=== PATIENT | female | born 1950 | race Caucasian/White ===

== ENCOUNTER 2016-08-24 12:11 | Emergency (ER) | payer OTHER ==
[2016-08-24 12:23] VITALS: TEMP 98.4; BMI 39.9
[2016-08-24] MEDS ORDERED: ACETAMINOPHEN 325 MG TABLET (FP) PO ONE (13:09)
[2016-08-24] MEDS ORDERED: ACETAMINOPHEN 325 MG TABLET (FP) ONE (13:23)
--- NOTE | 2016-08-24 13:49 | PDOC ---
History of Present Illness - General History Source: Patient Exam Limitations: No Limitations - History of Present Illness Initial Comments: 08/24/16 17:04 The patient is a 66 year old female with a significant past medical history of chronic back pain (normally on percocets), who presents to the ED with worsening back pain. She states the back pain radiates down to both legs bilaterally. She states the pain exacerbates when she stands up. She was told by Dr. Napoles a few years ago that she would require back surgery. Patient denies fever, chills, nausea, vomiting, diarrhea, dysuria, frequency, urinary incontinence. <Milind Steen - Last Filed: 08/24/16 17:04> <Radha Morgan - Last Filed: 08/24/16 18:24> - General Chief Complaint: Pain Stated Complaint: PAIN/ THROAT, LEG, BACK Past History <Milind Steen - Last Filed: 08/24/16 17:04> - Past Medical History Anemia: No Asthma: No Cancer: Yes (OVARIAN) Cardiac Disorders: No CVA: No COPD: No CHF: No DVT: Yes (BOTH LEGS) Dementia: No Diabetes: No GI Disorders: Yes (REFLUX) Disorders: No HTN: Yes Hypercholesterolemia: No Kidney Stones: Yes Liver Disease: No Suicide Attempt (Hx): No Seizures: No Thyroid Disease: No - Surgical History Abdominal Surgery: Yes (UMBILICAL HERNIA) Appendectomy: No Cardiac Surgery: No Cholecystectomy: Yes Lung Surgery: No Neurologic Surgery: No Orthopedic Surgery: No - Immunization History Immunization Up to Date: Yes - Psycho/Social/Smoking Cessation Hx Anxiety: No Suicidal Ideation: No Smoking Status: No Smoking History: Never smoked Have you smoked in the past 12 months: No Number of Cigarettes Smoked Daily: 0 Information on smoking cessation initiated: No Hx Alcohol Use: No Drug/Substance Use Hx: No Substance Use Type: None Hx Substance Use Treatment: No <Radha Morgan - Last Filed: 08/24/16 18:24> - Past Medical History Allergies/Adverse Reactions: Allergies Allergy/AdvReac Type Severity Reaction Status Date / Time No Known Drug Allergies Allergy Verified 08/24/16 12:20 Home Medications: Ambulatory Orders Ibuprofen [Motrin -] 600 mg PO TID PRN #90 tablet MDD 3 08/24/16 Oxycodone HCl/Acetaminophen [Percocet 5-325 mg Tablet] 1 tab PO Q4H PRN #15 tablet NS MDD 6 08/24/16 Review of Systems - Review of Systems Able to Perform ROS?: Yes Comments:: 08/24/16 17:05 GENERAL/CONSTITUTIONAL: No fever or chills. No weakness. HEAD, EYES, EARS, NOSE AND THROAT: No change in vision. No ear pain or discharge. No sore throat. CARDIOVASCULAR: No chest pain or shortness of breath. RESPIRATORY: No cough, wheezing, or hemoptysis. GASTROINTESTINAL: No nausea, vomiting, diarrhea or constipation. GENITOURINARY: No dysuria, frequency, or change in urination. MUSCULOSKELETAL: + back pain. No joint or muscle swelling or pain. No neck pain. SKIN: No rash NEUROLOGIC: No headache, vertigo, loss of consciousness, or change in strength/ sensation. ENDOCRINE: No increased thirst. No abnormal weight change. HEMATOLOGIC/LYMPHATIC: No anemia, easy bleeding, or history of blood clots. ALLERGIC/IMMUNOLOGIC: No hives or skin allergy. <Milind Steen - Last Filed: 08/24/16 17:04> *Physical Exam - Vital Signs Last Vital Signs Temp Pulse Resp BP Pulse Ox 98.4 F 106 H 20 144/52 100 08/24/16 12:21 08/24/16 12:21 08/24/16 12:21 08/24/16 12:21 08/24/16 12:21 - Physical Exam Comments: 08/24/16 17:05 GENERAL: Awake, alert, and fully oriented, in no acute distress. Obese. HEAD: No signs of trauma EYES: PERRLA, EOMI, sclera anicteric, conjunctiva clear ENT: Auricles normal inspection, hearing grossly normal, nares patent, oropharynx clear without exudates. Moist mucosa NECK: Normal ROM, supple, no lymphadenopathy, JVD, or masses LUNGS: Breath sounds equal, clear to auscultation bilaterally. No wheezes, and no crackles HEART: Regular rate and rhythm, normal S1 and S2, no murmurs, rubs or gallops ABDOMEN: Soft, nontender, normoactive bowel sounds. No guarding, no rebound. No masses BACK: No midline spinal tenderness. bilateral lumbosacral tenderness. EXTREMITIES: [place] bilateral lower extremity edema. Normal range of motion. No clubbing or cyanosis. No cords, erythema, or tenderness NEUROLOGICAL: Normal speech, normal gait. Mild decreased sensation to touch in the right leg (old) 5/5 lower extremity strength. SKIN: Warm, Dry, normal turgor, no rashes or lesions noted. <Milind Steen - Last Filed: 08/24/16 17:04> - Vital Signs Last Vital Signs Temp Pulse Resp BP Pulse Ox 98.4 F 106 H 20 144/52 100 08/24/16 12:21 08/24/16 12:21 08/24/16 12:21 08/24/16 12:21 08/24/16 12:21 <Radha Morgan - Last Filed: 08/24/16 18:24> ED Treatment Course - Medications Given in the ED: ED Medications Discontinued Medications Generic Name Dose Route Start Last Admin Trade Name Freq PRN Reason Stop Dose Admin Acetaminophen 650 mg 08/24/16 13:09 08/24/16 13:24 Tylenol - PO 08/24/16 13:10 650 mg ONCE ONE Administration Oxycodone HCl 5 mg 08/24/16 16:29 08/24/16 16:44 Roxicodone - PO 08/24/16 16:30 5 mg ONCE ONE Administration <Milind Steen - Last Filed: 08/24/16 17:04> - RADIOLOGY Radiology Studies Ordered: Category Date Time Status HIP & PELVIS-RIGHT [RAD] Stat Radiology 08/24/16 13:07 Ordered HIP-LEFT [RAD] Stat Radiology 08/24/16 13:07 Ordered KNEE 3 POS-RIGHT [RAD] Stat Radiology 08/24/16 13:07 Ordered DUPLEX VASCUL US-2LEGS [US] Stat Ultrasound 08/24/16 13:07 Ordered - Medications Given in the ED: ED Medications Discontinued Medications Generic Name Dose Route Start Last Admin Trade Name Freq PRN Reason Stop Dose Admin Acetaminophen 650 mg 08/24/16 13:09 08/24/16 13:24 Tylenol - PO 08/24/16 13:10 650 mg ONCE ONE Administration <Radha Morgan - Last Filed: 08/24/16 18:24> Medical Decision Making - Medical Decision Making 08/24/16 13:46 66 yo F here with c/o bilat hip pain, and leg pain . worse on right. . pt states has essentially been bed bound for 2 weeks only gets out of bed with assistance. no trauma. has had bilat leg swelling. no fever. chills. no injury. no h/o dvt or pe. no cough. does have voice hoarseness. differential: hip oa, fractures. cellultiis, dvt. plan us legs, xray pelvis hips. <Radha Morgan - Last Filed: 08/24/16 18:24> *DC/Admit/Observation/Transfer - Attestations Scribe Attestion: 08/24/16 17:09 Documentation prepared by Milind Steen, acting as medical director for Radha Morgan MD, MD. <Milind Steen - Last Filed: 08/24/16 17:04> - Discharge Dispostion Admit: No <Radha Morgan - Last Filed: 08/24/16 18:24> Diagnosis at time of Disposition: Hip pain - Discharge Dispostion Disposition: HOME - Prescriptions Prescriptions: Ibuprofen [Motrin -] 600 mg PO TID PRN #90 tablet MDD 3 PRN Reason: Pain Oxycodone HCl/Acetaminophen [Percocet 5-325 mg Tablet] 1 tab PO Q4H PRN #15 tablet NS MDD 6 PRN Reason: Pain - Referrals Referrals: Ronaldo Marley [Primary Care Provider] - - Patient Instructions Printed Discharge Instructions: Back Pain (Alternative Therapy), DI for Back Strain or Sprain Additional Instructions: follow up with Dr. Marley, call to schedule. take motrin 600 mg every 8 hours as needed for pain. take percocet one every 4 hours as needed for pain. return for any problems or concerns. you can folow up with orthopedics group dr. Pablo or Dr. Watson. see referral, or obtain referral from your primary doctor.
[2016-08-24] MEDS ORDERED: oxyCODONE HCL 5 MG TABLET PO ONE (16:29)
[2016-08-24] MEDS ORDERED: oxyCODONE HCL 5 MG TABLET ONE (16:39)
[2016-08-24] MEDS ORDERED: KETOROLAC TROMETHAMINE 30 MG/1 ML VIAL IM ONE (17:00)
[2016-08-24] MEDS ORDERED: KETOROLAC TROMETHAMINE 30 MG/1 ML VIAL ONE (17:03)
[2016-08-24 18:59] VITALS: BP 136/70; PULSE 89
[2016-08-24 19:20] LABS: URINE APPEARANCE CLEAR; URINE BILIRUBIN NEGATIVE (NEGATIVE); URINE BLOOD NEGATIVE (NEGATIVE); URINE COLOR YELLOW; URINE GLUCOSE (UA) NEGATIVE (NEGATIVE); URINE KETONE NEGATIVE (NEGATIVE); URINE NITRITE NEGATIVE (NEGATIVE); URINE UROBILINOGEN NEGATIVE E.U./dl (0.2-1.0)
[2016-08-24 19:21] LABS: URINE LEUK ESTERASE TRACE (NEGATIVE); URINE PROTEIN 2+ (NEGATIVE)
[2016-08-24 19:23] LABS: URINE BACTERIA RARE /hpf (NONE SEEN); URINE HYALINE CAST 1 /lpf; URINE MUCUS RARE; URINE RBC 1 /hpf (0-3); URINE WBC 12 /hpf (3-5)
== END 2016-08-24 19:07 | disposition home or self-care (01) ==
LOC: JER 12:11
PROC: 3E0233Z Introduction of Anti-inflammatory into Muscle, Percutaneous Approach (ICD-10-PCS; principal; 2016-08-24)
DX: M25.551 Pain in right hip (principal); M25.552 Pain in left hip; I10 Essential (primary) hypertension; Z86.718 Personal history of other venous thrombosis and embolism; Z85.43 Personal history of malignant neoplasm of ovary
CPT/HCPCS: 73502-TC-LT; 73523-TC; 73560-TC-RT; 81003; 81015; 87086; 93970-TC; 99283-25

== ENCOUNTER 2018-03-21 16:40 | Inpatient (IN) | payer OTHER, MEDICARE ==
--- NOTE | 2018-03-21 17:11 | PDOC ---
History of Present Illness - General Chief Complaint: Rectal Bleed Stated Complaint: BLOOD IN STOOL, BODYACHES Time Seen by Provider: 03/21/18 17:11 - History of Present Illness Initial Comments: 03/21/18 17:12 Ms. Welch is a 67 yo female w/ pmh of DM, HTN, HLD, GERD, Gastritis, PCOS, UC , uterine CA s/p hysterectomy who presents for evaluation of multiple complaints. Patient reports she has had 1 month of headache as well as 1 week of nausea, vomiting, and diarrhea. Ms. Welch reports minimal blood mixed in with both her vomiting and diarrhea. She also endorses worsening dyspnea on exertion and endorses having to sleep upright on pillows so she is not gasping for air. Ms. Welch also endorses intermittent fever/chills. The patient denies chest pain and dizziness. Denies constipation. Denies dysuria , frequency, urgency and hematuria. Past History - Past Medical History Allergies/Adverse Reactions: Allergies Allergy/AdvReac Type Severity Reaction Status Date / Time No Known Drug Allergies Allergy Verified 03/21/18 17:03 Home Medications: Ambulatory Orders Ibuprofen [Motrin -] 600 mg PO TID PRN #90 tablet MDD 3 08/24/16 Oxycodone HCl/Acetaminophen [Percocet 5-325 mg Tablet] 1 tab PO Q4H PRN #15 tablet NS MDD 6 08/24/16 Amlodipine Besylate 10 mg PO DAILY 03/21/18 Carvedilol 25 mg PO DAILY 03/21/18 Escitalopram Oxalate [Lexapro -] 10 mg PO DAILY 03/21/18 Lisinopril 5 mg PO DAILY 03/21/18 Rosuvastatin Calcium 10 mg PO DAILY 03/21/18 Anemia: No Asthma: No Cancer: Yes (OVARIAN) Cardiac Disorders: No CVA: No COPD: No CHF: No DVT: Yes (BOTH LEGS) Dementia: No Diabetes: No GI Disorders: Yes (REFLUX) Disorders: No HTN: Yes Hypercholesterolemia: No Kidney Stones: Yes Liver Disease: No Seizures: No Thyroid Disease: No - Surgical History Abdominal Surgery: Yes (UMBILICAL HERNIA) Appendectomy: No Cardiac Surgery: No Cholecystectomy: Yes Lung Surgery: No Neurologic Surgery: No Orthopedic Surgery: No - Immunization History Immunization Up to Date: Yes - Suicide/Smoking/Psychosocial Hx Smoking Status: No Smoking History: Never smoked Have you smoked in the past 12 months: No Number of Cigarettes Smoked Daily: 0 Hx Alcohol Use: No Drug/Substance Use Hx: No Substance Use Type: None Hx Substance Use Treatment: No Review of Systems - Review of Systems Comments:: 03/21/18 17:44 GENERAL/CONSTITUTIONAL: +Nonspecific fever/chills over the past week. No weakness. HEAD, EYES, EARS, NOSE AND THROAT: No change in vision. No ear pain or discharge. No sore throat. CARDIOVASCULAR: +Dyspnea on exertion as described. No chest pain RESPIRATORY: No cough, wheezing, or hemoptysis. GASTROINTESTINAL: +N/V/D as described GENITOURINARY: No dysuria, frequency, or change in urination. MUSCULOSKELETAL: No joint or muscle swelling or pain. No neck or back pain. SKIN: No rash NEUROLOGIC: +Chronic headache. No vertigo, loss of consciousness, or change in strength/sensation. ENDOCRINE: No increased thirst. No abnormal weight change HEMATOLOGIC/LYMPHATIC: No anemia, easy bleeding, or history of blood clots. ALLERGIC/IMMUNOLOGIC: No hives or skin allergy. *Physical Exam - Vital Signs Last Vital Signs Temp Pulse Resp BP Pulse Ox 98.2 F 98 H 16 138/83 95 03/21/18 17:03 03/21/18 17:03 03/21/18 17:03 03/21/18 17:03 03/21/18 17:03 - Physical Exam Comments: 03/21/18 17:46 GENERAL: +Patient morbidly obese. Awake, alert, and fully oriented, in no acute distress HEAD: No signs of trauma, normocephalic, atraumatic EYES: PERRLA, EOMI, sclera anicteric, conjunctiva clear ENT: Auricles normal inspection, hearing grossly normal, nares patent, oropharynx clear without exudates. Moist mucosa NECK: Normal ROM, supple, no lymphadenopathy, JVD, or masses LUNGS: No distress, speaks full sentences, clear to auscultation bilaterally HEART: Regular rate and rhythm, normal S1 and S2, no murmurs, rubs or gallops, peripheral pulses normal and equal bilaterally. ABDOMEN: +Diffusely TTP. Soft, normoactive bowel sounds. No guarding, no rebound. No masses EXTREMITIES: +1+ Pedal edema noted [place]. Chronic darkening of skin / scaling noted to mid calf bilaterally as well. Normal range of motion. No clubbing or cyanosis. NEUROLOGICAL: Cranial nerves II through XII grossly intact. Normal speech, normal gait, no focal sensorimotor deficits SKIN: Warm, Dry, normal turgor, no rashes or lesions noted. Moderate Sedation - Procedure Monitoring Vital Signs: Procedure Monitoring Vital Signs Temperature 98.2 F 03/21/18 17:03 Pulse Rate 98 H 03/21/18 17:03 Respiratory Rate 16 03/21/18 17:03 Blood Pressure 138/83 03/21/18 17:03 O2 Sat by Pulse Oximetry (%) 95 03/21/18 17:03 ED Treatment Course - LABORATORY CBC & Chemistry Diagram: 03/21/18 17:46 03/21/18 17:46 Medical Decision Making - Medical Decision Making 03/21/18 18:20 Ms. Welch is a 67 yo female w/ pmh as described who presents for evaluation of myriad complaints concerning for fluid overload vs. GI bleed vs. infectious process. Workup started accordingly - patient will likely come in to hospital for further evaluation. Patient noted to have positive blood in stool on exam. 03/21/18 18:[address] abdomen/pelvis. Labs as below significant for elevated WBC and elevated leukoctye esterase. Patient signed out to Dr. Hairston for further evaluation. Laboratory Results - last 24 hr 03/21/18 03/21/18 03/21/18 17:18 17:46 17:46 WBC 15.2 H RBC 4.42 Hgb 11.5 Hct 35.0 MCV 79.4 L MCH 26.0 MCHC 32.8 RDW 18.5 H Plt Count 290 MPV 8.5 D Absolute Neuts (auto) 12.1 H Neutrophils % 79.2 Lymphocytes % 12.2 D Monocytes % 7.5 Eosinophils % 0.3 Basophils % 0.8 Nucleated RBC % 0 Sodium 140 Potassium 4.3 Chloride 105 Carbon Dioxide 26 Anion Gap 9 BUN 16 Creatinine 1.7 H Creat Clearance w eGFR 30.16 Random Glucose 109 H Lactic Acid Calcium 8.8 Total Bilirubin 0.1 L AST 23 ALT 16 Alkaline Phosphatase 178 H B-Natriuretic Peptide Total Protein 6.1 L Albumin 2.6 L Urine Color Urine Appearance Urine pH Ur Specific [place] Urine Protein Urine Glucose (UA) Urine Ketones Urine Blood Urine Nitrite Urine Bilirubin Urine Urobilinogen Ur Leukocyte Esterase Stool Occult Blood Positive 12/15/18 12/15/18 12/15/18 17:46 17:46 17:46 WBC RBC Hgb Hct MCV MCH MCHC RDW Plt Count MPV Absolute Neuts (auto) Neutrophils % Lymphocytes % Monocytes % Eosinophils % Basophils % Nucleated RBC % Sodium Potassium Chloride Carbon Dioxide Anion Gap BUN Creatinine Creat Clearance w eGFR Random Glucose Lactic Acid 1.0 Calcium Total Bilirubin AST ALT Alkaline Phosphatase B-Natriuretic Peptide 140.9 H Total Protein Albumin Urine Color Ltyellow Urine Appearance Slcloudy Urine pH 5.0 Ur Specific [place] 1.015 Urine Protein 2+ H Urine Glucose (UA) Negative Urine Ketones Negative Urine Blood Negative Urine Nitrite Negative Urine Bilirubin Negative Urine Urobilinogen Negative Ur Leukocyte Esterase 3+ H D Stool Occult Blood *DC/Admit/Observation/Transfer Diagnosis at time of Disposition: Rectal pain Abdominal pain Qualifiers: Abdominal location: unspecified location Qualified Code(s): R10.9 - Unspecified abdominal pain - Referrals - Patient Instructions - Post Discharge Activity
--- NOTE | 2018-03-21 17:36 | PDOC ---
Attending Attestation - HPI HPI: 03/21/18 17:49 The patient is a 67 year old female, with a significant PMH of DM, HTN, HLD, GERD, Gastritis, PCOS, UC, uterine CA s/p hysterectomy, who presents to the emergency department with 1 month of headaches and 1 week of nausea, vomiting and diarrhea. The patient states she has had minimal blood present in her vomit and diarrhea. The patient also had an additional complaint of worsening dyspnea on exertion. The patient also endorses intermittent fevers and chills. The patient denies chest pain, shortness of breath, and dizziness. Denies constipation, dysuria, frequency, urgency and hematuria. Allergies: NKA Documentation prepared by Jeff Bailon, acting as medical lab technician for Francisca Guardado MD. <Jeff Bailon - Last Filed: 03/21/18 17:49> - Resident Resident Name: Carlton Menchaca - ED Attending Attestation I have performed the following: I have examined & evaluated the patient, The case was reviewed & discussed with the resident, I agree w/resident's findings & plan, Exceptions are as noted - Physicial Exam PE: GENERAL: Awake, alert, and fully oriented, in no acute distress. Obese HEAD: No signs of trauma EYES: PERRLA, EOMI, sclera anicteric, conjunctiva clear ENT: Auricles normal inspection, hearing grossly normal, nares patent, oropharynx clear without exudates. Dry mucosa NECK: Normal ROM, supple, no lymphadenopathy, JVD, or masses LUNGS: Breath sounds equal, clear to auscultation bilaterally. No wheezes, and no crackles HEART: Regular rate and rhythm, normal S1 and S2, no murmurs, rubs or gallops ABDOMEN: Soft, protuberant, tender to upper abdomen. Normoactive bowel sounds. + Guarding, no rebound. No masses EXTREMITIES: Normal range of motion, no edema. No clubbing or cyanosis. No cords, erythema, or tenderness NEUROLOGICAL: Cranial nerves II through XII grossly intact. Normal speech, normal gait SKIN: Warm, Dry, normal turgor, no rashes or lesions noted. - Medical Decision Making Pt with history of UC, presenting with abd pain diffusely with tenderness, guaiac positive stools. Will obtain labs and CT. Suspect UC flare. <Francisca Guardado - Last Filed: 03/22/18 07:43>
[2018-03-21] MEDS ORDERED: PANTOPRAZOLE SODIUM 40 MG in SODIUM CHLORIDE 100 ML IVPB ONE (17:37)
[2018-03-21] MEDS ORDERED: ONDANSETRON 4 MG/2 ML VIAL IVPUSH ONE ×2 (17:39→22:17)
[2018-03-21] MEDS ORDERED: morphine CARPU-JECT 4 MG/1 ML DISP.SYRIN IVPUSH ONE ×2 (17:43→20:46)
[2018-03-21] MEDS ORDERED: SODIUM CHLORIDE 1,000 ML IV STA (17:43)
[2018-03-21] MEDS ORDERED: ONDANSETRON 4 MG/2 ML VIAL ONE ×2 (18:09→22:34)
[2018-03-21] MEDS ORDERED: PANTOPRAZOLE SODIUM 40 MG/100 ML BAG IVPB ONE (18:09)
[2018-03-21] MEDS ORDERED: morphine SULFATE 4 MG/ML VIAL ONE ×2 (18:09→20:52)
[2018-03-21 18:11] LABS: BASO % 0.8 % (0-2.0); EOS % 0.3 % (0-4.5); HEMOGLOBIN 11.5 GM/dL (10.7-15.3); LYMPH % 12.2 % (8-40); MCHC 32.8 g/dl (32.0-36.0); MEAN CELL VOLUME 79.4 fl (80-96); MEAN PLT VOLUME 8.5 fl (7.5-11.1); MONO % 7.5 % (3.8-10.2); NEUT % 79.2 % (42.8-82.8); PLATELET COUNT 290 K/MM3 (134-434); RBC 4.42 M/mm3 (3.60-5.2); RDW 18.5 % (11.6-15.6); WHITE BLOOD COUNT 15.2 K/mm3 (4.0-10.0)
[2018-03-21 18:39] LABS: ALBUMIN 2.6 g/dl (3.4-5.0); ALK PHOS 178 U/L (45-117); ANION GAP 9 MMOL/L (8-16); BILIRUBIN,TOTAL 0.1 mg/dL (0.2-1); BLOOD UREA NITROGEN 16 mg/dL (7-18); CALCIUM 8.8 mg/dL (8.5-10.1); CHLORIDE 105 mmol/L (98-107); CO2 26 mmol/L (21-32); CREATININE 1.7 mg/dL (0.55-1.3); GLUCOSE,RANDOM 109 mg/dL (74-106); POTASSIUM 4.3 mmol/L (3.5-5.1); SGOT/AST 23 U/L (15-37); SGPT/ALT 16 U/L (13-61); SODIUM 140 mmol/L (136-145); TOT PROT 6.1 g/dl (6.4-8.2)
[2018-03-21] MEDS ORDERED: ACETAMINOPHEN 1000 MG/100 ML VIAL (NON FORMULARY) IVPB ONE (20:46)
[2018-03-21] MEDS ORDERED: LIDOCAINE 5% TOPICAL PATCH TP ONE (20:46)
[2018-03-21] MEDS ORDERED: ACETAMINOPHEN INJECTION 100 ML IVPB ONE (20:52)
[2018-03-21] MEDS ORDERED: LIDOCAINE 5% TOPICAL PATCH ONE (20:53)
--- NOTE | 2018-03-21 21:52 | PDOC ---
*Physical Exam - Vital Signs Last Vital Signs Temp Pulse Resp BP Pulse Ox 98.2 F 94 H 22 H 133/81 94 L 03/21/18 17:03 03/21/18 20:03 03/21/18 20:03 03/21/18 20:03 03/21/18 20:03 ED Treatment Course - LABORATORY CBC & Chemistry Diagram: 03/21/18 17:46 03/21/18 17:46 - ADDITIONAL ORDERS Additional order review: Laboratory Results 03/21/18 03/21/18 03/21/18 17:46 17:46 17:46 Sodium Potassium Chloride Carbon Dioxide Anion Gap BUN Creatinine Creat Clearance w eGFR Random Glucose Lactic Acid 1.0 Calcium Total Bilirubin AST ALT Alkaline Phosphatase B-Natriuretic Peptide Total Protein Albumin Lipase 72 L Urine Color Cancelled Urine Appearance Cancelled Urine pH Cancelled Ur Specific [place] Cancelled Urine Protein Cancelled Urine Glucose (UA) Cancelled Urine Ketones Cancelled Urine Blood Cancelled Urine Nitrite Cancelled Urine Bilirubin Cancelled Urine Urobilinogen Cancelled Ur Leukocyte Esterase Cancelled Urine WBC (Auto) Cancelled Urine RBC (Auto) Cancelled Ur Epithelial Cells Cancelled Urine Crystals Cancelled Calcium Oxalate Crystal Cancelled Uric Acid Crystals Cancelled Triple Phos Crystals Cancelled Amorphous Phosphates Cancelled Amorphous Urates Cancelled Amorphous Sediment Cancelled Urine Bacteria Cancelled Urine Casts Cancelled Hyaline Casts Cancelled Granular Casts Cancelled Waxy Casts Cancelled RBC Casts Cancelled WBC Casts Cancelled Urine Mucus Cancelled Urine Other Cancelled Urine Trichomonas Cancelled Urine Yeast Cancelled Stool Occult Blood Blood Type Antibody Screen 03/21/18 03/21/18 03/21/18 17:46 17:46 17:46 Sodium 140 Potassium 4.3 Chloride 105 Carbon Dioxide 26 Anion Gap 9 BUN 16 Creatinine 1.7 H Creat Clearance w eGFR 30.16 Random Glucose 109 H Lactic Acid Calcium 8.8 Total Bilirubin 0.1 L AST 23 ALT 16 Alkaline Phosphatase 178 H B-Natriuretic Peptide 140.9 H Total Protein 6.1 L Albumin 2.6 L Lipase Urine Color Urine Appearance Urine pH Ur Specific [place] Urine Protein Urine Glucose (UA) Urine Ketones Urine Blood Urine Nitrite Urine Bilirubin Urine Urobilinogen Ur Leukocyte Esterase Urine WBC (Auto) Urine RBC (Auto) Ur Epithelial Cells Urine Crystals Calcium Oxalate Crystal Uric Acid Crystals Triple Phos Crystals Amorphous Phosphates Amorphous Urates Amorphous Sediment Urine Bacteria Urine Casts Hyaline Casts Granular Casts Waxy Casts RBC Casts WBC Casts Urine Mucus Urine Other Urine Trichomonas Urine Yeast Stool Occult Blood Blood Type A POSITIVE Antibody Screen Negative 03/21/18 17:18 Sodium Potassium Chloride Carbon Dioxide Anion Gap BUN Creatinine Creat Clearance w eGFR Random Glucose Lactic Acid Calcium Total Bilirubin AST ALT Alkaline Phosphatase B-Natriuretic Peptide Total Protein Albumin Lipase Urine Color Urine Appearance Urine pH Ur Specific [place] Urine Protein Urine Glucose (UA) Urine Ketones Urine Blood Urine Nitrite Urine Bilirubin Urine Urobilinogen Ur Leukocyte Esterase Urine WBC (Auto) Urine RBC (Auto) Ur Epithelial Cells Urine Crystals Calcium Oxalate Crystal Uric Acid Crystals Triple Phos Crystals Amorphous Phosphates Amorphous Urates Amorphous Sediment Urine Bacteria Urine Casts Hyaline Casts Granular Casts Waxy Casts RBC Casts WBC Casts Urine Mucus Urine Other Urine Trichomonas Urine Yeast Stool Occult Blood Positive Blood Type Antibody Screen 03/21/18 17:46 RBC 4.42 MCV 79.4 L MCHC 32.8 RDW 18.5 H MPV 8.5 D Neutrophils % 79.2 Lymphocytes % 12.2 D Monocytes % 7.5 Eosinophils % 0.3 Basophils % 0.8 - RADIOLOGY Radiology Studies Ordered: Category Date Time Status ABDOMEN & PELVIS CT W/O CONTR [CT] Stat CT Scan 03/21/18 19:05 Taken - Medications Given in the ED: ED Medications Discontinued Medications Generic Name Dose Route Start Last Admin Trade Name Ashley PRN Reason Stop Dose Admin Acetaminophen 1,000 mg 03/21/18 20:46 03/21/18 21:04 Ofirmev Injection - IVPB 03/21/18 20:47 1,000 mg ONCE ONE Administration Pantoprazole Sodium 40 mg/ 100 mls @ 200 mls/hr 03/21/18 17:37 03/21/18 18:20 Sodium Chloride IVPB 03/21/18 18:06 200 mls/hr ONCE ONE Administration Sodium Chloride 1,000 mls @ 1,000 mls/hr 03/21/18 17:43 03/21/18 18:20 Normal Saline - IV 03/21/18 18:42 1,000 mls/hr ASDIR STA Administration Metronidazole 500 mg in 100 mls @ 100 mls/hr 03/21/18 19:28 03/21/18 19:41 Flagyl 500mg Premixed Ivpb - IVPB 03/21/18 20:27 100 mls/hr ONCE ONE Administration Lidocaine 1 patch 03/21/18 20:46 03/21/18 21:03 Lidoderm Patch - TP 03/21/18 20:47 1 patch ONCE ONE Administration Morphine Sulfate 4 mg 03/21/18 17:43 03/21/18 18:25 Morphine Injection - IVPUSH 03/21/18 17:44 4 mg ONCE ONE Administration Morphine Sulfate 4 mg 03/21/18 20:46 03/21/18 21:04 Morphine Injection - IVPUSH 03/21/18 20:47 4 mg ONCE ONE Administration Ondansetron HCl 4 mg 03/21/18 17:39 03/21/18 18:20 Zofran Injection IVPUSH 03/21/18 17:40 4 mg ONCE ONE Administration Medical Decision Making - Medical Decision Making I have assumed care of the patient from Dr. Menchaca, who has discussed the clinical presentation, work-up, and ED course thus far. I have reviewed the patients medical record and ED course and agree with all aspects of care thus far. Leukocytosis to 15.2 No anemia Lactate [address] w/ diffuse colon wall edema from proximal descending colon to mid sigmoid colon which is consistent with colitis Plan for admission for GI bleed w/ concurrent colitis 03/21/18 21:46 UA cancelled after being resulted, will re-order Dispo: Admit 03/21/18 22:49 *DC/Admit/Observation/Transfer Diagnosis at time of Disposition: Rectal pain, Colitis Abdominal pain Qualifiers: Abdominal location: unspecified location Qualified Code(s): R10.9 - Unspecified abdominal pain GI bleed Qualifiers: GI bleed type/associated pathology: unspecified gastrointestinal hemorrhage type Qualified Code(s): K92.2 - Gastrointestinal hemorrhage, unspecified - Discharge Dispostion Condition at time of disposition: Good Decision to Admit order: Yes - Referrals - Patient Instructions - Post Discharge Activity
[2018-03-21] MEDS ORDERED: LIDOCAINE PATCH REMOVAL MC SCH (22:00)
--- NOTE | 2018-03-21 22:52 | PDOC ---
*Physical Exam - Vital Signs Last Vital Signs Temp Pulse Resp BP Pulse Ox 98.2 F 94 H 22 H 133/81 94 L 03/21/18 17:03 03/21/18 20:03 03/21/18 20:03 03/21/18 20:03 03/21/18 20:03 ED Treatment Course - LABORATORY CBC & Chemistry Diagram: 03/21/18 17:46 03/21/18 17:46 - ADDITIONAL ORDERS Additional order review: Laboratory Results 03/21/18 03/21/18 03/21/18 17:46 17:46 17:46 Sodium Potassium Chloride Carbon Dioxide Anion Gap BUN Creatinine Creat Clearance w eGFR Random Glucose Lactic Acid 1.0 Calcium Total Bilirubin AST ALT Alkaline Phosphatase B-Natriuretic Peptide Total Protein Albumin Lipase 72 L Urine Color Cancelled Urine Appearance Cancelled Urine pH Cancelled Ur Specific Poca Cancelled Urine Protein Cancelled Urine Glucose (UA) Cancelled Urine Ketones Cancelled Urine Blood Cancelled Urine Nitrite Cancelled Urine Bilirubin Cancelled Urine Urobilinogen Cancelled Ur Leukocyte Esterase Cancelled Urine WBC (Auto) Cancelled Urine RBC (Auto) Cancelled Ur Epithelial Cells Cancelled Urine Crystals Cancelled Calcium Oxalate Crystal Cancelled Uric Acid Crystals Cancelled Triple Phos Crystals Cancelled Amorphous Phosphates Cancelled Amorphous Urates Cancelled Amorphous Sediment Cancelled Urine Bacteria Cancelled Urine Casts Cancelled Hyaline Casts Cancelled Granular Casts Cancelled Waxy Casts Cancelled RBC Casts Cancelled WBC Casts Cancelled Urine Mucus Cancelled Urine Other Cancelled Urine Trichomonas Cancelled Urine Yeast Cancelled Stool Occult Blood Blood Type Antibody Screen 03/21/18 03/21/18 03/21/18 17:46 17:46 17:46 Sodium 140 Potassium 4.3 Chloride 105 Carbon Dioxide 26 Anion Gap 9 BUN 16 Creatinine 1.7 H Creat Clearance w eGFR 30.16 Random Glucose 109 H Lactic Acid Calcium 8.8 Total Bilirubin 0.1 L AST 23 ALT 16 Alkaline Phosphatase 178 H B-Natriuretic Peptide 140.9 H Total Protein 6.1 L Albumin 2.6 L Lipase Urine Color Urine Appearance Urine pH Ur Specific Poca Urine Protein Urine Glucose (UA) Urine Ketones Urine Blood Urine Nitrite Urine Bilirubin Urine Urobilinogen Ur Leukocyte Esterase Urine WBC (Auto) Urine RBC (Auto) Ur Epithelial Cells Urine Crystals Calcium Oxalate Crystal Uric Acid Crystals Triple Phos Crystals Amorphous Phosphates Amorphous Urates Amorphous Sediment Urine Bacteria Urine Casts Hyaline Casts Granular Casts Waxy Casts RBC Casts WBC Casts Urine Mucus Urine Other Urine Trichomonas Urine Yeast Stool Occult Blood Blood Type A POSITIVE Antibody Screen Negative 03/21/18 17:18 Sodium Potassium Chloride Carbon Dioxide Anion Gap BUN Creatinine Creat Clearance w eGFR Random Glucose Lactic Acid Calcium Total Bilirubin AST ALT Alkaline Phosphatase B-Natriuretic Peptide Total Protein Albumin Lipase Urine Color Urine Appearance Urine pH Ur Specific Poca Urine Protein Urine Glucose (UA) Urine Ketones Urine Blood Urine Nitrite Urine Bilirubin Urine Urobilinogen Ur Leukocyte Esterase Urine WBC (Auto) Urine RBC (Auto) Ur Epithelial Cells Urine Crystals Calcium Oxalate Crystal Uric Acid Crystals Triple Phos Crystals Amorphous Phosphates Amorphous Urates Amorphous Sediment Urine Bacteria Urine Casts Hyaline Casts Granular Casts Waxy Casts RBC Casts WBC Casts Urine Mucus Urine Other Urine Trichomonas Urine Yeast Stool Occult Blood Positive Blood Type Antibody Screen 03/21/18 17:46 RBC 4.42 MCV 79.4 L MCHC 32.8 RDW 18.5 H MPV 8.5 D Neutrophils % 79.2 Lymphocytes % 12.2 D Monocytes % 7.5 Eosinophils % 0.3 Basophils % 0.8 - Medications Given in the ED: ED Medications Discontinued Medications Generic Name Dose Route Start Last Admin Trade Name Freq PRN Reason Stop Dose Admin Acetaminophen 1,000 mg 03/21/18 20:46 03/21/18 21:04 Ofirmev Injection - IVPB 03/21/18 20:47 1,000 mg ONCE ONE Administration Pantoprazole Sodium 40 mg/ 100 mls @ 200 mls/hr 03/21/18 17:37 03/21/18 18:20 Sodium Chloride IVPB 03/21/18 18:06 200 mls/hr ONCE ONE Administration Sodium Chloride 1,000 mls @ 1,000 mls/hr 03/21/18 17:43 03/21/18 18:20 Normal Saline - IV 03/21/18 18:42 1,000 mls/hr ASDIR STA Administration Levofloxacin 500 mg in 100 mls @ 100 mls/hr 03/21/18 19:27 03/21/18 21:56 Levaquin 500 Mg Premixed Ivpb - IVPB 03/21/18 20:26 100 mls/hr ONCE ONE Administration Protocol Metronidazole 500 mg in 100 mls @ 100 mls/hr 03/21/18 19:28 03/21/18 19:41 Flagyl 500mg Premixed Ivpb - IVPB 03/21/18 20:27 100 mls/hr ONCE ONE Administration Lidocaine 1 patch 03/21/18 20:46 03/21/18 21:03 Lidoderm Patch - TP 03/21/18 20:47 1 patch ONCE ONE Administration Morphine Sulfate 4 mg 03/21/18 17:43 03/21/18 18:25 Morphine Injection - IVPUSH 03/21/18 17:44 4 mg ONCE ONE Administration Morphine Sulfate 4 mg 03/21/18 20:46 03/21/18 21:04 Morphine Injection - IVPUSH 03/21/18 20:47 4 mg ONCE ONE Administration Ondansetron HCl 4 mg 03/21/18 17:39 03/21/18 18:20 Zofran Injection IVPUSH 03/21/18 17:40 4 mg ONCE ONE Administration Ondansetron HCl 4 mg 03/21/18 22:17 03/21/18 22:39 Zofran Injection IVPUSH 03/21/18 22:18 4 mg ONCE ONE Administration Medical Decision Making - Medical Decision Making 03/21/18 22:51 Patient Name: MARINA DAILEY THIS IS A PRELIMINARY REPORT FROM [facility] EXAM: CT abdomen and pelvis without contrast IMAGES:[id number] DATE OF EXAM: 2018-03-21 20:07:13 REASON FOR EXAM: Abdominal pain COMPARISON: None Findings: Atelectasis and scarring in lung bases. No pleural effusions. Prior Em fundoplication. Small epigastric ventral hernia containing fat. Cholecystectomy. The liver, pancreas, and spleen are grossly unremarkable. Mild edema around the adrenal glands. Bilateral renal cortical scarring and polycystic kidneys with indeterminate hypodense and hyperdense renal cysts. Small bilateral intrarenal calcifications. No ureteral calculi or hydronephrosis. No AAA. *Diffuse colon wall edema from the proximal descending colon to the mid sigmoid colon, compatible with colitis. No evidence for diverticulitis, appendicitis, small bowel obstruction, free pelvic fluid, or free air. Hysterectomy. Vertebral hemangioma at L3, usually of no clinical significance. Cystic changes in right femoral head. 03/21/18 22:51 Pt will be admitted for colitis; abx given in the ER: Levaquin and flagyl *DC/Admit/Observation/Transfer Diagnosis at time of Disposition: Rectal pain Abdominal pain Qualifiers: Abdominal location: unspecified location Qualified Code(s): R10.9 - Unspecified abdominal pain - Referrals - Patient Instructions - Post Discharge Activity
[2018-03-21] MEDS ORDERED: SODIUM CHLORIDE 1,000 ML IV SCH (23:30)
--- NOTE | 2018-03-21 23:51 | HP ---
CHIEF COMPLAINT: headache, nausea, vomiting, diarrhea PCP: HISTORY OF PRESENT ILLNESS: Patient is a 67 y/o female with a history of DM, HTN, GERD, polycystic kidney disease, uterine CA s/p hysterectomy, and asthma who presents for headaches, nausea, vomiting, and diarrhea. Patient reports she has been having hte headache , nause, and vomiting for the last few weeks. For chronic pain she takes percocet and she has also been taking extra strength tylenol, and reports no relief. She states she has been vomiting around three times a week and has noted blood in some of the episodes. The amount of blood has ranged from a small cup to a teaspoon. For the last four days patient has been having diarrhea and states she has seen blood. Patient reports she has a colonoscopy in the past and a "cyst" was removed. She was told she needed to follow up for more removal but never went back. Patient reports she has a lot of chronic pain which makes it difficult for her to do things. Patient also complains of a lower extremity change in skin color that no one has ever been able to explain for her. Patient reports she has also been feeling feverish with chills, and has a difficult time taking a deep breath because of her abdominal pain. She denies chest pain. ER course was notable for: (1) (2) (3) Recent Travel: PAST MEDICAL HISTORY: DM, HTN, GERD, polycystic kidney disease, uterine CA s/p hysterectomy, and asthma PAST SURGICAL HISTORY: hysterectomy (89), cholecystectomy Social History: Smoking: never Alcohol: denies Drugs: Family History: Allergies No Known Drug Allergies Allergy (Verified 03/21/18 17:03) HOME MEDICATIONS: Home Medications Medication Instructions Recorded Ibuprofen [Motrin -] 600 mg PO TID PRN #90 tablet MDD 3 08/24/16 Oxycodone HCl/Acetaminophen 1 tab PO Q4H PRN #15 tablet NS MDD 08/24/16 [Percocet 5-325 mg Tablet] 6 Amlodipine Besylate 10 mg PO DAILY 03/21/18 Carvedilol 25 mg PO DAILY 03/21/18 Escitalopram Oxalate [Lexapro -] 10 mg PO DAILY 03/21/18 Lisinopril 5 mg PO DAILY 03/21/18 Rosuvastatin Calcium 10 mg PO DAILY 03/21/18 REVIEW OF SYSTEMS CONSTITUTIONAL: fever, chills, Absent: diaphoresis, generalized weakness, malaise, loss of appetite, weight change HEENT: Absent: rhinorrhea, nasal congestion, throat pain, throat swelling, difficulty swallowing, mouth swelling, ear pain, eye pain, visual changes CARDIOVASCULAR: Absent: chest pain, syncope, palpitations, irregular heart rate, lightheadedness , peripheral edema RESPIRATORY: shortness of breath Absent: cough, dyspnea with exertion, orthopnea, wheezing, stridor, hemoptysis GASTROINTESTINAL:abdominal pain, nausea, vomiting, diarrhea Absent: , abdominal distension, constipation, melena, hematochezia GENITOURINARY: Absent: dysuria, frequency, urgency, hesitancy, hematuria, flank pain, genital pain MUSCULOSKELETAL: Absent: myalgia, arthralgia, joint swelling, back pain, neck pain SKIN: Absent: rash, itching, pallor HEMATOLOGIC/IMMUNOLOGIC: Absent: easy bleeding, easy bruising, lymphadenopathy, frequent infections ENDOCRINE: Absent: unexplained weight gain, unexplained weight loss, heat intolerance, cold intolerance NEUROLOGIC: Absent: headache, focal weakness or paresthesias, dizziness, unsteady gait, seizure, mental status changes, bladder or bowel incontinence PSYCHIATRIC: Absent: anxiety, depression, suicidal or homicidal ideation, hallucinations. PHYSICAL EXAMINATION Vital Signs - 24 hr 03/21/18 03/21/18 03/21/18 17:03 20:02 20:03 Temperature 98.2 F Pulse Rate 98 H Pulse Rate [ 94 H Radial] Respiratory 16 22 H Rate Blood Pressure 138/83 Blood Pressure 133/81 [Left Arm] O2 Sat by Pulse 95 94 L 94 L Oximetry (%) GENERAL: Awake, alert, and fully oriented, in no acute distress. HEAD: Normal with no signs of trauma. EYES: Pupils equal, round and reactive to light, extraocular movements intact EARS, NOSE, THROAT: Moist mucous membranes. NECK: Normal range of motion, No acanthos nigricans LUNGS: Breath sounds equal, clear to auscultation bilaterally. No wheezes, and no crackles. No accessory muscle use. HEART: Regular rate and rhythm, normal S1 and S2 without murmur, rub or gallop. ABDOMEN:tenderness diffusely, soft. LOWER EXTREMITIES: 2+ pulses, warm, well-perfused. No calf tenderness. 2+ pitting edema NEUROLOGICAL: Cranial nerves II-XII intact. Normal speech. Normal gait. PSYCHIATRIC: Cooperative. Good eye contact. Appropriate mood and affect. SKIN: B/L lower extremity dark flaky extensive color change Laboratory Results - last 24 hr CBCD WBC 15.2 K/mm3 (4.0-10.0) H 03/21/18 17:46 RBC 4.42 M/mm3 (3.60-5.2) 03/21/18 17:46 Hgb 11.5 GM/dL (10.7-15.3) 03/21/18 17:46 Hct 35.0 % (32.4-45.2) 03/21/18 17:46 MCV 79.4 fl (80-96) L 03/21/18 17:46 MCHC 32.8 g/dl (32.0-36.0) 03/21/18 17:46 RDW 18.5 % (11.6-15.6) H 03/21/18 17:46 Plt Count 290 K/MM3 (134-434) 03/21/18 17:46 MPV 8.5 fl (7.5-11.1) D 03/21/18 17:46 CMP Sodium 140 mmol/L (136-145) 03/21/18 17:46 Potassium 4.3 mmol/L (3.5-5.1) 03/21/18 17:46 Chloride 105 mmol/L (98-107) 03/21/18 17:46 Carbon Dioxide 26 mmol/L (21-32) 03/21/18 17:46 Anion Gap 9 MMOL/L (8-16) 03/21/18 17:46 BUN 16 mg/dL (7-18) 03/21/18 17:46 Creatinine 1.7 mg/dL (0.55-1.3) H 03/21/18 17:46 Creat Clearance w eGFR 30.16 (>60) 03/21/18 17:46 Calcium 8.8 mg/dL (8.5-10.1) 03/21/18 17:46 Total Bilirubin 0.1 mg/dL (0.2-1) L 03/21/18 17:46 AST 23 U/L (15-37) 03/21/18 17:46 ALT 16 U/L (13-61) 03/21/18 17:46 Alkaline Phosphatase 178 U/L (45-117) H 12/15/18 17:46 Total Protein 6.1 g/dl (6.4-8.2) L 03/21/18 17:46 Albumin 2.6 g/dl (3.4-5.0) L 03/21/18 17:46 ASSESSMENT/PLAN: Patient is a 67 y/o female with a history of DM, HTN, GERD, polycystic kidney disease, uterine CA s/p hysterectomy, and asthma who presents for headaches, nausea, vomiting, and diarrhea. #nausea,vomiting, diarrhea with blood - 2/2 to colitis vs abnormal colonoscopy vs gastritis - currently hemodynamially stable - stool occult positive - transfuse if Hgb drops below 7 - ABD CT: diffuse colon wall edema from proximal descendig colon o mid sigmoid colon - f/u Dr. Bills - Protonix 40 daily - NPO - f/u CBC, Hgb: 11.5 - pain management tramadol once - continue Metronidazole 500 IV q8h for infectious colitis #DM - BGM, SS - f/u A1C - per patient she takes insulin at home # CKD - 2/2 polycystic kidney disease - Cr: 1.7 - continue fluids #asthma - nebs prn - per patient she has a inhaler at home #HLD - continue rosuvastatin #HTN - continue caredilol, amlodipine, lisinopril #depression - escitalopram FEN - NPO - f/u morning labs Dispo: [facility] closed, f/u med rec in the morning Visit type - Emergency Visit Emergency Visit: Yes ED Registration Date: 03/21/18 Care time: The patient presented to the Emergency Department on the above date and was hospitalized for further evaluation of their emergent condition. - New Patient This patient is new to me today: Yes Date on this admission: 03/22/18 - Critical Care Critical Care patient: No
[2018-03-22] MEDS ORDERED: traMADol HCL 50 MG TABLET PO ONE (00:06)
[2018-03-22] MEDS ORDERED: ALBUTEROL SO4 0.083% IH SOL 2.5 MG/3 ML VIAL.NEB. NEB PRN (00:06)
--- NOTE | 2018-03-22 00:26 | PN ---
Teaching Attending Note Name of Resident: Andressa Livingston ATTENDING PHYSICIAN STATEMENT I saw and evaluated the patient. I reviewed the resident's note and discussed the case with the resident. I agree with the resident's findings and plan as documented. SUBJECTIVE: OBJECTIVE: ASSESSMENT AND PLAN: this is a 67 y/o female with HTN, NIDDM, DL, and chronic pain presented to the hospital with abdominal discomfort associated with bloating and loose stools, patient stated that she has had some dark colored stools and sometimes blood tinged stool, that is why she decided to come to the ER. in the ER the fecal occult was positive, but the patient CT showed colitis plan: admit to med surg for observation - start metronidazole 500mg q8hrs - GI consult - monitor H/H - transfuse if the patient is actively bleeding and a significant drop in H/H c/w management for the DM, HTN, DL, and chronic pain paint was taking oxycodone/acetaminophen and acetaminophen (500mg) i explained that she cannot consume this much amount of acetaminophen due to the toxicity on the liver. encourage diet and life style modification obesity class III
[2018-03-22 01:22] LABS: URINE APPEARANCE SLCLOUDY; URINE BILIRUBIN NEGATIVE (<2.0 mg/dL); URINE COLOR LTYELLOW; URINE GLUCOSE (UA) NEGATIVE (NEGATIVE); URINE KETONE NEGATIVE (NEGATIVE); URINE LEUK ESTERASE 3+ (NEGATIVE); URINE NITRITE NEGATIVE (NEGATIVE); URINE PROTEIN 2+ (NEGATIVE); URINE UROBILINOGEN NEGATIVE mg/dL (0.2-1.0)
[2018-03-22 01:26] LABS: EPI CELLS RARE /HPF (FEW); URINE MUCUS RARE
[2018-03-22] MEDS ORDERED: morphine SULFATE 4 MG/ML VIAL IVPUSH ONE (04:45)
[2018-03-22] MEDS ORDERED: HEPARIN NA (PORCINE) 5,000 UNITS/ML 1ML VIAL SQ SCH (06:00)
[2018-03-22] MEDS: INSULIN SLIDING SCALE (NOVOLOG) 1 VIAL SQ SCH ×4 (06:43→22:33)
[2018-03-22 07:25] LABS: BASO % 0.2 % (0-2.0); EOS % 0.1 % (0-4.5); HEMATOCRIT 36.2 % (32.4-45.2); HEMOGLOBIN 11.2 GM/dL (10.7-15.3); LYMPH % 10.4 % (8-40); MCH 24.9 pg (25.7-33.7); MEAN CELL VOLUME 80.2 fl (80-96); MONO % 4.2 % (3.8-10.2); NEUT % 85.1 % (42.8-82.8); PLATELET COUNT 267 K/MM3 (134-434); RBC 4.51 M/mm3 (3.60-5.2); RDW 18.9 % (11.6-15.6)
[2018-03-22 08:12] LABS: ALBUMIN 2.6 g/dl (3.4-5.0); ALK PHOS 180 U/L (45-117); ANION GAP 8 MMOL/L (8-16); BILIRUBIN,TOTAL 0.2 mg/dL (0.2-1); BLOOD UREA NITROGEN 13 mg/dL (7-18); CALCIUM 8.8 mg/dL (8.5-10.1); CHLORIDE 108 mmol/L (98-107); CO2 26 mmol/L (21-32); CREATININE 1.6 mg/dL (0.55-1.3); GLUCOSE,RANDOM 109 mg/dL (74-106); POTASSIUM 4.5 mmol/L (3.5-5.1); SGOT/AST 13 U/L (15-37); SGPT/ALT 14 U/L (13-61); SODIUM 142 mmol/L (136-145); TOT PROT 6.2 g/dl (6.4-8.2)
--- NOTE | 2018-03-22 08:23 | PN ---
Progress Note, Physician Chief Complaint: Ms Welch complains of abdominal pain today. Says it is a 01/14 and is requesting pain medications. Still having diarrhea. Nausea been present for a week, but vomiting started yesterday. No episode of vomiting yet this am. No cp or sob. - Current Medication List Current Medications: Active Medications Albuterol Sulfate (Ventolin 0.083% Nebulizer Soln -) 1 amp NEB Q6H PRN PRN Reason: SHORT OF BREATH/WHEEZING Amlodipine Besylate (Norvasc -) 10 mg PO DAILY [facility] Carvedilol (Coreg -) 12.5 mg PO BID [facility] Escitalopram Oxalate (Lexapro -) 10 mg PO DAILY [facility] Metronidazole (Flagyl 500mg Premixed Ivpb -) 500 mg in 100 mls @ 100 mls/hr IVPB Q8H-IV MARIA E Last Admin: 03/22/18 02:47 Dose: 100 mls/hr Sodium Chloride (Normal Saline -) 1,000 mls @ 100 mls/hr IV ASDIR MARIA E Last Admin: 03/21/18 23:50 Dose: 100 mls/hr Levofloxacin (Levaquin 750 Mg Premixed Ivpb -) 750 mg in 150 mls @ 150 mls/hr IVPB Q48H MARIA E; Protocol Insulin Aspart (Novolog Vial Sliding Scale -) 1 vial SQ ACHS MARIA E; Protocol Last Admin: 03/22/18 06:43 Dose: Not Given Lisinopril (Prinivil) 5 mg PO DAILY [facility] Morphine Sulfate (Morphine Injection -) 1 mg IVPUSH Q4H PRN PRN Reason: PAIN LEVEL 6-10 Pantoprazole Sodium (Protonix -) 40 mg PO DAILY [facility] Rosuvastatin Calcium (Crestor -) 10 mg PO HS MARIA E - Objective Vital Signs: Vital Signs Temperature 36.7 C 03/22/18 01:22 Pulse Rate 93 H 03/22/18 01:22 Respiratory Rate 18 03/22/18 01:22 Blood Pressure 159/94 03/22/18 01:22 O2 Sat by Pulse Oximetry (%) 95 03/22/18 04:00 Constitutional: Yes: No Distress, Calm, Obese Cardiovascular: Yes: Regular Rate and Rhythm. No: Gallop, Murmur, Rub Respiratory: Yes: Regular, CTA Bilaterally. No: Rales, Rhonchi, Wheezes Gastrointestinal: Yes: Normal Bowel Sounds, Soft, Tenderness. No: Distention Extremities: Yes: Other (chronic pigmentation) Edema: Yes Edema: LLE: 1+, RLE: 1+ Labs: CBC, BMP 03/22/18 06:00 03/22/18 06:00 Problem List - Problems (1) Colitis Assessment/Plan: -preliminary read showing colitis -also with leukocytosis -will treat for infectious colitis -given levaquin in the ED -currently on flagyl 500mg IV q8h -will add levaquin 750mg IV q48h secondary to renal function -GI consult placed -of note patient no longer sees Dr Goncalves Code(s): K52.9 - NONINFECTIVE GASTROENTERITIS AND COLITIS, UNSPECIFIED (2) GI bleed Assessment/Plan: -monitor H/H -IVF -npo -GI consult -patient thinks last colonscopy was 3 years ago Code(s): K92.2 - GASTROINTESTINAL HEMORRHAGE, UNSPECIFIED Qualifiers: GI bleed type/associated pathology: unspecified gastrointestinal hemorrhage type Qualified Code(s): K92.2 - Gastrointestinal hemorrhage, unspecified (3) HTN (hypertension) Assessment/Plan: -continue coreg, norvasc, and lisinopril -monitor Code(s): I10 - ESSENTIAL (PRIMARY) HYPERTENSION Qualifiers: Hypertension type: essential hypertension Qualified Code(s): I10 - Essential (primary) hypertension (4) Migraine aura, persistent, intractable Assessment/Plan: -chronic Code(s): G43.519 - PERST MIGRAINE AURA W/O CEREBRAL INFRC, NTRCT, W/O STAT MIGR (5) Polycystic kidney disease Assessment/Plan: -monitor renal function Code(s): Q61.3 - POLYCYSTIC KIDNEY, UNSPECIFIED (6) HLD (hyperlipidemia) Assessment/Plan: -continue crestor Code(s): E78.5 - HYPERLIPIDEMIA, UNSPECIFIED (7) Chronic pain Assessment/Plan: -patient takes percocet -unclear if this is for chronic back pain or chronic abdominal pain -patient at first says her abdominal pain is new, however later says that it has been there for years and it is now worse -patient also unclear on how her abdominal pain was worked up in past -she will need pain medication to prevent withdrawal while here -will place on low dose IV morphine -treat colitis -transition to oral oxycodone when can take po and safe from GI standpoint Code(s): G89.29 - OTHER CHRONIC PAIN
[2018-03-22] MEDS: MORPHINE SULFATE 2 MG/ML VIAL IVPUSH PRN ×3 (09:05→20:15)
--- NOTE | 2018-03-22 09:58 | CON.GI ---
Consult Consult Specialty:: GI Referred by:: Dr. Alejo Smith Reason for Consultation:: Nausea / Vomiting / Diarrhea / Body pain - History of Present Illness Chief Complaint: "everything hurts, but mainly my stomach" History of Present Illness: 67F admitted for evaluation of abdominal pain, neck pain, hip pain, headache. She also describes diarrhea, nausea and vomiting along with rectal bleeding. She explains that this has been going on for over a week. She has been followed by Dr. Goncalves in the past and she believes that her last colonoscopy was 4 years ago. A polyp may have been removed. She was noted to have a leukocytosis and + UA. She had a CT scan performed without contrast that revealed colitis from the proximal sigmoid to the mid descending colon. She denies recent Abx use or travel / change in dietary habits. She has a history of constipation. there is no family history of colorectal cancer or other GI malignancy. - Past Medical History [employer]: Yes: Peripheral Neuropathy Cardio/Vascular: Yes: HTN, Hyperlipdemia Gastrointestinal: Yes: GERD Renal/: Yes: Other (polycystic kidney disease). No: Renal Failure ...: No Heme/Onc: Yes: Cancer (Ovarian cancer s/p chemo / resection), Other Psych: Yes: Depression Musculoskeletal: Yes: Other (chronic pain) Endocrine: Yes: Diabetes Mellitus (DM II) - Past Surgical History Past Surgical History: Yes: Hernia Repair ([facility]), Hysterectomy (Ovarian ca) - Alcohol/Substance Use Hx Alcohol Use: No History of Substance Use: reports: None - Smoking History Smoking history: Never smoked Have you smoked in the past 12 months: No Aproximately how many cigarettes per day: 0 - Social History Usual Living Arrangement: With Spouse ADL: Independent Place of : [place] ([place] Came to [place]year[place] 1959 History of Recent Travel: No Home Medications - Allergies Allergies/Adverse Reactions: Allergies Allergy/AdvReac Type Severity Reaction Status Date / Time No Known Drug Allergies Allergy Verified 03/21/18 17:03 - Home Medications Home Medications: Ambulatory Orders Ibuprofen [Motrin -] 600 mg PO TID PRN #90 tablet MDD 3 08/24/16 Oxycodone HCl/Acetaminophen [Percocet 5-325 mg Tablet] 1 tab PO Q4H PRN #15 tablet NS MDD 6 08/24/16 Amlodipine Besylate 10 mg PO DAILY 03/21/18 Carvedilol 25 mg PO DAILY 03/21/18 Escitalopram Oxalate [Lexapro -] 10 mg PO DAILY 03/21/18 Lisinopril 5 mg PO DAILY 03/21/18 Rosuvastatin Calcium 10 mg PO DAILY 03/21/18 Family Disease History - Family Disease History Family Disease History: Diabetes: Mother (Alive), Other: Father (: 41: CVA) , Mother, Brother (1, healthy), Sister (1, healthy), Son (3, 1 with DM II), Daughter (1, healthy) Other Family History: No family history of colorectal cancer or other GI malignancy Physical Exam-GI Vital Signs: Vital Signs Temperature 98.1 F 03/22/18 01:22 Pulse Rate 93 H 03/22/18 01:22 Respiratory Rate 18 03/22/18 01:22 Blood Pressure 159/94 03/22/18 01:22 O2 Sat by Pulse Oximetry (%) 95 03/22/18 04:00 Labs: CBC, BMP 03/22/18 06:00 03/22/18 06:00
--- NOTE | 2018-03-22 10:18 | CON.GI ---
Consult Consult Specialty:: GI Referred by:: Dr. Smith Reason for Consultation:: Abdominal pain, nausea, vomiting, diarrhea, rectal bleeding - History of Present Illness Chief Complaint: "Everything hurts, but more my belly" History of Present Illness: 67F admitted for evaluation of abdominal pain, neck pain, hip pain, headache. She also describes diarrhea, nausea and vomiting along with rectal bleeding. She explains that this has been going on for over a week. She has been followed by Dr. Goncalves in the past and she believes that her last colonoscopy was 4 years ago. A polyp may have been removed. She was noted to have a leukocytosis and + UA. She had a CT scan performed without contrast that revealed colitis from the proximal sigmoid to the mid descending colon. She denies recent Abx use or travel / change in dietary habits. She has a history of constipation. there is no family history of colorectal cancer or other GI malignancy. - History Source History Provided By: Patient, Medical Record - Past Medical History ENGINEERING OPERATIONS LEADER: Yes: Peripheral Neuropathy Cardio/Vascular: Yes: HTN, Hyperlipdemia Gastrointestinal: Yes: GERD Renal/: Yes: Other (polycystic kidney disease). No: Renal Failure ...: No Psych: Yes: Depression Musculoskeletal: Yes: Other (chronic pain) Endocrine: Yes: Diabetes Mellitus (DM II) - Past Surgical History Past Surgical History: Yes: Hernia Repair (Ventral), Hysterectomy (Ovarian ca) - Alcohol/Substance Use Hx Alcohol Use: No History of Substance Use: reports: None - Smoking History Smoking history: Never smoked Have you smoked in the past 12 months: No Aproximately how many cigarettes per day: 0 - Social History Usual Living Arrangement: With Spouse ADL: Independent History of Recent Travel: No Home Medications - Allergies Allergies/Adverse Reactions: Allergies Allergy/AdvReac Type Severity Reaction Status Date / Time No Known Drug Allergies Allergy Verified 03/21/18 17:03 - Home Medications Home Medications: Ambulatory Orders Ibuprofen [Motrin -] 600 mg PO TID PRN #90 tablet MDD 3 08/24/16 Oxycodone HCl/Acetaminophen [Percocet 5-325 mg Tablet] 1 tab PO Q4H PRN #15 tablet NS MDD 6 08/24/16 Amlodipine Besylate 10 mg PO DAILY 03/21/18 Carvedilol 25 mg PO DAILY 03/21/18 Escitalopram Oxalate [Lexapro -] 10 mg PO DAILY 12/15/18 Lisinopril 5 mg PO DAILY 03/21/18 Rosuvastatin Calcium 10 mg PO DAILY 03/21/18 Family Disease History - Family Disease History Family Disease History: Diabetes: Mother (Alive), Other: Father (: 41: CVA) , Mother, Brother (1, healthy), Sister (1, healthy), Son (3, 1 with DM II), Daughter (1, healthy) Other Family History: No family history of colorectal cancer or other GI malignancy Review of Systems - Review of Systems Constitutional: reports: Weakness. denies: Chills, Fever Cardiovascular: denies: Chest Pain Gastrointestinal: reports: Abdominal Pain, Diarrhea, Vomiting. denies: Constipation, Melena, Rectal Bleeding, Vomiting Blood Musculoskeletal: reports: Back Pain, Joint Pain Physical Exam-GI Vital Signs: Vital Signs Temperature 98.1 F 03/22/18 01:22 Pulse Rate 93 H 03/22/18 01:22 Respiratory Rate 18 03/22/18 01:22 Blood Pressure 159/94 03/22/18 01:22 O2 Sat by Pulse Oximetry (%) 95 03/22/18 04:00 Constitutional: Yes: Calm Eyes: No: Sclera Icterus Cardiovascular: Yes: Regular Rate and Rhythm. No: Murmur Respiratory: Yes: CTA Bilaterally Gastrointestinal Inspection: No: Distention ...Auscultate: Yes: Normoactive Bowel Sounds ...Palpate: Yes: Soft, Tenderness (Diffuse tenderness to palpation). No: Guarding ...Percussion: No: Tympanitic ...Rectal Exam: Yes: Other (Field Service Representative present: no external lesions, no masses, no stool or blood in rectal vault. Non blood stool in commode) Extremities: Yes: Other (Chronic stasis changes bilaterally) Edema: Yes Labs: CBC, BMP 03/22/18 06:00 03/22/18 06:00 Imaging - Results Cat Scan: Report Reviewed, Image Reviewed Problem List - Problems (1) Abdominal pain Assessment/Plan: With segmental colitis on CT scan: ? diverticulitis / ? ischemic colitis. unclear how this links to all her other complaints at this time Advise: NPO with IV hydration IV Abx Surgical consult given profound abdominal pain on exam. CRP Stool studies ordered: culture, c. diff Await official CT scan read Code(s): R10.9 - UNSPECIFIED ABDOMINAL PAIN Qualifiers: Abdominal location: unspecified location Qualified Code(s): R10.9 - Unspecified abdominal pain
[2018-03-22] MEDS: LISINOPRIL 5 MG TABLET (FP) PO SCH (10:21)
[2018-03-22] MEDS: amLODIPine BESYLATE 10 MG TABLET (FP) PO SCH (10:21)
[2018-03-22] MEDS: ESCITALOPRAM OXALATE 10 MG TABLET (FP) PO SCH (10:21)
[2018-03-22] MEDS: PANTOPRAZOLE 40 MG TABLET (FP) PO SCH (10:21)
[2018-03-22] MEDS: CARVEDILOL 12.5 MG TABLET (FP) PO SCH ×2 (10:21→22:30)
--- NOTE | 2018-03-22 12:13 | EKG ---
Test Reason : Blood Pressure : / mmHG Vent. Rate : 089 BPM Atrial Rate : 089 BPM P-R Int : 154 ms QRS Dur : 086 ms QT Int : 380 ms P-R-T Axes : 037 029 030 degrees QTc Int : 462 ms NORMAL SINUS RHYTHM NONSPECIFIC T WAVE ABNORMALITY ABNORMAL ECG WHEN COMPARED WITH ECG OF 03-JAN-2016 17:35, NO SIGNIFICANT CHANGE WAS FOUND Confirmed by SHARI BARRIOS MD ([id number]) on 03/22/2018 12:12:59 PM Referred By: Confirmed By:SHARI BARRIOS MD
[2018-03-22] MEDS ORDERED: ONDANSETRON 4 MG/2 ML VIAL IVPUSH PRN (19:41)
--- NOTE | 2018-03-22 19:52 | CONSULT ---
Consult Consult Specialty:: General Surgery Referred by:: Dr. Smith Reason for Consultation:: colitis - History of Present Illness Chief Complaint: abdominal pain, n/v, diarrhea, blood in stool, headache, back pain, leg pain History of Present Illness: 67yo obese diabetic F with multiple medical problems and chronic pain issues admitted through ER last night with multiple pain complaints including headache , back/neck pain, leg pain and abdominal pain, worse in last few days, associated with diarrhea (with some blood in it), N/V (also initially with some blood in it, though not recently per pt), decreased appetite, increasing abdominal pain (bilateral sides and epigastric area), chills and dizziness. She states she hasn't been able to take her nighttime pills reliably last few days, but is taking her pain pills ok despite intermittent vomiting. The pain pills aren't helping though. In ER, wbc was 15, repeated at 16 this am, and she is dehydrated by labs, with WBC/LE in urine; CT was done without contrast showing inflamed segment of left colon (prox descending to mid-sigmoid), but report is pending. GI saw patient already, surgery was asked to evaluate. She reports taking antibiotics (unknown name or duration) about 3 weeks ago for a urine infection. Last colonoscopy might have been about 3-[address] Goncalves, and she did have an EGD in the past, but is not sure what was found. She thinks he took out something at colonoscopy, (?cyst) - probably polyp. Surgical history significant for lap chely, FATMATA/BSO for cancer, ventral hernia repair. She is seen and examined in her room in bed, complaining of pain, and that morphine (1mg) did not help at all. She states she feels about the same as when she came in, not better, not worse. She reports throwing up earlier in commode, and there is some yellow fluid in a bag at bedside as well. She does not think she is still having diarrhea, but per nurse, she had both stool and urine in commode earlier, mixed, so they could not get samples yet. 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) Psych: Yes: Depression Musculoskeletal: Yes: Chronic low back pain (whole back pain, neck pain), Osteoarthritis, Other (chronic pain) Endocrine: Yes: Diabetes Mellitus (DM II on insulin at home) - Past Surgical History Past Surgical History: Yes: Cholecystectomy (laparoscopic), Colonoscopy, Hernia Repair (Ventral), Hysterectomy (with BSO, for cancer (uterine?)), Oopherectomy, Upper Endoscopy - Alcohol/Substance Use Hx Alcohol Use: No History of Substance Use: reports: None (no illicits), Prescription (uses Percocet 2 pills 3-4 times a day for pain) - Smoking History Smoking history: Never smoked Have you smoked in the past 12 months: No - Social History Usual Living Arrangement: With Spouse ADL: Independent History of Recent Travel: No Home Medications - Allergies Allergies/Adverse Reactions: Allergies Allergy/AdvReac Type Severity Reaction Status Date / Time No Known Drug Allergies Allergy Verified 03/21/18 17:03 - Home Medications Home Medications: Ambulatory Orders Ibuprofen [Motrin -] 600 mg PO TID PRN #90 tablet MDD 3 08/24/16 Oxycodone HCl/Acetaminophen [Percocet 5-325 mg Tablet] 1 tab PO Q4H PRN #15 tablet NS MDD 6 08/24/16 Amlodipine Besylate 10 mg PO DAILY 03/21/18 Carvedilol 25 mg PO DAILY 03/21/18 Escitalopram Oxalate [Lexapro -] 10 mg PO DAILY 03/21/18 Lisinopril 5 mg PO DAILY 03/21/18 Rosuvastatin Calcium 10 mg PO DAILY 03/21/18 Home Medications (free text): asthma inhaler prn - uses 1-2 times daily. insulin for her diabetes. percocet 2 pills (sometimes 3?) ~ 4 times daily Family Disease History - Family Disease History Family Disease History: Diabetes: Mother (Alive, htn), Other: Father (: 41: CVA), Mother, Brother (1, healthy), Sister (1, healthy), Son (3, 1 with DM II), Daughter (1, healthy) Other Family History: No family history of colorectal cancer or other GI malignancy Review of Systems - Review of Systems Constitutional: reports: Chills, Loss of Appetite. denies: Fever Eyes: denies: Blurred Vision, Recent Change in Vision HENT: reports: Nasal Congestion (sinuses). denies: Difficult Swallowing, Throat Pain Neck: reports: Other (pain from head down to back). denies: Swollen Glands Cardiovascular: reports: Palpitations (at times). denies: Chest Pain Respiratory: reports: SOB on Exertion. denies: Cough, SOB Gastrointestinal: reports: Abdominal Pain (with hpi), Diarrhea (with hpi, with some blood in it), Nausea (with hpi), Rectal Bleeding (reports blood in diarrhea ), Vomiting (little blood previously, not now (yellow fluid in bag at bedside from earlier)). denies: Constipation Genitourinary: reports: Other (itching with urination). denies: Burning, Dysuria Integumentary: reports: Change in Color (chronic dark pigmentation of ankles and feet). denies: Rash, Wound Neurological: reports: Dizziness, Headache, Tremors (hands shake), Unsteady Gait (uses cane regularly, walker when her back pain is very bad) Physical Exam Vital Signs: Vital Signs Temperature 98.2 F 03/22/18 16:30 Pulse Rate 107 H 03/22/18 16:30 Respiratory Rate 20 03/22/18 16:30 Blood Pressure 156/99 03/22/18 16:30 O2 Sat by Pulse Oximetry (%) 95 03/22/18 09:00 Constitutional: Yes: Calm, Anxious (mildly), Mild Distress (having pain), Obese Eyes: Yes: Conjunctiva Clear, EOM Intact HENT: Yes: Atraumatic, Normocephalic Neck: Yes: Supple, Trachea Midline Cardiovascular: Yes: Regular Rate and Rhythm. No: Murmur Respiratory: Yes: Regular, CTA Bilaterally Gastrointestinal: Yes: Soft, Abdomen, Obese, Distention (tympanic), Hypoactive Bowel Sounds, Tenderness (diffusely, but more in LLQ/suprapubic, also epigastric - no martha/guard), Tenderness, Epigastrium, Vomiting (reports few hrs ago, little yellow fluid in bag at bedside). No: Tenderness, Rebound ...Rectal Exam: Yes: Deferred (noted in GI consult, about to use commode) Renal/: Yes: CVA Tenderness - Left. No: CVA Tenderness - Right Musculoskeletal: Yes: Back Pain (reports tenderness down entire spine). No: Joint Swelling Extremities: No: Cool, Cyanosis Edema: No Peripheral Pulses WNL: Yes Integumentary: Yes: Venous Stasis Changes (?), Other (dark pigmentation from lower legs onto both feet, faint areas of vitiligo on forearms). No: Jaundice, Rash Neurological: Yes: Alert, Oriented, Tremors (mild hand/arm intermittently) Psychiatric: Yes: Alert, Oriented Labs: CBC, BMP 03/22/18 06:00 03/22/18 06:00 CMP Sodium 142 mmol/L (136-145) 03/22/18 06:00 Potassium 4.5 mmol/L (3.5-5.1) 03/22/18 06:00 Chloride 108 mmol/L (98-107) H 03/22/18 06:00 Carbon Dioxide 26 mmol/L (21-32) 03/22/18 06:00 Anion Gap 8 MMOL/L (8-16) 03/22/18 06:00 BUN 13 mg/dL (7-18) 03/22/18 06:00 Creatinine 1.6 mg/dL (0.55-1.3) H 03/22/18 06:00 Creat Clearance w eGFR 32.35 (>60) 03/22/18 06:00 POC Glucometer 115 UNITS (80-120) 03/22/18 16:58 Random Glucose 109 mg/dL (74-106) H 03/22/18 06:00 Lactic Acid 1.0 mmol/L (0.4-2.0) 03/21/18 17:46 Calcium 8.8 mg/dL (8.5-10.1) 03/22/18 06:00 Total Bilirubin 0.2 mg/dL (0.2-1) 03/22/18 06:00 AST 13 U/L (15-37) L 03/22/18 06:00 ALT 14 U/L (13-61) 03/22/18 06:00 Alkaline Phosphatase 180 U/L (45-117) H 03/22/18 06:00 B-Natriuretic Peptide 140.9 pg/ml (5-125) H 03/21/18 17:46 Total Protein 6.2 g/dl (6.4-8.2) L 03/22/18 06:00 Albumin 2.6 g/dl (3.4-5.0) L 03/22/18 06:00 Lipase 72 U/L (73-393) L 03/21/18 17:46 Urine Test Results Urine Color Ltyellow 03/22/18 01:08 Urine Appearance Slcloudy 03/22/18 01:08 Urine pH 5.0 (5.0-8.0) 03/22/18 01:08 Ur Specific [place] 1.013 (1.010-1.035) 03/22/18 01:08 Urine Protein 2+ (NEGATIVE) H 03/22/18 01:08 Urine Glucose (UA) Negative (NEGATIVE) 03/22/18 01:08 Urine Ketones Negative (NEGATIVE) 03/22/18 01:08 Urine Blood Negative (NEGATIVE) 03/22/18 01:08 Urine Nitrite Negative (NEGATIVE) 03/22/18 01:08 Urine Bilirubin Negative (<2.0 mg/dL) 03/22/18 01:08 Ur Leukocyte Esterase 3+ (NEGATIVE) H D 03/22/18 01:08 Ur Epithelial Cells Rare /HPF (FEW) 03/22/18 01:08 Urine Bacteria Cancelled 03/21/18 17:46 Urine Mucus Rare 03/22/18 01:08 no coags wbc from 15.2 BUN/Cr from 16/1.7, coming down urine with wbc/LE but no nitrite or blood Imaging - Results Cat Scan: Image Reviewed (images personally reviewed - inflammation of colon from proximal descending to mid-sigmoid, few spots of bright/hyperdense material in possible diverticuli, no free air or fluid, no apparent appendicitis , s/p chley; suspect diverticulitis or other colitis (infectious more likely than ischemic) - report pending) Problem List - Problems (1) Colitis, indeterminate Code(s): K52.3 - INDETERMINATE COLITIS (2) Diarrhea Code(s): R19.7 - DIARRHEA, UNSPECIFIED Qualifiers: Diarrhea type: functional diarrhea Qualified Code(s): K59.1 - Functional diarrhea (3) Generalized abdominal pain Code(s): R10.84 - GENERALIZED ABDOMINAL PAIN (4) Nausea & vomiting Code(s): R11.2 - NAUSEA WITH VOMITING, UNSPECIFIED Qualifiers: Vomiting type: unspecified Vomiting Intractability: non-intractable Qualified Code(s): R11.2 - Nausea with vomiting, unspecified (5) Diabetes mellitus type 2 in obese Code(s): E11.69 - TYPE 2 DIABETES MELLITUS WITH OTHER SPECIFIED COMPLICATION; E66.9 - OBESITY, UNSPECIFIED (6) Chronic pain Code(s): G89.29 - OTHER CHRONIC PAIN Qualifiers: Chronic pain type: other chronic pain Qualified Code(s): G89.29 - Other chronic pain (7) GERD (gastroesophageal reflux disease) Code(s): K21.9 - GASTRO-ESOPHAGEAL REFLUX DISEASE WITHOUT ESOPHAGITIS Qualifiers: Esophagitis presence: without esophagitis Qualified Code(s): K21.9 - Gastro -esophageal reflux disease without esophagitis (8) HTN (hypertension) Code(s): I10 - ESSENTIAL (PRIMARY) HYPERTENSION Qualifiers: Hypertension type: essential hypertension Qualified Code(s): I10 - Essential (primary) hypertension (9) Migraine aura, persistent, intractable Code(s): G43.519 - PERST MIGRAINE AURA W/O CEREBRAL INFRC, NTRCT, W/O STAT MIGR (10) Polycystic kidney disease Code(s): Q61.3 - POLYCYSTIC KIDNEY, UNSPECIFIED Assessment/Plan admitted to medicine difficult to clarify specific abdominal complaints and symptoms from patient's chronic issues, especially as she is a poor historian may be diverticulitis or infectious colitis - await final CT read GI consult noted agree with IV antibiotics - consider ID consult NPO except meds with generous IV fluid hydration trend labs, obtain coags urine cx and stool cx/C. diff pending GI/DVT prophylaxis will follow for serial exams pt is opioid tolerant and likely dependent need to continue baseline opioids for chronic pain in order to treat acute pain in addition pt reports using ~40mg oxycodone daily, which is equivalent to 60mg PO morphine or 16mg IV morphine ordered oxycontin 10mg BID to start tonight tylenol 650mg q6H prn for moderate pain morphine 4mg q4H prn for severe pain will reassess tomorrow
[2018-03-22] MEDS: ACETAMINOPHEN 325 MG TABLET (FP) PO PRN (20:15)
[2018-03-22] MEDS: ROSUVASTATIN CA 10 MG TABLET (FP) PO SCH (22:30)
[2018-03-22] MEDS: oxyCODONE HCL 10 MG SUSTAINED ACTING TABLET PO SCH (22:31)
[2018-03-22] MEDS: SODIUM CHLORIDE 1,000 ML IV SCH (23:59)
[2018-03-23] MEDS: MORPHINE SULFATE 2 MG/ML VIAL IVPUSH PRN ×2 (05:55→16:29)
[2018-03-23] MEDS: INSULIN SLIDING SCALE (NOVOLOG) 1 VIAL SQ SCH ×4 (06:48→21:13)
[2018-03-23 07:19] LABS: BASO % 0.4 % (0-2.0); EOS % 0.7 % (0-4.5); HEMATOCRIT 36.4 % (32.4-45.2); HEMOGLOBIN 11.4 GM/dL (10.7-15.3); MCH 24.9 pg (25.7-33.7); MCHC 31.3 g/dl (32.0-36.0); MEAN CELL VOLUME 79.6 fl (80-96); MEAN PLT VOLUME 8.4 fl (7.5-11.1); MONO % 5.8 % (3.8-10.2); NEUT % 79.1 % (42.8-82.8); PLATELET COUNT 279 K/MM3 (134-434); RBC 4.57 M/mm3 (3.60-5.2); RDW 18.9 % (11.6-15.6); WHITE BLOOD COUNT 11.2 K/mm3 (4.0-10.0)
[2018-03-23 07:32] LABS: INR 1.16 (0.83-1.09); PROTHROMBIN TIME (PATIENT) 13.7 SEC (9.7-13.0)
[2018-03-23 07:48] LABS: ALBUMIN 2.6 g/dl (3.4-5.0); ALK PHOS 167 U/L (45-117); ANION GAP 8 MMOL/L (8-16); BILIRUBIN,DIRECT 0.1 mg/dL (0.0-0.2); BILIRUBIN,TOTAL 0.2 mg/dL (0.2-1); BLOOD UREA NITROGEN 11 mg/dL (7-18); CALCIUM 8.5 mg/dL (8.5-10.1); CHLORIDE 111 mmol/L (98-107); CO2 26 mmol/L (21-32); CREATININE 1.5 mg/dL (0.55-1.3); GLUCOSE,RANDOM 97 mg/dL (74-106); MAGNESIUM 1.3 mg/dL (1.8-2.4); PHOSPHOROUS 3.3 mg/dL (2.5-4.9); POTASSIUM 3.8 mmol/L (3.5-5.1); SGOT/AST 12 U/L (15-37); SGPT/ALT 12 U/L (13-61); SODIUM 145 mmol/L (136-145); TOT PROT 6.2 g/dl (6.4-8.2)
[2018-03-23] MEDS: PANTOPRAZOLE 40 MG TABLET (FP) PO SCH (09:24)
[2018-03-23] MEDS: CARVEDILOL 12.5 MG TABLET (FP) PO SCH ×2 (09:24→21:13)
[2018-03-23] MEDS: ESCITALOPRAM OXALATE 10 MG TABLET (FP) PO SCH (09:24)
[2018-03-23] MEDS: oxyCODONE HCL 10 MG SUSTAINED ACTING TABLET PO SCH ×2 (09:24→21:13)
[2018-03-23] MEDS: amLODIPine BESYLATE 10 MG TABLET (FP) PO SCH (09:25)
[2018-03-23] MEDS: LISINOPRIL 5 MG TABLET (FP) PO SCH (09:25)
[2018-03-23] MEDS: SODIUM CHLORIDE 1,000 ML IV SCH ×2 (09:25→22:23)
[2018-03-23] MEDS ORDERED: MAGNESIUM SULF 50% (8.12 MEQ/2 ML-1 GM VIAL) IVPB ONE (10:54)
[2018-03-23] MEDS ORDERED: PROMETHAZINE HCL 25 MG/1 ML VIAL IVPB PRN (10:58)
[2018-03-23] MEDS ORDERED: INSULIN (NOVOLOG) ASPART 100 UNITS/ML 10ML VIAL ONE ×2 (11:56→17:16)
[2018-03-23] MEDS: ACETAMINOPHEN 325 MG TABLET (FP) PO PRN (12:31)
[2018-03-23 12:32] VITALS: BMI 39.3
--- NOTE | 2018-03-23 14:19 | PN ---
Progress Note (short form) - Note Progress Note: Patient seen and examined reports abdominal pain is improved but persists, particularly on left Diarrhea has resolved Rectal bleeding last week - resolved WBC improved 03/23/18 14:03 Temperature 98.8 F Pulse Rate 89 Respiratory 18 Rate Blood Pressure 138/77 O2 Sat by Pulse Oximetry (%) NAD obese, soft, ttp particularly epigastrium, LUQ, LLQ without guarding or rebound CBC, BMP 03/23/18 07:00 03/23/18 07:[address] with descending and sigmoid thickening ?fundoplication CBD of 9mm (post chely) ? cirrhosis on imaging Impression - 1. Left sided colitis - ischemic vs inflammatory vs infectious. No longer with diarrhea - continue abx - will plan for flex sig tomorrow to assess - NPO after midnight and two tap water enemas in am prior to procedure 2. CBD of 9mm - likely post-cholecystectomy, LFTs normal. If pain persists, can get MRCP to assess 3. ? cirrhosis - please check hepatitis serologies, JACKIE, ASMA, AMA, iron studies /ferritin to start; will need outpatient follow up for further assessment
--- NOTE | 2018-03-23 16:33 | PN ---
Physical Exam: SUBJECTIVE: Patient seen and examined at bed side this morning. Still complaining of abdominal pain. Diarrhoea has resolved. Denies chest pain, sob, cough, palpitation, nausea or vomiting. No acute overnight events. OBJECTIVE: Vital Signs Period Temp Pulse Resp BP Sys/Avitia Pulse Ox Last 24 Hr 97.7 F-98.8 F 89-110 16-20 138-167/69-98 97-97 GENERAL: Morbidly obese female, sitting in bed, is awake, alert, and fully oriented, in mild respiratory distress. HEAD: Normal with no signs of trauma. EYES: EOM intact, no pallor or icterus. ENT: Ears normal, moist mucous membranes. NECK: Supple, no JVD. LUNGS: Breath sounds equal, clear to auscultation bilaterally, no wheezes, no crackles, no accessory muscle use. HEART: Regular rate and rhythm, S1, S2 without murmur. ABDOMEN: Soft, tenderness in the left upper quadrant, BS+, no organomegaly. UPPER EXTREMITIES: 2+ pulses, warm, well-perfused, no edema. LOWER EXTREMITIES: Chronic venous stasis with stasis dermatitis, b/l pitting edema +. NEUROLOGICAL: No facial droop. Normal speech, gait not observed. PSYCH: Normal mood, normal affect. SKIN: Warm, dry, normal turgor, no rashes or lesions noted Laboratory Results - last 24 hr 03/22/18 03/22/18 03/23/18 16:58 22:32 06:21 WBC RBC Hgb Hct MCV MCH MCHC RDW Plt Count MPV Absolute Neuts (auto) Neutrophils % Lymphocytes % Monocytes % Eosinophils % Basophils % Nucleated RBC % PT with INR INR Sodium Potassium Chloride Carbon Dioxide Anion Gap BUN Creatinine Creat Clearance w eGFR POC Glucometer 115 114 90 Random Glucose Calcium Phosphorus Magnesium Total Bilirubin Direct Bilirubin AST ALT Alkaline Phosphatase Total Protein Albumin 03/23/18 03/23/18 03/23/18 07:00 07:00 07:00 WBC 11.2 H RBC 4.57 Hgb 11.4 Hct 36.4 MCV 79.6 L MCH 24.9 L MCHC 31.3 L RDW 18.9 H Plt Count 279 MPV 8.4 Absolute Neuts (auto) 8.9 H Neutrophils % 79.1 Lymphocytes % 14.0 D Monocytes % 5.8 Eosinophils % 0.7 D Basophils % 0.4 Nucleated RBC % 0 PT with INR 13.70 H INR 1.16 H Sodium 145 Potassium 3.8 Chloride 111 H Carbon Dioxide 26 Anion Gap 8 BUN 11 Creatinine 1.5 H Creat Clearance w eGFR 34.85 POC Glucometer Random Glucose 97 Calcium 8.5 Phosphorus 3.3 Magnesium 1.3 L Total Bilirubin 0.2 Direct Bilirubin 0.1 AST 12 L ALT 12 L Alkaline Phosphatase 167 H Total Protein 6.2 L Albumin 2.6 L 03/23/18 11:16 WBC RBC Hgb Hct MCV MCH MCHC RDW Plt Count MPV Absolute Neuts (auto) Neutrophils % Lymphocytes % Monocytes % Eosinophils % Basophils % Nucleated RBC % PT with INR INR Sodium Potassium Chloride Carbon Dioxide Anion Gap BUN Creatinine Creat Clearance w eGFR POC Glucometer 104 Random Glucose Calcium Phosphorus Magnesium Total Bilirubin Direct Bilirubin AST ALT Alkaline Phosphatase Total Protein Albumin Active Medications Generic Name Dose Route Start Last Admin Trade Name Freq PRN Reason Stop Dose Admin Acetaminophen 650 mg 03/22/18 19:39 03/23/18 12:31 Tylenol - PO 650 mg Q6H PRN Administration PAIN LEVEL 4 - 6 Albuterol Sulfate 1 amp 03/22/18 00:06 Ventolin 0.083% Nebulizer Soln - NEB Q6H PRN SHORT OF BREATH/WHEEZING Amlodipine Besylate 10 mg 03/22/18 10:00 03/23/18 09:25 Norvasc - PO 10 mg DAILY MARIA E Administration Carvedilol 12.5 mg 03/22/18 10:00 03/23/18 09:24 Coreg - PO 12.5 mg BID MARIA E Administration Escitalopram Oxalate 10 mg 03/22/18 10:00 03/23/18 09:24 Lexapro - PO 10 mg DAILY MARIA E Administration Metronidazole 500 mg in 100 mls @ 100 mls/hr 03/22/18 02:00 03/23/18 09:25 Flagyl 500mg Premixed Ivpb - IVPB 100 mls/hr Q8H-IV MARIA E Administration Levofloxacin 750 mg in 150 mls @ 100 mls/hr 03/23/18 10:00 03/23/18 10:35 Levaquin 750 Mg Premixed Ivpb - IVPB 100 mls/hr Q48H MARIA E Administration Protocol Sodium Chloride 1,000 mls @ 125 mls/hr 03/22/18 19:41 03/23/18 09:25 Normal Saline - IV 125 mls/hr ASDIR MARIA E Administration Insulin Aspart 1 vial 03/22/18 07:00 03/23/18 11:17 Novolog Vial Sliding Scale - SQ Not Given ACHS MARIA E Protocol Lisinopril 5 mg 03/22/18 10:00 03/23/18 09:25 Prinivil PO 5 mg DAILY MARIA E Administration Morphine Sulfate 4 mg 03/22/18 19:39 03/23/18 16:29 Morphine Sulfate IVPUSH 4 mg Q4H PRN Administration PAIN LEVEL 7 - 10 Oxycodone HCl 10 mg 03/22/18 22:00 03/23/18 09:24 Oxycontin - PO 10 mg BID MARIA E Administration Pantoprazole Sodium 40 mg 03/22/18 10:00 03/23/18 09:24 Protonix - PO 40 mg DAILY MARIA E Administration Promethazine HCl 12.5 mg 03/23/18 10:58 Phenergan Injection - IVPB Q6H PRN NAUSEA AND/OR VOMITING Rosuvastatin Calcium 10 mg 03/22/18 22:00 03/22/18 22:30 Crestor - PO 10 mg HS MARIA E Administration ASSESSMENT/PLAN: Patient is a 67 year old female with significant past medical history of DM, HTN , HLD, GERD, Polycystic kidney, uterine CA s/p hysterectomy, ventral hernia repair, chronic back pain on percocet (QID) presented to the ED with abdominal pain x 1 week. # Abdominal pain questionable diverticulitis vs colitis CT abdomen/pelvis: showed diffuse colon wall edema from proximal descendig colon o mid sigmoid colon Continue IV Levaquin q48h Continue IV Flagyl 500mg Q8H Appreciate GI consult. Plan for flex sig tomorrow. NPO midnight and to give 2 enemas before water enemas in am prior to procedure # Dilated CBD 9mm likely from s/p cholecystecotomy GI suggested MRCP if pain persists # Questionable cirrhosis: Will send hepatitis serologies, JACKIE, ASMA, AMA, iron studies/ferritin # DM Continue ISS, watch for hypoglycemic episodes # Hypertension-controlled Continue Lisinopril 5mg PO daily, coreg 12.5 mg PO BID, Amlodipine 10mg Daily # Chronic back pain Continue Oxycontin 10mg PO BID # FEN IV NS @ 125 mls/hr Electrolytes, phos repleted, will repeat it AM. NPO after midnight # Prophylaxis For DVT: SCDs, will continue heparin sq after the procedure FoR GI: Protonix 40 daily # Code Status: Full Code Illness, Investigation and Plan of care explained to the patient. She verbalized understanding. Case discussed with Dr. Smith. Visit type - Emergency Visit Emergency Visit: Yes ED Registration Date: 03/21/18 Care time: The patient presented to the Emergency Department on the above date and was hospitalized for further evaluation of their emergent condition. - New Patient This patient is new to me today: Yes Date on this admission: 03/23/18 - Critical Care Critical Care patient: No - Discharge Referral Referred to [facility] No
--- NOTE | 2018-03-23 16:44 | PN ---
Teaching Attending Note Name of Resident: Bee Nugent ATTENDING PHYSICIAN STATEMENT I saw and evaluated the patient. I reviewed the resident's note and discussed the case with the resident. I agree with the resident's findings and plan as documented. SUBJECTIVE: Patient says she still has abdominal pain but it is better today. No cp or n/v. OBJECTIVE: Gen: nad, obese Pulm: ctab w/o w/r/r CV: rrr w/o m/r/g Abd: +bs, s/nd, TTP w/o rebound Ext: no c/c/e ASSESSMENT AND PLAN: -appreciate GI assistance -no urgent need for surgical intervention -continue levaquin and flagyl for colitis -continue pain control -plan for flex sig tomorrow -continue current management Problem List - Problems (1) Colitis Code(s): K52.9 - NONINFECTIVE GASTROENTERITIS AND COLITIS, UNSPECIFIED (2) GI bleed Code(s): K92.2 - GASTROINTESTINAL HEMORRHAGE, UNSPECIFIED Qualifiers: Qualified Code(s): K92.2 - Gastrointestinal hemorrhage, unspecified (3) HTN (hypertension) Code(s): I10 - ESSENTIAL (PRIMARY) HYPERTENSION Qualifiers: Qualified Code(s): I10 - Essential (primary) hypertension (4) Migraine aura, persistent, intractable Code(s): G43.519 - PERST MIGRAINE AURA W/O CEREBRAL INFRC, NTRCT, W/O STAT MIGR (5) Polycystic kidney disease Code(s): Q61.3 - POLYCYSTIC KIDNEY, UNSPECIFIED (6) HLD (hyperlipidemia) Code(s): E78.5 - HYPERLIPIDEMIA, UNSPECIFIED (7) Chronic pain Code(s): G89.29 - OTHER CHRONIC PAIN Qualifiers: Qualified Code(s): G89.29 - Other chronic pain
--- NOTE | 2018-03-23 17:13 | PN ---
Progress Note, Physician History of Present Illness: Pt with left-sided colitis on CT, multiple somatic complaints. Seen and examined in bed, present. She reports feeling better today than yesterday, but still has pain, now localized mainly to LLQ. She has had no BM today, urinating well. She has not walked today, and is using bedside commode prn. She also reports still feeling chilled. - Current Medication List Current Medications: Active Medications Acetaminophen (Tylenol -) 650 mg PO Q6H PRN PRN Reason: PAIN LEVEL 4 - 6 Last Admin: 03/23/18 12:31 Dose: 650 mg Albuterol Sulfate (Ventolin 0.083% Nebulizer Soln -) 1 amp NEB Q6H PRN PRN Reason: SHORT OF BREATH/WHEEZING Amlodipine Besylate (Norvasc -) 10 mg PO DAILY [facility] Last Admin: 03/23/18 09:25 Dose: 10 mg Carvedilol (Coreg -) 12.5 mg PO BID [facility] Last Admin: 03/23/18 09:24 Dose: 12.5 mg Escitalopram Oxalate (Lexapro -) 10 mg PO DAILY [facility] Last Admin: 03/23/18 09:24 Dose: 10 mg Metronidazole (Flagyl 500mg Premixed Ivpb -) 500 mg in 100 mls @ 100 mls/hr IVPB Q8H-IV [facility] Last Admin: 03/23/18 09:25 Dose: 100 mls/hr Levofloxacin (Levaquin 750 Mg Premixed Ivpb -) 750 mg in 150 mls @ 100 mls/hr IVPB Q48H [facility]; Protocol Last Admin: 03/23/18 10:35 Dose: 100 mls/hr Sodium Chloride (Normal Saline -) 1,000 mls @ 125 mls/hr IV ASDIR [facility] Last Admin: 03/23/18 09:25 Dose: 125 mls/hr Insulin Aspart (Novolog Vial Sliding Scale -) 1 vial SQ ACHS [facility]; Protocol Last Admin: 03/23/18 11:17 Dose: Not Given Lisinopril (Prinivil) 5 mg PO DAILY [facility] Last Admin: 03/23/18 09:25 Dose: 5 mg Morphine Sulfate (Morphine Sulfate) 4 mg IVPUSH Q4H PRN PRN Reason: PAIN LEVEL 7 - 10 Last Admin: 03/23/18 16:29 Dose: 4 mg Oxycodone HCl (Oxycontin -) 10 mg PO BID [facility] Last Admin: 03/23/18 09:24 Dose: 10 mg Pantoprazole Sodium (Protonix -) 40 mg PO DAILY [facility] Last Admin: 03/23/18 09:24 Dose: 40 mg Promethazine HCl (Phenergan Injection -) 12.5 mg IVPB Q6H PRN PRN Reason: NAUSEA AND/OR VOMITING Rosuvastatin Calcium (Crestor -) 10 mg PO HS [facility] Last Admin: 03/22/18 22:30 Dose: 10 mg - Objective Vital Signs: Vital Signs Temperature 97.4 F L 03/23/18 17:02 Pulse Rate 87 03/23/18 17:02 Respiratory Rate 20 03/23/18 17:02 Blood Pressure 141/87 03/23/18 17:02 O2 Sat by Pulse Oximetry (%) 97 03/23/18 09:00 Vital Signs Period Temp Pulse Resp BP Sys/Avitia Pulse Ox Last 24 Hr 97.4 F-98.8 F 87-110 16-20 138-167/69-98 97-97 Constitutional: Yes: No Distress, Calm, Obese Eyes: Yes: Conjunctiva Clear, EOM Intact HENT: Yes: Atraumatic, Normocephalic Gastrointestinal: Yes: Soft, Abdomen, Obese, Tenderness (LLQ without guarding or rebound, less LUQ, referred from RLQ to left). No: Vomiting (no n/v today) ...Rectal Exam: Yes: Deferred Extremities: No: Cool, Cyanosis Integumentary: No: Jaundice, Rash Neurological: Yes: Alert, Oriented Labs: CBC, BMP 03/23/18 07:00 03/23/18 07:00 INR, PTT INR 1.16 (0.83-1.09) H 03/23/18 07:00 wbc down from 16 BUN, Cr down a little, Cr still mildly elevated Problem List - Problems (1) Colitis, indeterminate Code(s): K52.3 - INDETERMINATE COLITIS (2) Diarrhea Code(s): R19.7 - DIARRHEA, UNSPECIFIED Qualifiers: Diarrhea type: functional diarrhea Qualified Code(s): K59.1 - Functional diarrhea (3) Generalized abdominal pain Code(s): R10.84 - GENERALIZED ABDOMINAL PAIN (4) Nausea & vomiting Code(s): R11.2 - NAUSEA WITH VOMITING, UNSPECIFIED Qualifiers: Vomiting type: unspecified Vomiting Intractability: non-intractable Qualified Code(s): R11.2 - Nausea with vomiting, unspecified (5) Diabetes mellitus type 2 in obese Code(s): E11.69 - TYPE 2 DIABETES MELLITUS WITH OTHER SPECIFIED COMPLICATION; E66.9 - OBESITY, UNSPECIFIED (6) Chronic pain Code(s): G89.29 - OTHER CHRONIC PAIN Qualifiers: Chronic pain type: other chronic pain Qualified Code(s): G89.29 - Other chronic pain (7) GERD (gastroesophageal reflux disease) Code(s): K21.9 - GASTRO-ESOPHAGEAL REFLUX DISEASE WITHOUT ESOPHAGITIS Qualifiers: Esophagitis presence: without esophagitis Qualified Code(s): K21.9 - Gastro -esophageal reflux disease without esophagitis (8) HTN (hypertension) Code(s): I10 - ESSENTIAL (PRIMARY) HYPERTENSION Qualifiers: Hypertension type: essential hypertension Qualified Code(s): I10 - Essential (primary) hypertension (9) Migraine aura, persistent, intractable Code(s): G43.519 - PERST MIGRAINE AURA W/O CEREBRAL INFRC, NTRCT, W/O STAT MIGR (10) Polycystic kidney disease Code(s): Q61.3 - POLYCYSTIC KIDNEY, UNSPECIFIED Assessment/Plan colitis of unclear etiology - infectious vs ischemic?, not diverticulitis by CT GI note appreciated planning for flex sig tomorrow agree with IV antibiotics - Cr down, may be ok for daily dosing, consider ID consult NPO except meds with IV fluids trend labs urine cx growing GNB and additional organisms at lower counts GI/DVT prophylaxis pain med regimen seems adequate will f/u after flex sig no urgent indication for surgery
[2018-03-23] MEDS: ROSUVASTATIN CA 10 MG TABLET (FP) PO SCH (21:13)
[2018-03-24] MEDS: MORPHINE SULFATE 2 MG/ML VIAL IVPUSH PRN ×3 (05:02→19:56)
[2018-03-24] MEDS: ACETAMINOPHEN 325 MG TABLET (FP) PO PRN (06:02)
[2018-03-24] MEDS: INSULIN SLIDING SCALE (NOVOLOG) 1 VIAL SQ SCH ×4 (06:02→21:26)
[2018-03-24 06:57] LABS: HEMATOCRIT 33.7 % (32.4-45.2); HEMOGLOBIN 11.2 GM/dL (10.7-15.3); MCH 26.4 pg (25.7-33.7); MCHC 33.2 g/dl (32.0-36.0); MEAN CELL VOLUME 79.6 fl (80-96); MEAN PLT VOLUME 8.6 fl (7.5-11.1); PLATELET COUNT 244 K/MM3 (134-434); RBC 4.24 M/mm3 (3.60-5.2); RDW 18.4 % (11.6-15.6)
[2018-03-24] MEDS: SODIUM CHLORIDE 1,000 ML IV SCH (07:07)
[2018-03-24 07:10] LABS: INR 1.22 (0.83-1.09); PROTHROMBIN TIME (PATIENT) 14.4 SEC (9.7-13.0)
[2018-03-24 07:32] LABS: ALBUMIN 2.3 g/dl (3.4-5.0); ALK PHOS 170 U/L (45-117); ANION GAP 9 MMOL/L (8-16); BILIRUBIN,TOTAL 0.2 mg/dL (0.2-1); BLOOD UREA NITROGEN 11 mg/dL (7-18); CALCIUM 8.1 mg/dL (8.5-10.1); CHLORIDE 109 mmol/L (98-107); CO2 23 mmol/L (21-32); CREATININE 1.3 mg/dL (0.55-1.3); GLUCOSE,RANDOM 78 mg/dL (74-106); MAGNESIUM 1.6 mg/dL (1.8-2.4); PHOSPHOROUS 3.4 mg/dL (2.5-4.9); POTASSIUM 3.7 mmol/L (3.5-5.1); SGOT/AST 17 U/L (15-37); SGPT/ALT 16 U/L (13-61); SODIUM 142 mmol/L (136-145); TOT PROT 5.6 g/dl (6.4-8.2)
[2018-03-24] MEDS: LISINOPRIL 5 MG TABLET (FP) PO SCH (10:22)
[2018-03-24] MEDS: oxyCODONE HCL 10 MG SUSTAINED ACTING TABLET PO SCH ×2 (10:22→21:25)
[2018-03-24] MEDS: amLODIPine BESYLATE 10 MG TABLET (FP) PO SCH (10:23)
[2018-03-24] MEDS: CARVEDILOL 12.5 MG TABLET (FP) PO SCH ×2 (10:23→21:25)
[2018-03-24] MEDS: DEXTROSE 5%-0.45% SALINE 1,000 ML IV SCH (10:23)
[2018-03-24] MEDS: ESCITALOPRAM OXALATE 10 MG TABLET (FP) PO SCH (10:23)
[2018-03-24] MEDS: PANTOPRAZOLE 40 MG TABLET (FP) PO SCH (10:23)
--- NOTE | 2018-03-24 11:43 | PN ---
Physical Exam: SUBJECTIVE: Patient seen and examined at bed side this morning. Complaining of shortness of breath. Patient requested for nasal oxygen and states she feels better with it. Also requesting to get flonase. Denies palpitation, chest pain, abdominal pain, nausea or vomiting. No acute overnight events. OBJECTIVE: Vital Signs Period Temp Pulse Resp BP Sys/Avitia Pulse Ox Last 24 Hr 97.3 F-98.8 F 85-89 18-20 127-157/77-94 95 GENERAL: Morbidly obese female, sitting in bed, is awake, alert, and fully oriented, in mild respiratory distress. HEAD: Normal with no signs of trauma. EYES: EOM intact, no pallor or icterus. ENT: Ears normal, moist mucous membranes. NECK: Supple, no JVD. LUNGS: Breath sounds equal, clear to auscultation bilaterally, no wheezes, no crackles, no accessory muscle use. HEART: Regular rate and rhythm, S1, S2 without murmur. ABDOMEN: Soft, tenderness in the left upper quadrant, BS+, no organomegaly. UPPER EXTREMITIES: 2+ pulses, warm, well-perfused, no edema. LOWER EXTREMITIES: Chronic venous stasis with stasis dermatitis, b/l pitting edema +. NEUROLOGICAL: No facial droop. Normal speech, gait not observed. PSYCH: Normal mood, normal affect. SKIN: Warm, dry, normal turgor, no rashes or lesions noted Laboratory Results - last 24 hr 03/23/18 03/23/18 03/24/18 17:21 21:12 05:33 WBC RBC Hgb Hct MCV MCH MCHC RDW Plt Count MPV PT with INR INR Sodium Potassium Chloride Carbon Dioxide Anion Gap BUN Creatinine Creat Clearance w eGFR POC Glucometer 94 88 78 Random Glucose Calcium Phosphorus Magnesium Ferritin Total Bilirubin AST ALT Alkaline Phosphatase Total Protein Albumin 03/24/18 03/24/18 03/24/18 06:20 06:20 06:20 WBC 9.0 RBC 4.24 Hgb 11.2 Hct 33.7 MCV 79.6 L MCH 26.4 MCHC 33.2 RDW 18.4 H Plt Count 244 MPV 8.6 PT with INR 14.40 H INR 1.22 H Sodium 142 Potassium 3.7 Chloride 109 H Carbon Dioxide 23 Anion Gap 9 BUN 11 Creatinine 1.3 Creat Clearance w eGFR 41.11 POC Glucometer Random Glucose 78 Calcium 8.1 L Phosphorus 3.4 Magnesium 1.6 L Ferritin 50.9 Total Bilirubin 0.2 AST 17 ALT 16 Alkaline Phosphatase 170 H Total Protein 5.6 L Albumin 2.3 L 03/24/18 06:20 WBC RBC Hgb Hct MCV MCH MCHC RDW Plt Count MPV PT with INR INR Sodium Potassium Chloride Carbon Dioxide Anion Gap BUN Creatinine Creat Clearance w eGFR POC Glucometer Random Glucose Calcium Phosphorus Magnesium Ferritin Cancelled Total Bilirubin AST ALT Alkaline Phosphatase Total Protein Albumin Active Medications Generic Name Dose Route Start Last Admin Trade Name Freq PRN Reason Stop Dose Admin Acetaminophen 650 mg 03/22/18 19:39 03/24/18 06:02 Tylenol - PO 650 mg Q6H PRN Administration PAIN LEVEL 4 - 6 Albuterol Sulfate 1 amp 03/22/18 00:06 Ventolin 0.083% Nebulizer Soln - NEB Q6H PRN SHORT OF BREATH/WHEEZING Amlodipine Besylate 10 mg 03/22/18 10:00 03/24/18 10:23 Norvasc - PO 10 mg DAILY [facility] Administration Carvedilol 12.5 mg 03/22/18 10:00 03/24/18 10:23 Coreg - PO 12.5 mg BID [facility] Administration Escitalopram Oxalate 10 mg 03/22/18 10:00 03/24/18 10:23 Lexapro - PO 10 mg DAILY [facility] Administration Fluticasone Propionate 1 spray 03/24/18 12:00 Flonase - NS BID [facility] Metronidazole 500 mg in 100 mls @ 100 mls/hr 03/22/18 02:00 03/24/18 10:23 Flagyl 500mg Premixed Ivpb - IVPB 100 mls/hr Q8H-IV [facility] Administration Dextrose/Sodium Chloride 1,000 mls @ 100 mls/hr 03/24/18 09:30 03/24/18 10:23 D5-1/2ns - IV 100 mls/hr ASDIR [facility] Administration Levofloxacin 750 mg in 150 mls @ 100 mls/hr 03/24/18 10:30 Levaquin 750 Mg Premixed Ivpb - IVPB DAILY [facility] Protocol Insulin Aspart 1 vial 03/22/18 07:00 03/24/18 06:02 Novolog Vial Sliding Scale - SQ Not Given ACHS [facility] Protocol Lisinopril 5 mg 03/22/18 10:00 03/24/18 10:22 Prinivil PO 5 mg DAILY [facility] Administration Morphine Sulfate 4 mg 03/22/18 19:39 03/24/18 05:02 Morphine Sulfate IVPUSH 4 mg Q4H PRN Administration PAIN LEVEL 7 - 10 Oxycodone HCl 10 mg 03/22/18 22:00 03/24/18 10:22 Oxycontin - PO 10 mg BID [facility] Administration Pantoprazole Sodium 40 mg 03/22/18 10:00 03/24/18 10:23 Protonix - PO 40 mg DAILY [facility] Administration Promethazine HCl 12.5 mg 03/23/18 10:58 Phenergan Injection - IVPB Q6H PRN NAUSEA AND/OR VOMITING Rosuvastatin Calcium 10 mg 03/22/18 22:00 03/23/18 21:13 Crestor - PO 10 mg HS [facility] Administration ASSESSMENT/PLAN: Patient is a 67 year old female with significant past medical history of DM, HTN , HLD, GERD, Polycystic kidney, uterine CA s/p hysterectomy, ventral hernia repair, chronic back pain on percocet (QID) presented to the ED with abdominal pain x 1 week. # Abdominal pain questionable diverticulitis vs colitis Plan: Flex sigmoidoscopy at 10:[address] abdomen/pelvis: showed diffuse colon wall edema from proximal descendig colon mid sigmoid colon Continue IV Levaquin q48h Continue IV Flagyl 500mg Q8H Appreciate GI consult. # Shortness of breath Will do a pre and post exercise oxygen saturation before discharge # Dilated CBD 9mm likely from s/p cholecystecotomy GI suggested MRCP if pain persists # Questionable cirrhosis: Hepatitis serologies, JACKIE, ASMA, AMA, iron studies/ferritin-pending # DM Continue ISS, watch for hypoglycemic episodes # Hypertension-controlled Continue Lisinopril 5mg PO daily, coreg 12.5 mg PO BID, Amlodipine 10mg Daily # Chronic back pain Continue Oxycontin 10mg PO BID # FEN IV NS @ 125 mls/hr Electrolytes, Mag repleted, will repeat it AM. NPO after midnight # Prophylaxis For DVT: SCDs, will continue heparin sq after the procedure FoR GI: Protonix 40 daily # Code Status: Full Code Illness, Investigation and Plan of care explained to the patient. She verbalized understanding. Case to be discussed with Dr. Smith. Visit type - Emergency Visit Emergency Visit: Yes ED Registration Date: 03/21/18 Care time: The patient presented to the Emergency Department on the above date and was hospitalized for further evaluation of their emergent condition. - New Patient This patient is new to me today: No - Critical Care Critical Care patient: No - Discharge Referral Referred to [facility] Med [facility].C[facility] No
[2018-03-24] MEDS ORDERED: MAGNESIUM SULF 50% (8.12 MEQ/2 ML-1 GM VIAL) IVPB ONE (12:30)
--- NOTE | 2018-03-24 13:46 | PN ---
Progress Note (short form) - Note Progress Note: Flex sig complete. Report left in procedural section of physical chart and to be scanned into [employer] Problem List - Problems (1) Abdominal pain Code(s): R10.9 - UNSPECIFIED ABDOMINAL PAIN Qualifiers: Abdominal location: unspecified location Qualified Code(s): R10.9 - Unspecified abdominal pain
--- NOTE | 2018-03-24 14:42 | PN ---
Teaching Attending Note Name of Resident: Bee Nugent ATTENDING PHYSICIAN STATEMENT I saw and evaluated the patient. I reviewed the resident's note and discussed the case with the resident. I agree with the resident's findings and plan as documented. SUBJECTIVE: Ms Monae complains of abdominal pain but is improved. No cp or sob. OBJECTIVE: Gen: nad Pulm: ctab CV: rrr Abd:+bs, s/nd, TTP Ext: no c/c/e ASSESSMENT AND PLAN: -continue levaquin and flagyl -continue pain control -planning for flex sig today -continue current management Problem List - Problems (1) Colitis Code(s): K52.9 - NONINFECTIVE GASTROENTERITIS AND COLITIS, UNSPECIFIED (2) GI bleed Code(s): K92.2 - GASTROINTESTINAL HEMORRHAGE, UNSPECIFIED Qualifiers: GI bleed type/associated pathology: unspecified gastrointestinal hemorrhage type Qualified Code(s): K92.2 - Gastrointestinal hemorrhage, unspecified (3) HTN (hypertension) Code(s): I10 - ESSENTIAL (PRIMARY) HYPERTENSION Qualifiers: Hypertension type: essential hypertension Qualified Code(s): I10 - Essential (primary) hypertension (4) Migraine aura, persistent, intractable Code(s): G43.519 - PERST MIGRAINE AURA W/O CEREBRAL INFRC, NTRCT, W/O STAT MIGR (5) Polycystic kidney disease Code(s): Q61.3 - POLYCYSTIC KIDNEY, UNSPECIFIED (6) HLD (hyperlipidemia) Code(s): E78.5 - HYPERLIPIDEMIA, UNSPECIFIED (7) Chronic pain Code(s): G89.29 - OTHER CHRONIC PAIN Qualifiers: Chronic pain type: other chronic pain Qualified Code(s): G89.29 - Other chronic pain
[2018-03-24] MEDS ORDERED: PT OWN MED DRAWER 7, Y5N ONE ×2 (15:10→21:22)
[2018-03-24] MEDS: FLUTICASONE PROP 0.05% 16 GM NASAL SPRAY NS SCH ×2 (15:12→21:25)
--- NOTE | 2018-03-24 16:16 | PN ---
Progress Note, Physician History of Present Illness: Pt with left-sided colitis on CT, multiple somatic complaints. Seen and examined in bed. She still has some abdominal pain, but complains mostly of headache. She had flexible sigmoidoscopy earlier today by GI with findings suspicious for ischemic colitis of descending and sigmoid colon. No significant diverticuli were noted. Biopsies were taken. She asked about being able to have ice. - Current Medication List Current Medications: Active Medications Acetaminophen (Tylenol -) 650 mg PO Q6H PRN PRN Reason: PAIN LEVEL 4 - 6 Last Admin: 03/24/18 06:02 Dose: 650 mg Albuterol Sulfate (Ventolin 0.083% Nebulizer Soln -) 1 amp NEB Q6H PRN PRN Reason: SHORT OF BREATH/WHEEZING Amlodipine Besylate (Norvasc -) 10 mg PO DAILY [facility] Last Admin: 03/24/18 10:23 Dose: 10 mg Carvedilol (Coreg -) 12.5 mg PO BID [facility] Last Admin: 03/24/18 10:23 Dose: 12.5 mg Escitalopram Oxalate (Lexapro -) 10 mg PO DAILY [facility] Last Admin: 03/24/18 10:23 Dose: 10 mg Fluticasone Propionate (Flonase -) 1 spray NS BID [facility] Last Admin: 03/24/18 15:12 Dose: 1 spray Metronidazole (Flagyl 500mg Premixed Ivpb -) 500 mg in 100 mls @ 100 mls/hr IVPB Q8H-IV [facility] Last Admin: 03/24/18 10:23 Dose: 100 mls/hr Dextrose/Sodium Chloride (D5-1/2ns -) 1,000 mls @ 100 mls/hr IV ASDIR [facility] Last Admin: 03/24/18 10:23 Dose: 100 mls/hr Levofloxacin (Levaquin 750 Mg Premixed Ivpb -) 750 mg in 150 mls @ 100 mls/hr IVPB DAILY [facility]; Protocol Last Admin: 03/24/18 16:02 Dose: 100 mls/hr Insulin Aspart (Novolog Vial Sliding Scale -) 1 vial SQ ACHS [facility]; Protocol Last Admin: 03/24/18 12:06 Dose: Not Given Lisinopril (Prinivil) 5 mg PO DAILY [facility] Last Admin: 03/24/18 10:22 Dose: 5 mg Morphine Sulfate (Morphine Sulfate) 4 mg IVPUSH Q4H PRN PRN Reason: PAIN LEVEL 7 - 10 Last Admin: 03/24/18 15:14 Dose: 4 mg Oxycodone HCl (Oxycontin -) 10 mg PO BID [facility] Last Admin: 03/24/18 10:22 Dose: 10 mg Promethazine HCl (Phenergan Injection -) 12.5 mg IVPB Q6H PRN PRN Reason: NAUSEA AND/OR VOMITING Rosuvastatin Calcium (Crestor -) 10 mg PO HS [facility] Last Admin: 03/23/18 21:13 Dose: 10 mg - Objective Vital Signs: Vital Signs Temperature 97.7 F 03/24/18 14:26 Pulse Rate 81 03/24/18 14:26 Respiratory Rate 20 03/24/18 14:26 Blood Pressure 145/90 03/24/18 14:26 O2 Sat by Pulse Oximetry (%) 99 03/24/18 14:26 Constitutional: Yes: No Distress, Calm, Obese Eyes: Yes: Conjunctiva Clear, EOM Intact HENT: Yes: Atraumatic, Normocephalic Gastrointestinal: Yes: Soft, Abdomen, Obese, Distention, Tenderness (mostly LLQ , but also RLQ, LUQ, periumbilical). No: Tenderness, Rebound Extremities: No: Cool, Cyanosis Integumentary: No: Jaundice, Rash Neurological: Yes: Alert, Oriented Labs: CBC, BMP 03/24/18 06:20 03/24/18 06:20 INR, PTT INR 1.22 (0.83-1.09) H 03/24/18 06:20 Microbiology 03/21/18 17:46 Urine Culture - Preliminary Urine - Urine - Catheterized Serratia Marcescens Beta Hemolytic Strep Group D Strep Or Entero Coccus Problem List - Problems (1) Diffuse acute (reversible) ischemia of large intestine Assessment/Plan: likely ischemic colitis of descending and sigmoid colon BP has mostly been above 120-130 systolic pt on IV fluids and antibiotics still with pain and tenderness keep NPO except meds until pain/tenderness resolve in abdomen unclear etiology f/u biopsy results no urgent indication for surgery Code(s): K55.032 - DIFFUSE ACUTE (REVERSIBLE) ISCHEMIA OF LARGE INTESTINE (2) LLQ pain Code(s): R10.32 - LEFT LOWER QUADRANT PAIN (3) Diarrhea Code(s): R19.7 - DIARRHEA, UNSPECIFIED Qualifiers: Diarrhea type: functional diarrhea Qualified Code(s): K59.1 - Functional diarrhea (4) Nausea & vomiting Assessment/Plan: resolved Code(s): R11.2 - NAUSEA WITH VOMITING, UNSPECIFIED Qualifiers: Vomiting type: unspecified Vomiting Intractability: non-intractable Qualified Code(s): R11.2 - Nausea with vomiting, unspecified (5) Diabetes mellitus type 2 in obese Code(s): E11.69 - TYPE 2 DIABETES MELLITUS WITH OTHER SPECIFIED COMPLICATION; E66.9 - OBESITY, UNSPECIFIED (6) Chronic pain Assessment/Plan: reviewed I-stop with Dr. Smith: pt has been prescribed Percocet 10/325 pills (not 5/325) for many months she is likely overusing at home, as she only gets 23-day supply at a time, rx for q6hr use (1 pill 4x/day) if that is the case, withdrawal is still possible, as her daily use would exceed original estimates by as much as two-fold consider consultation with detox or pain management? unclear if PMD or pain physician is prescribing for her Code(s): G89.29 - OTHER CHRONIC PAIN Qualifiers: Chronic pain type: other chronic pain Qualified Code(s): G89.29 - Other chronic pain (7) GERD (gastroesophageal reflux disease) Code(s): K21.9 - GASTRO-ESOPHAGEAL REFLUX DISEASE WITHOUT ESOPHAGITIS Qualifiers: Esophagitis presence: without esophagitis Qualified Code(s): K21.9 - Gastro -esophageal reflux disease without esophagitis (8) HTN (hypertension) Code(s): I10 - ESSENTIAL (PRIMARY) HYPERTENSION Qualifiers: Hypertension type: essential hypertension Qualified Code(s): I10 - Essential (primary) hypertension (9) Migraine aura, persistent, intractable Code(s): G43.519 - PERST MIGRAINE AURA W/O CEREBRAL INFRC, NTRCT, W/O STAT MIGR (10) Polycystic kidney disease Code(s): Q61.3 - POLYCYSTIC KIDNEY, UNSPECIFIED
--- NOTE | 2018-03-24 16:23 | EKG ---
Test Reason : Blood Pressure : / mmHG Vent. Rate : 084 BPM Atrial Rate : 084 BPM P-R Int : 150 ms QRS Dur : 086 ms QT Int : 410 ms P-R-T Axes : 054 040 039 degrees QTc Int : 484 ms NORMAL SINUS RHYTHM NONSPECIFIC T WAVE ABNORMALITY PROLONGED QT ABNORMAL ECG Confirmed by MD ESTHELA, GEO ([id number]) on 03/24/2018 4:23:12 PM Referred By: Christine SCHWARZ Confirmed By:GEO PROCTOR MD
[2018-03-24] MEDS: ROSUVASTATIN CA 10 MG TABLET (FP) PO SCH (21:25)
[2018-03-25] MEDS: MORPHINE SULFATE 2 MG/ML VIAL IVPUSH PRN ×4 (01:36→20:00)
[2018-03-25] MEDS: ACETAMINOPHEN 325 MG TABLET (FP) PO PRN ×2 (04:03→23:26)
[2018-03-25 04:17] LABS: HEP.C VIRUS AB <0.1 s/co ratio (0.0-0.9)
[2018-03-25] MEDS: INSULIN SLIDING SCALE (NOVOLOG) 1 VIAL SQ SCH ×4 (06:03→21:07)
[2018-03-25 08:28] LABS: ANION GAP 11 MMOL/L (8-16); BLOOD UREA NITROGEN 9 mg/dL (7-18); CHLORIDE 107 mmol/L (98-107); CO2 22 mmol/L (21-32); CREATININE 1.3 mg/dL (0.55-1.3); GLUCOSE,RANDOM 127 mg/dL (74-106); MAGNESIUM 1.7 mg/dL (1.8-2.4); PHOSPHOROUS 3.1 mg/dL (2.5-4.9); POTASSIUM 3.3 mmol/L (3.5-5.1); SODIUM 140 mmol/L (136-145)
[2018-03-25 09:06] LABS: HEMATOCRIT 36.1 % (32.4-45.2); HEMOGLOBIN 11.2 GM/dL (10.7-15.3); MCH 24.8 pg (25.7-33.7); MCHC 31.1 g/dl (32.0-36.0); MEAN CELL VOLUME 79.7 fl (80-96); PLATELET COUNT 241 K/MM3 (134-434); RBC 4.53 M/mm3 (3.60-5.2); RDW 18.7 % (11.6-15.6); WHITE BLOOD COUNT 11.9 K/mm3 (4.0-10.0)
[2018-03-25] MEDS ORDERED: POTASSIUM CHLORIDE TABS 20 MEQ TABLET.ER (FP) PO ONE (09:31)
[2018-03-25] MEDS ORDERED: MAGNESIUM SULF 50% (8.12 MEQ/2 ML-1 GM VIAL) IVPB ONE (09:31)
--- NOTE | 2018-03-25 10:01 | PN ---
Addendum entered and electronically signed by Bee Nugent, RESIDENT 15:36: ECHO done 03/25/18: Left Ventricular size, thickness and function are normal. Left vent Ejection fraction normal. There was insufficient TR detected to calculate RV systolic pressure. Original Note: Physical Exam: SUBJECTIVE: Patient seen and examined at bed side this morning. States that she has shortness of breath on exertion. Has a h/o asthma. Years ago was on home oxygen. Her PCP had given her a referral to see a Registered Nurses however she was admitted here so hasn't seen the doctor. Still has abdominal pain on/off (it is hard to determine since she has chronic pain). Denies palpitation, chest pain, abdominal pain, nausea or vomiting. No BM today. No acute overnight events. OBJECTIVE: Vital Signs Period Temp Pulse Resp BP Sys/Avitia Pulse Ox Last 24 Hr 97.4 F-98.2 F 57-86 15-20 110-148/54-94 95-99 GENERAL: Morbidly obese female, sitting in a chair, is awake, alert, and fully oriented, in mild respiratory distress. HEAD: Normal with no signs of trauma. EYES: EOM intact, no pallor or icterus. ENT: Ears normal, moist mucous membranes. NECK: Supple, no JVD. LUNGS: Breath sounds decreased bilaterally, no wheezes, no crackles, no accessory muscle use. HEART: Regular rate and rhythm, S1, S2 without murmur. ABDOMEN: Soft, tenderness in the left upper quadrant and right lower quadrant, BS+, no organomegaly. UPPER EXTREMITIES: 2+ pulses, warm, well-perfused, no edema. LOWER EXTREMITIES: Chronic venous stasis with stasis dermatitis, b/l pitting edema +. NEUROLOGICAL: No facial droop. Normal speech, gait not observed. PSYCH: Normal mood, normal affect. SKIN: Warm, dry, normal turgor, thick skin with color change in the lower extremity (chronic) Laboratory Results - last 24 hr 03/24/18 03/24/18 03/24/18 06:20 17:35 21:25 WBC RBC Hgb Hct MCV MCH MCHC RDW Plt Count MPV Absolute Neuts (auto) Neutrophils % Lymphocytes % Nucleated RBC % Sodium Potassium Chloride Carbon Dioxide Anion Gap BUN Creatinine Creat Clearance w eGFR POC Glucometer 93 101 Random Glucose Calcium Phosphorus Magnesium Transferrin 162 L C-Reactive Protein Hepatitis A IgM Ab Negative Hep Bs Antigen Negative Hep B Core IgM Ab Negative Hepatitis C Antibody <0.1 03/25/18 03/25/18 03/25/18 05:31 06:15 06:15 WBC RBC Hgb Hct MCV MCH MCHC RDW Plt Count MPV Absolute Neuts (auto) Neutrophils % Lymphocytes % Nucleated RBC % Sodium 140 Potassium 3.3 L Chloride 107 Carbon Dioxide 22 Anion Gap 11 BUN 9 Creatinine 1.3 Creat Clearance w eGFR 41.11 POC Glucometer 119 Random Glucose 127 H Calcium 8.0 L Phosphorus 3.1 Magnesium 1.7 L Transferrin C-Reactive Protein 2.8 H Hepatitis A IgM Ab Hep Bs Antigen Hep B Core IgM Ab Hepatitis C Antibody 03/25/18 06:15 WBC 11.9 H RBC 4.53 Hgb 11.2 Hct 36.1 MCV 79.7 L MCH 24.8 L MCHC 31.1 L RDW 18.7 H Plt Count 241 MPV 9.0 Absolute Neuts (auto) 9.4 H Neutrophils % No Result Required. Lymphocytes % No Result Required. Nucleated RBC % 0 Sodium Potassium Chloride Carbon Dioxide Anion Gap BUN Creatinine Creat Clearance w eGFR POC Glucometer Random Glucose Calcium Phosphorus Magnesium Transferrin C-Reactive Protein Hepatitis A IgM Ab Hep Bs Antigen Hep B Core IgM Ab Hepatitis C Antibody Active Medications Generic Name Dose Route Start Last Admin Trade Name Freq PRN Reason Stop Dose Admin Acetaminophen 650 mg 03/22/18 19:39 03/25/18 04:03 Tylenol - PO 650 mg Q6H PRN Administration PAIN LEVEL 4 - 6 Albuterol Sulfate 1 amp 03/22/18 00:06 Ventolin 0.083% Nebulizer Soln - NEB Q6H PRN SHORT OF BREATH/WHEEZING Amlodipine Besylate 10 mg 03/22/18 10:00 03/24/18 10:23 Norvasc - PO 10 mg DAILY MARIA E Administration Carvedilol 12.5 mg 03/22/18 10:00 03/24/18 21:25 Coreg - PO 12.5 mg BID MARIA E Administration Escitalopram Oxalate 10 mg 03/22/18 10:00 03/24/18 10:23 Lexapro - PO 10 mg DAILY MARIA E Administration Fluticasone Propionate 1 spray 03/24/18 12:00 03/24/18 21:25 Flonase - NS 1 spray BID MARIA E Administration Heparin Sodium (Porcine) 5,000 unit 03/25/18 14:00 Heparin - SQ TID MARIA E Metronidazole 500 mg in 100 mls @ 100 mls/hr 03/22/18 02:00 03/25/18 01:24 Flagyl 500mg Premixed Ivpb - IVPB 100 mls/hr Q8H-IV MARIA E Administration Dextrose/Sodium Chloride 1,000 mls @ 100 mls/hr 03/24/18 09:30 03/24/18 10:23 D5-1/2ns - IV 100 mls/hr ASDIR MARIA E Administration Levofloxacin 750 mg in 150 mls @ 100 mls/hr 03/24/18 10:30 03/24/18 16:02 Levaquin 750 Mg Premixed Ivpb - IVPB 100 mls/hr DAILY MARIA E Administration Protocol Insulin Aspart 1 vial 03/22/18 07:00 03/25/18 06:03 Novolog Vial Sliding Scale - SQ Not Given ACHS [facility] Protocol Lisinopril 5 mg 03/22/18 10:00 03/24/18 10:22 Prinivil PO 5 mg DAILY MARIA E Administration Morphine Sulfate 4 mg 03/22/18 19:39 03/25/18 05:33 Morphine Sulfate IVPUSH 4 mg Q4H PRN Administration PAIN LEVEL 7 - 10 Oxycodone HCl 10 mg 03/22/18 22:00 03/24/18 21:25 Oxycontin - PO 10 mg BID MARIA E Administration Promethazine HCl 12.5 mg 03/23/18 10:58 Phenergan Injection - IVPB Q6H PRN NAUSEA AND/OR VOMITING Rosuvastatin Calcium 10 mg 03/22/18 22:00 03/24/18 21:25 Crestor - PO 10 mg HS MARIA E Administration Endoscopy 03/24: Segmental colitis spanning from sigmoid to descedning colon, the most severe being noted 20-40 cm in the sigmoid. Suspected ischemic colitis. The colon mucusa was otherwise normal to the distal transverse colon. Retroflexed views revealed medium internal hemorrhoids. CT abdomen/pelvis: showed diffuse colon wall edema from proximal descendig colon mid sigmoid colon ASSESSMENT/PLAN: Patient is a 67 year old female with significant past medical history of DM, HTN , HLD, GERD, Polycystic kidney, uterine CA s/p hysterectomy, ventral hernia repair, chronic back pain on percocet (QID) presented to the ED with abdominal pain x 1 week. # Ischemic colitis Flex sigmoidoscopy was done yesterday 03/24. Report as mentioned above. Will continue NPO since abdominal pain still persists. IV Hydration with D5-1/2 NS @ 75 mls/hr Continue IV Levaquin 750 mg Daily (since her kidney function improved changed Q48H to daily) Continue IV Flagyl 500mg Q8H Day 3 Appreciate GI consult. # Shortness of breath likely due to Asthma Would like to r/o cardio causes as well. ECHO ordered. Echo from 2016 reviewed which was normal. CXR ordered this AM. Pulmonary consult requested. Needs outpatient PFT's. Will do a pre and post exercise oxygen saturation before discharge # UTI Urine culture positive for E. faecalis (03/21/18), sensitive to Levaquin. Urine culture 03/22 negative. Will continue IV Levaquin. # EMILIANO resolved # Dilated CBD 9mm likely from s/p cholecystecotomy GI suggested MRCP if pain persists # Questionable cirrhosis: Hepatitis serologies, JACKIE, ASMA, AMA, iron studies/ferritin-pending # DM Continue ISS, watch for hypoglycemic episodes # Hypertension-controlled Continue Lisinopril 5mg PO daily, coreg 12.5 mg PO BID, Amlodipine 10mg Daily # Chronic back pain Continue Oxycontin 10mg PO BID # FEN IV D5-1/2 NS @ 100 mls/hr Electrolytes, Mag repleted, will repeat it AM. NPO except sips of water. # Prophylaxis For DVT: Heparin sq 5000 IU sq TID FoR GI: Protonix 40 daily # Code Status: Full Code Illness, Investigation and Plan of care explained to the patient. She verbalized understanding. Case to be discussed with Dr. Westbrook Problem List - Problems (1) Asthma Code(s): J45.909 - UNSPECIFIED ASTHMA, UNCOMPLICATED (2) Chronic pain Code(s): G89.29 - OTHER CHRONIC PAIN Qualifiers: Chronic pain type: other chronic pain Qualified Code(s): G89.29 - Other chronic pain (3) Diabetes mellitus type 2 in obese Code(s): E11.69 - TYPE 2 DIABETES MELLITUS WITH OTHER SPECIFIED COMPLICATION; E66.9 - OBESITY, UNSPECIFIED (4) GI bleed Code(s): K92.2 - GASTROINTESTINAL HEMORRHAGE, UNSPECIFIED Qualifiers: GI bleed type/associated pathology: unspecified gastrointestinal hemorrhage type Qualified Code(s): K92.2 - Gastrointestinal hemorrhage, unspecified (5) HLD (hyperlipidemia) Code(s): E78.5 - HYPERLIPIDEMIA, UNSPECIFIED (6) Obstructive sleep apnea Code(s): G47.33 - OBSTRUCTIVE SLEEP APNEA (ADULT) (PEDIATRIC) Visit type - Emergency Visit Emergency Visit: Yes ED Registration Date: 03/21/18 Care time: The patient presented to the Emergency Department on the above date and was hospitalized for further evaluation of their emergent condition. - New Patient This patient is new to me today: No - Critical Care Critical Care patient: No - Discharge Referral Referred to [facility] Med P.C.: No
[2018-03-25] MEDS: ESCITALOPRAM OXALATE 10 MG TABLET (FP) PO SCH (10:20)
[2018-03-25] MEDS: oxyCODONE HCL 10 MG SUSTAINED ACTING TABLET PO SCH ×2 (10:20→21:05)
[2018-03-25] MEDS: LISINOPRIL 5 MG TABLET (FP) PO SCH (10:20)
[2018-03-25] MEDS: CARVEDILOL 12.5 MG TABLET (FP) PO SCH ×3 (10:20→21:06)
[2018-03-25] MEDS: amLODIPine BESYLATE 10 MG TABLET (FP) PO SCH (10:21)
[2018-03-25] MEDS: FLUTICASONE PROP 0.05% 16 GM NASAL SPRAY NS SCH ×2 (10:21→21:06)
[2018-03-25] MEDS: DEXTROSE 5%-0.45% SALINE 1,000 ML IV SCH (10:23)
[2018-03-25 12:02] LABS: ANISOCYTOSIS 1+; MACROCYTOSIS 1+; PLATELET ESTIMATE NORMAL
[2018-03-25] MEDS ORDERED: ALPRAZolam 0.25 MG TABLET PO ONE (13:02)
--- NOTE | 2018-03-25 13:10 | ECHO ---
Name: MARINA DIETZ Exam:Adult Echocardiogram Study Date: 03/25/2018 11:29 AM Age: 67 yrs Reason For Study: SOB Height: 62 in Weight: 215 lb BSA: 2.0 m2 MMode/2D Measurements & Calculations IVSd: 0.89 cm Ao root diam: 2.6 cm LVIDd: 4.5 cm LVIDs: 2.9 cm LVPWd: 0.83 cm EDV(Teich): 93.4 ml ESV(Teich): 31.3 ml Doppler Measurements & Calculations MV E max eric: 55.8 cm/sec MR max eric: 405.8 cm/sec MV A max eric: 82.9 cm/sec MR max P.9 mmHg MV E/A: 0.67 MV dec time: 0.17 sec Med Peak E' Eric: 5.6 cm/sec Med E/e': 10.0 Lat Peak E' Eric: 6.6 cm/sec Lat E/e': 8.4 Procedure The study was technically difficult with many images being suboptimal in quality. Left Ventricle The left ventricular size, thickness and function are normal. The left ventricle is not well visualiz ed. The left ventricular ejection fraction is normal. E/A reversal consistent with but not diagnostic of poor LV compliance. Regional wall motion abnormalities cannot be excluded due to limited visualization. Right Ventricle The right ventricle is not well visualized. Atria The left atrium is not well visualized. Right atrium not well visualized. Mitral Valve The mitral valve is not well visualized. There is no mitral valve stenosis. There is moderate mitral regurgitation. Tricuspid Valve The tricuspid valve is not well visualized. There is no tricuspid stenosis. There was insufficient TR detected to calculate RV systolic pressure. Aortic Valve The aortic valve is not well visualized. Pulmonic Valve The pulmonic valve is not well visualized. Great Vessels The aortic root is normal size. Pericardium/Pleura There is no pericardial effusion. Interpretation Summary The left ventricular size, thickness and function are normal The left ventricular ejection fraction is normal. The study was technically difficult with many images being suboptimal in quality. The left ventricle is not well visualized. Regional wall motion abnormalities cannot be excluded due to limited visualization. The left atrium is not well visualized. Right atrium not well visualized. E/A reversal consistent with but not diagnostic of poor LV compliance There is moderate mitral regurgitation. There was insufficient TR detected to calculate RV systolic pressure. MD Jose Jung 03/25/2018 01:10 PM
[2018-03-25] MEDS: HEPARIN NA (PORCINE) 5,000 UNITS/ML 1ML VIAL SQ SCH ×2 (13:47→21:06)
--- NOTE | 2018-03-25 13:53 | CON.PULM ---
Consult Consult Specialty:: PULMONARY Referred by:: Dr. Westbrook Reason for Consultation:: shortness of breath - History of Present Illness Chief Complaint: shortness of breath History of Present Illness: 67yo female with h/o HTN, DM, GERD, PCKD, uterine ca s/p hysterectomy, asthma who was admitted with abdominal pain, nausea, vomiting and diarrhea. Found to have colitis currently being treated with antibiotics. She has been experiencing shortness of breath x 7-8 months. No chronic cough but does report wheezing. No chest pain but occasionally with chest tightness. She is a never smoker but did smoke earlier in their relationship. 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 No pets. She has been told that she is a snorer. She does have night time awakenings with gasping sensations. Does wake up with a dry mouth and headache. Does not feel rested upon awakening and she does experience excessive daytime somnolence. - History Source History Provided By: Patient, Medical Record Limitations to Obtaining History: No Limitations - Past Medical History [employer]: Yes: Migraine, Peripheral Neuropathy Cardio/Vascular: Yes: HTN, Hyperlipdemia Pulmonary: Yes: Asthma Gastrointestinal: Yes: GERD Renal/: Yes: Renal Calculi, Other (polycystic kidney disease) ...: No Psych: Yes: Depression Musculoskeletal: Yes: Chronic low back pain (whole back pain, neck pain), Osteoarthritis, Other (chronic pain) Endocrine: Yes: Diabetes Mellitus (DM II on insulin at home) - Past Surgical History Past Surgical History: Yes: Cholecystectomy (laparoscopic), Colonoscopy, Hernia Repair (Ventral), Hysterectomy (with BSO, for cancer (uterine?)), Oopherectomy, Upper Endoscopy - Alcohol/Substance Use Hx Alcohol Use: No History of Substance Use: reports: None (no illicits), Prescription (uses Percocet 2 pills 3-4 times a day for pain) - Smoking History Smoking history: Never smoked Have you smoked in the past 12 months: No Aproximately how many cigarettes per day: 0 - Social History Usual Living Arrangement: With Spouse ADL: Independent History of Recent Travel: No Home Medications - Allergies Allergies/Adverse Reactions: Allergies Allergy/AdvReac Type Severity Reaction Status Date / Time No Known Drug Allergies Allergy Verified 03/21/18 17:03 - Home Medications Home Medications: Ambulatory Orders Ibuprofen [Motrin -] 600 mg PO TID PRN #90 tablet MDD 3 05/20/17 Oxycodone HCl/Acetaminophen [Percocet 5-325 mg Tablet] 1 tab PO Q4H PRN #15 tablet NS MDD 6 08/24/16 Amlodipine Besylate 10 mg PO DAILY 03/21/18 Carvedilol 25 mg PO DAILY 03/21/18 Escitalopram Oxalate [Lexapro -] 10 mg PO DAILY 03/21/18 Lisinopril 5 mg PO DAILY 03/21/18 Rosuvastatin Calcium 10 mg PO DAILY 03/21/18 Family Disease History - Family Disease History Family Disease History: Diabetes: Mother (Alive, htn), Other: Father (: 41: CVA), Mother, Brother (1, healthy), Sister (1, healthy), Son (3, 1 with DM II), Daughter (1, healthy) Other Family History: No family history of colorectal cancer or other GI malignancy Review of Systems - Review of Systems Constitutional: reports: Weakness. denies: Chills, Fever Eyes: denies: Recent Change in Vision HENT: denies: Nasal Congestion, Throat Pain Neck: denies: Stiffness, Tenderness Cardiovascular: reports: Shortness of Breath. denies: Chest Pain, Palpitations Respiratory: reports: SOB on Exertion, Wheezing. denies: Cough, Hemoptysis Gastrointestinal: reports: Abdominal Pain, Diarrhea, Nausea, Vomiting Genitourinary: denies: Dysuria, Hematuria Endocrine: denies: Unexplained Weight Loss Physical Exam Vital Sings: Vital Signs Temperature 97.0 F L 03/25/18 10:23 Pulse Rate 87 03/25/18 10:31 Respiratory Rate 18 03/25/18 10:23 Blood Pressure 150/94 03/25/18 10:31 O2 Sat by Pulse Oximetry (%) 95 03/24/18 21:00 Constitutional: Yes: Calm Eyes: Yes: Conjunctiva Clear, EOM Intact HENT: Yes: Atraumatic, Normocephalic Neck: Yes: Supple, Trachea Midline Cardiovascular: Yes: Regular Rate and Rhythm Respiratory: Yes: Diminished (decreased breath sounds at the bases) Gastrointestinal: Yes: Normal Bowel Sounds, Soft. No: Tenderness Edema: No Neurological: Yes: Alert, Oriented Labs: CBC, BMP 03/25/18 06:15 03/25/18 06:15 Imaging - Results Chest X-ray: Report Reviewed, Image Reviewed (no infiltrates) Problem List - Problems (1) Colitis Code(s): K52.9 - NONINFECTIVE GASTROENTERITIS AND COLITIS, UNSPECIFIED (2) Asthma Code(s): J45.909 - UNSPECIFIED ASTHMA, UNCOMPLICATED (3) Obstructive sleep apnea Code(s): G47.33 - OBSTRUCTIVE SLEEP APNEA (ADULT) (PEDIATRIC) Assessment/Plan Acute Colitis - r/o Ischemic Colitis Asthma Likely Obstructive Sleep Apnea r/o Pulmonary HTN HTN DM GERD h/o Uterine Ca Polycystic Kidney Disease - continue antibiotics - inhaled bronchodilators - poor visualization of RV on echocardiogram here, will need repeat as outpt - outpt PFTs, PSG and f/u - DVT prophylaxis Thank you for this consult Malachi Suresh MD
--- NOTE | 2018-03-25 14:11 | PN ---
Teaching Attending Note Name of Resident: Bee Nugent ATTENDING PHYSICIAN STATEMENT I saw and evaluated the patient. I reviewed the resident's note and discussed the case with the resident. I agree with the resident's findings and plan as documented. SUBJECTIVE: Patient reports SOB with exertion. Abdominal pain is improving. OBJECTIVE: Vital Signs Period Temp Pulse Resp BP Sys/Avitia Pulse Ox Last 24 Hr 97.0 F-98.2 F 57-97 17-20 132-154/76-102 95-99 HEART S1S2, RRR LUNGS: Clear ABDOMEN: Obese, soft, non-distended, (+) RLQ tenderness, normal BS EXTREMITIES: Trace edema with chronic stasis changes Laboratory Results - last 24 hr 03/24/18 03/24/18 03/24/18 06:20 17:35 21:25 WBC RBC Hgb Hct MCV MCH MCHC RDW Plt Count MPV Absolute Neuts (auto) Neutrophils % Neutrophils % (Manual) Band Neutrophils % Lymphocytes % Lymphocytes % (Manual) Monocytes % (Manual) Eosinophils % (Manual) Basophils % (Manual) Myelocytes % (Man) Promyelocytes % (Man) Blast Cells % (Manual) Nucleated RBC % Metamyelocytes Hypochromia Platelet Estimate Polychromasia Poikilocytosis Anisocytosis Microcytosis Macrocytosis Sodium Potassium Chloride Carbon Dioxide Anion Gap BUN Creatinine Creat Clearance w eGFR POC Glucometer 93 101 Random Glucose Calcium Phosphorus Magnesium Transferrin 162 L C-Reactive Protein Hepatitis A IgM Ab Negative Hep Bs Antigen Negative Hep B Core IgM Ab Negative Hepatitis C Antibody <0.1 03/25/18 03/25/18 03/25/18 05:31 06:15 06:15 WBC RBC Hgb Hct MCV MCH MCHC RDW Plt Count MPV Absolute Neuts (auto) Neutrophils % Neutrophils % (Manual) Band Neutrophils % Lymphocytes % Lymphocytes % (Manual) Monocytes % (Manual) Eosinophils % (Manual) Basophils % (Manual) Myelocytes % (Man) Promyelocytes % (Man) Blast Cells % (Manual) Nucleated RBC % Metamyelocytes Hypochromia Platelet Estimate Polychromasia Poikilocytosis Anisocytosis Microcytosis Macrocytosis Sodium 140 Potassium 3.3 L Chloride 107 Carbon Dioxide 22 Anion Gap 11 BUN 9 Creatinine 1.3 Creat Clearance w eGFR 41.11 POC Glucometer 119 Random Glucose 127 H Calcium 8.0 L Phosphorus 3.1 Magnesium 1.7 L Transferrin C-Reactive Protein 2.8 H Hepatitis A IgM Ab Hep Bs Antigen Hep B Core IgM Ab Hepatitis C Antibody 03/25/18 03/25/18 06:15 11:32 WBC 11.9 H RBC 4.53 Hgb 11.2 Hct 36.1 MCV 79.7 L MCH 24.8 L MCHC 31.1 L RDW 18.7 H Plt Count 241 MPV 9.0 Absolute Neuts (auto) 9.4 H Neutrophils % No Result Required. Neutrophils % (Manual) 76.5 Band Neutrophils % 0.0 Lymphocytes % No Result Required. Lymphocytes % (Manual) 17.4 Monocytes % (Manual) 6 Eosinophils % (Manual) 0.0 Basophils % (Manual) 0.0 Myelocytes % (Man) 0 Promyelocytes % (Man) 0 Blast Cells % (Manual) 0 Nucleated RBC % 0 Metamyelocytes 0 Hypochromia 0 Platelet Estimate Normal Polychromasia 0 Poikilocytosis 1+ Anisocytosis 1+ Microcytosis 1+ Macrocytosis 1+ Sodium Potassium Chloride Carbon Dioxide Anion Gap BUN Creatinine Creat Clearance w eGFR POC Glucometer 126 Random Glucose Calcium Phosphorus Magnesium Transferrin C-Reactive Protein Hepatitis A IgM Ab Hep Bs Antigen Hep B Core IgM Ab Hepatitis C Antibody Current Medications Generic Name Dose Route Start Last Admin Trade Name Freq PRN Reason Stop Dose Admin Acetaminophen 650 mg 03/22/18 19:39 03/25/18 04:03 Tylenol - PO 650 mg Q6H PRN Administration PAIN LEVEL 4 - 6 Albuterol Sulfate 1 amp 03/22/18 00:06 Ventolin 0.083% Nebulizer Soln - NEB Q6H PRN SHORT OF BREATH/WHEEZING Albuterol/Ipratropium 1 amp 03/25/18 14:00 Duoneb - NEB RTID MARIA E Amlodipine Besylate 10 mg 03/22/18 10:00 03/25/18 10:21 Norvasc - PO 10 mg DAILY MARIA E Administration Carvedilol 12.5 mg 03/22/18 10:00 03/25/18 10:20 Coreg - PO 12.5 mg BID MARIA E Administration Escitalopram Oxalate 10 mg 03/22/18 10:00 03/25/18 10:20 Lexapro - PO 10 mg DAILY MARIA E Administration Fluticasone Propionate 1 spray 03/24/18 12:00 03/25/18 10:21 Flonase - NS 1 spray BID MARIA E Administration Heparin Sodium (Porcine) 5,000 unit 03/25/18 14:00 03/25/18 13:47 Heparin - SQ 5,000 unit TID MARIA E Administration Metronidazole 500 mg in 100 mls @ 100 mls/hr 03/22/18 02:00 03/25/18 10:21 Flagyl 500mg Premixed Ivpb - IVPB 100 mls/hr Q8H-IV MARIA E Administration Dextrose/Sodium Chloride 1,000 mls @ 100 mls/hr 03/24/18 09:30 03/25/18 10:23 D5-1/2ns - IV Not Given ASDIR MARIA E Levofloxacin 750 mg in 150 mls @ 100 mls/hr 03/24/18 10:30 03/25/18 10:21 Levaquin 750 Mg Premixed Ivpb - IVPB 100 mls/hr DAILY MARIA E Administration Protocol Insulin Aspart 1 vial 03/22/18 07:00 03/25/18 11:46 Novolog Vial Sliding Scale - SQ Not Given ACHS [facility] Protocol Lisinopril 5 mg 03/22/18 10:00 03/25/18 10:20 Prinivil PO 5 mg DAILY MARIA E Administration Morphine Sulfate 4 mg 03/22/18 19:39 03/25/18 05:33 Morphine Sulfate IVPUSH 4 mg Q4H PRN Administration PAIN LEVEL 7 - 10 Oxycodone HCl 10 mg 03/22/18 22:00 03/25/18 10:20 Oxycontin - PO 10 mg BID MARIA E Administration Promethazine HCl 12.5 mg 03/23/18 10:58 Phenergan Injection - IVPB Q6H PRN NAUSEA AND/OR VOMITING Rosuvastatin Calcium 10 mg 03/22/18 22:00 03/24/18 21:25 Crestor - PO 10 mg HS MARIA E Administration ASSESSMENT AND PLAN: This is a 67 year old woman with a history of type 2 DM, HTN, hyperlipidemia, GERD, polycystic kidney disease, uterine cancer, hysterectomy, ventral hernia repair, chronic back pain who presented to the ED with abdominal pain. 1. Ischemic colitis - Pain improving - Keep NPO - Continue IV fluid, Levaquin, Flagyl 2. Dyspnea on exertion - Possibly secondary to asthma - Continue DuoNeb, albuterol as needed - Echocardiogram - Pulmonary consult 3. Asthma - Continue DuoNeb, albuterol as needed - Pulmonary consult 4. E. faecalis UTI - Continue Levaquin (day 2) 5. Acute kidney injury - Improved 6. Stage 3 CKD 7. Dilated CBD, likely secondary to prior cholecystecotomy - Consider MRCP if pain persists 8. Possible cirrhosis - Hepatitis serologies, JACKIE, ASMA, AMA, iron studies pending 9.Type 2 DM - Continue Novolog sliding scale 10. Hypertension - Continue Lisinopril, Coreg, Norvasc 11. Hyperlipidemia - Continue Crestor 12. Polycystic kidneys 13. History of uterine cancer, hysterectomy 14. Chronic back pain - Continue OxyContin
[2018-03-25] MEDS: ALBUTEROL SO4 2.5/IPRATROPIUM 0.5 INH SOL 3 ML VIAL.NEB. NEB SCH ×2 (16:00→21:20)
--- NOTE | 2018-03-25 16:59 | PN ---
Progress Note, Physician Chief Complaint: Abdominal pain History of Present Illness: Pt seen/examined at bedside, feeling better overall, reports back pain which she states is not new, states abdominal pain has improved, denies n/v, asking to drink liquids. Denies fever/chills. - Current Medication List Current Medications: Active Medications Acetaminophen (Tylenol -) 650 mg PO Q6H PRN PRN Reason: PAIN LEVEL 4 - 6 Last Admin: 03/25/18 04:03 Dose: 650 mg Albuterol Sulfate (Ventolin 0.083% Nebulizer Soln -) 1 amp NEB Q6H PRN PRN Reason: SHORT OF BREATH/WHEEZING Albuterol/Ipratropium (Duoneb -) 1 amp NEB RTID MARIA E Amlodipine Besylate (Norvasc -) 10 mg PO DAILY [facility] Last Admin: 03/25/18 10:21 Dose: 10 mg Carvedilol (Coreg -) 12.5 mg PO BID [facility] Last Admin: 03/25/18 10:20 Dose: 12.5 mg Escitalopram Oxalate (Lexapro -) 10 mg PO DAILY [facility] Last Admin: 03/25/18 10:20 Dose: 10 mg Fluticasone Propionate (Flonase -) 1 spray NS BID [facility] Last Admin: 03/25/18 10:21 Dose: 1 spray Heparin Sodium (Porcine) (Heparin -) 5,000 unit SQ TID [facility] Last Admin: 03/25/18 13:47 Dose: 5,000 unit Metronidazole (Flagyl 500mg Premixed Ivpb -) 500 mg in 100 mls @ 100 mls/hr IVPB Q8H-IV MARIA E Last Admin: 03/25/18 10:21 Dose: 100 mls/hr Dextrose/Sodium Chloride (D5-1/2ns -) 1,000 mls @ 100 mls/hr IV ASDIR [facility] Last Admin: 03/25/18 10:23 Dose: Not Given Levofloxacin (Levaquin 750 Mg Premixed Ivpb -) 750 mg in 150 mls @ 100 mls/hr IVPB DAILY [facility]; Protocol Last Admin: 03/25/18 10:21 Dose: 100 mls/hr Insulin Aspart (Novolog Vial Sliding Scale -) 1 vial SQ ACHS [facility]; Protocol Last Admin: 03/25/18 11:46 Dose: Not Given Lisinopril (Prinivil) 5 mg PO DAILY [facility] Last Admin: 03/25/18 10:20 Dose: 5 mg Morphine Sulfate (Morphine Sulfate) 4 mg IVPUSH Q4H PRN PRN Reason: PAIN LEVEL 7 - 10 Last Admin: 03/25/18 15:12 Dose: 4 mg Oxycodone HCl (Oxycontin -) 10 mg PO BID [facility] Last Admin: 03/25/18 10:20 Dose: 10 mg Promethazine HCl (Phenergan Injection -) 12.5 mg IVPB Q6H PRN PRN Reason: NAUSEA AND/OR VOMITING Rosuvastatin Calcium (Crestor -) 10 mg PO HS [facility] Last Admin: 03/24/18 21:25 Dose: 10 mg - Objective Vital Signs: Vital Signs Temperature 98.1 F 03/25/18 14:00 Pulse Rate 83 03/25/18 14:00 Respiratory Rate 17 03/25/18 14:00 Blood Pressure 154/96 03/25/18 14:00 O2 Sat by Pulse Oximetry (%) 95 03/25/18 09:00 Constitutional: Yes: Well Nourished, No Distress Cardiovascular: Yes: WNL, Regular Rate and Rhythm Respiratory: Yes: WNL, Regular Gastrointestinal: Yes: Normal Bowel Sounds, Soft, Other (mildly tender in left side abdomen on palpation, nondistended, no rebound, guarding or rigidity) Labs: CBC, BMP 03/25/18 06:15 03/25/18 06:15 INR, PTT INR 1.22 (0.83-1.09) H 03/24/18 06:20 Problem List - Problems (1) Abdominal pain Assessment/Plan: s/p flexible sigmoidoscopy (03/24/18) revealing left sided colitis suspected ischemic, biopsies pending. Abdominal pain improved. -Continue to monitor clinically -Await pathology results -Recommend start clear liquid diet, advance gradually as tolerated. -Avoid hypotension -Check HbSAb to confirm immunity status -Await results of iron studies and autoimmune workup (JACKIE, ASMA, AMA) as previously advised Code(s): R10.9 - UNSPECIFIED ABDOMINAL PAIN Qualifiers: Abdominal location: unspecified location Qualified Code(s): R10.9 - Unspecified abdominal pain
--- NOTE | 2018-03-25 18:10 | PN ---
Progress Note, Physician History of Present Illness: Pt with left-sided colitis on CT, multiple somatic complaints. Seen and examined sitting up in chair, having clears for dinner. She still has some LLQ abdominal pain, but complains more of headache and back pain. She states the pain medicine isn't helping that much. She had flexible sigmoidoscopy by GI yesterday with findings suspicious for ischemic colitis of descending and sigmoid colon. PO was resumed tonight after she was seen by GI. - Current Medication List Current Medications: Active Medications Acetaminophen (Tylenol -) 650 mg PO Q6H PRN PRN Reason: PAIN LEVEL 4 - 6 Last Admin: 03/25/18 04:03 Dose: 650 mg Albuterol Sulfate (Ventolin 0.083% Nebulizer Soln -) 1 amp NEB Q6H PRN PRN Reason: SHORT OF BREATH/WHEEZING Albuterol/Ipratropium (Duoneb -) 1 amp NEB RTID MARIA E Amlodipine Besylate (Norvasc -) 10 mg PO DAILY [facility] Last Admin: 03/25/18 10:21 Dose: 10 mg Carvedilol (Coreg -) 12.5 mg PO BID [facility] Last Admin: 03/25/18 17:46 Dose: 12.5 mg Escitalopram Oxalate (Lexapro -) 10 mg PO DAILY [facility] Last Admin: 03/25/18 10:20 Dose: 10 mg Fluticasone Propionate (Flonase -) 1 spray NS BID [facility] Last Admin: 03/25/18 10:21 Dose: 1 spray Heparin Sodium (Porcine) (Heparin -) 5,000 unit SQ TID [facility] Last Admin: 03/25/18 13:47 Dose: 5,000 unit Metronidazole (Flagyl 500mg Premixed Ivpb -) 500 mg in 100 mls @ 100 mls/hr IVPB Q8H-IV [facility] Last Admin: 03/25/18 17:46 Dose: 100 mls/hr Levofloxacin (Levaquin 750 Mg Premixed Ivpb -) 750 mg in 150 mls @ 100 mls/hr IVPB DAILY [facility]; Protocol Last Admin: 03/25/18 10:21 Dose: 100 mls/hr Insulin Aspart (Novolog Vial Sliding Scale -) 1 vial SQ ACHS [facility]; Protocol Last Admin: 03/25/18 17:13 Dose: Not Given Lisinopril (Prinivil) 5 mg PO DAILY [facility] Last Admin: 03/25/18 10:20 Dose: 5 mg Morphine Sulfate (Morphine Sulfate) 4 mg IVPUSH Q4H PRN PRN Reason: PAIN LEVEL 7 - 10 Last Admin: 03/25/18 15:12 Dose: 4 mg Oxycodone HCl (Oxycontin -) 10 mg PO BID [facility] Last Admin: 03/25/18 10:20 Dose: 10 mg Promethazine HCl (Phenergan Injection -) 12.5 mg IVPB Q6H PRN PRN Reason: NAUSEA AND/OR VOMITING Rosuvastatin Calcium (Crestor -) 10 mg PO HS [facility] Last Admin: 03/24/18 21:25 Dose: 10 mg - Objective Vital Signs: Vital Signs Temperature 98.1 F 03/25/18 14:00 Pulse Rate 83 03/25/18 14:00 Respiratory Rate 17 03/25/18 14:00 Blood Pressure 154/96 03/25/18 14:00 O2 Sat by Pulse Oximetry (%) 95 03/25/18 09:00 Constitutional: Yes: No Distress, Calm, Obese Eyes: Yes: Conjunctiva Clear, EOM Intact HENT: Yes: Atraumatic, Normocephalic Gastrointestinal: Yes: Soft, Abdomen, Obese, Tenderness (LLQ and LUQ, less RLQ referred to left) Extremities: No: Cool, Cyanosis Integumentary: No: Jaundice, Rash Neurological: Yes: Alert, Oriented Labs: CBC, BMP 03/25/18 06:15 03/25/18 06:15 K low, Mg low today 1.7 wbc slt up from 9 yesterday - ....Imaging Chest X-ray: Report Reviewed Other: Report Reviewed (echo noted - suboptimal study) Problem List - Problems (1) Diffuse acute (reversible) ischemia of large intestine Assessment/Plan: likely ischemic colitis of descending and sigmoid colon BP has mostly been at least 130 systolic pt on IV fluids and antibiotics still with pain and tenderness clears resumed by primary team would keep fluids until tolerating well with no increase in LLQ pain or tenderness advance slowly (q2 meals?) as tolerated unclear etiology f/u biopsy results no urgent indication for surgery will follow peripherally Code(s): K55.032 - DIFFUSE ACUTE (REVERSIBLE) ISCHEMIA OF LARGE INTESTINE (2) LLQ pain Code(s): R10.32 - LEFT LOWER QUADRANT PAIN (3) Diarrhea Code(s): R19.7 - DIARRHEA, UNSPECIFIED Qualifiers: Diarrhea type: functional diarrhea Qualified Code(s): K59.1 - Functional diarrhea (4) Nausea & vomiting Assessment/Plan: resolved Code(s): R11.2 - NAUSEA WITH VOMITING, UNSPECIFIED Qualifiers: Vomiting type: unspecified Vomiting Intractability: non-intractable Qualified Code(s): R11.2 - Nausea with vomiting, unspecified (5) Diabetes mellitus type 2 in obese Code(s): E11.69 - TYPE 2 DIABETES MELLITUS WITH OTHER SPECIFIED COMPLICATION; E66.9 - OBESITY, UNSPECIFIED (6) Chronic pain Code(s): G89.29 - OTHER CHRONIC PAIN Qualifiers: Chronic pain type: other chronic pain Qualified Code(s): G89.29 - Other chronic pain (7) GERD (gastroesophageal reflux disease) Code(s): K21.9 - GASTRO-ESOPHAGEAL REFLUX DISEASE WITHOUT ESOPHAGITIS Qualifiers: Esophagitis presence: without esophagitis Qualified Code(s): K21.9 - Gastro -esophageal reflux disease without esophagitis (8) HTN (hypertension) Code(s): I10 - ESSENTIAL (PRIMARY) HYPERTENSION Qualifiers: Hypertension type: essential hypertension Qualified Code(s): I10 - Essential (primary) hypertension (9) Migraine aura, persistent, intractable Code(s): G43.519 - PERST MIGRAINE AURA W/O CEREBRAL INFRC, NTRCT, W/O STAT MIGR (10) Polycystic kidney disease Code(s): Q61.3 - POLYCYSTIC KIDNEY, UNSPECIFIED
[2018-03-25] MEDS ORDERED: PT OWN MED DRAWER 7, Y5N ONE (20:51)
[2018-03-25] MEDS ORDERED: MORPHINE SULFATE 2 MG/ML VIAL IVPUSH ONE (21:00)
[2018-03-25] MEDS: ROSUVASTATIN CA 10 MG TABLET (FP) PO SCH (21:06)
[2018-03-25] MEDS: ALPRAZolam 0.25 MG TABLET PO ONE ×2 (23:50)
[2018-03-26] MEDS: MORPHINE SULFATE 2 MG/ML VIAL IVPUSH PRN (02:06)
[2018-03-26] MEDS ORDERED: oxyCODONE HCL 5 MG TABLET PO ONE (04:15)
[2018-03-26] MEDS ORDERED: ACETAMINOPHEN 325 MG TABLET (FP) PO ONE (04:15)
[2018-03-26] MEDS ORDERED: diphenhydrAMINE HCL 25 MG CAPSULE (FP) PO ONE (04:17)
[2018-03-26] MEDS: HEPARIN NA (PORCINE) 5,000 UNITS/ML 1ML VIAL SQ SCH ×4 (06:00→21:13)
[2018-03-26] MEDS: INSULIN SLIDING SCALE (NOVOLOG) 1 VIAL SQ SCH ×4 (07:00→21:12)
[2018-03-26] MEDS: ALBUTEROL SO4 2.5/IPRATROPIUM 0.5 INH SOL 3 ML VIAL.NEB. NEB SCH ×3 (07:36→19:20)
[2018-03-26 07:52] LABS: HEMATOCRIT 36.4 % (32.4-45.2); MCH 26.2 pg (25.7-33.7); MEAN CELL VOLUME 79.2 fl (80-96); MEAN PLT VOLUME 8.8 fl (7.5-11.1); PLATELET COUNT 252 K/MM3 (134-434); RBC 4.59 M/mm3 (3.60-5.2); RDW 18.9 % (11.6-15.6); WHITE BLOOD COUNT 8.3 K/mm3 (4.0-10.0)
[2018-03-26 08:01] LABS: ANION GAP 9 MMOL/L (8-16); BLOOD UREA NITROGEN 9 mg/dL (7-18); CALCIUM 8.8 mg/dL (8.5-10.1); CHLORIDE 108 mmol/L (98-107); CO2 23 mmol/L (21-32); CREATININE 1.5 mg/dL (0.55-1.3); GLUCOSE,RANDOM 102 mg/dL (74-106); MAGNESIUM 1.9 mg/dL (1.8-2.4); PHOSPHOROUS 3.4 mg/dL (2.5-4.9); POTASSIUM 3.6 mmol/L (3.5-5.1); SODIUM 140 mmol/L (136-145)
[2018-03-26] MEDS: ESCITALOPRAM OXALATE 10 MG TABLET (FP) PO SCH ×2 (08:56→09:53)
[2018-03-26] MEDS: oxyCODONE HCL 10 MG SUSTAINED ACTING TABLET PO SCH ×3 (08:56→21:10)
[2018-03-26] MEDS: CARVEDILOL 12.5 MG TABLET (FP) PO SCH ×3 (08:57→21:10)
[2018-03-26] MEDS: LISINOPRIL 5 MG TABLET (FP) PO SCH ×2 (08:57→09:54)
[2018-03-26] MEDS: amLODIPine BESYLATE 10 MG TABLET (FP) PO SCH ×2 (08:58→09:54)
[2018-03-26] MEDS: FLUTICASONE PROP 0.05% 16 GM NASAL SPRAY NS SCH ×3 (08:58→21:09)
--- NOTE | 2018-03-26 10:01 | PN ---
Progress Note (short form) - Note Progress Note: PULMONARY States breathing better with nebulizers but still some wheezing. Vital Signs Period Temp Pulse Resp BP Sys/Avitia Pulse Ox Last 24 Hr 97.0 F-98.1 F 80-97 17-20 129-154/85-105 95 Gen: NAD at rest Heart: RRR Lung: decreased breath sounds at the bases Abd: soft, nontender Ext: no edema CBC, BMP 03/26/18 06:30 03/26/18 06:30 Active Medications Acetaminophen (Tylenol -) 650 mg PO Q6H PRN PRN Reason: PAIN LEVEL 4 - 6 Last Admin: 03/25/18 23:26 Dose: 650 mg Albuterol Sulfate (Ventolin 0.083% Nebulizer Soln -) 1 amp NEB Q6H PRN PRN Reason: SHORT OF BREATH/WHEEZING Albuterol/Ipratropium (Duoneb -) 1 amp NEB RTID MARIA E Last Admin: 03/26/18 07:36 Dose: 1 amp Amlodipine Besylate (Norvasc -) 10 mg PO DAILY [facility] Last Admin: 03/26/18 09:54 Dose: Not Given Carvedilol (Coreg -) 12.5 mg PO BID [facility] Last Admin: 03/26/18 09:49 Dose: Not Given Escitalopram Oxalate (Lexapro -) 10 mg PO DAILY [facility] Last Admin: 03/26/18 09:53 Dose: Not Given Fluticasone Propionate (Flonase -) 1 spray NS BID [facility] Last Admin: 03/26/18 09:53 Dose: Not Given Heparin Sodium (Porcine) (Heparin -) 5,000 unit SQ TID [facility] Last Admin: 03/26/18 06:00 Dose: Not Given Metronidazole (Flagyl 500mg Premixed Ivpb -) 500 mg in 100 mls @ 100 mls/hr IVPB Q8H-IV [facility] E Last Admin: 03/26/18 09:53 Dose: Not Given Levofloxacin (Levaquin 750 Mg Premixed Ivpb -) 750 mg in 150 mls @ 100 mls/hr IVPB DAILY [facility]; Protocol Last Admin: 03/26/18 09:53 Dose: 100 mls/hr Insulin Aspart (Novolog Vial Sliding Scale -) 1 vial SQ ACHS [facility]; Protocol Last Admin: 03/26/18 07:00 Dose: Not Given Lisinopril (Prinivil) 5 mg PO DAILY [facility] Last Admin: 03/26/18 09:54 Dose: Not Given Morphine Sulfate (Morphine Sulfate) 4 mg IVPUSH Q4H PRN PRN Reason: PAIN LEVEL 7 - 10 Last Admin: 03/26/18 02:06 Dose: 4 mg Oxycodone HCl (Oxycontin -) 10 mg PO BID [facility] Last Admin: 03/26/18 08:56 Dose: 10 mg Promethazine HCl (Phenergan Injection -) 12.5 mg IVPB Q6H PRN PRN Reason: NAUSEA AND/OR VOMITING Rosuvastatin Calcium (Crestor -) 10 mg PO HS [facility] Last Admin: 03/25/18 21:06 Dose: 10 mg A/P Acute Colitis - r/o Ischemic Colitis Asthma Likely Obstructive Sleep Apnea r/o Pulmonary HTN HTN DM GERD h/o Uterine Ca Polycystic Kidney Disease - continue antibiotics - inhaled bronchodilators - will add symbicort - poor visualization of RV on echocardiogram here, will need repeat as outpt - outpt PFTs, PSG and f/u - DVT prophylaxis Problem List - Problems (1) Colitis Code(s): K52.9 - NONINFECTIVE GASTROENTERITIS AND COLITIS, UNSPECIFIED (2) Asthma Code(s): J45.909 - UNSPECIFIED ASTHMA, UNCOMPLICATED (3) Obstructive sleep apnea Code(s): G47.33 - OBSTRUCTIVE SLEEP APNEA (ADULT) (PEDIATRIC)
--- NOTE | 2018-03-26 12:01 | PN ---
Teaching Attending Note Name of Resident: Bee Nugent ATTENDING PHYSICIAN STATEMENT I saw and evaluated the patient. I reviewed the resident's note and discussed the case with the resident. I agree with the resident's findings and plan as documented. SUBJECTIVE: Patient complaining of back pain and headache. OBJECTIVE: Vital Signs Period Temp Pulse Resp BP Sys/Avitia Pulse Ox Last 24 Hr 97.6 F-98.1 F 80-93 17-20 129-154/85-105 95 HEART: S1S2, RRR LUNGS: Clear ABDOMEN: Obese, soft, (+) left-sided tenderness, non-distended, normal BS EXTREMITIES: 1+ edema with chronic stasis changes NEUROLOGICAL: Non-focal Laboratory Results - last 24 hr 03/24/18 03/25/18 03/25/18 06:20 06:15 16:57 WBC RBC Hgb Hct MCV MCH MCHC RDW Plt Count MPV Neutrophils % (Manual) 76.5 Band Neutrophils % 0.0 Lymphocytes % (Manual) 17.4 Monocytes % (Manual) 6 Eosinophils % (Manual) 0.0 Basophils % (Manual) 0.0 Myelocytes % (Man) 0 Promyelocytes % (Man) 0 Blast Cells % (Manual) 0 Metamyelocytes 0 Hypochromia 0 Platelet Estimate Normal Polychromasia 0 Poikilocytosis 1+ Anisocytosis 1+ Microcytosis 1+ Macrocytosis 1+ Sodium Potassium Chloride Carbon Dioxide Anion Gap BUN Creatinine Creat Clearance w eGFR POC Glucometer 103 Random Glucose Calcium Phosphorus Magnesium JACKIE Screen Negative 03/25/18 03/26/18 03/26/18 21:05 04:33 06:30 WBC 8.3 RBC 4.59 Hgb 12.0 Hct 36.4 MCV 79.2 L MCH 26.2 MCHC 33.0 RDW 18.9 H Plt Count 252 MPV 8.8 Neutrophils % (Manual) Band Neutrophils % Lymphocytes % (Manual) Monocytes % (Manual) Eosinophils % (Manual) Basophils % (Manual) Myelocytes % (Man) Promyelocytes % (Man) Blast Cells % (Manual) Metamyelocytes Hypochromia Platelet Estimate Polychromasia Poikilocytosis Anisocytosis Microcytosis Macrocytosis Sodium Potassium Chloride Carbon Dioxide Anion Gap BUN Creatinine Creat Clearance w eGFR POC Glucometer 126 111 Random Glucose Calcium Phosphorus Magnesium JACKIE Screen 03/26/18 06:30 WBC RBC Hgb Hct MCV MCH MCHC RDW Plt Count MPV Neutrophils % (Manual) Band Neutrophils % Lymphocytes % (Manual) Monocytes % (Manual) Eosinophils % (Manual) Basophils % (Manual) Myelocytes % (Man) Promyelocytes % (Man) Blast Cells % (Manual) Metamyelocytes Hypochromia Platelet Estimate Polychromasia Poikilocytosis Anisocytosis Microcytosis Macrocytosis Sodium 140 Potassium 3.6 Chloride 108 H Carbon Dioxide 23 Anion Gap 9 BUN 9 Creatinine 1.5 H Creat Clearance w eGFR 34.85 POC Glucometer Random Glucose 102 Calcium 8.8 Phosphorus 3.4 Magnesium 1.9 JACKIE Screen Current Medications Generic Name Dose Route Start Last Admin Trade Name Freq PRN Reason Stop Dose Admin Acetaminophen 650 mg 03/22/18 19:39 03/25/18 23:26 Tylenol - PO 650 mg Q6H PRN Administration PAIN LEVEL 4 - 6 Albuterol Sulfate 1 amp 03/22/18 00:06 Ventolin 0.083% Nebulizer Soln - NEB Q6H PRN SHORT OF BREATH/WHEEZING Albuterol/Ipratropium 1 amp 03/25/18 14:00 03/26/18 07:36 Duoneb - NEB 1 amp RTID MARIA E Administration Amlodipine Besylate 10 mg 03/22/18 10:00 03/26/18 09:54 Norvasc - PO Not Given DAILY MARIA E Budesonide/Formoterol Fumarate 2 puff 03/26/18 10:15 Symbicort 160/4.5mcg - IH BID MARIA E Carvedilol 12.5 mg 03/22/18 10:00 03/26/18 09:49 Coreg - PO Not Given BID MARIA E Escitalopram Oxalate 10 mg 03/22/18 10:00 03/26/18 09:53 Lexapro - PO Not Given DAILY [facility] E Fluticasone Propionate 1 spray 03/24/18 12:00 03/26/18 09:53 Flonase - NS Not Given BID MARIA E Heparin Sodium (Porcine) 5,000 unit 03/25/18 14:00 03/26/18 06:00 Heparin - SQ Not Given TID MARIA E Metronidazole 500 mg in 100 mls @ 100 mls/hr 03/22/18 02:00 03/26/18 09:53 Flagyl 500mg Premixed Ivpb - IVPB Not Given Q8H-IV MARIA E Levofloxacin 750 mg in 150 mls @ 100 mls/hr 03/24/18 10:30 03/26/18 09:53 Levaquin 750 Mg Premixed Ivpb - IVPB 100 mls/hr DAILY [facility] Administration Protocol Insulin Aspart 1 vial 03/22/18 07:00 03/26/18 11:37 Novolog Vial Sliding Scale - SQ Not Given ACHS [facility]PL[facility] BY [facility] Protocol Lisinopril 5 mg 03/22/18 10:00 03/26/18 09:54 Prinivil PO Not Given DAILY MARIA E Morphine Sulfate 4 mg 03/22/18 19:39 03/26/18 02:06 Morphine Sulfate IVPUSH 4 mg Q4H PRN Administration PAIN LEVEL 7 - 10 Oxycodone HCl 10 mg 03/22/18 22:00 03/26/18 11:31 Oxycontin - PO Not Given BID [facility] Promethazine HCl 12.5 mg 03/23/18 10:58 Phenergan Injection - IVPB Q6H PRN NAUSEA AND/OR VOMITING Rosuvastatin Calcium 10 mg 03/22/18 22:00 03/25/18 21:06 Crestor - PO 10 mg HS MARIA E Administration ASSESSMENT AND PLAN: This is a 67 year old woman with a history of type 2 DM, HTN, hyperlipidemia, GERD, polycystic kidney disease, uterine cancer, hysterectomy, ventral hernia repair, chronic back pain who presented to the ED with abdominal pain. 1. Ischemic colitis - Pain improving - Started clear liquids - Continue IV fluid, Levaquin (day 3), Flagyl (day 5) 2. Asthma - Continue DuoNeb, albuterol as needed - Symbicort started - Outpatient PFTs 3. Possible CRISTEL - Outpatient sleep study, echo to eval for pulm HTN 4. E. faecalis UTI - Continue Levaquin (day 3) 5. Acute kidney injury - Improved 6. Stage 3 CKD 7. Dilated CBD, likely secondary to prior cholecystectomy - Consider MRCP if pain persists 8. Possible cirrhosis - Hepatitis serologies, JACKIE, ASMA, AMA, iron studies pending 9.Type 2 DM - Continue Novolog sliding scale 10. Hypertension - Continue Lisinopril, Coreg, Norvasc 11. Hyperlipidemia - Continue Crestor 12. Polycystic kidneys 13. History of uterine cancer, hysterectomy 14. Chronic back pain - Continue OxyContin - Pain mgmt consult
--- NOTE | 2018-03-26 12:06 | PN ---
Physical Exam: SUBJECTIVE: Patient seen and examined at bed side this morning. Complaining of headache, chronic back pain. States that the pain medication she is getting is not helping her. Mild abdominal pain. Still has shortness of breath and wheezing. Denies nausea, vomiting, chest pain, palpitation, dizziness, numbness or tingling. No BM. Bladder habit normal. As per RN, has been complaining of severe back pain and headache. OBJECTIVE: Vital Signs Period Temp Pulse Resp BP Sys/Avitia Pulse Ox Last 24 Hr 97.6 F-98.1 F 80-93 17-20 129-154/85-105 95 GENERAL: Morbidly obese female, sitting in a chair, is awake, alert, and fully oriented, in mild respiratory distress. HEAD: Normal with no signs of trauma. EYES: EOM intact, no pallor or icterus. ENT: Ears normal, moist mucous membranes. NECK: Supple, no JVD. LUNGS: Breath sounds decreased bilaterally, no wheezes, no crackles, no accessory muscle use. HEART: Regular rate and rhythm, S1, S2 without murmur. ABDOMEN: Soft, tenderness in the left upper quadrant, BS+, no organomegaly. UPPER EXTREMITIES: 2+ pulses, warm, well-perfused, no edema. LOWER EXTREMITIES: Chronic venous stasis with stasis dermatitis, b/l pitting edema ++. NEUROLOGICAL: No facial droop. Normal speech, gait not observed. PSYCH: Normal mood, normal affect. SKIN: Warm, dry, normal turgor, thick skin with color change in the lower extremity (chronic) Laboratory Results - last 24 hr 03/24/18 03/25/18 03/25/18 06:20 06:15 16:57 WBC RBC Hgb Hct MCV MCH MCHC RDW Plt Count MPV Neutrophils % (Manual) 76.5 Band Neutrophils % 0.0 Lymphocytes % (Manual) 17.4 Monocytes % (Manual) 6 Eosinophils % (Manual) 0.0 Basophils % (Manual) 0.0 Myelocytes % (Man) 0 Promyelocytes % (Man) 0 Blast Cells % (Manual) 0 Metamyelocytes 0 Hypochromia 0 Platelet Estimate Normal Polychromasia 0 Poikilocytosis 1+ Anisocytosis 1+ Microcytosis 1+ Macrocytosis 1+ Sodium Potassium Chloride Carbon Dioxide Anion Gap BUN Creatinine Creat Clearance w eGFR POC Glucometer 103 Random Glucose Calcium Phosphorus Magnesium JACKIE Screen Negative 03/25/18 03/26/18 03/26/18 21:05 04:33 06:30 WBC 8.3 RBC 4.59 Hgb 12.0 Hct 36.4 MCV 79.2 L MCH 26.2 MCHC 33.0 RDW 18.9 H Plt Count 252 MPV 8.8 Neutrophils % (Manual) Band Neutrophils % Lymphocytes % (Manual) Monocytes % (Manual) Eosinophils % (Manual) Basophils % (Manual) Myelocytes % (Man) Promyelocytes % (Man) Blast Cells % (Manual) Metamyelocytes Hypochromia Platelet Estimate Polychromasia Poikilocytosis Anisocytosis Microcytosis Macrocytosis Sodium Potassium Chloride Carbon Dioxide Anion Gap BUN Creatinine Creat Clearance w eGFR POC Glucometer 126 111 Random Glucose Calcium Phosphorus Magnesium JACKIE Screen 03/26/18 03/26/18 06:30 11:36 WBC RBC Hgb Hct MCV MCH MCHC RDW Plt Count MPV Neutrophils % (Manual) Band Neutrophils % Lymphocytes % (Manual) Monocytes % (Manual) Eosinophils % (Manual) Basophils % (Manual) Myelocytes % (Man) Promyelocytes % (Man) Blast Cells % (Manual) Metamyelocytes Hypochromia Platelet Estimate Polychromasia Poikilocytosis Anisocytosis Microcytosis Macrocytosis Sodium 140 Potassium 3.6 Chloride 108 H Carbon Dioxide 23 Anion Gap 9 BUN 9 Creatinine 1.5 H Creat Clearance w eGFR 34.85 POC Glucometer 110 Random Glucose 102 Calcium 8.8 Phosphorus 3.4 Magnesium 1.9 JACKIE Screen Active Medications Generic Name Dose Route Start Last Admin Trade Name Freq PRN Reason Stop Dose Admin Acetaminophen 650 mg 03/22/18 19:39 03/25/18 23:26 Tylenol - PO 650 mg Q6H PRN Administration PAIN LEVEL 4 - 6 Albuterol Sulfate 1 amp 03/22/18 00:06 Ventolin 0.083% Nebulizer Soln - NEB Q6H PRN SHORT OF BREATH/WHEEZING Albuterol/Ipratropium 1 amp 03/25/18 14:00 03/26/18 07:36 Duoneb - NEB 1 amp RTID MARIA E Administration Amlodipine Besylate 10 mg 03/22/18 10:00 03/26/18 09:54 Norvasc - PO Not Given DAILY MARIA E Budesonide/Formoterol Fumarate 2 puff 03/26/18 10:15 Symbicort 160/4.5mcg - IH BID [facility] Carvedilol 12.5 mg 03/22/18 10:00 03/26/18 09:49 Coreg - PO Not Given BID [facility] Escitalopram Oxalate 10 mg 03/22/18 10:00 03/26/18 09:53 Lexapro - PO Not Given DAILY [facility] Fluticasone Propionate 1 spray 03/24/18 12:00 03/26/18 09:53 Flonase - NS Not Given BID [facility] Heparin Sodium (Porcine) 5,000 unit 03/25/18 14:00 03/26/18 06:00 Heparin - SQ Not Given TID [facility] Metronidazole 500 mg in 100 mls @ 100 mls/hr 03/22/18 02:00 03/26/18 09:53 Flagyl 500mg Premixed Ivpb - IVPB Not Given Q8H-IV [facility] Levofloxacin 750 mg in 150 mls @ 100 mls/hr 03/24/18 10:30 03/26/18 09:53 Levaquin 750 Mg Premixed Ivpb - IVPB 100 mls/hr DAILY [facility] Administration Protocol Insulin Aspart 1 vial 03/22/18 07:00 03/26/18 11:37 Novolog Vial Sliding Scale - SQ Not Given ACHS [facility] Protocol Lisinopril 5 mg 03/22/18 10:00 03/26/18 09:54 Prinivil PO Not Given DAILY [facility] Morphine Sulfate 4 mg 03/22/18 19:39 03/26/18 02:06 Morphine Sulfate IVPUSH 4 mg Q4H PRN Administration PAIN LEVEL 7 - 10 Oxycodone HCl 10 mg 03/22/18 22:00 03/26/18 11:31 Oxycontin - PO Not Given BID [facility] Promethazine HCl 12.5 mg 03/23/18 10:58 Phenergan Injection - IVPB Q6H PRN NAUSEA AND/OR VOMITING Rosuvastatin Calcium 10 mg 03/22/18 22:00 03/25/18 21:06 Crestor - PO 10 mg HS MARIA E Administration ECHO done 03/25/18: Left Ventricular size, thickness and function are normal. Left vent Ejection fraction normal. There was insufficient TR detected to calculate RV systolic pressure. Endoscopy 03/24: Segmental colitis spanning from sigmoid to descedning colon, the most severe being noted 20-40 cm in the sigmoid. Suspected ischemic colitis. The colon mucusa was otherwise normal to the distal transverse colon. Retroflexed views revealed medium internal hemorrhoids. CT abdomen/pelvis: showed diffuse colon wall edema from proximal descendig colon mid sigmoid colon ASSESSMENT/PLAN: Patient is a 67 year old female with significant past medical history of DM, HTN , HLD, GERD, Polycystic kidney, uterine CA s/p hysterectomy, ventral hernia repair, chronic back pain on percocet (QID) presented to the ED with abdominal pain x 1 week. # Suspected Ischemic colitis- pain improving Flex sigmoidoscopy done on 03/24/18. Biopsy pending. CRP 2.8 (03/25/18) Diet advanced to clears and is tolerating. D/c IV fluids. Continue IV Levaquin 750 mg Daily (since her kidney function improved changed Q48H to daily)-Day 4 Continue IV Flagyl 500mg Q8H Day 4 As per surgery, no urgent indication of surgery. Hepatitis panel negative, JACKIE negative. Ferrtin normal. Transferrin low, Rest of the iron studies pending # Shortness of breath likely due to Asthma vs OHS ECHO done as mentioned above. Cannot r/o Pulmonary HTN, needs repeat ECHO as outpatient Echo from 2016 reviewed was normal. Continue Duoneb, Albuterol. Symbicort added today. Needs outpatient PFT's and sleep study. Might benefit from CPAP at home. Will do a pre and post exercise oxygen saturation before discharge # UTI Urine culture positive for E. faecalis (03/21/18), sensitive to Levaquin. Urine culture 03/22 negative. Will continue IV Levaquin. # EMILIANO resolved # Dilated CBD 9mm likely from s/p cholecystecotomy GI suggested MRCP if pain persists # Questionable cirrhosis: Hepatitis negative, JACKIE negative, Ferrtin normal, Transferrin low, AMA and iron studies-pending # DM Continue ISS, watch for hypoglycemic episodes # Hypertension-controlled HTN controlled however when patient is in severe pain, BP rises. Need better control of her pain. Continue Lisinopril 5mg PO daily, coreg 12.5 mg PO BID, Amlodipine 10mg Daily # Chronic back pain Continue Oxycontin 10mg PO BID IV Morphine Q4H PRN Pain is not being controlled on above mentioned medications. One dose of dilaudid 1mg given. Patient has been getting medications from Dr. Miranda and Dr. Park previously. Dr. Park consult requested. # FEN Tolerating clear liquid diet. Will restart her on IV fluids if she doesn't tolerate PO. Electrolytes, Mag repleted, will repeat it AM. NPO except sips of water. # Prophylaxis For DVT: Heparin sq 5000 IU sq TID FoR GI: Protonix 40 daily # Code Status: Full Code Illness, Investigation and Plan of care explained to the patient. She verbalized understanding. Case discussed with Dr. Westbrook Problem List - Problems (1) Asthma Code(s): J45.909 - UNSPECIFIED ASTHMA, UNCOMPLICATED (2) Chronic pain Code(s): G89.29 - OTHER CHRONIC PAIN Qualifiers: Chronic pain type: other chronic pain Qualified Code(s): G89.29 - Other chronic pain (3) Diabetes mellitus type 2 in obese Code(s): E11.69 - TYPE 2 DIABETES MELLITUS WITH OTHER SPECIFIED COMPLICATION; E66.9 - OBESITY, UNSPECIFIED (4) GI bleed Code(s): K92.2 - GASTROINTESTINAL HEMORRHAGE, UNSPECIFIED Qualifiers: GI bleed type/associated pathology: unspecified gastrointestinal hemorrhage type Qualified Code(s): K92.2 - Gastrointestinal hemorrhage, unspecified (5) HLD (hyperlipidemia) Code(s): E78.5 - HYPERLIPIDEMIA, UNSPECIFIED (6) Obstructive sleep apnea Code(s): G47.33 - OBSTRUCTIVE SLEEP APNEA (ADULT) (PEDIATRIC) Visit type - Emergency Visit Emergency Visit: Yes ED Registration Date: 03/21/18 Care time: The patient presented to the Emergency Department on the above date and was hospitalized for further evaluation of their emergent condition. - New Patient This patient is new to me today: No - Critical Care Critical Care patient: No - Discharge Referral Referred to [facility] Med P.C.: No
--- NOTE | 2018-03-26 12:38 | PN ---
GI Progress Note Subjective: No acute events Abdominal pain has improved Main complaint is left hand pain from infiltrated IV site - Objective Vital Signs: Vital Signs Temperature 97.8 F 03/26/18 10:00 Pulse Rate 88 03/26/18 10:00 Respiratory Rate 18 03/26/18 10:00 Blood Pressure 156/96 03/26/18 10:00 O2 Sat by Pulse Oximetry (%) 95 03/25/18 21:00 Constitutional: Calm Eyes: No: Sclera Icterus Cardiovascular: Yes: Regular Rate and Rhythm Respiratory: Yes: CTA Bilaterally Gastrointestinal Inspection: No: Distention ...Auscultate: Yes: Normoactive Bowel Sounds ...Palpate: Yes: Tenderness (Improved TTP left abdomen) Extremities: Yes: Other (Chronic stasis changes b/l LE) Neurological: Yes: Alert Labs: CBC, BMP 03/26/18 06:30 03/26/18 06:30 INR, PTT INR 1.22 (0.83-1.09) H 03/24/18 06:20 Problem List - Problems (1) Ischemic colitis Assessment/Plan: Clinically much improved Abx for 5 day course total Advance diet to full liquids, then as tolerated Code(s): K55.9 - VASCULAR DISORDER OF INTESTINE, UNSPECIFIED
[2018-03-26] MEDS: BUDESONIDE/FORMETEROL FUMARATE 160/4.5 mcg INHALER IH SCH ×2 (12:39→21:12)
[2018-03-26] MEDS ORDERED: HYDROmorphone HCl 2 MG/ML VIAL IVPB ONE ×2 (12:45→15:56)
--- NOTE | 2018-03-26 12:56 | PATH ---
Surgical Pathology Report Patient Name: MARINA DIETZ Med. Rec. #: [id number] /Age/Gender: 1950 (Age: 67) / F Account: [id number] Location: [facility] MED/SURG Taken: 03/24/2018 Received: 03/25/2018 Reported: 03/26/2018 Physicians: Destiny Benoit M.D. Specimen(s) Received A: BX DESCENDING COLON B: BX SIGMOID Clinical History Abdominal pain, abnormal CT scan Postoperative diagnosis: Rule out ischemic colitis Final Diagnosis A. DESCENDING COLON, BIOPSY: COLONIC MUCOSA WITH SUPERFICIAL HYPERPLASTIC FEATURES. B. SIGMOID COLON, BIOPSY: COLONIC MUCOSA WITH PATCHY MILD TO MODERATE ACUTE COLITIS, ASSOCIATED ULCERATION, AND LAMINA PROPRIA HEMORRHAGE. SEE COMMENT. Comment: Although non-specific, findings in part B are compatible with ischemic colitis. Suggest clinical and endoscopic correlation Electronically Signed Andressa Elias M.D. Gross Description A. Received in formalin, labeled "biopsy descending colon" are 3 arndt, irregular portions of soft tissue ranging from 0.1-0.3 cm. in greatest dimension. The specimens are submitted in toto in one cassette. B. Received in formalin, labeled "biopsy sigmoid colon" are 5 arndt-brown, irregular portions of soft tissue ranging from 0.1-0.4 cm. in greatest dimension. The specimens are submitted in toto in one cassette. /03/25/2018 saudi03/25/2018
[2018-03-26] MEDS ORDERED: HYDROmorphone HCL CARPU-JECT 2 MG/1 ML DISP.SYRIN IVPB ONE (13:00)
[2018-03-26] MEDS: ACETAMINOPHEN 325 MG TABLET (FP) PO PRN ×2 (13:40→23:01)
[2018-03-26 14:12] LABS: SERUM IRON SATURATION 16 % (15-55); TOTAL IRON BINDING CAPACITY 220 ug/dL (250-450); UIBC 185 ug/dL (118-369)
[2018-03-26] MEDS ORDERED: BUPIVACAINE HCL/PF (5 MG/ML) 30 ML VIAL IJ STA (18:31)
--- NOTE | 2018-03-26 18:40 | CONSULT ---
Consult Consult Specialty:: Pain Management - History of Present Illness Chief Complaint: Back pain History of Present Illness: 67 yr old female with chronic back pain with acute exacerbation 01/14 , radiating both LE's with intermittent numbness and tingling She was taking Percocet 5 mg PO BID PRN at home.She has h/o nausia and vomiting. - History Source History Provided By: Patient Limitations to Obtaining History: No Limitations - Past Medical History LEAD ADVISOR: Yes: Migraine, Peripheral Neuropathy Cardio/Vascular: Yes: HTN, Hyperlipdemia Pulmonary: Yes: Asthma Gastrointestinal: Yes: GERD Renal/: Yes: Renal Calculi, Other (polycystic kidney disease) ...: No Psych: Yes: Depression Musculoskeletal: Yes: Chronic low back pain (whole back pain, neck pain), Osteoarthritis, Other (chronic pain) Endocrine: Yes: Diabetes Mellitus (DM II on insulin at home) - Past Surgical History Past Surgical History: Yes: Cholecystectomy (laparoscopic), Colonoscopy, Hernia Repair (Ventral), Hysterectomy (with BSO, for cancer (uterine?)), Oopherectomy, Upper Endoscopy - Alcohol/Substance Use Hx Alcohol Use: No History of Substance Use: reports: None (no illicits), Prescription (uses Percocet 2 pills 3-4 times a day for pain) - Smoking History Smoking history: Never smoked Have you smoked in the past 12 months: No Aproximately how many cigarettes per day: 0 - Social History Usual Living Arrangement: With Spouse ADL: Independent History of Recent Travel: No Home Medications - Allergies Allergies/Adverse Reactions: Allergies Allergy/AdvReac Type Severity Reaction Status Date / Time No Known Drug Allergies Allergy Verified 03/21/18 17:03 - Home Medications Home Medications: Ambulatory Orders Ibuprofen [Motrin -] 600 mg PO TID PRN #90 tablet MDD 3 08/24/16 Oxycodone HCl/Acetaminophen [Percocet 5-325 mg Tablet] 1 tab PO Q4H PRN #15 tablet NS MDD 6 08/24/16 Amlodipine Besylate 10 mg PO DAILY 03/21/18 Carvedilol 25 mg PO DAILY 03/21/18 Escitalopram Oxalate [Lexapro -] 10 mg PO DAILY 03/21/18 Lisinopril 5 mg PO DAILY 03/21/18 Rosuvastatin Calcium 10 mg PO DAILY 03/21/18 Family Disease History - Family Disease History Family Disease History: Diabetes: Mother (Alive, htn), Other: Father (: 41: CVA), Mother, Brother (1, healthy), Sister (1, healthy), Son (3, 1 with DM II), Daughter (1, healthy) Other Family History: No family history of colorectal cancer or other GI malignancy Review of Systems - Review of Systems Constitutional: reports: No Symptoms Eyes: reports: No Symptoms HENT: reports: No Symptoms Neck: reports: No Symptoms Cardiovascular: reports: No Symptoms Respiratory: reports: No Symptoms Gastrointestinal: reports: Abdominal Pain Musculoskeletal: reports: Back Pain, Muscle Pain Integumentary: reports: No Symptoms Neurological: reports: No Symptoms Endocrine: reports: No Symptoms Hematology/Lymphatic: reports: No Symptoms Pain Intensity: 10 Physical Exam Vital Signs: Vital Signs Temperature 98 F 03/26/18 17:00 Pulse Rate 98 H 03/26/18 17:00 Respiratory Rate 20 03/26/18 17:00 Blood Pressure 120/88 03/26/18 17:00 O2 Sat by Pulse Oximetry (%) 95 03/25/18 21:00 Constitutional: Yes: Well Nourished Eyes: Yes: WNL HENT: Yes: WNL Neck: Yes: WNL Respiratory: Yes: WNL Musculoskeletal: Yes: Back Pain, Joint Stiffness, Muscle Pain, Other (muscle spasm) Extremities: Yes: WNL Peripheral Pulses WNL: Yes Neurological: Yes: WNL ...Motor Strength: WNL Labs: CBC, BMP 03/26/18 06:30 03/26/18 06:30 Imaging - Results Cat Scan: Report Reviewed Problem List - Problems (1) Back pain Code(s): M54.9 - DORSALGIA, UNSPECIFIED (2) Muscle spasm Code(s): M62.838 - OTHER MUSCLE SPASM Assessment/Plan Discussed in detail and answered all her question. was present. Continue current care PT eval and treat Use Moist Heat pack fro 20 min 2-3 times a day for 20 minutes. Infiltration of 0.5 % marciane 10 cc to left Lumbar paraspinal muscles to relief pain. please barrie me if there is no improvement . Thank you vey much for allowing to participater in her treatment. Dr. Park [phone].
[2018-03-26] MEDS ORDERED: INSULIN (NOVOLOG) ASPART 100 UNITS/ML 10ML VIAL ONE (20:41)
[2018-03-26] MEDS: ROSUVASTATIN CA 10 MG TABLET (FP) PO SCH (21:10)
[2018-03-26] MEDS: HYDROmorphone HCl 2 MG/ML VIAL IVPB PRN (22:00)
[2018-03-27] MEDS: HYDROmorphone HCl 2 MG/ML VIAL IVPB PRN ×4 (03:50→22:30)
[2018-03-27] MEDS: HEPARIN NA (PORCINE) 5,000 UNITS/ML 1ML VIAL SQ SCH ×3 (05:41→21:42)
[2018-03-27] MEDS: ACETAMINOPHEN 325 MG TABLET (FP) PO PRN ×2 (05:41→18:08)
[2018-03-27] MEDS: INSULIN SLIDING SCALE (NOVOLOG) 1 VIAL SQ SCH ×4 (06:48→21:42)
[2018-03-27] MEDS: ALBUTEROL SO4 2.5/IPRATROPIUM 0.5 INH SOL 3 ML VIAL.NEB. NEB SCH ×3 (07:19→19:58)
[2018-03-27 07:31] LABS: HEMATOCRIT 34.8 % (32.4-45.2); HEMOGLOBIN 11.6 GM/dL (10.7-15.3); MCH 26.1 pg (25.7-33.7); MCHC 33.2 g/dl (32.0-36.0); MEAN CELL VOLUME 78.5 fl (80-96); PLATELET COUNT 247 K/MM3 (134-434); RBC 4.44 M/mm3 (3.60-5.2); RDW 19.1 % (11.6-15.6); WHITE BLOOD COUNT 13.1 K/mm3 (4.0-10.0)
[2018-03-27 08:19] LABS: ALBUMIN 2.5 g/dl (3.4-5.0); ALK PHOS 168 U/L (45-117); ANION GAP 11 MMOL/L (8-16); BILIRUBIN,TOTAL 0.2 mg/dL (0.2-1); BLOOD UREA NITROGEN 10 mg/dL (7-18); CALCIUM 8.8 mg/dL (8.5-10.1); CHLORIDE 106 mmol/L (98-107); CO2 22 mmol/L (21-32); CREATININE 1.7 mg/dL (0.55-1.3); GLUCOSE,RANDOM 137 mg/dL (74-106); MAGNESIUM 1.8 mg/dL (1.8-2.4); POTASSIUM 3.5 mmol/L (3.5-5.1); SGOT/AST 10 U/L (15-37); SGPT/ALT 13 U/L (13-61); SODIUM 139 mmol/L (136-145)
[2018-03-27] MEDS: CARVEDILOL 12.5 MG TABLET (FP) PO SCH ×2 (09:11→21:42)
[2018-03-27] MEDS: oxyCODONE HCL 10 MG SUSTAINED ACTING TABLET PO SCH ×2 (09:11→21:41)
[2018-03-27] MEDS: ESCITALOPRAM OXALATE 10 MG TABLET (FP) PO SCH (09:11)
[2018-03-27] MEDS: amLODIPine BESYLATE 10 MG TABLET (FP) PO SCH (09:11)
[2018-03-27] MEDS: LISINOPRIL 5 MG TABLET (FP) PO SCH (09:13)
[2018-03-27] MEDS: BUDESONIDE/FORMETEROL FUMARATE 160/4.5 mcg INHALER IH SCH ×2 (09:16→21:43)
[2018-03-27] MEDS: FLUTICASONE PROP 0.05% 16 GM NASAL SPRAY NS SCH ×2 (09:16→22:12)
[2018-03-27] MEDS ORDERED: ACETAMINOPHEN 1000 MG/100 ML VIAL (NON FORMULARY) IVPB ONE (11:30)
--- NOTE | 2018-03-27 13:21 | PN ---
Progress Note (short form) - Note Progress Note: PULMONARY OOB TO CHAIR Gen: NAD at rest Heart: RRR Lung: decreased breath sounds at the bases Abd: soft, nontender Ext: left hand edema s/p IV infiltrate LABS/MEDS/IMAGES/NOTES REVIEWED A/P Acute Colitis - r/o Ischemic Colitis Asthma Likely Obstructive Sleep Apnea r/o Pulmonary HTN HTN DM GERD h/o Uterine Ca Polycystic Kidney Disease - continue antibiotics - inhaled bronchodilators - added symbicort - outpt PFTs, PSG and f/u - DVT prophylaxis Joseph KIRAN MD
--- NOTE | 2018-03-27 14:32 | PN ---
Teaching Attending Note Name of Resident: Bee Nugent ATTENDING PHYSICIAN STATEMENT I saw and evaluated the patient. I reviewed the resident's note and discussed the case with the resident. I agree with the resident's findings and plan as documented. SUBJECTIVE: Patient continues to complain of headaches and severe back pain. OBJECTIVE: Vital Signs Period Temp Pulse Resp BP Sys/Avitia Pulse Ox Last 24 Hr 98 F-98.4 F 96-107 18-20 120-155/88-115 95 HEART: S1S2, RRR LUNGS: Clear ABDOMEN: Obese, soft, (+) left-sided tenderness, non-distended, normal BS EXTREMITIES: 1+ edema with chronic stasis changes NEUROLOGICAL: Non-focal Laboratory Results - last 24 hr 03/26/18 03/27/18 03/27/18 17:11 07:00 07:00 WBC 13.1 H RBC 4.44 Hgb 11.6 Hct 34.8 MCV 78.5 L MCH 26.1 MCHC 33.2 RDW 19.1 H Plt Count 247 MPV 9.0 Sodium 139 Potassium 3.5 Chloride 106 Carbon Dioxide 22 Anion Gap 11 BUN 10 Creatinine 1.7 H Creat Clearance w eGFR 30.16 POC Glucometer 112 Random Glucose 137 H Calcium 8.8 Phosphorus 3.0 Magnesium 1.8 Total Bilirubin 0.2 AST 10 L ALT 13 Alkaline Phosphatase 168 H C-Reactive Protein 12.0 H Total Protein 6.0 L Albumin 2.5 L 03/27/18 11:55 WBC RBC Hgb Hct MCV MCH MCHC RDW Plt Count MPV Sodium Potassium Chloride Carbon Dioxide Anion Gap BUN Creatinine Creat Clearance w eGFR POC Glucometer 161 Random Glucose Calcium Phosphorus Magnesium Total Bilirubin AST ALT Alkaline Phosphatase C-Reactive Protein Total Protein Albumin Current Medications Generic Name Dose Route Start Last Admin Trade Name Freq PRN Reason Stop Dose Admin Acetaminophen 650 mg 03/22/18 19:39 03/27/18 05:41 Tylenol - PO 650 mg Q6H PRN Administration PAIN LEVEL 4 - 6 Albuterol Sulfate 1 amp 03/22/18 00:06 Ventolin 0.083% Nebulizer Soln - NEB Q6H PRN SHORT OF BREATH/WHEEZING Albuterol/Ipratropium 1 amp 03/25/18 14:00 03/27/18 13:14 Duoneb - NEB 1 amp RTID MARIA E Administration Amlodipine Besylate 10 mg 03/22/18 10:00 03/27/18 09:11 Norvasc - PO 10 mg DAILY MARIA E Administration Budesonide/Formoterol Fumarate 2 puff 03/26/18 10:15 03/27/18 09:16 Symbicort 160/4.5mcg - IH 2 inhaler BID MARIA E Administration Carvedilol 12.5 mg 03/22/18 10:00 03/27/18 09:11 Coreg - PO 12.5 mg BID MARIA E Administration Escitalopram Oxalate 10 mg 03/22/18 10:00 03/27/18 09:11 Lexapro - PO 10 mg DAILY MARIA E Administration Fluticasone Propionate 1 spray 03/24/18 12:00 03/27/18 09:16 Flonase - NS 1 spray BID MARIA E Administration Heparin Sodium (Porcine) 5,000 unit 03/25/18 14:00 03/27/18 05:41 Heparin - SQ 5,000 unit TID MARIA E Administration Hydromorphone HCl 1 mg 03/26/18 19:06 03/27/18 10:20 Dilaudid Vial - IVPB 1 mg Q6H PRN Administration PAIN LEVEL 6-10 Metronidazole 500 mg in 100 mls @ 100 mls/hr 03/22/18 02:00 03/27/18 09:13 Flagyl 500mg Premixed Ivpb - IVPB 100 mls/hr Q8H-IV MARIA E Administration Levofloxacin 750 mg in 150 mls @ 100 mls/hr 03/24/18 10:30 03/27/18 09:13 Levaquin 750 Mg Premixed Ivpb - IVPB 100 mls/hr DAILY MARIA E Administration Protocol Insulin Aspart 1 vial 03/22/18 07:00 03/27/18 11:56 Novolog Vial Sliding Scale - SQ 2 units ACHS MARIA E Administration Protocol Lisinopril 5 mg 03/22/18 10:00 03/27/18 09:13 Prinivil PO 5 mg DAILY MARIA E Administration Oxycodone HCl 10 mg 03/22/18 22:00 03/27/18 09:11 Oxycontin - PO 10 mg BID MARIA E Administration Promethazine HCl 12.5 mg 03/23/18 10:58 Phenergan Injection - IVPB Q6H PRN NAUSEA AND/OR VOMITING Rosuvastatin Calcium 10 mg 03/22/18 22:00 03/26/18 21:10 Crestor - PO 10 mg HS MARIA E Administration ASSESSMENT AND PLAN: This is a 67 year old woman with a history of type 2 DM, HTN, hyperlipidemia, GERD, polycystic kidney disease, uterine cancer, hysterectomy, ventral hernia repair, chronic back pain who presented to the ED with abdominal pain. 1. Ischemic colitis - Pain improving - Started clear liquids - Continue Levaquin (day 3), Flagyl (day 5) 2. Asthma - Continue DuoNeb, albuterol as needed - Symbicort started - Outpatient PFTs 3. Possible CRISTEL - Outpatient sleep study, echo to eval for pulm HTN 4. E. faecalis UTI - Continue Levaquin (day 3) 5. Acute kidney injury - Creatinine increasing - Renal dose Levaquin - Renal US ordered - Consider restarting IV fluid 6. Stage 3 CKD 7. Dilated CBD, likely secondary to prior cholecystectomy - Consider MRCP if pain persists 8. Possible cirrhosis - Hepatitis A IgM, HBsAg, HBcAb, HCV Ab negative - JACKIE negative - AMA pending - Iron low normal, TIBC low, transferrin low, ferritin low normal, iron sat low normal 9. Type 2 DM - Continue Novolog sliding scale 10. Hypertension - Continue Lisinopril, Coreg, Norvasc 11. Hyperlipidemia - Continue Crestor 12. Polycystic kidneys 13. History of uterine cancer, hysterectomy 14. Chronic back pain - Continue OxyContin - Pain management consult appreciated - left lumbar paraspinal injection for spasm was done 15. Obesity
--- NOTE | 2018-03-27 18:15 | PN ---
GI Progress Note Subjective: Denies abdominal pain Complains of headache, back pain and left arm cintinues to be swollen - Objective Vital Signs: Vital Signs Temperature 97.6 F 03/27/18 15:34 Pulse Rate 112 H 03/27/18 15:34 Respiratory Rate 20 03/27/18 15:34 Blood Pressure 151/86 03/27/18 15:34 O2 Sat by Pulse Oximetry (%) 95 03/27/18 09:00 Constitutional: Calm Eyes: No: Sclera Icterus Cardiovascular: Yes: Tachycardia Respiratory: Yes: CTA Bilaterally Gastrointestinal Inspection: No: Distention ...Auscultate: Yes: Normoactive Bowel Sounds ...Palpate: Yes: Tenderness (Improved TTP Left abdomen) ...Percussion: No: Tympanitic Extremities: Yes: Other (Stasis changes b/l LE) Edema: Yes Edema: LUE: 2+, LLE: 1+, RLE: 1+ Neurological: Yes: Alert Labs: CBC, BMP 03/27/18 07:00 03/27/18 07:00 INR, PTT INR 1.22 (0.83-1.09) H 03/24/18 06:20 Problem List - Problems (1) Ischemic colitis Assessment/Plan: Clinically improved Continue Abx from GI standpoint for total 5-7 days Advance diet Follow-up in office in 2 weeks upon discharge Recall as needed. Will sign off Code(s): K55.9 - VASCULAR DISORDER OF INTESTINE, UNSPECIFIED
--- NOTE | 2018-03-27 18:45 | PN ---
Addendum entered and electronically signed by Bee Nugent, RESIDENT 18:54: CRP 12, ESR pending Original Note: Physical Exam: SUBJECTIVE: Patient seen and examined at bed side this morning. Complaining of headache, severe back pain, not getting better despite on Dilaudid. States abdominal pain has resolved. Denies chest pain, sob, palpitations, nausea or vomiting. No BM today. As per RN, refusing MRI lumbar and Head CT. OBJECTIVE: Vital Signs Period Temp Pulse Resp BP Sys/Avitia Pulse Ox Last 24 Hr 97.6 F-98.2 F 103-112 20-20 129-151/76-115 95-95 GENERAL: Morbidly obese female, sitting in a chair, is awake, alert, and fully oriented, in mild respiratory distress. HEAD: Normal with no signs of trauma. EYES: EOM intact, no pallor or icterus. ENT: Ears normal, moist mucous membranes. NECK: Supple, no JVD. LUNGS: Breath sounds decreased bilaterally, no wheezes, no crackles, no accessory muscle use. HEART: Regular rate and rhythm, S1, S2 without murmur. ABDOMEN: Soft, tenderness in the left upper quadrant, BS+, no organomegaly. UPPER EXTREMITIES: 2+ pulses, warm, well-perfused, left arm swollen. LOWER EXTREMITIES: Chronic venous stasis with stasis dermatitis, b/l pitting edema ++. NEUROLOGICAL: No facial droop. Normal speech, gait not observed. PSYCH: Normal mood, normal affect. SKIN: Warm, dry, normal turgor, thick skin with color change in the lower extremity (chronic) Laboratory Results - last 24 hr 03/27/18 03/27/18 03/27/18 07:00 07:00 11:55 WBC 13.1 H RBC 4.44 Hgb 11.6 Hct 34.8 MCV 78.5 L MCH 26.1 MCHC 33.2 RDW 19.1 H Plt Count 247 MPV 9.0 Sodium 139 Potassium 3.5 Chloride 106 Carbon Dioxide 22 Anion Gap 11 BUN 10 Creatinine 1.7 H Creat Clearance w eGFR 30.16 POC Glucometer 161 Random Glucose 137 H Calcium 8.8 Phosphorus 3.0 Magnesium 1.8 Total Bilirubin 0.2 AST 10 L ALT 13 Alkaline Phosphatase 168 H C-Reactive Protein 12.0 H Total Protein 6.0 L Albumin 2.5 L Active Medications Generic Name Dose Route Start Last Admin Trade Name Freq PRN Reason Stop Dose Admin Acetaminophen 650 mg 03/22/18 19:39 03/27/18 18:08 Tylenol - PO 650 mg Q6H PRN Administration PAIN LEVEL 4 - 6 Albuterol Sulfate 1 amp 03/22/18 00:06 Ventolin 0.083% Nebulizer Soln - NEB Q6H PRN SHORT OF BREATH/WHEEZING Albuterol/Ipratropium 1 amp 03/25/18 14:00 03/27/18 13:14 Duoneb - NEB 1 amp RTID MARIA E Administration Amlodipine Besylate 10 mg 03/22/18 10:00 03/27/18 09:11 Norvasc - PO 10 mg DAILY MARIA E Administration Budesonide/Formoterol Fumarate 2 puff 03/26/18 10:15 03/27/18 09:16 Symbicort 160/4.5mcg - IH 2 inhaler BID MARIA E Administration Carvedilol 12.5 mg 03/22/18 10:00 03/27/18 09:11 Coreg - PO 12.5 mg BID MARIA E Administration Escitalopram Oxalate 10 mg 03/22/18 10:00 03/27/18 09:11 Lexapro - PO 10 mg DAILY MARIA E Administration Fluticasone Propionate 1 spray 03/24/18 12:00 03/27/18 09:16 Flonase - NS 1 spray BID MARIA E Administration Heparin Sodium (Porcine) 5,000 unit 03/25/18 14:00 03/27/18 15:11 Heparin - SQ 5,000 unit TID MARIA E Administration Hydromorphone HCl 1 mg 03/26/18 19:06 03/27/18 16:17 Dilaudid Vial - IVPB 1 mg Q6H PRN Administration PAIN LEVEL 6-10 Metronidazole 500 mg in 100 mls @ 100 mls/hr 03/22/18 02:00 03/27/18 09:13 Flagyl 500mg Premixed Ivpb - IVPB 100 mls/hr Q8H-IV MARIA E Administration Levofloxacin 750 mg in 150 mls @ 100 mls/hr 03/24/18 10:30 03/27/18 09:13 Levaquin 750 Mg Premixed Ivpb - IVPB 100 mls/hr DAILY MARIA E Administration Protocol Insulin Aspart 1 vial 03/22/18 07:00 03/27/18 18:25 Novolog Vial Sliding Scale - SQ Not Given ACHS [facility] Protocol Lisinopril 5 mg 03/22/18 10:00 03/27/18 09:13 Prinivil PO 5 mg DAILY MARIA E Administration Oxycodone HCl 10 mg 03/22/18 22:00 03/27/18 09:11 Oxycontin - PO 10 mg BID MARIA E Administration Promethazine HCl 12.5 mg 03/23/18 10:58 Phenergan Injection - IVPB Q6H PRN NAUSEA AND/OR VOMITING Rosuvastatin Calcium 10 mg 03/22/18 22:00 03/26/18 21:10 Crestor - PO 10 mg HS MARIA E Administration ASSESSMENT/PLAN: ECHO done 03/25/18: Left Ventricular size, thickness and function are normal. Left vent Ejection fraction normal. There was insufficient TR detected to calculate RV systolic pressure. Endoscopy 03/24: Segmental colitis spanning from sigmoid to descedning colon, the most severe being noted 20-40 cm in the sigmoid. Suspected ischemic colitis. The colon mucusa was otherwise normal to the distal transverse colon. Retroflexed views revealed medium internal hemorrhoids. CT abdomen/pelvis: showed diffuse colon wall edema from proximal descendig colon mid sigmoid colon ASSESSMENT/PLAN: Patient is a 67 year old female with significant past medical history of DM, HTN , HLD, GERD, Polycystic kidney, uterine CA s/p hysterectomy, ventral hernia repair, chronic back pain on percocet (QID) presented to the ED with abdominal pain x 1 week. # Severe headache Not controlled with pain medication. Head CT ordered to r/o acute pathology. Patient is refusing. # Chronic back pain Appreciate Dr. Park's consult. On IV Dilaudid and oxy PRN however pain is not well controlled. Ordered MRI lumbar spine but patient is refusing. # Left arm swollen-r/o DVT Pending Duplex. # EMILIANO-likely prerenal creatinine 1.7 today. Will renally dose levaquin Pending renal /bladder Ultrasound. # Suspected Ischemic colitis- pain improving Flex sigmoidoscopy done on 03/24/18. Biopsy pending. CRP 2.8 (03/25/18) Diet advanced to clears and is tolerating. D/c IV fluids. Continue IV Levaquin 500 mg daily adjusted as per her kidney function Day 5 Continue IV Flagyl 500mg Q8H Day 5 As per surgery, no urgent indication of surgery. Hepatitis panel negative, JACKIE negative. Ferrtin normal. Transferrin low, # Shortness of breath likely due to Asthma vs OHS ECHO done as mentioned above. Cannot r/o Pulmonary HTN, needs repeat ECHO as outpatient Echo from 2016 reviewed was normal. Continue Duoneb, Albuterol. Symbicort Needs outpatient PFT's and sleep study. Might benefit from CPAP at home. Will do a pre and post exercise oxygen saturation before discharge # UTI Urine culture positive for E. faecalis (03/21/18), sensitive to Levaquin. Urine culture 03/22 negative. Will continue IV Levaquin. # Dilated CBD 9mm likely from s/p cholecystecotomy GI suggested MRCP if pain persists # Questionable cirrhosis: Hepatitis negative, JACKIE negative, Ferrtin normal, Transferrin low # DM Continue ISS, watch for hypoglycemic episodes # Hypertension-controlled HTN controlled however when patient is in severe pain, BP rises. Need better control of her pain. Continue Lisinopril 5mg PO daily, coreg 12.5 mg PO BID, Amlodipine 10mg Daily # FEN Will restart her on IV fluids if she doesn't tolerate PO. Electrolytes, Mag repleted, will repeat it AM. diet advanced to diabetic/sodium controlled # Prophylaxis For DVT: Heparin sq 5000 IU sq TID FoR GI: Protonix 40 daily # Code Status: Full Code Illness, Investigation and Plan of care explained to the patient. She verbalized understanding. Case discussed with Dr. Westbrook Problem List - Problems (1) Asthma Code(s): J45.909 - UNSPECIFIED ASTHMA, UNCOMPLICATED (2) Chronic pain Code(s): G89.29 - OTHER CHRONIC PAIN Qualifiers: Chronic pain type: other chronic pain Qualified Code(s): G89.29 - Other chronic pain (3) Diabetes mellitus type 2 in obese Code(s): E11.69 - TYPE 2 DIABETES MELLITUS WITH OTHER SPECIFIED COMPLICATION; E66.9 - OBESITY, UNSPECIFIED (4) GI bleed Code(s): K92.2 - GASTROINTESTINAL HEMORRHAGE, UNSPECIFIED Qualifiers: GI bleed type/associated pathology: unspecified gastrointestinal hemorrhage type Qualified Code(s): K92.2 - Gastrointestinal hemorrhage, unspecified (5) HLD (hyperlipidemia) Code(s): E78.5 - HYPERLIPIDEMIA, UNSPECIFIED (6) Obstructive sleep apnea Code(s): G47.33 - OBSTRUCTIVE SLEEP APNEA (ADULT) (PEDIATRIC) Visit type - Emergency Visit Emergency Visit: Yes ED Registration Date: 03/21/18 Care time: The patient presented to the Emergency Department on the above date and was hospitalized for further evaluation of their emergent condition. - New Patient This patient is new to me today: No - Critical Care Critical Care patient: No - Discharge Referral Referred to [facility] Med P.C.: No
[2018-03-27] MEDS: ROSUVASTATIN CA 10 MG TABLET (FP) PO SCH (21:42)
[2018-03-28] MEDS: ACETAMINOPHEN 325 MG TABLET (FP) PO PRN ×2 (01:19→13:42)
[2018-03-28] MEDS: HEPARIN NA (PORCINE) 5,000 UNITS/ML 1ML VIAL SQ SCH ×4 (06:06→21:02)
[2018-03-28] MEDS: INSULIN SLIDING SCALE (NOVOLOG) 1 VIAL SQ SCH ×4 (06:12→21:01)
[2018-03-28 07:27] LABS: HEMATOCRIT 33.4 % (32.4-45.2); HEMOGLOBIN 10.3 GM/dL (10.7-15.3); MCH 24.5 pg (25.7-33.7); MCHC 30.9 g/dl (32.0-36.0); MEAN CELL VOLUME 79.2 fl (80-96); MEAN PLT VOLUME 8.5 fl (7.5-11.1); PLATELET COUNT 211 K/MM3 (134-434); RBC 4.21 M/mm3 (3.60-5.2); WHITE BLOOD COUNT 11.7 K/mm3 (4.0-10.0)
[2018-03-28 08:10] LABS: ALBUMIN 2.2 g/dl (3.4-5.0); ALK PHOS 140 U/L (45-117); ANION GAP 9 MMOL/L (8-16); BILIRUBIN,TOTAL 0.2 mg/dL (0.2-1); BLOOD UREA NITROGEN 13 mg/dL (7-18); CALCIUM 8.2 mg/dL (8.5-10.1); CHLORIDE 106 mmol/L (98-107); CO2 24 mmol/L (21-32); CREATININE 1.8 mg/dL (0.55-1.3); GLUCOSE,RANDOM 105 mg/dL (74-106); MAGNESIUM 1.6 mg/dL (1.8-2.4); PHOSPHOROUS 3.7 mg/dL (2.5-4.9); POTASSIUM 3.4 mmol/L (3.5-5.1); SGOT/AST 9 U/L (15-37); SGPT/ALT 8 U/L (13-61); SODIUM 140 mmol/L (136-145); TOT PROT 5.4 g/dl (6.4-8.2)
[2018-03-28] MEDS: ALBUTEROL SO4 2.5/IPRATROPIUM 0.5 INH SOL 3 ML VIAL.NEB. NEB SCH ×3 (08:15→20:50)
[2018-03-28] MEDS: oxyCODONE HCL 10 MG SUSTAINED ACTING TABLET PO SCH ×3 (10:50→21:00)
[2018-03-28] MEDS: LISINOPRIL 5 MG TABLET (FP) PO SCH (10:50)
[2018-03-28] MEDS: CARVEDILOL 12.5 MG TABLET (FP) PO SCH ×3 (10:50→21:01)
[2018-03-28] MEDS: ESCITALOPRAM OXALATE 10 MG TABLET (FP) PO SCH (10:50)
[2018-03-28] MEDS: amLODIPine BESYLATE 10 MG TABLET (FP) PO SCH (10:50)
[2018-03-28] MEDS: BUDESONIDE/FORMETEROL FUMARATE 160/4.5 mcg INHALER IH SCH ×3 (10:52→21:02)
[2018-03-28] MEDS: FLUTICASONE PROP 0.05% 16 GM NASAL SPRAY NS SCH ×3 (10:52→21:01)
[2018-03-28] MEDS ORDERED: oxyCODONE HCL 5 MG TABLET PO PRN (10:59)
--- NOTE | 2018-03-28 11:13 | PN ---
Physical Exam: SUBJECTIVE: Patient seen and examined. She is difficult to arouse and falls back asleep easily. OBJECTIVE: Vital Signs Period Temp Pulse Resp BP Sys/Avitia Pulse Ox Last 24 Hr 97.6 F-97.9 F 94-112 18-20 115-151/79-95 98 GENERAL: The patient is lethargic, in no acute distress. LUNGS: Breath sounds equal, clear to auscultation bilaterally, no wheezes, no crackles, no accessory muscle use. HEART: Regular rate and rhythm, S1, S2 without murmur, rub or gallop. ABDOMEN: Obese, soft, nontender, nondistended, normoactive bowel sounds, no guarding, no rebound, no hepatosplenomegaly, no masses. EXTREMITIES: 2+ pulses, warm, well-perfused, trace edema, bilateral chronic venous stasis changes. Laboratory Results - last 24 hr 03/27/18 03/27/18 03/27/18 07:00 07:00 11:55 WBC RBC Hgb Hct MCV MCH MCHC RDW Plt Count MPV ESR 81 H Sodium 139 Potassium 3.5 Chloride 106 Carbon Dioxide 22 Anion Gap 11 BUN 10 Creatinine 1.7 H Creat Clearance w eGFR 30.16 POC Glucometer 161 Random Glucose 137 H Calcium 8.8 Phosphorus 3.0 Magnesium 1.8 Total Bilirubin 0.2 AST 10 L ALT 13 Alkaline Phosphatase 168 H C-Reactive Protein 12.0 H Total Protein 6.0 L Albumin 2.5 L 03/27/18 03/28/18 03/28/18 20:46 06:09 06:30 WBC 11.7 H RBC 4.21 Hgb 10.3 L Hct 33.4 MCV 79.2 L MCH 24.5 L MCHC 30.9 L RDW 19.0 H Plt Count 211 MPV 8.5 ESR Sodium Potassium Chloride Carbon Dioxide Anion Gap BUN Creatinine Creat Clearance w eGFR POC Glucometer 106 100 Random Glucose Calcium Phosphorus Magnesium Total Bilirubin AST ALT Alkaline Phosphatase C-Reactive Protein Total Protein Albumin 03/28/18 06:30 WBC RBC Hgb Hct MCV MCH MCHC RDW Plt Count MPV ESR Sodium 140 Potassium 3.4 L Chloride 106 Carbon Dioxide 24 Anion Gap 9 BUN 13 Creatinine 1.8 H Creat Clearance w eGFR 28.24 POC Glucometer Random Glucose 105 Calcium 8.2 L Phosphorus 3.7 Magnesium 1.6 L Total Bilirubin 0.2 AST 9 L ALT 8 L Alkaline Phosphatase 140 H C-Reactive Protein Total Protein 5.4 L Albumin 2.2 L Active Medications Generic Name Dose Route Start Last Admin Trade Name Ashley PRN Reason Stop Dose Admin Acetaminophen 650 mg 03/22/18 19:39 03/28/18 01:19 Tylenol - PO 650 mg Q6H PRN Administration PAIN LEVEL 4 - 6 Albuterol Sulfate 1 amp 03/22/18 00:06 Ventolin 0.083% Nebulizer Soln - NEB Q6H PRN SHORT OF BREATH/WHEEZING Albuterol/Ipratropium 1 amp 03/25/18 14:00 03/27/18 19:58 Duoneb - NEB 1 amp RTID MARIA E Administration Amlodipine Besylate 10 mg 03/22/18 10:00 03/27/18 09:11 Norvasc - PO 10 mg DAILY MARIA E Administration Budesonide/Formoterol Fumarate 2 puff 03/26/18 10:15 03/27/18 21:43 Symbicort 160/4.5mcg - IH 2 inhaler BID MARIA E Administration Carvedilol 12.5 mg 03/22/18 10:00 03/27/18 21:42 Coreg - PO 12.5 mg BID MARIA E Administration Escitalopram Oxalate 10 mg 03/22/18 10:00 03/27/18 09:11 Lexapro - PO 10 mg DAILY MARIA E Administration Fluticasone Propionate 1 spray 03/24/18 12:00 03/27/18 22:12 Flonase - NS 1 spray BID MARIA E Administration Heparin Sodium (Porcine) 5,000 unit 03/25/18 14:00 03/28/18 06:06 Heparin - SQ 5,000 unit TID MARIA E Administration Hydromorphone HCl 1 mg 03/26/18 19:06 03/27/18 22:30 Dilaudid Vial - IVPB 1 mg Q6H PRN Administration PAIN LEVEL 6-10 Metronidazole 500 mg in 100 mls @ 100 mls/hr 03/22/18 02:00 03/28/18 01:17 Flagyl 500mg Premixed Ivpb - IVPB 100 mls/hr Q8H-IV MARIA E Administration Levofloxacin 500 mg in 100 mls @ 100 mls/hr 03/27/18 19:00 03/27/18 19:05 Levaquin 500 Mg Premixed Ivpb - IVPB Not Given DAILY [facility] Protocol Insulin Aspart 1 vial 03/22/18 07:00 03/28/18 06:12 Novolog Vial Sliding Scale - SQ Not Given ACHS [facility] Protocol Lisinopril 5 mg 03/22/18 10:00 03/27/18 09:13 Prinivil PO 5 mg DAILY MARIA E Administration Oxycodone HCl 10 mg 03/22/18 22:00 03/27/18 21:41 Oxycontin - PO 10 mg BID MARIA E Administration Promethazine HCl 12.5 mg 03/23/18 10:58 Phenergan Injection - IVPB Q6H PRN NAUSEA AND/OR VOMITING Rosuvastatin Calcium 10 mg 03/22/18 22:00 03/27/18 21:42 Crestor - PO 10 mg HS MARIA E Administration ASSESSMENT/PLAN: This is a 67 year old woman with a history of type 2 DM, HTN, hyperlipidemia, GERD, polycystic kidney disease, uterine cancer, hysterectomy, ventral hernia repair, chronic back pain who presented to the ED with abdominal pain. 1. Ischemic colitis - Pain improving - Tolerating diet - Continue Levaquin (day 5), Flagyl (day 7) 2. Asthma - Continue Symbicort, DuoNeb, albuterol as needed - Outpatient PFTs 3. Possible CRISTEL - Outpatient sleep study, echo to eval for pulm HTN 4. Serratia UTI - Continue Levaquin (day 5) 5. Acute kidney injury - Creatinine continues to increase - Levaquin dosed for creatinine clearance - Renal US shows bilateral renal cortical scarring, several small bilateral cortical echogenic foci, multiple small bilateral complex and simple renal cortical cysts - Restart IV fluid 6. Hypokalemia - Replete potassium 7. Hypomagnesemia - Replete magnesium 8. Stage 3 CKD 9. Dilated CBD, likely secondary to prior cholecystectomy 10. Possible cirrhosis - Hepatitis A IgM, HBsAg, HBcAb, HCV Ab negative - JACKIE negative - AMA pending - Iron low normal, TIBC low, transferrin low, ferritin low normal, iron sat low normal 11. Type 2 DM - Continue Novolog sliding scale 12. Hypertension - Continue Lisinopril, Coreg, Norvasc 13. Hyperlipidemia - Continue Crestor 14. Polycystic kidneys 15. History of uterine cancer, hysterectomy 16. Headache and chronic back pain - Refused head CT, MRI of L-spine - Continue OxyContin - Discontinue IV Dilaudid since patient is lethargic - Add oxycodone for breakthrough pain - Last prescription filled was Percocet 10-325 mg #90 on 02/18 - s/p left lumbar paraspinal injection for spasm was done 17. LUE edema - Venous doppler could not be completed secondary to pain 18. Obesity with BMI 39.3 Visit type - Emergency Visit Emergency Visit: Yes ED Registration Date: 03/21/18 Care time: The patient presented to the Emergency Department on the above date and was hospitalized for further evaluation of their emergent condition. - New Patient This patient is new to me today: No - Critical Care Critical Care patient: No - Discharge Referral Referred to [facility] Med P.C.: No
[2018-03-28] MEDS ORDERED: POTASSIUM CHLORIDE TABS 20 MEQ TABLET.ER (FP) PO ONE (11:30)
[2018-03-28] MEDS ORDERED: MAGNESIUM OXIDE 400 MG TABLET (FP) PO ONE (11:45)
[2018-03-28] MEDS: SODIUM CHLORIDE 0.45% 1,000 ML IV SCH (11:46)
--- NOTE | 2018-03-28 11:48 | PN ---
Progress Note (short form) - Note Progress Note: PULMONARY States breathing better with nebulizers and symbicort. Vital Signs Period Temp Pulse Resp BP Sys/Avitia Pulse Ox Last 24 Hr 97.6 F-97.9 F 94-112 18-20 115-151/79-95 98 Gen: NAD at rest Heart: RRR Lung: decreased breath sounds at the bases Abd: soft, nontender Ext: no edema CBC, BMP 03/28/18 06:30 03/28/18 06:30 Active Medications Acetaminophen (Tylenol -) 650 mg PO Q6H PRN PRN Reason: PAIN LEVEL 1-5 Albuterol Sulfate (Ventolin 0.083% Nebulizer Soln -) 1 amp NEB Q6H PRN PRN Reason: SHORT OF BREATH/WHEEZING Albuterol/Ipratropium (Duoneb -) 1 amp NEB RTID [facility] Last Admin: 03/28/18 08:15 Dose: Not Given Amlodipine Besylate (Norvasc -) 10 mg PO DAILY [facility] Last Admin: 03/28/18 10:50 Dose: 10 mg Budesonide/Formoterol Fumarate (Symbicort 160/4.5mcg -) 2 puff IH BID [facility] Last Admin: 03/28/18 10:52 Dose: 2 inhaler Carvedilol (Coreg -) 12.5 mg PO BID [facility] Last Admin: 03/28/18 10:50 Dose: 12.5 mg Escitalopram Oxalate (Lexapro -) 10 mg PO DAILY [facility] Last Admin: 03/28/18 10:50 Dose: 10 mg Fluticasone Propionate (Flonase -) 1 spray NS BID [facility] Last Admin: 03/28/18 10:52 Dose: 1 spray Heparin Sodium (Porcine) (Heparin -) 5,000 unit SQ TID [facility] Last Admin: 03/28/18 06:06 Dose: 5,000 unit Metronidazole (Flagyl 500mg Premixed Ivpb -) 500 mg in 100 mls @ 100 mls/hr IVPB Q8H-IV MARIA E Last Admin: 03/28/18 10:50 Dose: 100 mls/hr Levofloxacin (Levaquin 500 Mg Premixed Ivpb -) 500 mg in 100 mls @ 100 mls/hr IVPB DAILY MARIA E; Protocol Last Admin: 03/28/18 10:50 Dose: 100 mls/hr Sodium Chloride (1/2 Normal Saline) 1,000 mls @ 75 mls/hr IV ASDIR [facility] Insulin Aspart (Novolog Vial Sliding Scale -) 1 vial SQ ACHS [facility]; Protocol Last Admin: 03/28/18 06:12 Dose: Not Given Lisinopril (Prinivil) 5 mg PO DAILY [facility] Last Admin: 03/28/18 10:50 Dose: 5 mg Oxycodone HCl (Oxycontin -) 10 mg PO BID [facility] Last Admin: 03/28/18 10:50 Dose: 10 mg Oxycodone HCl (Roxicodone -) 5 mg PO Q6H PRN PRN Reason: PAIN LEVEL 6-10 Promethazine HCl (Phenergan Injection -) 12.5 mg IVPB Q6H PRN PRN Reason: NAUSEA AND/OR VOMITING Rosuvastatin Calcium (Crestor -) 10 mg PO HS [facility] Last Admin: 03/27/18 21:42 Dose: 10 mg A/P Acute Colitis - r/o Ischemic Colitis Asthma Likely Obstructive Sleep Apnea r/o Pulmonary HTN HTN DM GERD h/o Uterine Ca Polycystic Kidney Disease - continue antibiotics - inhaled bronchodilators - continue symbicort - poor visualization of RV on echocardiogram here, will need repeat as outpt - outpt PFTs, PSG and f/u - DVT prophylaxis Problem List - Problems (1) Colitis Code(s): K52.9 - NONINFECTIVE GASTROENTERITIS AND COLITIS, UNSPECIFIED (2) Asthma Code(s): J45.909 - UNSPECIFIED ASTHMA, UNCOMPLICATED (3) Obstructive sleep apnea Code(s): G47.33 - OBSTRUCTIVE SLEEP APNEA (ADULT) (PEDIATRIC)
--- NOTE | 2018-03-28 15:03 | CON.ID ---
Consult - History of Present Illness History of Present Illness: 67 y.o. female with PMH of Uterine CA s/p hysterectomy, DM, PKD, HTN, HLD, obesity, depression, chronic back/neck pain presented with c/o abd pain/nausea/ vomiting and diarrhea with rectal bleeding. Upon admission patient was noted to have leukocytosis (wbc 16K). Imaging of the abdomen revealed colitis possibly from ischemia or infectious source. In addition Pt was noted to have a UTI. She has been on Levaquin and Flagyl with resolution of vomiting/diarrhea but still with c/o generalized pain especially in her back. Repeat Urine culture showed growth of MRSA (20-30K col). Currently patient denies dysuria, suprapubic, or flank pain. She has however developed Lt arm edema and tenderness with minimal erythema. Duplex limited due to patient complaint of pain. - History Source History Provided By: Patient Limitations to Obtaining History: No Limitations - Past Medical History [employer]: Yes: Migraine, Peripheral Neuropathy Cardio/Vascular: Yes: HTN, Hyperlipdemia Pulmonary: Yes: Asthma Gastrointestinal: Yes: GERD Renal/: Yes: Renal Calculi, Other (polycystic kidney disease) ...: No Psych: Yes: Depression Musculoskeletal: Yes: Chronic low back pain (whole back pain, neck pain), Osteoarthritis, Other (chronic pain) Endocrine: Yes: Diabetes Mellitus (DM II on insulin at home) - Past Surgical History Past Surgical History: Yes: Cholecystectomy (laparoscopic), Colonoscopy, Hernia Repair (Ventral), Hysterectomy (with BSO, for cancer (uterine?)), Oopherectomy, Upper Endoscopy - Alcohol/Substance Use Hx Alcohol Use: No History of Substance Use: reports: None (no illicits), Prescription (uses Percocet 2 pills 3-4 times a day for pain) - Smoking History Smoking history: Never smoked Have you smoked in the past 12 months: No Aproximately how many cigarettes per day: 0 - Social History Usual Living Arrangement: With Spouse ADL: Independent History of Recent Travel: No Home Medications - Allergies Allergies/Adverse Reactions: Allergies Allergy/AdvReac Type Severity Reaction Status Date / Time No Known Drug Allergies Allergy Verified 03/21/18 17:03 - Home Medications Home Medications: Ambulatory Orders Ibuprofen [Motrin -] 600 mg PO TID PRN #90 tablet MDD 3 08/24/16 Oxycodone HCl/Acetaminophen [Percocet 5-325 mg Tablet] 1 tab PO Q4H PRN #15 tablet NS MDD 6 08/24/16 Amlodipine Besylate 10 mg PO DAILY 03/21/18 Carvedilol 25 mg PO DAILY 03/21/18 Escitalopram Oxalate [Lexapro -] 10 mg PO DAILY 03/21/18 Lisinopril 5 mg PO DAILY 03/21/18 Rosuvastatin Calcium 10 mg PO DAILY 03/21/18 Family Disease History - Family Disease History Family Disease History: Diabetes: Mother (Alive, htn), Other: Father (: 41: CVA), Mother, Brother (1, healthy), Sister (1, healthy), Son (3, 1 with DM II), Daughter (1, healthy) Other Family History: No family history of colorectal cancer or other GI malignancy Review of Systems - Review of Systems Constitutional: reports: Weakness Eyes: reports: No Symptoms HENT: reports: No Symptoms Neck: reports: No Symptoms Cardiovascular: reports: No Symptoms Respiratory: reports: No Symptoms Gastrointestinal: reports: Abdominal Pain (nonspecific, general) Genitourinary: reports: No Symptoms Musculoskeletal: reports: Back Pain (chronic) Integumentary: reports: Erythema (Lt hand/forearm edema/tenderness) Neurological: reports: No Symptoms Endocrine: reports: No Symptoms Hematology/Lymphatic: reports: No Symptoms Physical Exam Vital Signs: Vital Signs Temperature 98.4 F 03/28/18 14:45 Pulse Rate 92 H 03/28/18 14:45 Respiratory Rate 18 03/28/18 14:45 Blood Pressure 138/78 03/28/18 14:45 O2 Sat by Pulse Oximetry (%) 98 03/27/18 21:00 Constitutional: Yes: No Distress Eyes: Yes: Conjunctiva Clear Neck: Yes: Supple Cardiovascular: Yes: Regular Rate and Rhythm Respiratory: Yes: Regular Gastrointestinal: Yes: Normal Bowel Sounds, Soft, Tenderness (nonspecific, generalized, no rebound) Renal/: Yes: WNL Musculoskeletal: Yes: Back Pain Extremities: Yes: Erythema (Lt hand/forearm edema, +tenderness, minimal erythema ) Peripheral Pulses WNL: Yes (radial intact) Neurological: Yes: Alert Labs: CBC, BMP 03/28/18 06:30 03/28/18 06:30 Microbiology 03/26/18 15:00 Urine - Urine Clean Catch Urine Culture - Final Mr S Aureus 03/21/18 17:46 Urine - Urine - Catheterized Urine Culture - Final Serratia Marcescens Strep Agalactiae Group B Enterococcus Faecalis 03/22/18 01:08 Urine - Urine Clean Catch Urine Culture - Final Imaging - Results Cat Scan: Report Reviewed Ultrasound: Report Reviewed Problem List - Problems (1) Abdominal pain Code(s): R10.9 - UNSPECIFIED ABDOMINAL PAIN Qualifiers: Abdominal location: unspecified location Qualified Code(s): R10.9 - Unspecified abdominal pain (2) Back pain Code(s): M54.9 - DORSALGIA, UNSPECIFIED (3) Colitis Code(s): K52.9 - NONINFECTIVE GASTROENTERITIS AND COLITIS, UNSPECIFIED (4) Diabetes mellitus type 2 in obese Code(s): E11.69 - TYPE 2 DIABETES MELLITUS WITH OTHER SPECIFIED COMPLICATION; E66.9 - OBESITY, UNSPECIFIED (5) HLD (hyperlipidemia) Code(s): E78.5 - HYPERLIPIDEMIA, UNSPECIFIED (6) Ischemic colitis Code(s): K55.9 - VASCULAR DISORDER OF INTESTINE, UNSPECIFIED (7) GERD (gastroesophageal reflux disease) Code(s): K21.9 - GASTRO-ESOPHAGEAL REFLUX DISEASE WITHOUT ESOPHAGITIS Qualifiers: Esophagitis presence: without esophagitis Qualified Code(s): K21.9 - Gastro -esophageal reflux disease without esophagitis (8) HTN (hypertension) Code(s): I10 - ESSENTIAL (PRIMARY) HYPERTENSION Qualifiers: Hypertension type: essential hypertension Qualified Code(s): I10 - Essential (primary) hypertension (9) Polycystic kidney disease Code(s): Q61.3 - POLYCYSTIC KIDNEY, UNSPECIFIED Assessment/Plan 67 y.o. female with multiple medical problems including chronic pain admitted for abdominal pain/n/v/d with leukocytosis now with Lt arm edema Ischemic Colitis Lt arm edema - possible cellulitis UTI Leukocytosis EMILIANO DM PKD Uterine CA s/p hysterectomy Depression Chronic Pain HTN HLD -- will d/c Levaquin and Flagyl, start Unasyn IV -- latest Urine culture isolate possibly contaminant, renal sonogram results noted -- Pain management following, repeat LUE duplex if possible -- continue monitor wbc, vitals pt with improvement in leukocytosis, remains afebrile Will follow Thank you
[2018-03-28] MEDS ORDERED: diazePAM 5 MG TABLET PO ONE (16:30)
[2018-03-28] MEDS ORDERED: oxyCODONE HCL 5 MG TABLET PO ONE (16:30)
[2018-03-28] MEDS ORDERED: PT OWN MED DRAWER 7, Y5N ONE ×2 (16:45→20:43)
[2018-03-28] MEDS: AMPICILLIN NA/SULBACTAM NA 3 GM in SODIUM CHLORIDE 100 ML IVPB SCH ×2 (16:46→20:55)
[2018-03-28] MEDS ORDERED: INSULIN (NOVOLOG) ASPART 100 UNITS/ML 10ML VIAL ONE (20:39)
[2018-03-28] MEDS: ROSUVASTATIN CA 10 MG TABLET (FP) PO SCH ×2 (20:56→21:01)
[2018-03-28] MEDS: oxyCODONE HCL 5 MG TABLET PO PRN (23:01)
[2018-03-29] MEDS: ACETAMINOPHEN 325 MG TABLET (FP) PO PRN ×3 (01:03→20:59)
[2018-03-29] MEDS: AMPICILLIN NA/SULBACTAM NA 3 GM in SODIUM CHLORIDE 100 ML IVPB SCH ×4 (02:11→22:21)
[2018-03-29] MEDS: oxyCODONE HCL 5 MG TABLET PO PRN ×3 (05:27→20:53)
[2018-03-29] MEDS: HEPARIN NA (PORCINE) 5,000 UNITS/ML 1ML VIAL SQ SCH ×3 (05:31→22:20)
[2018-03-29] MEDS: INSULIN SLIDING SCALE (NOVOLOG) 1 VIAL SQ SCH ×4 (06:00→22:45)
[2018-03-29 07:14] LABS: HEMATOCRIT 31.6 % (32.4-45.2); MCHC 31.7 g/dl (32.0-36.0); MEAN CELL VOLUME 78.9 fl (80-96); PLATELET COUNT 214 K/MM3 (134-434); RBC 4.01 M/mm3 (3.60-5.2); RDW 18.7 % (11.6-15.6); WHITE BLOOD COUNT 9.7 K/mm3 (4.0-10.0)
[2018-03-29] MEDS: ALBUTEROL SO4 2.5/IPRATROPIUM 0.5 INH SOL 3 ML VIAL.NEB. NEB SCH ×3 (07:50→19:43)
[2018-03-29 08:06] LABS: ANION GAP 10 MMOL/L (8-16); BLOOD UREA NITROGEN 13 mg/dL (7-18); CALCIUM 7.9 mg/dL (8.5-10.1); CHLORIDE 108 mmol/L (98-107); CO2 24 mmol/L (21-32); CREATININE 1.7 mg/dL (0.55-1.3); GLUCOSE,RANDOM 100 mg/dL (74-106); MAGNESIUM 1.6 mg/dL (1.8-2.4); POTASSIUM 3.7 mmol/L (3.5-5.1); SODIUM 141 mmol/L (136-145)
[2018-03-29] MEDS ORDERED: PT OWN MED DRAWER 7, Y5N ONE ×2 (09:54→15:55)
[2018-03-29] MEDS: oxyCODONE HCL 10 MG SUSTAINED ACTING TABLET PO SCH ×2 (09:57→22:23)
[2018-03-29] MEDS: LISINOPRIL 5 MG TABLET (FP) PO SCH (09:58)
[2018-03-29] MEDS: ESCITALOPRAM OXALATE 10 MG TABLET (FP) PO SCH (09:58)
[2018-03-29] MEDS: amLODIPine BESYLATE 10 MG TABLET (FP) PO SCH (09:58)
[2018-03-29] MEDS: CARVEDILOL 12.5 MG TABLET (FP) PO SCH ×2 (09:58→22:37)
[2018-03-29] MEDS: BUDESONIDE/FORMETEROL FUMARATE 160/4.5 mcg INHALER IH SCH ×2 (10:02→22:25)
[2018-03-29] MEDS: FLUTICASONE PROP 0.05% 16 GM NASAL SPRAY NS SCH ×2 (10:02→22:25)
--- NOTE | 2018-03-29 10:47 | PN ---
Progress Note (short form) - Note Progress Note: PULMONARY States breathing better, still with loose stools. Vital Signs Period Temp Pulse Resp BP Sys/Avitia Pulse Ox Last 24 Hr 97.7 F-98.4 F 88-100 18-20 128-140/54-89 95 Gen: NAD at rest Heart: RRR Lung: decreased breath sounds at the bases Abd: soft, nontender Ext: no edema CBC, BMP 03/29/18 06:00 03/29/18 06:00 Active Medications Acetaminophen (Tylenol -) 650 mg PO Q6H PRN PRN Reason: PAIN LEVEL 1-5 Last Admin: 03/29/18 01:03 Dose: 650 mg Albuterol Sulfate (Ventolin 0.083% Nebulizer Soln -) 1 amp NEB Q6H PRN PRN Reason: SHORT OF BREATH/WHEEZING Albuterol/Ipratropium (Duoneb -) 1 amp NEB RTID [facility] Last Admin: 03/29/18 07:50 Dose: 1 amp Amlodipine Besylate (Norvasc -) 10 mg PO DAILY [facility] Last Admin: 03/29/18 09:58 Dose: 10 mg Budesonide/Formoterol Fumarate (Symbicort 160/4.5mcg -) 2 puff IH BID [facility] Last Admin: 03/29/18 10:02 Dose: 2 inhaler Carvedilol (Coreg -) 12.5 mg PO BID [facility] Last Admin: 03/29/18 09:58 Dose: 12.5 mg Escitalopram Oxalate (Lexapro -) 10 mg PO DAILY [facility] Last Admin: 03/29/18 09:58 Dose: 10 mg Fluticasone Propionate (Flonase -) 1 spray NS BID [facility] Last Admin: 03/29/18 10:02 Dose: 1 spray Heparin Sodium (Porcine) (Heparin -) 5,000 unit SQ TID [facility] Last Admin: 03/29/18 05:31 Dose: 5,000 unit Sodium Chloride (1/2 Normal Saline) 1,000 mls @ 75 mls/hr IV ASDIR [facility] Last Admin: 03/28/18 11:46 Dose: 75 mls/hr Ampicillin Sodium/Sulbactam (Sodium 3 gm/ Sodium Chloride) 100 mls @ 200 mls/ hr IVPB Q6H-IV [facility] Last Admin: 03/29/18 09:57 Dose: 200 mls/hr Insulin Aspart (Novolog Vial Sliding Scale -) 1 vial SQ ACHS [facility]; Protocol Last Admin: 03/29/18 06:00 Dose: Not Given Lisinopril (Prinivil) 5 mg PO DAILY [facility] Last Admin: 03/29/18 09:58 Dose: 5 mg Oxycodone HCl (Oxycontin -) 10 mg PO BID [facility] Last Admin: 03/29/18 09:57 Dose: 10 mg Oxycodone HCl (Roxicodone -) 10 mg PO Q6H PRN PRN Reason: PAIN LEVEL 6-10 Last Admin: 03/29/18 05:27 Dose: 10 mg Promethazine HCl (Phenergan Injection -) 12.5 mg IVPB Q6H PRN PRN Reason: NAUSEA AND/OR VOMITING Rosuvastatin Calcium (Crestor -) 10 mg PO HS [facility] Last Admin: 03/28/18 21:01 Dose: Not Given A/P Acute Colitis - r/o Ischemic Colitis Asthma Likely Obstructive Sleep Apnea r/o Pulmonary HTN HTN DM GERD h/o Uterine Ca Polycystic Kidney Disease - continue antibiotics - inhaled bronchodilators - continue symbicort - poor visualization of RV on echocardiogram here, will need repeat as outpt - outpt PFTs, PSG and f/u - DVT prophylaxis Problem List - Problems (1) Colitis Code(s): K52.9 - NONINFECTIVE GASTROENTERITIS AND COLITIS, UNSPECIFIED (2) Asthma Code(s): J45.909 - UNSPECIFIED ASTHMA, UNCOMPLICATED (3) Obstructive sleep apnea Code(s): G47.33 - OBSTRUCTIVE SLEEP APNEA (ADULT) (PEDIATRIC)
[2018-03-29] MEDS: SODIUM CHLORIDE 0.45% 1,000 ML IV SCH (11:22)
--- NOTE | 2018-03-29 14:59 | PN ---
Progress Note, Physician History of Present Illness: Pt afebrile. Reports less tightness in Lt arm. Less erythema/warmth noted. Denies dysuria. No current abd pain/vomiting/diarrhea. - Current Medication List Current Medications: Active Medications Acetaminophen (Tylenol -) 650 mg PO Q6H PRN PRN Reason: PAIN LEVEL 1-5 Last Admin: 03/29/18 14:38 Dose: 650 mg Albuterol Sulfate (Ventolin 0.083% Nebulizer Soln -) 1 amp NEB Q6H PRN PRN Reason: SHORT OF BREATH/WHEEZING Albuterol/Ipratropium (Duoneb -) 1 amp NEB RTID [facility] Last Admin: 03/29/18 14:33 Dose: 1 amp Amlodipine Besylate (Norvasc -) 10 mg PO DAILY [facility] Last Admin: 03/29/18 09:58 Dose: 10 mg Budesonide/Formoterol Fumarate (Symbicort 160/4.5mcg -) 2 puff IH BID [facility] Last Admin: 03/29/18 10:02 Dose: 2 inhaler Carvedilol (Coreg -) 12.5 mg PO BID [facility] Last Admin: 03/29/18 09:58 Dose: 12.5 mg Escitalopram Oxalate (Lexapro -) 10 mg PO DAILY [facility] Last Admin: 03/29/18 09:58 Dose: 10 mg Fluticasone Propionate (Flonase -) 1 spray NS BID [facility] Last Admin: 03/29/18 10:02 Dose: 1 spray Heparin Sodium (Porcine) (Heparin -) 5,000 unit SQ TID [facility] Last Admin: 03/29/18 14:39 Dose: 5,000 unit Sodium Chloride (1/2 Normal Saline) 1,000 mls @ 75 mls/hr IV ASDIR [facility] Last Admin: 03/29/18 11:22 Dose: Not Given Ampicillin Sodium/Sulbactam (Sodium 3 gm/ Sodium Chloride) 100 mls @ 200 mls/ hr IVPB Q6H-IV [facility] Last Admin: 03/29/18 09:57 Dose: 200 mls/hr Insulin Aspart (Novolog Vial Sliding Scale -) 1 vial SQ ACHS [facility]; Protocol Last Admin: 03/29/18 10:52 Dose: Not Given Lisinopril (Prinivil) 5 mg PO DAILY [facility] Last Admin: 03/29/18 09:58 Dose: 5 mg Oxycodone HCl (Oxycontin -) 10 mg PO BID [facility] Last Admin: 03/29/18 09:57 Dose: 10 mg Oxycodone HCl (Roxicodone -) 10 mg PO Q6H PRN PRN Reason: PAIN LEVEL 6-10 Last Admin: 03/29/18 11:41 Dose: 10 mg Promethazine HCl (Phenergan Injection -) 12.5 mg IVPB Q6H PRN PRN Reason: NAUSEA AND/OR VOMITING Rosuvastatin Calcium (Crestor -) 10 mg PO HS [facility] Last Admin: 03/28/18 21:01 Dose: Not Given - Objective Vital Signs: Vital Signs Temperature 97.7 F 03/29/18 07:02 Pulse Rate 89 03/29/18 07:02 Respiratory Rate 20 03/29/18 07:02 Blood Pressure 138/89 03/29/18 07:02 O2 Sat by Pulse Oximetry (%) 95 03/29/18 09:00 Constitutional: Yes: No Distress, Calm Cardiovascular: Yes: Regular Rate and Rhythm Respiratory: Yes: Regular Gastrointestinal: Yes: Normal Bowel Sounds, Soft Extremities: Yes: Other (LUE less edema/erythema) Labs: CBC, BMP 03/29/18 06:00 03/29/18 06:00 INR, PTT INR 1.22 (0.83-1.09) H 03/24/18 06:20 Problem List - Problems (1) Abdominal pain Code(s): R10.9 - UNSPECIFIED ABDOMINAL PAIN Qualifiers: Abdominal location: unspecified location Qualified Code(s): R10.9 - Unspecified abdominal pain (2) Back pain Code(s): M54.9 - DORSALGIA, UNSPECIFIED (3) Colitis Code(s): K52.9 - NONINFECTIVE GASTROENTERITIS AND COLITIS, UNSPECIFIED (4) Diabetes mellitus type 2 in obese Code(s): E11.69 - TYPE 2 DIABETES MELLITUS WITH OTHER SPECIFIED COMPLICATION; E66.9 - OBESITY, UNSPECIFIED (5) HLD (hyperlipidemia) Code(s): E78.5 - HYPERLIPIDEMIA, UNSPECIFIED (6) Ischemic colitis Code(s): K55.9 - VASCULAR DISORDER OF INTESTINE, UNSPECIFIED (7) GERD (gastroesophageal reflux disease) Code(s): K21.9 - GASTRO-ESOPHAGEAL REFLUX DISEASE WITHOUT ESOPHAGITIS Qualifiers: Esophagitis presence: without esophagitis Qualified Code(s): K21.9 - Gastro -esophageal reflux disease without esophagitis (8) HTN (hypertension) Code(s): I10 - ESSENTIAL (PRIMARY) HYPERTENSION Qualifiers: Hypertension type: essential hypertension Qualified Code(s): I10 - Essential (primary) hypertension (9) Polycystic kidney disease Code(s): Q61.3 - POLYCYSTIC KIDNEY, UNSPECIFIED Assessment/Plan 67 y.o. female with multiple medical problems including chronic pain admitted for abdominal pain/n/v/d with leukocytosis now with Lt arm edema Ischemic Colitis Lt arm edema - possible cellulitis UTI Leukocytosis EMILIANO DM PKD Uterine CA s/p hysterectomy Depression Chronic Pain HTN HLD -- continue Unasyn -- no current n/v/d -- LUE slightly less edematous/erythematous, hand still swollen -- no s/s of UTI -- Pain management following -- wbc now normal, pt afebrile
--- NOTE | 2018-03-29 18:22 | PN ---
Teaching Attending Note Name of Resident: Bee Nugent ATTENDING PHYSICIAN STATEMENT I saw and evaluated the patient. I reviewed the resident's note and discussed the case with the resident. I agree with the resident's findings and plan as documented. SUBJECTIVE: She reports her pain is better but she is still requesting more pain meds. OBJECTIVE: Vital Signs Period Temp Pulse Resp BP Sys/Avitia Pulse Ox Last 24 Hr 97.7 F-98.4 F 84-125 18-20 121-140/54-90 95-95 GENERAL: The patient is awake, alert, in no acute distress. LUNGS: Breath sounds equal, clear to auscultation bilaterally, no wheezes, no crackles, no accessory muscle use. HEART: Regular rate and rhythm, S1, S2 without murmur, rub or gallop. ABDOMEN: Obese, soft, nontender, nondistended, normoactive bowel sounds, no guarding, no rebound, no hepatosplenomegaly, no masses. EXTREMITIES: 2+ pulses, warm, well-perfused, trace edema, bilateral chronic venous stasis changes. Left hand edematous and erythematous. Laboratory Results - last 24 hr 03/28/18 03/29/18 03/29/18 20:54 05:31 06:00 WBC 9.7 RBC 4.01 Hgb 10.0 L Hct 31.6 L MCV 78.9 L MCH 25.0 L MCHC 31.7 L RDW 18.7 H Plt Count 214 MPV 9.0 Sodium Potassium Chloride Carbon Dioxide Anion Gap BUN Creatinine Creat Clearance w eGFR POC Glucometer 136 106 Random Glucose Calcium Magnesium 03/29/18 03/29/18 06:00 17:42 WBC RBC Hgb Hct MCV MCH MCHC RDW Plt Count MPV Sodium 141 Potassium 3.7 Chloride 108 H Carbon Dioxide 24 Anion Gap 10 BUN 13 Creatinine 1.7 H Creat Clearance w eGFR 30.16 POC Glucometer 105 Random Glucose 100 Calcium 7.9 L Magnesium 1.6 L Current Medications Generic Name Dose Route Start Last Admin Trade Name Freq PRN Reason Stop Dose Admin Acetaminophen 650 mg 03/28/18 11:03 03/29/18 14:38 Tylenol - PO 650 mg Q6H PRN Administration PAIN LEVEL 1-5 Albuterol Sulfate 1 amp 03/22/18 00:06 Ventolin 0.083% Nebulizer Soln - NEB Q6H PRN SHORT OF BREATH/WHEEZING Albuterol/Ipratropium 1 amp 03/25/18 14:00 03/29/18 14:33 Duoneb - NEB 1 amp RTID [facility] Administration Amlodipine Besylate 10 mg 03/22/18 10:00 03/29/18 09:58 Norvasc - PO 10 mg DAILY [facility] Administration Budesonide/Formoterol Fumarate 2 puff 03/26/18 10:15 03/29/18 10:02 Symbicort 160/4.5mcg - IH 2 inhaler BID [facility] Administration Carvedilol 12.5 mg 03/22/18 10:00 03/29/18 09:58 Coreg - PO 12.5 mg BID [facility] Administration Escitalopram Oxalate 10 mg 03/22/18 10:00 03/29/18 09:58 Lexapro - PO 10 mg DAILY [facility] Administration Fluticasone Propionate 1 spray 03/24/18 12:00 03/29/18 10:02 Flonase - NS 1 spray BID [facility] Administration Heparin Sodium (Porcine) 5,000 unit 03/25/18 14:00 03/29/18 14:39 Heparin - SQ 5,000 unit TID [facility] Administration Sodium Chloride 1,000 mls @ 75 mls/hr 03/28/18 11:00 03/29/18 11:22 1/2 Normal Saline IV Not Given ASDIR [facility] Ampicillin Sodium/Sulbactam 100 mls @ 200 mls/hr 03/28/18 15:45 03/29/18 15: 57 Sodium 3 gm/ Sodium Chloride IVPB 200 mls/hr Q6H-IV [facility] Administration Insulin Aspart 1 vial 03/22/18 07:00 03/29/18 17:55 Novolog Vial Sliding Scale - SQ Not Given ACHS [facility] Protocol Lisinopril 5 mg 03/22/18 10:00 03/29/18 09:58 Prinivil PO 5 mg DAILY [facility] Administration Oxycodone HCl 10 mg 03/22/18 22:00 03/29/18 09:57 Oxycontin - PO 10 mg BID [facility] Administration Oxycodone HCl 10 mg 03/28/18 16:10 03/29/18 11:41 Roxicodone - PO 10 mg Q6H PRN Administration PAIN LEVEL 6-10 Promethazine HCl 12.5 mg 03/23/18 10:58 Phenergan Injection - IVPB Q6H PRN NAUSEA AND/OR VOMITING Rosuvastatin Calcium 10 mg 03/22/18 22:00 03/28/18 21:01 Crestor - PO Not Given HS [facility] ASSESSMENT AND PLAN: This is a 67 year old woman with a history of type 2 DM, HTN, hyperlipidemia, GERD, polycystic kidney disease, uterine cancer, hysterectomy, ventral hernia repair, chronic back pain who presented to the ED with abdominal pain. 1. Ischemic colitis - Pain improving - Tolerating diet - Levaquin, Flagyl changed to Unasyn 2. Left hand cellulitis - Unasyn started - Venous doppler could not be completed secondary to pain 3. Asthma - Continue Symbicort, DuoNeb, albuterol as needed - Outpatient PFTs 4. Possible CRISTEL - Outpatient sleep study, echo to eval for pulm HTN 5. Serratia UTI - Completed Levaquin - Repeat culture (+) MRSA 20-30k colonies, asymptomatic 6. Acute kidney injury - Creatinine stable - Renal US shows bilateral renal cortical scarring, several small bilateral cortical echogenic foci, multiple small bilateral complex and simple renal cortical cysts - Levaquin discontinued - Continue IV fluid 7. Hypokalemia - Improved 8. Hypomagnesemia - Continue to supplement magnesium 9. Stage 3 CKD 10. Dilated CBD, likely secondary to prior cholecystectomy 11. Possible cirrhosis - Hepatitis A IgM, HBsAg, HBcAb, HCV Ab negative - JACKIE negative - AMA pending - Iron low normal, TIBC low, transferrin low, ferritin low normal, iron sat low normal 12. Type 2 DM - Continue Novolog sliding scale 13. Hypertension - Continue Lisinopril, Coreg, Norvasc 14. Hyperlipidemia - Continue Crestor 15. Polycystic kidneys 16. History of uterine cancer, hysterectomy 17. Headache and chronic back pain - Refused head CT, MRI of L-spine - Continue OxyContin, oxycodone as needed for breakthrough pain - Last prescription filled was Percocet 10-325 mg #90 on 02/18 - s/p left lumbar paraspinal injection for spasm was done 18. Obesity with BMI 39.3
--- NOTE | 2018-03-29 18:46 | PN ---
Physical Exam: SUBJECTIVE: Patient seen and examined at bed side this morning. States headache and back pain has been better but requesting for scheduled pain medication and stronger one. Denies chest pain, palpitation, sob improved, cough, abdominal pain resolved, no nausea or vomiting. BM today. Bladder habit normal. Refused Brain MRI, Duplex of left arm to r/o dvt OBJECTIVE: Vital Signs Period Temp Pulse Resp BP Sys/Avitia Pulse Ox Last 24 Hr 97.7 F-98.4 F 84-125 18-20 121-140/54-90 95-95 GENERAL: Morbidly obese female, sitting in a chair, is awake, alert, and fully oriented, in mild respiratory distress. HEAD: Normal with no signs of trauma. EYES: EOM intact, no pallor or icterus. ENT: Ears normal, moist mucous membranes. NECK: Supple, no JVD. LUNGS: Breath sounds decreased bilaterally, no wheezes, no crackles, no accessory muscle use. HEART: Regular rate and rhythm, S1, S2 without murmur. ABDOMEN: Soft, tenderness in the left upper quadrant, BS+, no organomegaly. UPPER EXTREMITIES: 2+ pulses, warm, well-perfused, left arm swollen. LOWER EXTREMITIES: Chronic venous stasis with stasis dermatitis, b/l pitting edema ++ improved NEUROLOGICAL: No facial droop. Normal speech, gait not observed. PSYCH: Normal mood, normal affect. SKIN: Warm, dry, normal turgor, thick skin with color change in the lower extremity (chronic) Laboratory Results - last 24 hr 03/28/18 03/29/18 03/29/18 20:54 05:31 06:00 WBC 9.7 RBC 4.01 Hgb 10.0 L Hct 31.6 L MCV 78.9 L MCH 25.0 L MCHC 31.7 L RDW 18.7 H Plt Count 214 MPV 9.0 Sodium Potassium Chloride Carbon Dioxide Anion Gap BUN Creatinine Creat Clearance w eGFR POC Glucometer 136 106 Random Glucose Calcium Magnesium 03/29/18 03/29/18 06:00 17:42 WBC RBC Hgb Hct MCV MCH MCHC RDW Plt Count MPV Sodium 141 Potassium 3.7 Chloride 108 H Carbon Dioxide 24 Anion Gap 10 BUN 13 Creatinine 1.7 H Creat Clearance w eGFR 30.16 POC Glucometer 105 Random Glucose 100 Calcium 7.9 L Magnesium 1.6 L Active Medications Generic Name Dose Route Start Last Admin Trade Name Freq PRN Reason Stop Dose Admin Acetaminophen 650 mg 03/28/18 11:03 03/29/18 14:38 Tylenol - PO 650 mg Q6H PRN Administration PAIN LEVEL 1-5 Albuterol Sulfate 1 amp 03/22/18 00:06 Ventolin 0.083% Nebulizer Soln - NEB Q6H PRN SHORT OF BREATH/WHEEZING Albuterol/Ipratropium 1 amp 03/25/18 14:00 03/29/18 14:33 Duoneb - NEB 1 amp RTID [facility] Administration Amlodipine Besylate 10 mg 03/22/18 10:00 03/29/18 09:58 Norvasc - PO 10 mg DAILY [facility] Administration Budesonide/Formoterol Fumarate 2 puff 03/26/18 10:15 03/29/18 10:02 Symbicort 160/4.5mcg - IH 2 inhaler BID [facility] Administration Carvedilol 12.5 mg 03/22/18 10:00 03/29/18 09:58 Coreg - PO 12.5 mg BID [facility] Administration Escitalopram Oxalate 10 mg 03/22/18 10:00 03/29/18 09:58 Lexapro - PO 10 mg DAILY [facility] Administration Fluticasone Propionate 1 spray 03/24/18 12:00 03/29/18 10:02 Flonase - NS 1 spray BID [facility] Administration Heparin Sodium (Porcine) 5,000 unit 03/25/18 14:00 03/29/18 14:39 Heparin - SQ 5,000 unit TID [facility] Administration Sodium Chloride 1,000 mls @ 75 mls/hr 03/28/18 11:00 03/29/18 11:22 1/2 Normal Saline IV Not Given ASDIR [facility] Ampicillin Sodium/Sulbactam 100 mls @ 200 mls/hr 03/28/18 15:45 03/29/18 15: 57 Sodium 3 gm/ Sodium Chloride IVPB 200 mls/hr Q6H-IV [facility] Administration Insulin Aspart 1 vial 03/22/18 07:00 03/29/18 17:55 Novolog Vial Sliding Scale - SQ Not Given ACHS [facility] Protocol Lisinopril 5 mg 03/22/18 10:00 03/29/18 09:58 Prinivil PO 5 mg DAILY [facility] Administration Oxycodone HCl 10 mg 03/22/18 22:00 03/29/18 09:57 Oxycontin - PO 10 mg BID [facility] Administration Oxycodone HCl 10 mg 03/28/18 16:10 03/29/18 11:41 Roxicodone - PO 10 mg Q6H PRN Administration PAIN LEVEL 6-10 Promethazine HCl 12.5 mg 03/23/18 10:58 Phenergan Injection - IVPB Q6H PRN NAUSEA AND/OR VOMITING Rosuvastatin Calcium 10 mg 03/22/18 22:00 03/28/18 21:01 Crestor - PO Not Given HS [facility] ASSESSMENT/PLAN: ECHO done 03/25/18: Left Ventricular size, thickness and function are normal. Left vent Ejection fraction normal. There was insufficient TR detected to calculate RV systolic pressure. Endoscopy 03/24: Segmental colitis spanning from sigmoid to descedning colon, the most severe being noted 20-40 cm in the sigmoid. Suspected ischemic colitis. The colon mucusa was otherwise normal to the distal transverse colon. Retroflexed views revealed medium internal hemorrhoids. CT abdomen/pelvis: showed diffuse colon wall edema from proximal descendig colon mid sigmoid colon ASSESSMENT/PLAN: Patient is a 67 year old female with significant past medical history of DM, HTN , HLD, GERD, Polycystic kidney, uterine CA s/p hysterectomy, ventral hernia repair, chronic back pain on percocet (QID) presented to the ED with abdominal pain x 1 week. # Headache- still persists but improved Head CT ordered to r/o acute pathology. Patient is refusing. # Chronic back pain Was lethargic yesterday so IV dilaudid was stopped. now on Oxycontin and Oxycodone Ordered MRI lumbar spine but patient is refusing. # Left arm swollen-r/o DVT It was not completed as patient didn't cooperate, refusing to do a Duplex. # EMILIANO-likely prerenal creatinine 1.7 today. renal /bladder Ultrasound done, b/l renal cyst. f/up sono. # Suspected Ischemic colitis- pain improving Abx changed to IV Unasyn day 1. Flex sigmoidoscopy done on 03/24/18. Biopsy pending. CRP 2.8 (03/25/18) No surgical intervention needed as this time as per surgery. # Shortness of breath likely due to Asthma vs OHS ECHO done as mentioned above. Cannot r/o Pulmonary HTN, needs repeat ECHO as outpatient Echo from 2016 reviewed was normal. Continue Duoneb, Albuterol. Symbicort Needs outpatient PFT's and sleep study. Might benefit from CPAP at home. Will do a pre and post exercise oxygen saturation before discharge # UTI Urine culture positive for E. faecalis (03/21/18), Continue Uasyn. . Urine culture 03/22 negative. Urine culture 03/26/18: MRSA # Dilated CBD 9mm likely from s/p cholecystecotomy GI suggested MRCP if pain persists # Questionable cirrhosis: Hepatitis negative, JACKIE negative, Ferrtin normal, Transferrin low # DM Continue ISS, watch for hypoglycemic episodes # Hypertension-controlled HTN controlled however when patient is in severe pain, BP rises. Need better control of her pain. Continue Lisinopril 5mg PO daily, coreg 12.5 mg PO BID, Amlodipine 10mg Daily # FEN Tolerating PO Electrolytes, Mag repleted, will repeat it AM. diet advanced to diabetic/sodium controlled # Prophylaxis For DVT: Heparin sq 5000 IU sq TID FoR GI: Protonix 40 daily # Code Status: Full Code Illness, Investigation and Plan of care explained to the patient. She verbalized understanding. Case discussed with Dr. Westbrook Problem List - Problems (1) Asthma Code(s): J45.909 - UNSPECIFIED ASTHMA, UNCOMPLICATED (2) Chronic pain Code(s): G89.29 - OTHER CHRONIC PAIN Qualifiers: Chronic pain type: other chronic pain Qualified Code(s): G89.29 - Other chronic pain (3) Diabetes mellitus type 2 in obese Code(s): E11.69 - TYPE 2 DIABETES MELLITUS WITH OTHER SPECIFIED COMPLICATION; E66.9 - OBESITY, UNSPECIFIED (4) GI bleed Code(s): K92.2 - GASTROINTESTINAL HEMORRHAGE, UNSPECIFIED Qualifiers: GI bleed type/associated pathology: unspecified gastrointestinal hemorrhage type Qualified Code(s): K92.2 - Gastrointestinal hemorrhage, unspecified (5) HLD (hyperlipidemia) Code(s): E78.5 - HYPERLIPIDEMIA, UNSPECIFIED (6) Obstructive sleep apnea Code(s): G47.33 - OBSTRUCTIVE SLEEP APNEA (ADULT) (PEDIATRIC) Visit type - Emergency Visit Emergency Visit: Yes ED Registration Date: 03/21/18 Care time: The patient presented to the Emergency Department on the above date and was hospitalized for further evaluation of their emergent condition. - New Patient This patient is new to me today: No - Critical Care Critical Care patient: No - Discharge Referral [facility]erred to [facility] No
[2018-03-29] MEDS ORDERED: MAGNESIUM SULF 50% (8.12 MEQ/2 ML-1 GM VIAL) IVPB ONE (19:15)
[2018-03-29] MEDS: ROSUVASTATIN CA 10 MG TABLET (FP) PO SCH (22:23)
[2018-03-30] MEDS ORDERED: PT OWN MED DRAWER 7, Y5N ONE ×4 (01:16→20:33)
[2018-03-30] MEDS: AMPICILLIN NA/SULBACTAM NA 3 GM in SODIUM CHLORIDE 100 ML IVPB SCH ×4 (02:28→20:45)
[2018-03-30] MEDS: ACETAMINOPHEN 325 MG TABLET (FP) PO PRN ×4 (02:28→20:46)
[2018-03-30] MEDS: oxyCODONE HCL 5 MG TABLET PO PRN ×3 (02:29→18:31)
[2018-03-30] MEDS: HEPARIN NA (PORCINE) 5,000 UNITS/ML 1ML VIAL SQ SCH ×4 (06:01→21:40)
[2018-03-30] MEDS: INSULIN SLIDING SCALE (NOVOLOG) 1 VIAL SQ SCH ×4 (06:05→21:09)
[2018-03-30] MEDS: ALBUTEROL SO4 2.5/IPRATROPIUM 0.5 INH SOL 3 ML VIAL.NEB. NEB SCH ×3 (07:50→20:30)
[2018-03-30 08:04] LABS: HEMATOCRIT 31.3 % (32.4-45.2); HEMOGLOBIN 9.9 GM/dL (10.7-15.3); MCHC 31.6 g/dl (32.0-36.0); MEAN CELL VOLUME 79.3 fl (80-96); MEAN PLT VOLUME 9.1 fl (7.5-11.1); PLATELET COUNT 248 K/MM3 (134-434); RBC 3.95 M/mm3 (3.60-5.2); RDW 18.8 % (11.6-15.6); WHITE BLOOD COUNT 9.3 K/mm3 (4.0-10.0)
[2018-03-30 08:25] LABS: ANION GAP 10 MMOL/L (8-16); BLOOD UREA NITROGEN 13 mg/dL (7-18); CALCIUM 8.4 mg/dL (8.5-10.1); CHLORIDE 106 mmol/L (98-107); CO2 25 mmol/L (21-32); CREATININE 1.6 mg/dL (0.55-1.3); GLUCOSE,RANDOM 99 mg/dL (74-106); MAGNESIUM 2.1 mg/dL (1.8-2.4); PHOSPHOROUS 3.6 mg/dL (2.5-4.9); POTASSIUM 3.7 mmol/L (3.5-5.1); SODIUM 141 mmol/L (136-145)
[2018-03-30] MEDS: ESCITALOPRAM OXALATE 10 MG TABLET (FP) PO SCH (09:01)
[2018-03-30] MEDS: amLODIPine BESYLATE 10 MG TABLET (FP) PO SCH (09:01)
[2018-03-30] MEDS: CARVEDILOL 12.5 MG TABLET (FP) PO SCH ×3 (09:01→21:08)
[2018-03-30] MEDS: LISINOPRIL 5 MG TABLET (FP) PO SCH (09:01)
[2018-03-30] MEDS: FLUTICASONE PROP 0.05% 16 GM NASAL SPRAY NS SCH ×3 (09:02→21:08)
[2018-03-30] MEDS: BUDESONIDE/FORMETEROL FUMARATE 160/4.5 mcg INHALER IH SCH ×3 (09:02→21:09)
--- NOTE | 2018-03-30 10:02 | PN ---
Progress Note (short form) - Note Progress Note: Resting in NAD. No acute events overnight. Breathing overall improved. Intake & Output 03/27/18 03/28/18 03/29/18 03/30/18 23:59 23:59 23:59 23:59 Intake Total 924 957 0054 1300 Balance 350 058 5483 1300 Last Vital Signs Temp Pulse Resp BP Pulse Ox 97.8 F 87 18 156/87 95 03/30/18 09:03 03/30/18 09:03 03/30/18 09:03 03/30/18 09:03 03/29/18 21:00 Active Medications Acetaminophen (Tylenol -) 650 mg PO Q6H PRN PRN Reason: PAIN LEVEL 1-5 Last Admin: 03/30/18 08:55 Dose: 650 mg Albuterol Sulfate (Ventolin 0.083% Nebulizer Soln -) 1 amp NEB Q6H PRN PRN Reason: SHORT OF BREATH/WHEEZING Albuterol/Ipratropium (Duoneb -) 1 amp NEB RTID [facility] Last Admin: 03/30/18 07:50 Dose: 1 amp Amlodipine Besylate (Norvasc -) 10 mg PO DAILY [facility] Last Admin: 03/30/18 09:01 Dose: 10 mg Budesonide/Formoterol Fumarate (Symbicort 160/4.5mcg -) 2 puff IH BID [facility] Last Admin: 03/30/18 09:02 Dose: 2 puff Carvedilol (Coreg -) 12.5 mg PO BID [facility] Last Admin: 03/30/18 09:01 Dose: 12.5 mg Escitalopram Oxalate (Lexapro -) 10 mg PO DAILY [facility] Last Admin: 03/30/18 09:01 Dose: 10 mg Fluticasone Propionate (Flonase -) 1 spray NS BID [facility] Last Admin: 03/30/18 09:02 Dose: 1 spray Heparin Sodium (Porcine) (Heparin -) 5,000 unit SQ TID [facility] Last Admin: 03/30/18 06:01 Dose: 5,000 unit Sodium Chloride (1/2 Normal Saline) 1,000 mls @ 75 mls/hr IV ASDIR [facility] Last Admin: 03/29/18 11:22 Dose: Not Given Ampicillin Sodium/Sulbactam (Sodium 3 gm/ Sodium Chloride) 100 mls @ 200 mls/ hr IVPB Q6H-IV [facility] Last Admin: 03/30/18 08:54 Dose: 200 mls/hr Insulin Aspart (Novolog Vial Sliding Scale -) 1 vial SQ ACHS [facility]; Protocol Last Admin: 03/30/18 06:05 Dose: Not Given Lisinopril (Prinivil) 5 mg PO DAILY [facility] Last Admin: 03/30/18 09:01 Dose: 5 mg Oxycodone HCl (Oxycontin -) 10 mg PO BID [facility] Last Admin: 03/29/18 22:23 Dose: 10 mg Oxycodone HCl (Roxicodone -) 10 mg PO Q6H PRN PRN Reason: PAIN LEVEL 6-10 Last Admin: 03/30/18 08:57 Dose: 10 mg Promethazine HCl (Phenergan Injection -) 12.5 mg IVPB Q6H PRN PRN Reason: NAUSEA AND/OR VOMITING Rosuvastatin Calcium (Crestor -) 10 mg PO [facility] Last Admin: 03/29/18 22:23 Dose: 10 mg Gen: NAD at rest Heart: RRR Lung: decreased breath sounds at the bases Abd: soft, nontender Ext: no edema Laboratory Results - last 24 hr 03/29/18 03/29/18 03/30/18 17:42 22:43 06:02 WBC RBC Hgb Hct MCV MCH MCHC RDW Plt Count MPV Sodium Potassium Chloride Carbon Dioxide Anion Gap BUN Creatinine Creat Clearance w eGFR POC Glucometer 105 118 108 Random Glucose Calcium Phosphorus Magnesium 03/30/18 03/30/18 07:00 07:00 WBC 9.3 RBC 3.95 Hgb 9.9 L Hct 31.3 L MCV 79.3 L MCH 25.0 L MCHC 31.6 L RDW 18.8 H Plt Count 248 MPV 9.1 Sodium 141 Potassium 3.7 Chloride 106 Carbon Dioxide 25 Anion Gap 10 BUN 13 Creatinine 1.6 H Creat Clearance w eGFR 32.35 POC Glucometer Random Glucose 99 Calcium 8.4 L Phosphorus 3.6 Magnesium 2.1 Problem List - Problems (1) Colitis Code(s): K52.9 - NONINFECTIVE GASTROENTERITIS AND COLITIS, UNSPECIFIED (2) Asthma Code(s): J45.909 - UNSPECIFIED ASTHMA, UNCOMPLICATED (3) Obstructive sleep apnea Code(s): G47.33 - OBSTRUCTIVE SLEEP APNEA (ADULT) (PEDIATRIC) A/P Acute Colitis - r/o Ischemic Colitis Asthma Likely Obstructive Sleep Apnea r/o Pulmonary HTN HTN DM GERD h/o Uterine Ca Polycystic Kidney Disease - ABX - inhaled bronchodilators - continue symbicort - poor visualization of RV on echocardiogram here, will need repeat as outpt - outpt PFTs, PSG and f/u - DVT prophylaxis Dr Weldon
[2018-03-30] MEDS: oxyCODONE HCL 10 MG SUSTAINED ACTING TABLET PO SCH ×2 (11:45→21:40)
[2018-03-30] MEDS: SODIUM CHLORIDE 0.45% 1,000 ML IV SCH ×2 (11:47→20:45)
--- NOTE | 2018-03-30 12:31 | PN ---
Physical Exam: SUBJECTIVE: Patient seen and examined. She appears comfortable. OBJECTIVE: Vital Signs Period Temp Pulse Resp BP Sys/Avitia Pulse Ox Last 24 Hr 97.6 F-98.4 F 84-125 17-20 121-156/70-92 95 GENERAL: The patient is awake, alert, in no acute distress. LUNGS: Breath sounds equal, clear to auscultation bilaterally, no wheezes, no crackles, no accessory muscle use. HEART: Regular rate and rhythm, S1, S2 without murmur, rub or gallop. ABDOMEN: Obese, soft, nontender, nondistended, normoactive bowel sounds, no guarding, no rebound, no hepatosplenomegaly, no masses. EXTREMITIES: 2+ pulses, warm, well-perfused, trace edema, bilateral chronic venous stasis changes. Left hand edematous, less erythematous. Laboratory Results - last 24 hr 03/29/18 03/29/18 03/30/18 17:42 22:43 06:02 WBC RBC Hgb Hct MCV MCH MCHC RDW Plt Count MPV Sodium Potassium Chloride Carbon Dioxide Anion Gap BUN Creatinine Creat Clearance w eGFR POC Glucometer 105 118 108 Random Glucose Calcium Phosphorus Magnesium 03/30/18 03/30/18 03/30/18 07:00 07:00 11:39 WBC 9.3 RBC 3.95 Hgb 9.9 L Hct 31.3 L MCV 79.3 L MCH 25.0 L MCHC 31.6 L RDW 18.8 H Plt Count 248 MPV 9.1 Sodium 141 Potassium 3.7 Chloride 106 Carbon Dioxide 25 Anion Gap 10 BUN 13 Creatinine 1.6 H Creat Clearance w eGFR 32.35 POC Glucometer 107 Random Glucose 99 Calcium 8.4 L Phosphorus 3.6 Magnesium 2.1 Active Medications Generic Name Dose Route Start Last Admin Trade Name Freq PRN Reason Stop Dose Admin Acetaminophen 650 mg 03/28/18 11:03 03/30/18 08:55 Tylenol - PO 650 mg Q6H PRN Administration PAIN LEVEL 1-5 Albuterol Sulfate 1 amp 03/22/18 00:06 Ventolin 0.083% Nebulizer Soln - NEB Q6H PRN SHORT OF BREATH/WHEEZING Albuterol/Ipratropium 1 amp 03/25/18 14:00 03/30/18 07:50 Duoneb - NEB 1 amp RTID [facility] Administration Amlodipine Besylate 10 mg 03/22/18 10:00 03/30/18 09:01 Norvasc - PO 10 mg DAILY [facility] Administration Budesonide/Formoterol Fumarate 2 puff 03/26/18 10:15 03/30/18 09:02 Symbicort 160/4.5mcg - IH 2 puff BID [facility] Administration Carvedilol 12.5 mg 03/22/18 10:00 03/30/18 09:01 Coreg - PO 12.5 mg BID [facility] Administration Escitalopram Oxalate 10 mg 03/22/18 10:00 03/30/18 09:01 Lexapro - PO 10 mg DAILY [facility] Administration Fluticasone Propionate 1 spray 03/24/18 12:00 03/30/18 09:02 Flonase - NS 1 spray BID [facility] Administration Heparin Sodium (Porcine) 5,000 unit 03/25/18 14:00 03/30/18 06:01 Heparin - SQ 5,000 unit TID [facility] Administration Sodium Chloride 1,000 mls @ 75 mls/hr 03/28/18 11:00 03/30/18 11:47 1/2 Normal Saline IV Not Given ASDIR [facility] Ampicillin Sodium/Sulbactam 100 mls @ 200 mls/hr 03/28/18 15:45 03/30/18 08: 54 Sodium 3 gm/ Sodium Chloride IVPB 200 mls/hr Q6H-IV [facility] Administration Insulin Aspart 1 vial 03/22/18 07:00 03/30/18 11:42 Novolog Vial Sliding Scale - SQ Not Given ACHS [facility] Protocol Lisinopril 5 mg 03/22/18 10:00 03/30/18 09:01 Prinivil PO 5 mg DAILY [facility] Administration Oxycodone HCl 10 mg 03/22/18 22:00 03/30/18 11:45 Oxycontin - PO 10 mg BID [facility] Administration Oxycodone HCl 10 mg 03/28/18 16:10 03/30/18 08:57 Roxicodone - PO 10 mg Q6H PRN Administration PAIN LEVEL 6-10 Promethazine HCl 12.5 mg 03/23/18 10:58 Phenergan Injection - IVPB Q6H PRN NAUSEA AND/OR VOMITING Rosuvastatin Calcium 10 mg 03/22/18 22:00 03/29/18 22:23 Crestor - PO 10 mg HS [facility] Administration ASSESSMENT/PLAN: This is a 67 year old woman with a history of type 2 DM, HTN, hyperlipidemia, GERD, polycystic kidney disease, uterine cancer, hysterectomy, ventral hernia repair, chronic back pain who presented to the ED with abdominal pain. 1. Ischemic colitis - Improved 2. Left hand cellulitis - Continue Unasyn (day 3) - Venous doppler could not be completed secondary to pain 3. Asthma - Continue Symbicort, DuoNeb, albuterol as needed - Outpatient PFTs 4. Possible CRISTEL - Outpatient sleep study, echo to eval for pulm HTN 5. Serratia UTI - Completed Levaquin - Repeat culture (+) MRSA 20-30k colonies, asymptomatic 6. Acute kidney injury - Creatinine improving - Renal US shows bilateral renal cortical scarring, several small bilateral cortical echogenic foci, multiple small bilateral complex and simple renal cortical cysts - Levaquin discontinued - Continue IV fluid 7. Hypokalemia - Improved 8. Hypomagnesemia - Improved 9. Stage 3 CKD 10. Dilated CBD, likely secondary to prior cholecystectomy 11. Possible cirrhosis - Hepatitis A IgM, HBsAg, HBcAb, HCV Ab negative - JACKIE negative - AMA pending - Iron low normal, TIBC low, transferrin low, ferritin low normal, iron sat low normal 12. Type 2 DM - Continue Novolog sliding scale 13. Hypertension - Continue Lisinopril, Coreg, Norvasc 14. Hyperlipidemia - Continue Crestor 15. Polycystic kidneys 16. History of uterine cancer, hysterectomy 17. Headache and chronic back pain - Refused head CT, MRI of L-spine - Continue OxyContin, oxycodone as needed for breakthrough pain - Last prescription filled was Percocet 10-325 mg #90 on 02/18 - s/p left lumbar paraspinal injection for spasm 18. Obesity with BMI 39.3 Visit type - Emergency Visit Emergency Visit: Yes ED Registration Date: 03/21/18 Care time: The patient presented to the Emergency Department on the above date and was hospitalized for further evaluation of their emergent condition. - New Patient This patient is new to me today: No - Critical Care Critical Care patient: No - Discharge Referral Referred to [facility] No
--- NOTE | 2018-03-30 15:04 | PN ---
Progress Note, Physician History of Present Illness: feels slightly better hand still swollen sitting in chair - Current Medication List Current Medications: Active Medications Acetaminophen (Tylenol -) 650 mg PO Q6H PRN PRN Reason: PAIN LEVEL 1-5 Last Admin: 03/30/18 14:37 Dose: 650 mg Albuterol Sulfate (Ventolin 0.083% Nebulizer Soln -) 1 amp NEB Q6H PRN PRN Reason: SHORT OF BREATH/WHEEZING Albuterol/Ipratropium (Duoneb -) 1 amp NEB RTID [facility] Last Admin: 03/30/18 07:50 Dose: 1 amp Amlodipine Besylate (Norvasc -) 10 mg PO DAILY [facility] Last Admin: 03/30/18 09:01 Dose: 10 mg Budesonide/Formoterol Fumarate (Symbicort 160/4.5mcg -) 2 puff IH BID [facility] Last Admin: 03/30/18 09:02 Dose: 2 puff Carvedilol (Coreg -) 12.5 mg PO BID [facility] Last Admin: 03/30/18 09:01 Dose: 12.5 mg Escitalopram Oxalate (Lexapro -) 10 mg PO DAILY [facility] Last Admin: 03/30/18 09:01 Dose: 10 mg Fluticasone Propionate (Flonase -) 1 spray NS BID [facility] Last Admin: 03/30/18 09:02 Dose: 1 spray Heparin Sodium (Porcine) (Heparin -) 5,000 unit SQ TID [facility] Last Admin: 03/30/18 06:01 Dose: 5,000 unit Sodium Chloride (1/2 Normal Saline) 1,000 mls @ 75 mls/hr IV ASDIR [facility] Last Admin: 03/30/18 11:47 Dose: Not Given Ampicillin Sodium/Sulbactam (Sodium 3 gm/ Sodium Chloride) 100 mls @ 200 mls/ hr IVPB Q6H-IV [facility] Last Admin: 03/30/18 14:37 Dose: 200 mls/hr Insulin Aspart (Novolog Vial Sliding Scale -) 1 vial SQ ACHS [facility]; Protocol Last Admin: 03/30/18 11:42 Dose: Not Given Lisinopril (Prinivil) 5 mg PO DAILY [facility] Last Admin: 03/30/18 09:01 Dose: 5 mg Oxycodone HCl (Oxycontin -) 10 mg PO BID [facility] Last Admin: 03/30/18 11:45 Dose: 10 mg Oxycodone HCl (Roxicodone -) 10 mg PO Q6H PRN PRN Reason: PAIN LEVEL 6-10 Last Admin: 03/30/18 08:57 Dose: 10 mg Promethazine HCl (Phenergan Injection -) 12.5 mg IVPB Q6H PRN PRN Reason: NAUSEA AND/OR VOMITING Rosuvastatin Calcium (Crestor -) 10 mg PO HS [facility] Last Admin: 03/29/18 22:23 Dose: 10 mg - Objective Vital Signs: Vital Signs Temperature 97.5 F L 03/30/18 14:51 Pulse Rate 80 03/30/18 14:51 Respiratory Rate 19 03/30/18 14:51 Blood Pressure 140/90 03/30/18 14:51 O2 Sat by Pulse Oximetry (%) 95 03/29/18 21:00 Constitutional: Yes: No Distress, Calm, Obese Cardiovascular: Yes: Regular Rate and Rhythm Respiratory: Yes: Regular, CTA Bilaterally Gastrointestinal: Yes: Normal Bowel Sounds, Soft Musculoskeletal: Yes: Other Extremities: Yes: Other Edema: LUE: 2+ Neurological: Yes: Alert Labs: CBC, BMP 03/30/18 07:00 03/30/18 07:00 INR, PTT INR 1.22 (0.83-1.09) H 03/24/18 06:20 Assessment/Plan Problem List - Problems (1) Abdominal pain Code(s): R10.9 - UNSPECIFIED ABDOMINAL PAIN Qualifiers: Abdominal location: unspecified location Qualified Code(s): R10.9 - Unspecified abdominal pain (2) Back pain Code(s): M54.9 - DORSALGIA, UNSPECIFIED (3) Colitis Code(s): K52.9 - NONINFECTIVE GASTROENTERITIS AND COLITIS, UNSPECIFIED (4) Diabetes mellitus type 2 in obese Code(s): E11.69 - TYPE 2 DIABETES MELLITUS WITH OTHER SPECIFIED COMPLICATION; E66.9 - OBESITY, UNSPECIFIED (5) HLD (hyperlipidemia) Code(s): E78.5 - HYPERLIPIDEMIA, UNSPECIFIED (6) Ischemic colitis Code(s): K55.9 - VASCULAR DISORDER OF INTESTINE, UNSPECIFIED (7) GERD (gastroesophageal reflux disease) Code(s): K21.9 - GASTRO-ESOPHAGEAL REFLUX DISEASE WITHOUT ESOPHAGITIS Qualifiers: Esophagitis presence: without esophagitis Qualified Code(s): K21.9 - Gastro -esophageal reflux disease without esophagitis (8) HTN (hypertension) Code(s): I10 - ESSENTIAL (PRIMARY) HYPERTENSION Qualifiers: Hypertension type: essential hypertension Qualified Code(s): I10 - Essential (primary) hypertension (9) Polycystic kidney disease Code(s): Q61.3 - POLYCYSTIC KIDNEY, UNSPECIFIED Assessment/Plan 67 y.o. female with multiple medical problems including chronic pain admitted for abdominal pain/n/v/d with leukocytosis now with Lt arm edema Ischemic Colitis Lt arm edema - possible cellulitis UTI Leukocytosis EMILIANO DM PKD Uterine CA s/p hysterectomy Depression Chronic Pain HTN HLD continue current mgmt continue abx movement of the arm rest as per the team
[2018-03-30] MEDS ORDERED: INSULIN (NOVOLOG) ASPART 100 UNITS/ML 10ML VIAL ONE (20:34)
[2018-03-30] MEDS: ROSUVASTATIN CA 10 MG TABLET (FP) PO SCH ×2 (20:46→21:08)
[2018-03-31] MEDS: oxyCODONE HCL 5 MG TABLET PO PRN ×3 (01:55→16:22)
[2018-03-31] MEDS ORDERED: PT OWN MED DRAWER 7, Y5N ONE ×3 (02:36→14:21)
[2018-03-31] MEDS: ACETAMINOPHEN 325 MG TABLET (FP) PO PRN ×3 (02:37→18:49)
[2018-03-31] MEDS: AMPICILLIN NA/SULBACTAM NA 3 GM in SODIUM CHLORIDE 100 ML IVPB SCH ×4 (02:37→21:50)
[2018-03-31] MEDS: INSULIN SLIDING SCALE (NOVOLOG) 1 VIAL SQ SCH ×4 (06:33→21:51)
[2018-03-31] MEDS: HEPARIN NA (PORCINE) 5,000 UNITS/ML 1ML VIAL SQ SCH ×3 (06:48→21:50)
[2018-03-31] MEDS: ALBUTEROL SO4 2.5/IPRATROPIUM 0.5 INH SOL 3 ML VIAL.NEB. NEB SCH ×3 (08:06→21:50)
[2018-03-31 08:17] LABS: HEMATOCRIT 31.3 % (32.4-45.2); HEMOGLOBIN 10.5 GM/dL (10.7-15.3); MCH 26.5 pg (25.7-33.7); MCHC 33.7 g/dl (32.0-36.0); MEAN CELL VOLUME 78.6 fl (80-96); MEAN PLT VOLUME 8.7 fl (7.5-11.1); PLATELET COUNT 269 K/MM3 (134-434); RBC 3.98 M/mm3 (3.60-5.2); RDW 18.8 % (11.6-15.6); WHITE BLOOD COUNT 7.4 K/mm3 (4.0-10.0)
[2018-03-31 08:39] LABS: ANION GAP 8 MMOL/L (8-16); BLOOD UREA NITROGEN 11 mg/dL (7-18); CALCIUM 8.2 mg/dL (8.5-10.1); CHLORIDE 108 mmol/L (98-107); CO2 25 mmol/L (21-32); CREATININE 1.6 mg/dL (0.55-1.3); GLUCOSE,RANDOM 84 mg/dL (74-106); POTASSIUM 3.6 mmol/L (3.5-5.1); SODIUM 142 mmol/L (136-145)
--- NOTE | 2018-03-31 09:17 | PN ---
Progress Note (short form) - Note Progress Note: Resting in NAD. No acute events overnight. Breathing overall improved. Intake & Output 03/28/18 03/29/18 03/30/18 03/31/18 23:59 23:59 23:59 23:59 Intake Total 720 2300 3675 900 Output Total 600 Balance 720 2300 3075 900 Last Vital Signs Temp Pulse Resp BP Pulse Ox 97.3 F L 82 20 136/85 95 03/31/18 06:00 03/31/18 06:00 03/31/18 06:00 03/31/18 06:00 03/30/18 21:00 Active Medications Acetaminophen (Tylenol -) 650 mg PO Q6H PRN PRN Reason: PAIN LEVEL 1-5 Last Admin: 03/31/18 02:37 Dose: 650 mg Albuterol Sulfate (Ventolin 0.083% Nebulizer Soln -) 1 amp NEB Q6H PRN PRN Reason: SHORT OF BREATH/WHEEZING Albuterol/Ipratropium (Duoneb -) 1 amp NEB RTID [facility] Last Admin: 03/31/18 08:06 Dose: 1 amp Amlodipine Besylate (Norvasc -) 10 mg PO DAILY [facility] Last Admin: 03/30/18 09:01 Dose: 10 mg Budesonide/Formoterol Fumarate (Symbicort 160/4.5mcg -) 2 puff IH BID [facility] Last Admin: 03/30/18 21:09 Dose: Not Given Carvedilol (Coreg -) 12.5 mg PO BID [facility] Last Admin: 03/30/18 21:08 Dose: Not Given Escitalopram Oxalate (Lexapro -) 10 mg PO DAILY [facility] Last Admin: 03/30/18 09:01 Dose: 10 mg Fluticasone Propionate (Flonase -) 1 spray NS BID [facility] Last Admin: 03/30/18 21:08 Dose: Not Given Heparin Sodium (Porcine) (Heparin -) 5,000 unit SQ TID [facility] Last Admin: 03/31/18 06:48 Dose: 5,000 unit Sodium Chloride (1/2 Normal Saline) 1,000 mls @ 75 mls/hr IV ASDIR [facility] Last Admin: 03/30/18 20:45 Dose: 75 mls/hr Ampicillin Sodium/Sulbactam (Sodium 3 gm/ Sodium Chloride) 100 mls @ 200 mls/ hr IVPB Q6H-IV [facility] Last Admin: 03/31/18 02:37 Dose: 200 mls/hr Insulin Aspart (Novolog Vial Sliding Scale -) 1 vial SQ ACHS [facility]; Protocol Last Admin: 03/31/18 06:33 Dose: Not Given Lisinopril (Prinivil) 5 mg PO DAILY [facility] Last Admin: 03/30/18 09:01 Dose: 5 mg Oxycodone HCl (Oxycontin -) 10 mg PO BID [facility] Last Admin: 03/30/18 21:40 Dose: 10 mg Oxycodone HCl (Roxicodone -) 10 mg PO Q6H PRN PRN Reason: PAIN LEVEL 6-10 Last Admin: 03/31/18 06:59 Dose: 10 mg Promethazine HCl (Phenergan Injection -) 12.5 mg IVPB Q6H PRN PRN Reason: NAUSEA AND/OR VOMITING Rosuvastatin Calcium (Crestor -) 10 mg PO HS [facility] Last Admin: 03/30/18 21:08 Dose: Not Given Gen: NAD at rest Heart: RRR Lung: decreased breath sounds at the bases Abd: soft, nontender Ext: no edema Laboratory Results - last 24 hr 03/30/18 03/30/18 03/30/18 11:39 18:37 20:43 WBC RBC Hgb Hct MCV MCH MCHC RDW Plt Count MPV Sodium Potassium Chloride Carbon Dioxide Anion Gap BUN Creatinine Creat Clearance w eGFR POC Glucometer 107 142 121 Random Glucose Calcium 03/31/18 03/31/18 07:01 07:01 WBC 7.4 RBC 3.98 Hgb 10.5 L Hct 31.3 L MCV 78.6 L MCH 26.5 MCHC 33.7 RDW 18.8 H Plt Count 269 MPV 8.7 Sodium 142 Potassium 3.6 Chloride 108 H Carbon Dioxide 25 Anion Gap 8 BUN 11 Creatinine 1.6 H Creat Clearance w eGFR 32.35 POC Glucometer Random Glucose 84 Calcium 8.2 L Problem List - Problems (1) Colitis Code(s): K52.9 - NONINFECTIVE GASTROENTERITIS AND COLITIS, UNSPECIFIED (2) Asthma Code(s): J45.909 - UNSPECIFIED ASTHMA, UNCOMPLICATED (3) Obstructive sleep apnea Code(s): G47.33 - OBSTRUCTIVE SLEEP APNEA (ADULT) (PEDIATRIC) A/P Acute Colitis - r/o Ischemic Colitis Asthma Likely Obstructive Sleep Apnea r/o Pulmonary HTN HTN DM GERD h/o Uterine Ca Polycystic Kidney Disease - ABX - inhaled bronchodilators - Symbicort - poor visualization of RV on echocardiogram here, will need repeat as outpt - outpt PFTs, PSG - DVT prophylaxis Dr Weldon
[2018-03-31] MEDS: LISINOPRIL 5 MG TABLET (FP) PO SCH (09:35)
[2018-03-31] MEDS: oxyCODONE HCL 10 MG SUSTAINED ACTING TABLET PO SCH ×2 (09:35→21:50)
[2018-03-31] MEDS: FLUTICASONE PROP 0.05% 16 GM NASAL SPRAY NS SCH ×2 (09:35→21:57)
[2018-03-31] MEDS: BUDESONIDE/FORMETEROL FUMARATE 160/4.5 mcg INHALER IH SCH ×2 (09:35→21:57)
[2018-03-31] MEDS: ESCITALOPRAM OXALATE 10 MG TABLET (FP) PO SCH (09:35)
[2018-03-31] MEDS: amLODIPine BESYLATE 10 MG TABLET (FP) PO SCH (09:36)
[2018-03-31] MEDS: CARVEDILOL 12.5 MG TABLET (FP) PO SCH ×2 (09:36→21:50)
--- NOTE | 2018-03-31 10:04 | PN ---
Physical Exam: SUBJECTIVE: Patient seen and examined at bed side this morning. Chronic back pain and headache. Refusing CT head and MRI of lumbar spine. No acute overnight events. BM yesterday. OBJECTIVE: Vital Signs Period Temp Pulse Resp BP Sys/Avitia Pulse Ox Last 24 Hr 97.3 F-98.6 F 79-89 19-20 128-154/72-90 95 GENERAL: Morbidly obese female, sitting in a chair, is awake, alert, and fully oriented, in mild respiratory distress. HEAD: Normal with no signs of trauma. EYES: EOM intact, no pallor or icterus. ENT: Ears normal, moist mucous membranes. NECK: Supple, no JVD. LUNGS: Breath sounds decreased bilaterally, no wheezes, no crackles, no accessory muscle use. HEART: Regular rate and rhythm, S1, S2 without murmur. ABDOMEN: Soft, tenderness in the left upper quadrant, BS+, no organomegaly. UPPER EXTREMITIES: 2+ pulses, warm, well-perfused, left arm swollen. LOWER EXTREMITIES: Chronic venous stasis with stasis dermatitis, b/l pitting edema ++ improved NEUROLOGICAL: No facial droop. Normal speech, gait not observed. PSYCH: Normal mood, normal affect. SKIN: Warm, dry, normal turgor, thick skin with color change in the lower extremity (chronic) Laboratory Results - last 24 hr 03/30/18 03/30/18 03/30/18 11:39 18:37 20:43 WBC RBC Hgb Hct MCV MCH MCHC RDW Plt Count MPV Sodium Potassium Chloride Carbon Dioxide Anion Gap BUN Creatinine Creat Clearance w eGFR POC Glucometer 107 142 121 Random Glucose Calcium 03/31/18 03/31/18 07:01 07:01 WBC 7.4 RBC 3.98 Hgb 10.5 L Hct 31.3 L MCV 78.6 L MCH 26.5 MCHC 33.7 RDW 18.8 H Plt Count 269 MPV 8.7 Sodium 142 Potassium 3.6 Chloride 108 H Carbon Dioxide 25 Anion Gap 8 BUN 11 Creatinine 1.6 H Creat Clearance w eGFR 32.35 POC Glucometer Random Glucose 84 Calcium 8.2 L Active Medications Generic Name Dose Route Start Last Admin Trade Name Freq PRN Reason Stop Dose Admin Acetaminophen 650 mg 03/28/18 11:03 03/31/18 02:37 Tylenol - PO 650 mg Q6H PRN Administration PAIN LEVEL 1-5 Albuterol Sulfate 1 amp 03/22/18 00:06 Ventolin 0.083% Nebulizer Soln - NEB Q6H PRN SHORT OF BREATH/WHEEZING Albuterol/Ipratropium 1 amp 03/25/18 14:00 03/31/18 08:06 Duoneb - NEB 1 amp RTID [facility] Administration Amlodipine Besylate 10 mg 03/22/18 10:00 03/31/18 09:36 Norvasc - PO 10 mg DAILY [facility] Administration Budesonide/Formoterol Fumarate 2 puff 03/26/18 10:15 03/31/18 09:35 Symbicort 160/4.5mcg - IH 2 puff BID [facility] Administration Carvedilol 12.5 mg 03/22/18 10:00 03/31/18 09:36 Coreg - PO 12.5 mg BID [facility] Administration Escitalopram Oxalate 10 mg 03/22/18 10:00 03/31/18 09:35 Lexapro - PO 10 mg DAILY [facility] Administration Fluticasone Propionate 1 spray 03/24/18 12:00 03/31/18 09:35 Flonase - NS 1 spray BID [facility] Administration Heparin Sodium (Porcine) 5,000 unit 03/25/18 14:00 03/31/18 06:48 Heparin - SQ 5,000 unit TID [facility] Administration Sodium Chloride 1,000 mls @ 75 mls/hr 03/28/18 11:00 03/30/18 20:45 1/2 Normal Saline IV 75 mls/hr ASDIR [facility] Administration Ampicillin Sodium/Sulbactam 100 mls @ 200 mls/hr 03/28/18 15:45 03/31/18 09: 36 Sodium 3 gm/ Sodium Chloride IVPB 200 mls/hr Q6H-IV [facility] Administration Insulin Aspart 1 vial 03/22/18 07:00 03/31/18 06:33 Novolog Vial Sliding Scale - SQ Not Given ACHS [facility] Protocol Lisinopril 5 mg 03/22/18 10:00 03/31/18 09:35 Prinivil PO 5 mg DAILY [facility] Administration Oxycodone HCl 10 mg 03/22/18 22:00 03/31/18 09:35 Oxycontin - PO 10 mg BID [facility] Administration Oxycodone HCl 10 mg 03/28/18 16:10 03/31/18 06:59 Roxicodone - PO 10 mg Q6H PRN Administration PAIN LEVEL 6-10 Promethazine HCl 12.5 mg 03/23/18 10:58 Phenergan Injection - IVPB Q6H PRN NAUSEA AND/OR VOMITING Rosuvastatin Calcium 10 mg 03/22/18 22:00 03/30/18 21:08 Crestor - PO Not Given HS [facility] ECHO done 03/25/18: Left Ventricular size, thickness and function are normal. Left vent Ejection fraction normal. There was insufficient TR detected to calculate RV systolic pressure. Endoscopy 03/24: Segmental colitis spanning from sigmoid to descedning colon, the most severe being noted 20-40 cm in the sigmoid. Suspected ischemic colitis. The colon mucusa was otherwise normal to the distal transverse colon. Retroflexed views revealed medium internal hemorrhoids. CT abdomen/pelvis: showed diffuse colon wall edema from proximal descendig colon mid sigmoid colon ASSESSMENT/PLAN: Patient is a 67 year old female with significant past medical history of DM, HTN , HLD, GERD, Polycystic kidney, uterine CA s/p hysterectomy, ventral hernia repair, chronic back pain on percocet (QID) presented to the ED with abdominal pain x 1 week. # Headache- still persists but improved Head CT ordered to r/o acute pathology. Patient is refusing. # Chronic back pain Now on Oxycontin 10mg pO BID and Oxycodone 10mg Q6H PRN Ordered MRI lumbar spine but patient is refusing. # Left arm swollen could be from thrombophelebitis however-r/o DVT Duplex was not completed as patient didn't cooperate, refusing to do a Duplex. # EMILIANO-likely prerenal creatinine 1.6 today. renal /bladder Ultrasound done, b/l renal cyst. f/up sono as outpatient. # Suspected Ischemic colitis- pain improving Abx changed to IV Unasyn day 3. Flex sigmoidoscopy done on 03/24/18. Biopsy results pending. CRP 2.8 () No surgical intervention needed as this time as per surgery. # Shortness of breath likely due to Asthma vs O[facility] ECHO done as mentioned above. Cannot r/o Pulmonary HTN, needs repeat ECHO as outpatient Echo from 2016 reviewed was normal. Continue Duoneb, Albuterol. Symbicort Needs outpatient PFT's and sleep study. Might benefit from CPAP at home. Will do a pre and post exercise oxygen saturation before discharge # UTI Urine culture positive for E. faecalis (03/21/18), Continue Uasyn. . Urine culture 03/22 negative. Urine culture 03/26/18: MRSA # Dilated CBD 9mm likely from s/p cholecystecotomy GI suggested MRCP if pain persists # Questionable cirrhosis: Hepatitis negative, JACKIE negative, Ferrtin normal, Transferrin low # DM Continue ISS, watch for hypoglycemic episodes # Hypertension-controlled HTN controlled however when patient is in severe pain, BP rises. Need better control of her pain. Continue Lisinopril 5mg PO daily, coreg 12.5 mg PO BID, Amlodipine 10mg Daily # FEN Tolerating PO Electrolytes WNL. diet advanced to diabetic/sodium controlled # Prophylaxis For DVT: Heparin sq 5000 IU sq TID FoR GI: Protonix 40 daily # Code Status: Full Code Illness, Investigation and Plan of care explained to the patient. She verbalized understanding. Case discussed with Dr. Westbrook Problem List - Problems (1) Asthma Code(s): J45.909 - UNSPECIFIED ASTHMA, UNCOMPLICATED (2) Chronic pain Code(s): G89.29 - OTHER CHRONIC PAIN Qualifiers: Chronic pain type: other chronic pain Qualified Code(s): G89.29 - Other chronic pain (3) Diabetes mellitus type 2 in obese Code(s): E11.69 - TYPE 2 DIABETES MELLITUS WITH OTHER SPECIFIED COMPLICATION; E66.9 - OBESITY, UNSPECIFIED (4) GI bleed Code(s): K92.2 - GASTROINTESTINAL HEMORRHAGE, UNSPECIFIED Qualifiers: GI bleed type/associated pathology: unspecified gastrointestinal hemorrhage type Qualified Code(s): K92.2 - Gastrointestinal hemorrhage, unspecified (5) HLD (hyperlipidemia) Code(s): E78.5 - HYPERLIPIDEMIA, UNSPECIFIED (6) Obstructive sleep apnea Code(s): G47.33 - OBSTRUCTIVE SLEEP APNEA (ADULT) (PEDIATRIC) Visit type - Emergency Visit Emergency Visit: Yes ED Registration Date: 03/21/18 Care time: The patient presented to the Emergency Department on the above date and was hospitalized for further evaluation of their emergent condition. - New Patient This patient is new to me today: No - Critical Care Critical Care patient: No - Discharge Referral Referred to [facility] Med P.C.: No
[2018-03-31] MEDS: SODIUM CHLORIDE 0.45% 1,000 ML IV SCH (12:09)
--- NOTE | 2018-03-31 17:07 | PN ---
Teaching Attending Note Name of Resident: Bee Nugent ATTENDING PHYSICIAN STATEMENT I saw and evaluated the patient. I reviewed the resident's note and discussed the case with the resident. I agree with the resident's findings and plan as documented. SUBJECTIVE: Patient appears comfortable in bed. However, she continues to complain of back pain. OBJECTIVE: Vital Signs Period Temp Pulse Resp BP Sys/Avitia Pulse Ox Last 24 Hr 97.3 F-98.6 F 79-89 20-20 124-154/70-85 95-97 GENERAL: The patient is awake, alert, in no acute distress. LUNGS: Breath sounds equal, clear to auscultation bilaterally, no wheezes, no crackles, no accessory muscle use. HEART: Regular rate and rhythm, S1, S2 without murmur, rub or gallop. ABDOMEN: Obese, soft, nontender, nondistended, normoactive bowel sounds, no guarding, no rebound, no hepatosplenomegaly, no masses. EXTREMITIES: 2+ pulses, warm, well-perfused, trace edema, bilateral chronic venous stasis changes. Left hand edematous, less erythematous. Laboratory Results - last 24 hr 03/30/18 03/30/18 03/31/18 18:37 20:43 07:01 WBC 7.4 RBC 3.98 Hgb 10.5 L Hct 31.3 L MCV 78.6 L MCH 26.5 MCHC 33.7 RDW 18.8 H Plt Count 269 MPV 8.7 Sodium Potassium Chloride Carbon Dioxide Anion Gap BUN Creatinine Creat Clearance w eGFR POC Glucometer 142 121 Random Glucose Calcium 03/31/18 03/31/18 03/31/18 07:01 11:23 16:39 WBC RBC Hgb Hct MCV MCH MCHC RDW Plt Count MPV Sodium 142 Potassium 3.6 Chloride 108 H Carbon Dioxide 25 Anion Gap 8 BUN 11 Creatinine 1.6 H Creat Clearance w eGFR 32.35 POC Glucometer 93 86 Random Glucose 84 Calcium 8.2 L Current Medications Generic Name Dose Route Start Last Admin Trade Name Freq PRN Reason Stop Dose Admin Acetaminophen 650 mg 03/28/18 11:03 03/31/18 12:19 Tylenol - PO 650 mg Q6H PRN Administration PAIN LEVEL 1-5 Albuterol Sulfate 1 amp 03/22/18 00:06 Ventolin 0.083% Nebulizer Soln - NEB Q6H PRN SHORT OF BREATH/WHEEZING Albuterol/Ipratropium 1 amp 03/25/18 14:00 03/31/18 13:43 Duoneb - NEB 1 amp RTID [facility] Administration Amlodipine Besylate 10 mg 03/22/18 10:00 03/31/18 09:36 Norvasc - PO 10 mg DAILY [facility] Administration Budesonide/Formoterol Fumarate 2 puff 03/26/18 10:15 03/31/18 09:35 Symbicort 160/4.5mcg - IH 2 puff BID [facility] Administration Carvedilol 12.5 mg 03/22/18 10:00 03/31/18 09:36 Coreg - PO 12.5 mg BID [facility] Administration Escitalopram Oxalate 10 mg 03/22/18 10:00 03/31/18 09:35 Lexapro - PO 10 mg DAILY [facility] Administration Fluticasone Propionate 1 spray 03/24/18 12:00 03/31/18 09:35 Flonase - NS 1 spray BID [facility] Administration Heparin Sodium (Porcine) 5,000 unit 03/25/18 14:00 03/31/18 14:25 Heparin - SQ 5,000 unit TID [facility] Administration Sodium Chloride 1,000 mls @ 75 mls/hr 03/28/18 11:00 03/31/18 12:09 1/2 Normal Saline IV 75 mls/hr ASDIR [facility] Administration Ampicillin Sodium/Sulbactam 100 mls @ 200 mls/hr 03/28/18 15:45 03/31/18 14: 26 Sodium 3 gm/ Sodium Chloride IVPB 200 mls/hr Q6H-IV [facility] Administration Insulin Aspart 1 vial 03/22/18 07:00 03/31/18 17:01 Novolog Vial Sliding Scale - SQ Not Given ACHS [facility] Protocol Lisinopril 5 mg 03/22/18 10:00 03/31/18 09:35 Prinivil PO 5 mg DAILY [facility] Administration Oxycodone HCl 10 mg 03/22/18 22:00 03/31/18 09:35 Oxycontin - PO 10 mg BID [facility] Administration Oxycodone HCl 10 mg 03/28/18 16:10 03/31/18 16:22 Roxicodone - PO 10 mg Q6H PRN Administration PAIN LEVEL 6-10 Promethazine HCl 12.5 mg 03/23/18 10:58 Phenergan Injection - IVPB Q6H PRN NAUSEA AND/OR VOMITING Rosuvastatin Calcium 10 mg 03/22/18 22:00 03/30/18 21:08 Crestor - PO Not Given HS [facility] ASSESSMENT AND PLAN: This is a 67 year old woman with a history of type 2 DM, HTN, hyperlipidemia, GERD, polycystic kidney disease, uterine cancer, hysterectomy, ventral hernia repair, chronic back pain who presented to the ED with abdominal pain. 1. Ischemic colitis - Improved 2. Left hand cellulitis - Continue Unasyn (day 4) - Venous doppler could not be completed secondary to pain 3. Asthma - Continue Symbicort, DuoNeb, albuterol as needed - Outpatient PFTs 4. Possible CRISTEL - Outpatient sleep study, echo to eval for pulm HTN 5. Serratia UTI - Completed Levaquin - Repeat culture (+) MRSA 20-30k colonies, asymptomatic 6. Acute kidney injury - Creatinine stable - Renal US shows bilateral renal cortical scarring, several small bilateral cortical echogenic foci, multiple small bilateral complex and simple renal cortical cysts - Levaquin discontinued - Continue IV fluid 7. Hypokalemia - Improved 8. Hypomagnesemia - Improved 9. Stage 3 CKD 10. Dilated CBD, likely secondary to prior cholecystectomy 11. Possible cirrhosis - Hepatitis A IgM, HBsAg, HBcAb, HCV Ab negative - JACKIE negative - AMA pending - Iron low normal, TIBC low, transferrin low, ferritin low normal, iron sat low normal 12. Type 2 DM - Continue Novolog sliding scale 13. Hypertension - Continue Lisinopril, Coreg, Norvasc 14. Hyperlipidemia - Continue Crestor 15. Polycystic kidneys 16. History of uterine cancer, hysterectomy 17. Headache and chronic back pain - Refused head CT, MRI of L-spine - Continue OxyContin, oxycodone as needed for breakthrough pain - Last prescription filled was Percocet 10-325 mg #90 on 02/18 - s/p left lumbar paraspinal injection for spasm 18. Obesity with BMI 39.3 19. Disposition - Discharge home once antibiotics can be changed to PO
[2018-03-31] MEDS ORDERED: INSULIN (NOVOLOG) ASPART 100 UNITS/ML 10ML VIAL ONE (21:17)
[2018-03-31] MEDS: ROSUVASTATIN CA 10 MG TABLET (FP) PO SCH (21:50)
[2018-04-01] MEDS: oxyCODONE HCL 5 MG TABLET PO PRN ×3 (01:08→20:19)
[2018-04-01] MEDS: ACETAMINOPHEN 325 MG TABLET (FP) PO PRN ×2 (01:09→06:42)
[2018-04-01] MEDS: SODIUM CHLORIDE 0.45% 1,000 ML IV SCH (01:09)
[2018-04-01] MEDS: AMPICILLIN NA/SULBACTAM NA 3 GM in SODIUM CHLORIDE 100 ML IVPB SCH ×4 (02:46→20:15)
[2018-04-01] MEDS: HEPARIN NA (PORCINE) 5,000 UNITS/ML 1ML VIAL SQ SCH (06:42)
[2018-04-01] MEDS: INSULIN SLIDING SCALE (NOVOLOG) 1 VIAL SQ SCH ×4 (06:45→21:33)
[2018-04-01 07:54] LABS: ANION GAP 10 MMOL/L (8-16); BLOOD UREA NITROGEN 11 mg/dL (7-18); CHLORIDE 107 mmol/L (98-107); CO2 25 mmol/L (21-32); CREATININE 1.6 mg/dL (0.55-1.3); GLUCOSE,RANDOM 86 mg/dL (74-106); POTASSIUM 3.4 mmol/L (3.5-5.1); SODIUM 142 mmol/L (136-145)
[2018-04-01] MEDS: ALBUTEROL SO4 2.5/IPRATROPIUM 0.5 INH SOL 3 ML VIAL.NEB. NEB SCH ×3 (08:48→20:13)
[2018-04-01] MEDS ORDERED: PT OWN MED DRAWER 7, Y5N ONE ×4 (08:57→20:00)
--- NOTE | 2018-04-01 09:19 | PN ---
Progress Note (short form) - Note Progress Note: Still with intermittent back pain. No acute events overnight. Breathing overall improved. Intake & Output 03/29/18 03/30/18 03/31/18 04/01/18 23:59 23:59 23:59 23:59 Intake Total 2300 3675 1700 Output Total 600 Balance 2300 3075 1700 Last Vital Signs Temp Pulse Resp BP Pulse Ox 97.8 F 79 20 133/86 97 04/01/18 06:00 04/01/18 06:00 04/01/18 06:00 04/01/18 06:00 03/31/18 21:00 Active Medications Acetaminophen (Tylenol -) 650 mg PO Q6H PRN PRN Reason: PAIN LEVEL 1-5 Last Admin: 04/01/18 06:42 Dose: 650 mg Albuterol Sulfate (Ventolin 0.083% Nebulizer Soln -) 1 amp NEB Q6H PRN PRN Reason: SHORT OF BREATH/WHEEZING Albuterol/Ipratropium (Duoneb -) 1 amp NEB RTID [facility] Last Admin: 04/01/18 08:48 Dose: 1 amp Amlodipine Besylate (Norvasc -) 10 mg PO DAILY [facility] Last Admin: 03/31/18 09:36 Dose: 10 mg Budesonide/Formoterol Fumarate (Symbicort 160/4.5mcg -) 2 puff IH BID [facility] Last Admin: 03/31/18 21:57 Dose: 2 puff Carvedilol (Coreg -) 12.5 mg PO BID [facility] Last Admin: 03/31/18 21:50 Dose: 12.5 mg Escitalopram Oxalate (Lexapro -) 10 mg PO DAILY [facility] Last Admin: 03/31/18 09:35 Dose: 10 mg Fluticasone Propionate (Flonase -) 1 spray NS BID [facility] Last Admin: 03/31/18 21:57 Dose: 1 spray Heparin Sodium (Porcine) (Heparin -) 5,000 unit SQ TID [facility] Last Admin: 04/01/18 06:42 Dose: 5,000 unit Sodium Chloride (1/2 Normal Saline) 1,000 mls @ 75 mls/hr IV ASDIR [facility] Last Admin: 04/01/18 01:09 Dose: 75 mls/hr Ampicillin Sodium/Sulbactam (Sodium 3 gm/ Sodium Chloride) 100 mls @ 200 mls/ hr IVPB Q6H-IV [facility] Last Admin: 04/01/18 09:00 Dose: 200 mls/hr Insulin Aspart (Novolog Vial Sliding Scale -) 1 vial SQ ACHS [facility]; Protocol Last Admin: 04/01/18 06:45 Dose: Not Given Lisinopril (Prinivil) 5 mg PO DAILY [facility] Last Admin: 03/31/18 09:35 Dose: 5 mg Oxycodone HCl (Oxycontin -) 10 mg PO BID [facility] Last Admin: 03/31/18 21:50 Dose: 10 mg Oxycodone HCl (Roxicodone -) 10 mg PO Q6H PRN PRN Reason: PAIN LEVEL 6-10 Last Admin: 04/01/18 06:42 Dose: 10 mg Promethazine HCl (Phenergan Injection -) 12.5 mg IVPB Q6H PRN PRN Reason: NAUSEA AND/OR VOMITING Rosuvastatin Calcium (Crestor -) 10 mg PO HS [facility] Last Admin: 03/31/18 21:50 Dose: 10 mg Gen: NAD at rest Heart: RRR Lung: decreased breath sounds at the bases Abd: soft, nontender Ext: no edema Laboratory Results - last 24 hr 03/31/18 03/31/18 03/31/18 11:23 16:39 21:46 Sodium Potassium Chloride Carbon Dioxide Anion Gap BUN Creatinine Creat Clearance w eGFR POC Glucometer 93 86 106 Random Glucose Calcium 04/01/18 04/01/18 06:41 07:00 Sodium 142 Potassium 3.4 L Chloride 107 Carbon Dioxide 25 Anion Gap 10 BUN 11 Creatinine 1.6 H Creat Clearance w eGFR 32.35 POC Glucometer 97 Random Glucose 86 Calcium 8.0 L Problem List - Problems (1) Colitis Code(s): K52.9 - NONINFECTIVE GASTROENTERITIS AND COLITIS, UNSPECIFIED (2) Asthma Code(s): J45.909 - UNSPECIFIED ASTHMA, UNCOMPLICATED (3) Obstructive sleep apnea Code(s): G47.33 - OBSTRUCTIVE SLEEP APNEA (ADULT) (PEDIATRIC) A/P Acute Colitis - r/o Ischemic Colitis Asthma Likely Obstructive Sleep Apnea r/o Pulmonary HTN HTN DM GERD h/o Uterine Ca Polycystic Kidney Disease - ABX per ID - inhaled bronchodilators - Symbicort - poor visualization of RV on echocardiogram here, will need repeat as outpt - outpt PFTs, PSG - DVT prophylaxis - D/C planning Dr Weldon
[2018-04-01] MEDS: FLUTICASONE PROP 0.05% 16 GM NASAL SPRAY NS SCH ×2 (10:02→21:33)
[2018-04-01] MEDS: LISINOPRIL 5 MG TABLET (FP) PO SCH (10:02)
[2018-04-01] MEDS: CARVEDILOL 12.5 MG TABLET (FP) PO SCH ×2 (10:02→21:29)
[2018-04-01] MEDS: oxyCODONE HCL 10 MG SUSTAINED ACTING TABLET PO SCH ×2 (10:02→21:30)
[2018-04-01] MEDS: amLODIPine BESYLATE 10 MG TABLET (FP) PO SCH (10:02)
[2018-04-01] MEDS: ESCITALOPRAM OXALATE 10 MG TABLET (FP) PO SCH (10:04)
[2018-04-01] MEDS: BUDESONIDE/FORMETEROL FUMARATE 160/4.5 mcg INHALER IH SCH ×2 (10:04→21:35)
--- NOTE | 2018-04-01 10:09 | PN ---
Progress Note, Physician History of Present Illness: swelling of the hand improving cellulitis resolving patient still coughing feels weak - Current Medication List Current Medications: Active Medications Acetaminophen (Tylenol -) 650 mg PO Q6H PRN PRN Reason: PAIN LEVEL 1-5 Last Admin: 04/01/18 06:42 Dose: 650 mg Albuterol Sulfate (Ventolin 0.083% Nebulizer Soln -) 1 amp NEB Q6H PRN PRN Reason: SHORT OF BREATH/WHEEZING Albuterol/Ipratropium (Duoneb -) 1 amp NEB RTID [facility] Last Admin: 04/01/18 08:48 Dose: 1 amp Amlodipine Besylate (Norvasc -) 10 mg PO DAILY [facility] Last Admin: 04/01/18 10:02 Dose: 10 mg Budesonide/Formoterol Fumarate (Symbicort 160/4.5mcg -) 2 puff IH BID [facility] Last Admin: 04/01/18 10:04 Dose: 2 puff Carvedilol (Coreg -) 12.5 mg PO BID [facility] Last Admin: 04/01/18 10:02 Dose: 12.5 mg Escitalopram Oxalate (Lexapro -) 10 mg PO DAILY [facility] Last Admin: 04/01/18 10:04 Dose: 10 mg Fluticasone Propionate (Flonase -) 1 spray NS BID [facility] Last Admin: 04/01/18 10:02 Dose: 1 spray Heparin Sodium (Porcine) (Heparin -) 5,000 unit SQ TID [facility] Last Admin: 04/01/18 06:42 Dose: 5,000 unit Sodium Chloride (1/2 Normal Saline) 1,000 mls @ 75 mls/hr IV ASDIR [facility] Last Admin: 04/01/18 01:09 Dose: 75 mls/hr Ampicillin Sodium/Sulbactam (Sodium 3 gm/ Sodium Chloride) 100 mls @ 200 mls/ hr IVPB Q6H-IV [facility] Last Admin: 04/01/18 09:00 Dose: 200 mls/hr Insulin Aspart (Novolog Vial Sliding Scale -) 1 vial SQ ACHS [facility]; Protocol Last Admin: 04/01/18 06:45 Dose: Not Given Lisinopril (Prinivil) 5 mg PO DAILY [facility] Last Admin: 04/01/18 10:02 Dose: 5 mg Oxycodone HCl (Oxycontin -) 10 mg PO BID [facility] Last Admin: 04/01/18 10:02 Dose: 10 mg Oxycodone HCl (Roxicodone -) 10 mg PO Q6H PRN PRN Reason: PAIN LEVEL 6-10 Last Admin: 04/01/18 06:42 Dose: 10 mg Promethazine HCl (Phenergan Injection -) 12.5 mg IVPB Q6H PRN PRN Reason: NAUSEA AND/OR VOMITING Rosuvastatin Calcium (Crestor -) 10 mg PO HS [facility] Last Admin: 03/31/18 21:50 Dose: 10 mg - Objective Vital Signs: Vital Signs Temperature 97.8 F 04/01/18 06:00 Pulse Rate 79 04/01/18 06:00 Respiratory Rate 20 04/01/18 06:00 Blood Pressure 133/86 04/01/18 06:00 O2 Sat by Pulse Oximetry (%) 97 03/31/18 21:00 Constitutional: Yes: Calm, Mild Distress, Obese HENT: Yes: Atraumatic Cardiovascular: Yes: S1, S2 Respiratory: Yes: On Nasal O2, Poor Air Entry, Other Gastrointestinal: Yes: Normal Bowel Sounds, Soft Musculoskeletal: Yes: WNL Extremities: Yes: WNL Neurological: Yes: Alert, Oriented Psychiatric: Yes: Alert, Oriented Labs: CBC, BMP 03/31/18 07:01 04/01/18 07:00 INR, PTT INR 1.22 (0.83-1.09) H 03/24/18 06:20 Assessment/Plan Problem List - Problems (1) Abdominal pain Code(s): R10.9 - UNSPECIFIED ABDOMINAL PAIN Qualifiers: Abdominal location: unspecified location Qualified Code(s): R10.9 - Unspecified abdominal pain (2) Back pain Code(s): M54.9 - DORSALGIA, UNSPECIFIED (3) Colitis Code(s): K52.9 - NONINFECTIVE GASTROENTERITIS AND COLITIS, UNSPECIFIED (4) Diabetes mellitus type 2 in obese Code(s): E11.69 - TYPE 2 DIABETES MELLITUS WITH OTHER SPECIFIED COMPLICATION; E66.9 - OBESITY, UNSPECIFIED (5) HLD (hyperlipidemia) Code(s): E78.5 - HYPERLIPIDEMIA, UNSPECIFIED (6) Ischemic colitis Code(s): K55.9 - VASCULAR DISORDER OF INTESTINE, UNSPECIFIED (7) GERD (gastroesophageal reflux disease) Code(s): K21.9 - GASTRO-ESOPHAGEAL REFLUX DISEASE WITHOUT ESOPHAGITIS Qualifiers: Esophagitis presence: without esophagitis Qualified Code(s): K21.9 - Gastro -esophageal reflux disease without esophagitis (8) HTN (hypertension) Code(s): I10 - ESSENTIAL (PRIMARY) HYPERTENSION Qualifiers: Hypertension type: essential hypertension Qualified Code(s): I10 - Essential (primary) hypertension (9) Polycystic kidney disease Code(s): Q61.3 - POLYCYSTIC KIDNEY, UNSPECIFIED Assessment/Plan 67 y.o. female with multiple medical problems including chronic pain admitted for abdominal pain/n/v/d with leukocytosis now with Lt arm edema Ischemic Colitis Lt arm edema - possible cellulitis UTI Leukocytosis EMILIANO DM PKD Uterine CA s/p hysterectomy Depression Chronic Pain HTN HLD continue current mgmt continue abx movement of the arm rest as per the team will deescalate to oral abx tomorrow incentive gian
[2018-04-01] MEDS ORDERED: POTASSIUM CHLORIDE TABS 20 MEQ TABLET.ER (FP) PO ONE (10:45)
[2018-04-01] MEDS ORDERED: ACETAMINOPHEN 1000 MG/100 ML VIAL (NON FORMULARY) IVPB ONE (13:21)
--- NOTE | 2018-04-01 18:03 | PN ---
Physical Exam: SUBJECTIVE: Patient seen and examined at bed side this morning. Chronic back pain and headache. Refusing CT head and MRI of lumbar spine. No acute overnight events. BM yesterday. OBJECTIVE: Vital Signs Period Temp Pulse Resp BP Sys/Avitia Pulse Ox Last 24 Hr 97.2 F-97.9 F 79-90 20-20 126-153/75-96 97-97 GENERAL: Morbidly obese female, sitting in a chair, is awake, alert, and fully oriented, in mild respiratory distress. HEAD: Normal with no signs of trauma. EYES: EOM intact, no pallor or icterus. ENT: Ears normal, moist mucous membranes. NECK: Supple, no JVD. LUNGS: Breath sounds decreased bilaterally, no wheezes, no crackles, no accessory muscle use. HEART: Regular rate and rhythm, S1, S2 without murmur. ABDOMEN: Soft, tenderness in the left upper quadrant, BS+, no organomegaly. UPPER EXTREMITIES: 2+ pulses, warm, well-perfused, left arm swollen. LOWER EXTREMITIES: Chronic venous stasis with stasis dermatitis, b/l pitting edema ++ improved NEUROLOGICAL: No facial droop. Normal speech, gait not observed. PSYCH: Normal mood, normal affect. SKIN: Warm, dry, normal turgor, thick skin with color change in the lower extremity (chronic) Laboratory Results - last 24 hr 03/31/18 04/01/18 04/01/18 21:46 06:41 07:00 Sodium 142 Potassium 3.4 L Chloride 107 Carbon Dioxide 25 Anion Gap 10 BUN 11 Creatinine 1.6 H Creat Clearance w eGFR 32.35 POC Glucometer 106 97 Random Glucose 86 Calcium 8.0 L Influenza A (Rapid) Influenza B (Rapid) 04/01/18 04/01/18 11:26 14:26 Sodium Potassium Chloride Carbon Dioxide Anion Gap BUN Creatinine Creat Clearance w eGFR POC Glucometer 103 Random Glucose Calcium Influenza A (Rapid) Negative Influenza B (Rapid) Negative Active Medications Generic Name Dose Route Start Last Admin Trade Name Freq PRN Reason Stop Dose Admin Acetaminophen 650 mg 03/28/18 11:03 04/01/18 06:42 Tylenol - PO 650 mg Q6H PRN Administration PAIN LEVEL 1-5 Albuterol Sulfate 1 amp 03/22/18 00:06 Ventolin 0.083% Nebulizer Soln - NEB Q6H PRN SHORT OF BREATH/WHEEZING Albuterol/Ipratropium 1 amp 03/25/18 14:00 04/01/18 15:10 Duoneb - NEB 1 amp RTID MARIA E Administration Amlodipine Besylate 10 mg 03/22/18 10:00 04/01/18 10:02 Norvasc - PO 10 mg DAILY MARIA E Administration Budesonide/Formoterol Fumarate 2 puff 03/26/18 10:15 04/01/18 10:04 Symbicort 160/4.5mcg - IH 2 puff BID MARIA E Administration Carvedilol 12.5 mg 03/22/18 10:00 04/01/18 10:02 Coreg - PO 12.5 mg BID MARIA E Administration Escitalopram Oxalate 10 mg 03/22/18 10:00 04/01/18 10:04 Lexapro - PO 10 mg DAILY MARIA E Administration Fluticasone Propionate 1 spray 03/24/18 12:00 04/01/18 10:02 Flonase - NS 1 spray BID MARIA E Administration Sodium Chloride 1,000 mls @ 75 mls/hr 03/28/18 11:00 04/01/18 01:09 1/2 Normal Saline IV 75 mls/hr ASDIR MARIA E Administration Ampicillin Sodium/Sulbactam 100 mls @ 200 mls/hr 03/28/18 15:45 04/01/18 14: 18 Sodium 3 gm/ Sodium Chloride IVPB 200 mls/hr Q6H-IV MARIA E Administration Insulin Aspart 1 vial 03/22/18 07:00 04/01/18 11:27 Novolog Vial Sliding Scale - SQ Not Given ACHS [facility] Protocol Lisinopril 5 mg 03/22/18 10:00 04/01/18 10:02 Prinivil PO 5 mg DAILY MARIA E Administration Oxycodone HCl 10 mg 03/22/18 22:00 04/01/18 10:02 Oxycontin - PO 10 mg BID MARIA E Administration Oxycodone HCl 10 mg 03/28/18 16:10 04/01/18 06:42 Roxicodone - PO 10 mg Q6H PRN Administration PAIN LEVEL 6-10 Promethazine HCl 12.5 mg 03/23/18 10:58 Phenergan Injection - IVPB Q6H PRN NAUSEA AND/OR VOMITING Rosuvastatin Calcium 10 mg 03/22/18 22:00 03/31/18 21:50 Crestor - PO 10 mg HS MARIA E Administration ASSESSMENT/PLAN: ECHO done 03/25/18: Left Ventricular size, thickness and function are normal. Left vent Ejection fraction normal. There was insufficient TR detected to calculate RV systolic pressure. Endoscopy 03/24: Segmental colitis spanning from sigmoid to descedning colon, the most severe being noted 20-40 cm in the sigmoid. Suspected ischemic colitis. The colon mucusa was otherwise normal to the distal transverse colon. Retroflexed views revealed medium internal hemorrhoids. CT abdomen/pelvis: showed diffuse colon wall edema from proximal descendig colon mid sigmoid colon ASSESSMENT/PLAN: Patient is a 67 year old female with significant past medical history of DM, HTN , HLD, GERD, Polycystic kidney, uterine CA s/p hysterectomy, ventral hernia repair, chronic back pain on percocet (QID) presented to the ED with abdominal pain x 1 week. # Chronic back pain Now on Oxycontin 10mg pO BID and Oxycodone 10mg Q6H PRN Ordered MRI lumbar spine but patient is refusing. # Headache- still persists but improved Head CT ordered to r/o acute pathology. Patient is refusing. # Left arm swollen could be from thrombophelebitis however-r/o DVT Duplex was not completed as patient didn't cooperate, refusing to do a Duplex. # EMILIANO-likely prerenal creatinine 1.6 today. renal /bladder Ultrasound done, b/l renal cyst. f/up sono as outpatient. # Suspected Ischemic colitis- pain improving Abx changed to IV Unasyn day 4 Flex sigmoidoscopy done on 03/24/18. Biopsy results pending. CRP 2.8 () No surgical intervention needed as this time as per surgery. # Shortness of breath likely due to Asthma vs OHS ECHO done as mentioned above. Cannot r/o Pulmonary HTN, needs repeat ECHO as outpatient Echo from 2016 reviewed was normal. Continue Duoneb, Albuterol. Symbicort Needs outpatient PFT's and sleep study. Might benefit from CPAP at home. Will do a pre and post exercise oxygen saturation before discharge # UTI Urine culture positive for E. faecalis (03/21/18), Continue Uasyn. . Urine culture 03/22 negative. Urine culture 03/26/18: MRSA # Dilated CBD 9mm likely from s/p cholecystecotomy GI suggested MRCP if pain persists # Questionable cirrhosis: Hepatitis negative, JACKIE negative, Ferrtin normal, Transferrin low # DM Continue ISS, watch for hypoglycemic episodes # Hypertension-controlled HTN controlled however when patient is in severe pain, BP rises. Need better control of her pain. Continue Lisinopril 5mg PO daily, coreg 12.5 mg PO BID, Amlodipine 10mg Daily # FEN Tolerating PO Electrolytes WNL. diet advanced to diabetic/sodium controlled # Prophylaxis For DVT: Heparin sq 5000 IU sq TID FoR GI: Protonix 40 daily # Code Status: Full Code # Dispo: D/c planning tomorrow. Illness, Investigation and Plan of care explained to the patient. She verbalized understanding. Case discussed with Dr. Smith. Problem List - Problems (1) Asthma Code(s): J45.909 - UNSPECIFIED ASTHMA, UNCOMPLICATED (2) Chronic pain Code(s): G89.29 - OTHER CHRONIC PAIN Qualifiers: Chronic pain type: other chronic pain Qualified Code(s): G89.29 - Other chronic pain (3) Diabetes mellitus type 2 in obese Code(s): E11.69 - TYPE 2 DIABETES MELLITUS WITH OTHER SPECIFIED COMPLICATION; E66.9 - OBESITY, UNSPECIFIED (4) GI bleed Code(s): K92.2 - GASTROINTESTINAL HEMORRHAGE, UNSPECIFIED Qualifiers: GI bleed type/associated pathology: unspecified gastrointestinal hemorrhage type Qualified Code(s): K92.2 - Gastrointestinal hemorrhage, unspecified (5) HLD (hyperlipidemia) Code(s): E78.5 - HYPERLIPIDEMIA, UNSPECIFIED (6) Obstructive sleep apnea Code(s): G47.33 - OBSTRUCTIVE SLEEP APNEA (ADULT) (PEDIATRIC) Visit type - Emergency Visit Emergency Visit: Yes ED Registration Date: 03/21/18 Care time: The patient presented to the Emergency Department on the above date and was hospitalized for further evaluation of their emergent condition. - New Patient This patient is new to me today: No - Critical Care Critical Care patient: No - Discharge Referral Referred to [facility] No
--- NOTE | 2018-04-01 18:40 | PN ---
Teaching Attending Note Name of Resident: Bee Nugent ATTENDING PHYSICIAN STATEMENT I saw and evaluated the patient. I reviewed the resident's note and discussed the case with the resident. I agree with the resident's findings and plan as documented. SUBJECTIVE: Ms Shipman complains of chronic, diffuse pain. Spends most time asking to have her pain medications increased. No sob or n/v. OBJECTIVE: Last Vital Signs Temp Pulse Resp BP Pulse Ox 36.6 C 80 20 126/75 97 04/01/18 14:49 04/01/18 14:49 04/01/18 14:49 04/01/18 14:49 04/01/18 09:00 Gen: nad, obese Pulm: ctab w/o w/r/r CV: rrr w/o m/r/g Abd: +bs, s/nt. tenderness in all ponce but no g/r Ext: LUE edematous and with slight erythema ASSESSMENT AND PLAN: -continue unasyn today -case d/w Dr Orozco -plan to change to oral antibiotics tomorrow -continue current management -d/c tomorrow Problem List - Problems (1) Colitis Code(s): K52.9 - NONINFECTIVE GASTROENTERITIS AND COLITIS, UNSPECIFIED (2) GI bleed Code(s): K92.2 - GASTROINTESTINAL HEMORRHAGE, UNSPECIFIED Qualifiers: GI bleed type/associated pathology: unspecified gastrointestinal hemorrhage type Qualified Code(s): K92.2 - Gastrointestinal hemorrhage, unspecified (3) HTN (hypertension) Code(s): I10 - ESSENTIAL (PRIMARY) HYPERTENSION Qualifiers: Hypertension type: essential hypertension Qualified Code(s): I10 - Essential (primary) hypertension (4) Migraine aura, persistent, intractable Code(s): G43.519 - PERST MIGRAINE AURA W/O CEREBRAL INFRC, NTRCT, W/O STAT MIGR (5) Polycystic kidney disease Code(s): Q61.3 - POLYCYSTIC KIDNEY, UNSPECIFIED (6) HLD (hyperlipidemia) Code(s): E78.5 - HYPERLIPIDEMIA, UNSPECIFIED (7) Chronic pain Code(s): G89.29 - OTHER CHRONIC PAIN Qualifiers: Chronic pain type: other chronic pain Qualified Code(s): G89.29 - Other chronic pain (8) Cellulitis of arm, left Code(s): L03.114 - CELLULITIS OF LEFT UPPER LIMB
[2018-04-01] MEDS: ROSUVASTATIN CA 10 MG TABLET (FP) PO SCH (21:29)
[2018-04-02] MEDS: oxyCODONE HCL 5 MG TABLET PO PRN ×4 (01:55→20:09)
[2018-04-02] MEDS: AMPICILLIN NA/SULBACTAM NA 3 GM in SODIUM CHLORIDE 100 ML IVPB SCH ×4 (03:18→22:55)
[2018-04-02] MEDS: ACETAMINOPHEN 325 MG TABLET (FP) PO PRN ×3 (04:28→20:09)
[2018-04-02] MEDS: INSULIN SLIDING SCALE (NOVOLOG) 1 VIAL SQ SCH ×4 (06:06→22:13)
[2018-04-02] MEDS: ALBUTEROL SO4 2.5/IPRATROPIUM 0.5 INH SOL 3 ML VIAL.NEB. NEB SCH ×3 (07:55→20:00)
[2018-04-02 08:02] LABS: ANION GAP 7 MMOL/L (8-16); BLOOD UREA NITROGEN 10 mg/dL (7-18); CALCIUM 7.9 mg/dL (8.5-10.1); CHLORIDE 107 mmol/L (98-107); CO2 26 mmol/L (21-32); CREATININE 1.5 mg/dL (0.55-1.3); GLUCOSE,RANDOM 88 mg/dL (74-106); POTASSIUM 3.6 mmol/L (3.5-5.1); SODIUM 141 mmol/L (136-145)
[2018-04-02] MEDS ORDERED: PT OWN MED DRAWER 7, Y5N ONE ×3 (08:12→21:49)
[2018-04-02] MEDS: FLUTICASONE PROP 0.05% 16 GM NASAL SPRAY NS SCH ×2 (09:57→21:55)
--- NOTE | 2018-04-02 10:14 | PN ---
Progress Note, Physician History of Present Illness: no complaints resting comfortably - Current Medication List Current Medications: Active Medications Acetaminophen (Tylenol -) 650 mg PO Q6H PRN PRN Reason: PAIN LEVEL 1-5 Last Admin: 04/02/18 08:21 Dose: 650 mg Albuterol Sulfate (Ventolin 0.083% Nebulizer Soln -) 1 amp NEB Q6H PRN PRN Reason: SHORT OF BREATH/WHEEZING Albuterol/Ipratropium (Duoneb -) 1 amp NEB RTID [facility] Last Admin: 04/01/18 20:13 Dose: 1 amp Amlodipine Besylate (Norvasc -) 10 mg PO DAILY [facility] Last Admin: 04/01/18 10:02 Dose: 10 mg Budesonide/Formoterol Fumarate (Symbicort 160/4.5mcg -) 2 puff IH BID [facility] Last Admin: 04/01/18 21:35 Dose: 2 puff Carvedilol (Coreg -) 12.5 mg PO BID [facility] Last Admin: 04/01/18 21:29 Dose: 12.5 mg Escitalopram Oxalate (Lexapro -) 10 mg PO DAILY [facility] Last Admin: 04/01/18 10:04 Dose: 10 mg Fluticasone Propionate (Flonase -) 1 spray NS BID [facility] Last Admin: 04/01/18 21:33 Dose: 1 spray Sodium Chloride (1/2 Normal Saline) 1,000 mls @ 75 mls/hr IV ASDIR [facility] Last Admin: 04/01/18 01:09 Dose: 75 mls/hr Ampicillin Sodium/Sulbactam (Sodium 3 gm/ Sodium Chloride) 100 mls @ 200 mls/ hr IVPB Q6H-IV [facility] Last Admin: 04/02/18 08:20 Dose: 200 mls/hr Insulin Aspart (Novolog Vial Sliding Scale -) 1 vial SQ ACHS [facility]; Protocol Last Admin: 04/02/18 06:06 Dose: Not Given Lisinopril (Prinivil) 5 mg PO DAILY [facility] Last Admin: 04/01/18 10:02 Dose: 5 mg Oxycodone HCl (Oxycontin -) 10 mg PO BID [facility] Last Admin: 04/01/18 21:30 Dose: 10 mg Oxycodone HCl (Roxicodone -) 10 mg PO Q6H PRN PRN Reason: PAIN LEVEL 6-10 Last Admin: 04/02/18 08:20 Dose: 10 mg Promethazine HCl (Phenergan Injection -) 12.5 mg IVPB Q6H PRN PRN Reason: NAUSEA AND/OR VOMITING Rosuvastatin Calcium (Crestor -) 10 mg PO HS MARIA E Last Admin: 04/01/18 21:29 Dose: 10 mg - Objective Vital Signs: Vital Signs Temperature 97.8 F 04/02/18 06:33 Pulse Rate 84 04/02/18 06:41 Respiratory Rate 18 04/02/18 06:41 Blood Pressure 134/82 04/02/18 06:41 O2 Sat by Pulse Oximetry (%) 97 04/01/18 21:00 Constitutional: Yes: No Distress, Calm Cardiovascular: Yes: Regular Rate and Rhythm Respiratory: Yes: Regular, CTA Bilaterally Gastrointestinal: Yes: Normal Bowel Sounds, Soft Musculoskeletal: Yes: WNL Extremities: Yes: Other Edema: LLE: 2+ Integumentary: Yes: Other Neurological: Yes: Alert Psychiatric: Yes: Alert, Oriented Labs: CBC, BMP 03/31/18 07:01 04/02/18 06:30 INR, PTT INR 1.22 (0.83-1.09) H 03/24/18 06:20 Assessment/Plan Problem List - Problems (1) Abdominal pain Code(s): R10.9 - UNSPECIFIED ABDOMINAL PAIN Qualifiers: Abdominal location: unspecified location Qualified Code(s): R10.9 - Unspecified abdominal pain (2) Back pain Code(s): M54.9 - DORSALGIA, UNSPECIFIED (3) Colitis Code(s): K52.9 - NONINFECTIVE GASTROENTERITIS AND COLITIS, UNSPECIFIED (4) Diabetes mellitus type 2 in obese Code(s): E11.69 - TYPE 2 DIABETES MELLITUS WITH OTHER SPECIFIED COMPLICATION; E66.9 - OBESITY, UNSPECIFIED (5) HLD (hyperlipidemia) Code(s): E78.5 - HYPERLIPIDEMIA, UNSPECIFIED (6) Ischemic colitis Code(s): K55.9 - VASCULAR DISORDER OF INTESTINE, UNSPECIFIED (7) GERD (gastroesophageal reflux disease) Code(s): K21.9 - GASTRO-ESOPHAGEAL REFLUX DISEASE WITHOUT ESOPHAGITIS Qualifiers: Esophagitis presence: without esophagitis Qualified Code(s): K21.9 - Gastro -esophageal reflux disease without esophagitis (8) HTN (hypertension) Code(s): I10 - ESSENTIAL (PRIMARY) HYPERTENSION Qualifiers: Hypertension type: essential hypertension Qualified Code(s): I10 - Essential (primary) hypertension (9) Polycystic kidney disease Code(s): Q61.3 - POLYCYSTIC KIDNEY, UNSPECIFIED Assessment/Plan 67 y.o. female with multiple medical problems including chronic pain admitted for abdominal pain/n/v/d with leukocytosis now with Lt arm edema Ischemic Colitis Lt arm edema - possible cellulitis UTI Leukocytosis EMILIANO DM PKD Uterine CA s/p hysterectomy Depression Chronic Pain HTN HLD plan continue current mgmt still with swelling of the hand cellulitis has resolved can switch to oral abx rest as per the team
[2018-04-02] MEDS: oxyCODONE HCL 10 MG SUSTAINED ACTING TABLET PO SCH ×2 (10:51→21:53)
[2018-04-02] MEDS: ESCITALOPRAM OXALATE 10 MG TABLET (FP) PO SCH (10:52)
[2018-04-02] MEDS: CARVEDILOL 12.5 MG TABLET (FP) PO SCH ×2 (10:52→21:54)
[2018-04-02] MEDS: LISINOPRIL 5 MG TABLET (FP) PO SCH (10:52)
[2018-04-02] MEDS: amLODIPine BESYLATE 10 MG TABLET (FP) PO SCH (10:52)
[2018-04-02] MEDS: SODIUM CHLORIDE 0.45% 1,000 ML IV SCH ×2 (10:53→11:02)
[2018-04-02] MEDS: BUDESONIDE/FORMETEROL FUMARATE 160/4.5 mcg INHALER IH SCH ×2 (10:54→21:55)
--- NOTE | 2018-04-02 13:25 | PN ---
Progress Note (short form) - Note Progress Note: Comfortable on RA. Breathing overall improved. No acute events overnight. Intake & Output 03/30/18 03/31/18 04/01/18 04/02/18 23:59 23:59 23:59 23:59 Intake Total 3675 1700 2100 1290 Output Total 600 100 Balance 3075 1700 2000 1290 Last Vital Signs Temp Pulse Resp BP Pulse Ox 98.1 F 78 16 138/72 97 04/02/18 09:47 04/02/18 09:47 04/02/18 09:47 04/02/18 09:47 04/02/18 09:00 Active Medications Acetaminophen (Tylenol -) 650 mg PO Q6H PRN PRN Reason: PAIN LEVEL 1-5 Last Admin: 04/02/18 08:21 Dose: 650 mg Albuterol/Ipratropium (Duoneb -) 1 amp NEB RTID [facility] Last Admin: 04/01/18 20:13 Dose: 1 amp Amlodipine Besylate (Norvasc -) 10 mg PO DAILY [facility] Last Admin: 04/02/18 10:52 Dose: 10 mg Budesonide/Formoterol Fumarate (Symbicort 160/4.5mcg -) 2 puff IH BID [facility] Last Admin: 04/02/18 10:54 Dose: 2 puff Carvedilol (Coreg -) 12.5 mg PO BID [facility] Last Admin: 04/02/18 10:52 Dose: 12.5 mg Escitalopram Oxalate (Lexapro -) 10 mg PO DAILY [facility] Last Admin: 04/02/18 10:52 Dose: 10 mg Fluticasone Propionate (Flonase -) 1 spray NS BID [facility] Last Admin: 04/02/18 09:57 Dose: 1 spray Sodium Chloride (1/2 Normal Saline) 1,000 mls @ 75 mls/hr IV ASDIR [facility] Last Admin: 04/02/18 11:02 Dose: Not Given Ampicillin Sodium/Sulbactam (Sodium 3 gm/ Sodium Chloride) 100 mls @ 200 mls/ hr IVPB Q6H-IV [facility] Last Admin: 04/02/18 08:20 Dose: 200 mls/hr Insulin Aspart (Novolog Vial Sliding Scale -) 1 vial SQ ACHS [facility]; Protocol Last Admin: 04/02/18 11:02 Dose: Not Given Lisinopril (Prinivil) 5 mg PO DAILY [facility] Last Admin: 04/02/18 10:52 Dose: 5 mg Oxycodone HCl (Oxycontin -) 10 mg PO BID [facility] Last Admin: 04/02/18 10:51 Dose: 10 mg Oxycodone HCl (Roxicodone -) 10 mg PO Q6H PRN PRN Reason: PAIN LEVEL 6-10 Last Admin: 04/02/18 08:20 Dose: 10 mg Promethazine HCl (Phenergan Injection -) 12.5 mg IVPB Q6H PRN PRN Reason: NAUSEA AND/OR VOMITING Rosuvastatin Calcium (Crestor -) 10 mg PO HS [facility] Last Admin: 04/01/18 21:29 Dose: 10 mg Gen: NAD at rest Heart: RRR Lung: decreased breath sounds at the bases Abd: soft, nontender Ext: no edema Laboratory Results - last 24 hr 04/01/18 04/01/18 04/01/18 14:26 17:59 21:32 Sodium Potassium Chloride Carbon Dioxide Anion Gap BUN Creatinine Creat Clearance w eGFR POC Glucometer 122 117 Random Glucose Calcium Influenza A (Rapid) Negative Influenza B (Rapid) Negative 04/02/18 04/02/18 05:42 06:30 Sodium 141 Potassium 3.6 Chloride 107 Carbon Dioxide 26 Anion Gap 7 L BUN 10 Creatinine 1.5 H Creat Clearance w eGFR 34.74 POC Glucometer 103 Random Glucose 88 Calcium 7.9 L Influenza A (Rapid) Influenza B (Rapid) Problem List - Problems (1) Colitis Code(s): K52.9 - NONINFECTIVE GASTROENTERITIS AND COLITIS, UNSPECIFIED (2) Asthma Code(s): J45.909 - UNSPECIFIED ASTHMA, UNCOMPLICATED (3) Obstructive sleep apnea Code(s): G47.33 - OBSTRUCTIVE SLEEP APNEA (ADULT) (PEDIATRIC) A/P Acute Colitis - r/o Ischemic Colitis Asthma Likely Obstructive Sleep Apnea r/o Pulmonary HTN HTN DM GERD h/o Uterine Ca Polycystic Kidney Disease - ABX per ID - inhaled bronchodilators - Symbicort - poor visualization of RV on echocardiogram here, will need repeat as outpt - outpt PFTs, PSG - DVT prophylaxis - D/C planning Dr Weldon
--- NOTE | 2018-04-02 15:05 | PN ---
Teaching Attending Note Name of Resident: Bee Nugent ATTENDING PHYSICIAN STATEMENT I saw and evaluated the patient. I reviewed the resident's note and discussed the case with the resident. I agree with the resident's findings and plan as documented. SUBJECTIVE: Mrs Shipman complains of chronic pain but otherwise is doing well. No cp, sob, n/v OBJECTIVE: Last Vital Signs Temp Pulse Resp BP Pulse Ox 36.7 C 80 20 146/92 92 L 04/02/18 15:18 04/02/18 15:18 04/02/18 15:18 04/02/18 15:18 04/02/18 14:35 Gen: nad, obese Pulm: ctab w/o m/r/g CV: rrr w/o m/r/g Abd: +bs, s/nt/nd Ext: no c/c/e Mrs Monae is a 68 year old female who came in with colitis. She was treated with antibiotics and seen by general surgery. She improved and was being prepared for discharge, but then developed a L hand cellulitis. She was seen by ID and placed on unasyn. Duplex doppler was negative for DVT. She improved on unasyn. She is currently stable for discharge to SNF. She will need close follow up concerning her pain regimen Problem List - Problems (1) Colitis Code(s): K52.9 - NONINFECTIVE GASTROENTERITIS AND COLITIS, UNSPECIFIED (2) GI bleed Code(s): K92.2 - GASTROINTESTINAL HEMORRHAGE, UNSPECIFIED Qualifiers: GI bleed type/associated pathology: unspecified gastrointestinal hemorrhage type Qualified Code(s): K92.2 - Gastrointestinal hemorrhage, unspecified (3) HTN (hypertension) Code(s): I10 - ESSENTIAL (PRIMARY) HYPERTENSION Qualifiers: Hypertension type: essential hypertension Qualified Code(s): I10 - Essential (primary) hypertension (4) Migraine aura, persistent, intractable Code(s): G43.519 - PERST MIGRAINE AURA W/O CEREBRAL INFRC, NTRCT, W/O STAT MIGR (5) Polycystic kidney disease Code(s): Q61.3 - POLYCYSTIC KIDNEY, UNSPECIFIED (6) HLD (hyperlipidemia) Code(s): E78.5 - HYPERLIPIDEMIA, UNSPECIFIED (7) Chronic pain Code(s): G89.29 - OTHER CHRONIC PAIN Qualifiers: Chronic pain type: other chronic pain Qualified Code(s): G89.29 - Other chronic pain (8) Cellulitis of arm, left Code(s): L03.114 - CELLULITIS OF LEFT UPPER LIMB
--- NOTE | 2018-04-02 16:33 | PN ---
Physical Exam: SUBJECTIVE: Patient seen and examined at bed side this morning. Complaining of chronic sob and chronic back pain, headache. No acute overnight events. OBJECTIVE: Vital Signs Period Temp Pulse Resp BP Sys/Avitia Pulse Ox Last 24 Hr 97.8 F-98.1 F 78-93 16-20 134-152/72-100 92-97 GENERAL: Morbidly obese female, sitting in a chair, is awake, alert, and fully oriented, in mild respiratory distress. HEAD: Normal with no signs of trauma. EYES: EOM intact, no pallor or icterus. ENT: Ears normal, moist mucous membranes. NECK: Supple, no JVD. LUNGS: Breath sounds decreased bilaterally, no wheezes, no crackles, no accessory muscle use. HEART: Regular rate and rhythm, S1, S2 without murmur. ABDOMEN: Soft, tenderness in the left upper quadrant, BS+, no organomegaly. UPPER EXTREMITIES: 2+ pulses, warm, well-perfused, left arm swollen. LOWER EXTREMITIES: Chronic venous stasis with stasis dermatitis, b/l pitting edema ++ improved NEUROLOGICAL: No facial droop. Normal speech, gait not observed. PSYCH: Normal mood, normal affect. SKIN: Warm, dry, normal turgor, thick skin with color change in the lower extremity (chronic) Laboratory Results - last 24 hr 04/01/18 04/01/18 04/02/18 17:59 21:32 05:42 Sodium Potassium Chloride Carbon Dioxide Anion Gap BUN Creatinine Creat Clearance w eGFR POC Glucometer 122 117 103 Random Glucose Calcium 04/02/18 06:30 Sodium 141 Potassium 3.6 Chloride 107 Carbon Dioxide 26 Anion Gap 7 L BUN 10 Creatinine 1.5 H Creat Clearance w eGFR 34.74 POC Glucometer Random Glucose 88 Calcium 7.9 L Active Medications Generic Name Dose Route Start Last Admin Trade Name Freq PRN Reason Stop Dose Admin Acetaminophen 650 mg 03/28/18 11:03 04/02/18 08:21 Tylenol - PO 650 mg Q6H PRN Administration PAIN LEVEL 1-5 Albuterol/Ipratropium 1 amp 03/25/18 14:00 04/02/18 14:40 Duoneb - NEB 1 amp RTID MARIA E Administration Amlodipine Besylate 10 mg 03/22/18 10:00 04/02/18 10:52 Norvasc - PO 10 mg DAILY MARIA E Administration Budesonide/Formoterol Fumarate 2 puff 03/26/18 10:15 04/02/18 10:54 Symbicort 160/4.5mcg - IH 2 puff BID MARIA E Administration Carvedilol 12.5 mg 03/22/18 10:00 04/02/18 10:52 Coreg - PO 12.5 mg BID MARIA E Administration Escitalopram Oxalate 10 mg 03/22/18 10:00 04/02/18 10:52 Lexapro - PO 10 mg DAILY MARIA E Administration Fluticasone Propionate 1 spray 03/24/18 12:00 04/02/18 09:57 Flonase - NS 1 spray BID MARIA E Administration Sodium Chloride 1,000 mls @ 75 mls/hr 03/28/18 11:00 04/02/18 11:02 1/2 Normal Saline IV Not Given ASDIR MARIA E Ampicillin Sodium/Sulbactam 100 mls @ 200 mls/hr 03/28/18 15:45 04/02/18 14: 50 Sodium 3 gm/ Sodium Chloride IVPB 200 mls/hr Q6H-IV MARIA E Administration Insulin Aspart 1 vial 03/22/18 07:00 04/02/18 11:02 Novolog Vial Sliding Scale - SQ Not Given ACHS [facility] Protocol Lisinopril 5 mg 03/22/18 10:00 04/02/18 10:52 Prinivil PO 5 mg DAILY MARIA E Administration Oxycodone HCl 10 mg 03/22/18 22:00 04/02/18 10:51 Oxycontin - PO 10 mg BID MARIA E Administration Oxycodone HCl 10 mg 04/01/18 19:28 04/02/18 14:50 Roxicodone - PO 10 mg Q6H PRN Administration PAIN LEVEL 6-10 Promethazine HCl 12.5 mg 03/23/18 10:58 Phenergan Injection - IVPB Q6H PRN NAUSEA AND/OR VOMITING Rosuvastatin Calcium 10 mg 03/22/18 22:00 04/01/18 21:29 Crestor - PO 10 mg HS MARIA E Administration ASSESSMENT/PLAN: ECHO done 03/25/18: Left Ventricular size, thickness and function are normal. Left vent Ejection fraction normal. There was insufficient TR detected to calculate RV systolic pressure. Endoscopy 03/24: Segmental colitis spanning from sigmoid to descedning colon, the most severe being noted 20-40 cm in the sigmoid. Suspected ischemic colitis. The colon mucusa was otherwise normal to the distal transverse colon. Retroflexed views revealed medium internal hemorrhoids. CT abdomen/pelvis: showed diffuse colon wall edema from proximal descendig colon mid sigmoid colon ASSESSMENT/PLAN: Patient is a 67 year old female with significant past medical history of DM, HTN , HLD, GERD, Polycystic kidney, uterine CA s/p hysterectomy, ventral hernia repair, chronic back pain on percocet (QID) presented to the ED with abdominal pain x 1 week. Plan was to discharge her home today, walked only 30 ft, requires home oxygen. electric utility lineworker on board. # Chronic back pain Still refusing MRI lumbar spine. Offered antianxiety meds before MRI but she refused. Now on Oxycontin 10mg pO BID and Oxycodone 10mg Q6H PRN # Headache- still persists but improved Head CT ordered to r/o acute pathology. Patient is refusing. # Left arm swollen could be from thrombophelebitis Duplex negative for DVT. # EMILIANO-likely prerenal creatinine 1.6 today. renal /bladder Ultrasound done, b/l renal cyst. f/up sono as outpatient. # Suspected Ischemic colitis- pain improving Abx changed to IV Unasyn day 5. Plan is to send her home on Augmentin 500 mg PO BID x 5 more days. Flex sigmoidoscopy done on 03/24/18. Biopsy results pending. CRP 2.8 () No surgical intervention needed as this time as per surgery. # Shortness of breath likely due to Asthma vs OHS Qualifies for home o2, pre and post exercise sat done today. ECHO done as mentioned above. Cannot r/o Pulmonary HTN, needs repeat ECHO as outpatient Echo from 2016 reviewed was normal. Continue Duoneb, Albuterol. Symbicort Needs outpatient PFT's and sleep study. Might benefit from CPAP at home. Will do a pre and post exercise oxygen saturation before discharge # UTI Urine culture positive for E. faecalis (03/21/18), Continue Uasyn. . Urine culture 03/22 negative. Urine culture 03/26/18: MRSA # Dilated CBD 9mm likely from s/p cholecystecotomy GI suggested MRCP if pain persists # Questionable cirrhosis: Hepatitis negative, JACKIE negative, Ferrtin normal, Transferrin low # DM Continue ISS, watch for hypoglycemic episodes # Hypertension-controlled HTN controlled however when patient is in severe pain, BP rises. Need better control of her pain. Continue Lisinopril 5mg PO daily, coreg 12.5 mg PO BID, Amlodipine 10mg Daily # FEN Tolerating PO Electrolytes WNL. diet advanced to diabetic/sodium controlled # Prophylaxis For DVT: Heparin sq 5000 IU sq TID FoR GI: Protonix 40 daily # Code Status: Full Code # Dispo: D/c planning. professor of social work on board. Illness, Investigation and Plan of care explained to the patient and her . They verbalized understanding. Case discussed with Dr. Smith. Problem List - Problems (1) Asthma Code(s): J45.909 - UNSPECIFIED ASTHMA, UNCOMPLICATED (2) Chronic pain Code(s): G89.29 - OTHER CHRONIC PAIN Qualifiers: Chronic pain type: other chronic pain Qualified Code(s): G89.29 - Other chronic pain (3) Diabetes mellitus type 2 in obese Code(s): E11.69 - TYPE 2 DIABETES MELLITUS WITH OTHER SPECIFIED COMPLICATION; E66.9 - OBESITY, UNSPECIFIED (4) GI bleed Code(s): K92.2 - GASTROINTESTINAL HEMORRHAGE, UNSPECIFIED Qualifiers: GI bleed type/associated pathology: unspecified gastrointestinal hemorrhage type Qualified Code(s): K92.2 - Gastrointestinal hemorrhage, unspecified (5) HLD (hyperlipidemia) Code(s): E78.5 - HYPERLIPIDEMIA, UNSPECIFIED (6) Obstructive sleep apnea Code(s): G47.33 - OBSTRUCTIVE SLEEP APNEA (ADULT) (PEDIATRIC) Visit type - Emergency Visit Emergency Visit: Yes ED Registration Date: 03/21/18 Care time: The patient presented to the Emergency Department on the above date and was hospitalized for further evaluation of their emergent condition. - New Patient This patient is new to me today: No - Critical Care Critical Care patient: No - Discharge Referral Referred to [facility] Med P.C.: No
[2018-04-02] MEDS: ROSUVASTATIN CA 10 MG TABLET (FP) PO SCH (21:54)
[2018-04-03] MEDS: ACETAMINOPHEN 325 MG TABLET (FP) PO PRN ×2 (01:11→16:25)
[2018-04-03] MEDS: oxyCODONE HCL 5 MG TABLET PO PRN ×3 (01:11→16:24)
[2018-04-03] MEDS ORDERED: PT OWN MED DRAWER 7, Y5N ONE ×3 (02:01→17:40)
[2018-04-03] MEDS: AMPICILLIN NA/SULBACTAM NA 3 GM in SODIUM CHLORIDE 100 ML IVPB SCH ×2 (02:07→09:41)
[2018-04-03] MEDS: INSULIN SLIDING SCALE (NOVOLOG) 1 VIAL SQ SCH ×3 (06:12→16:20)
[2018-04-03] MEDS: ALBUTEROL SO4 2.5/IPRATROPIUM 0.5 INH SOL 3 ML VIAL.NEB. NEB SCH ×2 (08:04→14:20)
[2018-04-03 08:29] LABS: HEMOGLOBIN 10.8 GM/dL (10.7-15.3); MCHC 31.7 g/dl (32.0-36.0); MEAN CELL VOLUME 78.9 fl (80-96); MEAN PLT VOLUME 8.2 fl (7.5-11.1); PLATELET COUNT 259 K/MM3 (134-434); RBC 4.31 M/mm3 (3.60-5.2); RDW 18.7 % (11.6-15.6); WHITE BLOOD COUNT 8.1 K/mm3 (4.0-10.0)
[2018-04-03 08:52] LABS: ANION GAP 10 MMOL/L (8-16); BLOOD UREA NITROGEN 12 mg/dL (7-18); CALCIUM 7.9 mg/dL (8.5-10.1); CHLORIDE 107 mmol/L (98-107); CO2 28 mmol/L (21-32); CREATININE 1.6 mg/dL (0.55-1.3); GLUCOSE,RANDOM 88 mg/dL (74-106); POTASSIUM 3.9 mmol/L (3.5-5.1); SODIUM 144 mmol/L (136-145)
[2018-04-03] MEDS: CARVEDILOL 12.5 MG TABLET (FP) PO SCH (09:31)
[2018-04-03] MEDS: oxyCODONE HCL 10 MG SUSTAINED ACTING TABLET PO SCH (09:31)
[2018-04-03] MEDS: AMOX TR/POT CLAV 875MG/125MG TABLETS (FP) PO SCH ×3 (09:31→17:35)
[2018-04-03] MEDS: amLODIPine BESYLATE 10 MG TABLET (FP) PO SCH (09:31)
[2018-04-03] MEDS: BUDESONIDE/FORMETEROL FUMARATE 160/4.5 mcg INHALER IH SCH (09:36)
[2018-04-03] MEDS: ESCITALOPRAM OXALATE 10 MG TABLET (FP) PO SCH (09:40)
[2018-04-03] MEDS: LISINOPRIL 5 MG TABLET (FP) PO SCH (09:40)
[2018-04-03] MEDS: FLUTICASONE PROP 0.05% 16 GM NASAL SPRAY NS SCH (09:41)
[2018-04-03] MEDS ORDERED: ACETAMINOPHEN 1000 MG/100 ML VIAL (NON FORMULARY) IVPB ONE (10:15)
--- NOTE | 2018-04-03 10:52 | PN ---
Progress Note (short form) - Note Progress Note: PULMONARY OOB TO CHAIR ABDOMINAL SYMPTOMS IMPROVED FEELS SOB VSS/AFEBRILE Gen: NAD at rest Heart: RRR Lung: decreased breath sounds at the bases/scattered wheeze bilateral Abd: soft, nontender Ext: no edema labs/meds/notes/images reviewed A/P Acute Colitis resolving Asthma Likely Obstructive Sleep Apnea r/o Pulmonary HTN HTN DM GERD h/o Uterine Ca Polycystic Kidney Disease - ABX per ID - inhaled bronchodilators - Symbicort - outpt PFTs, PSG - DVT prophylaxis - Consider oral prednisone tapering - D/C planning R QIANA LOVELL
--- NOTE | 2018-04-03 11:42 | PN ---
Progress Note, Physician History of Present Illness: no new issues - Current Medication List Current Medications: Active Medications Acetaminophen (Tylenol -) 650 mg PO Q6H PRN PRN Reason: PAIN LEVEL 1-5 Last Admin: 04/03/18 01:11 Dose: 650 mg Albuterol/Ipratropium (Duoneb -) 1 amp NEB RTID [facility] Last Admin: 04/03/18 08:04 Dose: 1 amp Amlodipine Besylate (Norvasc -) 10 mg PO DAILY [facility] Last Admin: 04/03/18 09:31 Dose: 10 mg Amoxicillin/Clavulanate Potassium (Augmentin - 875mg Tablet) 1 tab PO BID@0800, 1730 [facility] Last Admin: 04/03/18 09:31 Dose: 1 tab Budesonide/Formoterol Fumarate (Symbicort 160/4.5mcg -) 2 puff IH BID [facility] Last Admin: 04/03/18 09:36 Dose: 2 puff Carvedilol (Coreg -) 12.5 mg PO BID [facility] Last Admin: 04/03/18 09:31 Dose: 12.5 mg Escitalopram Oxalate (Lexapro -) 10 mg PO DAILY [facility] Last Admin: 04/03/18 09:40 Dose: 10 mg Fluticasone Propionate (Flonase -) 1 spray NS BID [facility] Last Admin: 04/03/18 09:41 Dose: 1 spray Sodium Chloride (1/2 Normal Saline) 1,000 mls @ 75 mls/hr IV ASDIR [facility] Last Admin: 04/02/18 11:02 Dose: Not Given Insulin Aspart (Novolog Vial Sliding Scale -) 1 vial SQ ACHS [facility]; Protocol Last Admin: 04/03/18 06:12 Dose: Not Given Lisinopril (Prinivil) 5 mg PO DAILY [facility] Last Admin: 04/03/18 09:40 Dose: 5 mg Oxycodone HCl (Oxycontin -) 10 mg PO BID [facility] Last Admin: 04/03/18 09:31 Dose: 10 mg Oxycodone HCl (Roxicodone -) 10 mg PO Q6H PRN PRN Reason: PAIN LEVEL 6-10 Last Admin: 04/03/18 06:11 Dose: 10 mg Promethazine HCl (Phenergan Injection -) 12.5 mg IVPB Q6H PRN PRN Reason: NAUSEA AND/OR VOMITING Rosuvastatin Calcium (Crestor -) 10 mg PO HS MARIA E Last Admin: 04/02/18 21:54 Dose: 10 mg - Objective Vital Signs: Vital Signs Temperature 97.6 F 04/03/18 06:00 Pulse Rate 81 04/03/18 06:00 Respiratory Rate 18 04/03/18 06:00 Blood Pressure 146/81 04/03/18 06:00 O2 Sat by Pulse Oximetry (%) 96 04/02/18 21:00 Constitutional: Yes: No Distress, Calm, Obese Cardiovascular: Yes: S1, S2 Respiratory: Yes: Regular, Wheezes, Other Gastrointestinal: Yes: Normal Bowel Sounds, Soft Musculoskeletal: Yes: Other Extremities: Yes: Other (swelling improving) Labs: CBC, BMP 04/03/18 07:00 04/03/18 07:00 INR, PTT INR 1.22 (0.83-1.09) H 03/24/18 06:20 Assessment/Plan Problem List - Problems (1) Abdominal pain Code(s): R10.9 - UNSPECIFIED ABDOMINAL PAIN Qualifiers: Abdominal location: unspecified location Qualified Code(s): R10.9 - Unspecified abdominal pain (2) Back pain Code(s): M54.9 - DORSALGIA, UNSPECIFIED (3) Colitis Code(s): K52.9 - NONINFECTIVE GASTROENTERITIS AND COLITIS, UNSPECIFIED (4) Diabetes mellitus type 2 in obese Code(s): E11.69 - TYPE 2 DIABETES MELLITUS WITH OTHER SPECIFIED COMPLICATION; E66.9 - OBESITY, UNSPECIFIED (5) HLD (hyperlipidemia) Code(s): E78.5 - HYPERLIPIDEMIA, UNSPECIFIED (6) Ischemic colitis Code(s): K55.9 - VASCULAR DISORDER OF INTESTINE, UNSPECIFIED (7) GERD (gastroesophageal reflux disease) Code(s): K21.9 - GASTRO-ESOPHAGEAL REFLUX DISEASE WITHOUT ESOPHAGITIS Qualifiers: Esophagitis presence: without esophagitis Qualified Code(s): K21.9 - Gastro -esophageal reflux disease without esophagitis (8) HTN (hypertension) Code(s): I10 - ESSENTIAL (PRIMARY) HYPERTENSION Qualifiers: Hypertension type: essential hypertension Qualified Code(s): I10 - Essential (primary) hypertension (9) Polycystic kidney disease Code(s): Q61.3 - POLYCYSTIC KIDNEY, UNSPECIFIED Assessment/Plan 67 y.o. female with multiple medical problems including chronic pain admitted for abdominal pain/n/v/d with leukocytosis now with Lt arm edema Ischemic Colitis Lt arm edema - possible cellulitis UTI Leukocytosis EMILIANO DM PKD Uterine CA s/p hysterectomy Depression Chronic Pain HTN HLD plan continue current mgmt still with swelling of the hand cellulitis has resolved continue oral abx
[2018-04-03] MEDS: SODIUM CHLORIDE 0.45% 1,000 ML IV SCH (12:20)
--- NOTE | 2018-04-03 13:56 | DS ---
Physical Exam: SUBJECTIVE: Patient seen and examined at bed side this morning. Complaining of chronic sob and chronic back pain, headache. Wanting stronger pain medication. No acute overnight events. OBJECTIVE: Vital Signs Period Temp Pulse Resp BP Sys/Avitia Pulse Ox Last 24 Hr 97.6 F-98.1 F 80-90 18-20 139-146/80-95 92-96 PHYSICAL EXAM GENERAL: Morbidly obese female, sitting in her bed, is awake, alert, and fully oriented, in no acute distress. HEAD: Normal with no signs of trauma. EYES: EOM intact, no pallor or icterus. ENT: Ears normal, moist mucous membranes. NECK: Supple, no JVD. LUNGS: Breath sounds decreased bilaterally, no wheezes, no crackles, no accessory muscle use. HEART: Regular rate and rhythm, S1, S2 without murmur. ABDOMEN: Soft, non tender, BS+, no organomegaly. UPPER EXTREMITIES: 2+ pulses, warm, well-perfused, left arm swollen. LOWER EXTREMITIES: Chronic venous stasis with stasis dermatitis, b/l pitting edema + improved NEUROLOGICAL: No facial droop. Normal speech, gait not observed. PSYCH: Normal mood, normal affect. SKIN: Warm, dry, normal turgor, thick skin with color change in the lower extremity (chronic) LABS Laboratory Results - last 24 hr 04/02/18 04/02/18 04/03/18 07:00 21:56 06:08 WBC RBC Hgb Hct MCV MCH MCHC RDW Plt Count MPV Sodium Potassium Chloride Carbon Dioxide Anion Gap BUN Creatinine Creat Clearance w eGFR POC Glucometer 100 96 Random Glucose Hemoglobin A1c % 6.9 H Calcium 04/03/18 04/03/18 07:00 07:00 WBC 8.1 RBC 4.31 Hgb 10.8 Hct 34.0 MCV 78.9 L MCH 25.0 L MCHC 31.7 L RDW 18.7 H Plt Count 259 MPV 8.2 Sodium 144 Potassium 3.9 Chloride 107 Carbon Dioxide 28 Anion Gap 10 BUN 12 Creatinine 1.6 H Creat Clearance w eGFR 32.25 POC Glucometer Random Glucose 88 Hemoglobin A1c % Calcium 7.9 L Microbiology 03/26/18 15:00 Urine - Urine Clean Catch Urine Culture - Final S Aureus 03/21/18 17:46 Urine - Urine - Catheterized Urine Culture - Final Serratia Marcescens Strep Agalactiae Group B Enterococcus Faecalis 03/22/18 01:08 Urine - Urine Clean Catch Urine Culture - Final HOSPITAL COURSE: Date of Admission:03/21/18 Date of Discharge: 04/03/18 Patient is a 67 year old female with significant past medical history of DM, HTN , HLD, GERD, Polycystic kidney, uterine CA s/p hysterectomy, ventral hernia repair, chronic back pain on percocet (QID) presented to the ED with abdominal pain x [address] abdomen/Pelvis was done which showed questionable ischemic colitis. Flex sigmoidoscopy was done on 03/24/18 which showed Suspected ischemic colitis. Patient was kept NPO, treated with IV antibiotics, diet was advanced after her abdominal pain resolved, she tolerated. There was no indication for surgery as per surgical eval. GI was on board. Antibiotics changed to IV Unasyn and now to PO Augmentin which should be continued for 4 more days. Patient has a h/o chronic back pain and complained of back pain. MRI of lumbar spine offered but refused. Offered anti anxiety meds before MRI but she refused. Pain management was consulted and put her on pain control regimen. Also complained of headache on/off. Head CT ordered to r/o acute pathology. Patient is refused. Left arm was swollen could be from thrombophelebitis. Duplex was done which was negative for DVT. Shortness of breath likely due to Asthma vs OHS. Pulmonary was consulted. Started on Nebulizations. Pre and post exercise oxygen saturation was done and she qualifies for home o2, is now set up by transition social worker. UTI Continue Augmentin x 4 more days. Dilated CBD 9mm likely from s/p cholecystecotomy. GI suggested MRCP if pain persists Questionable cirrhosis DM: A1c 6.9 Continued ISS, didn't require coverage. Hypertension-controlled Continued Lisinopril 5mg PO daily, coreg 12.5 mg PO BID , Amlodipine 10mg Daily Plan of care explained to the patient and her . They verbalized understanding. Patient is stable for discharge, sending her to short term rehab. Minutes to complete discharge: 45 Discharge Summary Reason For Visit: CONGENITAL POLYCYSTIC KIDNEY,GASTROINTESTINAL Current Active Problems Abdominal pain (Acute) Asthma (Acute) Back pain (Acute) Cellulitis of arm, left (Acute) Chronic pain (Acute) Colitis (Acute) Colitis, indeterminate (Acute) Diabetes mellitus type 2 in obese (Acute) Diffuse acute (reversible) ischemia of large intestine (Acute) GI bleed (Acute) Generalized abdominal pain (Acute) HLD (hyperlipidemia) (Acute) Ischemic colitis (Acute) LLQ pain (Acute) Muscle spasm (Acute) Nausea & vomiting (Acute) Obstructive sleep apnea (Acute) Rectal pain (Acute) Condition: Improved - Instructions Diet, Activity, Other Instructions: You were admitted for evaluation of abdominal pain and was found to have ischemic colitis which was treated with IV antibiotics. Please follow the instructions below 1. Continue PO Augmentin 500 mg BID x 4 more days 2. It is very important you f/up with PCP and Reliner, hand stamper within 2 weeks. 3. For chronic back pain, we recommend you to see learning operations specialist as soon as possible and discuss various other options for pain control 4. Life style modifications 5. As compared to previous blood work, your A1c has increased and now is 6.9. Please follow Diabetic diet and visit your PCP for medications. 6. You will also require to use Oxygen at home which as been set up. 7. Recommend you to do a sleep study as outpatient. We are sending you to a short term rehab. If your symptoms worsen or you develop any other symptoms, please come to the ED immediately. Referrals: Alfie Ernandez MD [Staff Physician] - Oscar Pop DO [Staff Physician] - Awais Ren MD [Staff Physician] - Disposition: [facility] - Home Medications Comprehensive Discharge Medication List: Ambulatory Orders Amlodipine Besylate 10 mg PO DAILY 03/21/18 Escitalopram Oxalate [Lexapro -] 10 mg PO DAILY 03/21/18 Lisinopril 5 mg PO DAILY 03/21/18 Rosuvastatin Calcium 10 mg PO DAILY 03/21/18 Acetaminophen [Tylenol .Regular Strength -] 650 mg PO Q6H PRN tablet 04/03/18 Albuterol 0.083% Nebulizer Kassie [Ventolin 0.083% Nebulizer Soln -] 1 amp NEB Q6H PRN amp 04/03/18 Albuterol 2.5/Ipratropium 0.5 [Duoneb -] 1 amp NEB RTID amp 04/03/18 Amox-Tr/K Cl [Augmentin 875-125mg Tablet -] 1 tab PO BID@0800,1730 4 Days #8 tablet 04/03/18 Budesonide/Formeterol Fumarate [SYMBICORT 160/4.5mcg -] 2 puff IH BID inhaler 04/03/18 Carvedilol [Coreg -] 12.5 mg PO BID tablet 04/03/18 Fluticasone Prop 0.05% Nasal [Flonase -] 1 spray NS BID spray 04/03/18 oxyCODONE HCL [Roxicodone -] 10 mg PO Q6H PRN #60 tablet MDD 4 04/03/18 oxyCODONE SR [Oxycontin] 10 mg PO BID #60 tab.er.12h MDD 2 04/03/18 Problem List - Problems (1) Asthma Code(s): J45.909 - UNSPECIFIED ASTHMA, UNCOMPLICATED (2) Chronic pain Code(s): G89.29 - OTHER CHRONIC PAIN Qualifiers: Chronic pain type: other chronic pain Qualified Code(s): G89.29 - Other chronic pain (3) Diabetes mellitus type 2 in obese Code(s): E11.69 - TYPE 2 DIABETES MELLITUS WITH OTHER SPECIFIED COMPLICATION; E66.9 - OBESITY, UNSPECIFIED (4) GI bleed Code(s): K92.2 - GASTROINTESTINAL HEMORRHAGE, UNSPECIFIED Qualifiers: GI bleed type/associated pathology: unspecified gastrointestinal hemorrhage type Qualified Code(s): K92.2 - Gastrointestinal hemorrhage, unspecified (5) HLD (hyperlipidemia) Code(s): E78.5 - HYPERLIPIDEMIA, UNSPECIFIED (6) Obstructive sleep apnea Code(s): G47.33 - OBSTRUCTIVE SLEEP APNEA (ADULT) (PEDIATRIC) This patient is new to me today: No Emergency Visit: Yes ED Registration Date: 03/21/18 Care time: The patient presented to the Emergency Department on the above date and was hospitalized for further evaluation of their emergent condition. Critical Care patient: No - Discharge Referral Referred to [facility] Med P.C.: No
[2018-04-03 15:07] VITALS: BP 128/76; PULSE 84; TEMP 98
--- NOTE | 2018-04-03 17:29 | PN ---
Teaching Attending Note Name of Resident: Bee Nugent ATTENDING PHYSICIAN STATEMENT I saw and evaluated the patient. I reviewed the resident's note and discussed the case with the resident. I agree with the resident's findings and plan as documented. SUBJECTIVE: Mrs Monae complains of diffuse pain, unchanged from prior and chronic OBJECTIVE: Last Vital Signs Temp Pulse Resp BP Pulse Ox 36.6 C 84 18 128/76 96 04/03/18 15:05 04/03/18 15:05 04/03/18 15:05 04/03/18 15:05 04/03/18 09:00 Gen: nad Pulm: ctab CV: rrr Abd: +bs, s/nt/nd Ext: no c/c/e Please refer to 04/02 note and resident discharge summary for full hospital course. Held overnight secondary to placement at SNF. Placement arranged, safe for discharge today. Problem List - Problems (1) Colitis Code(s): K52.9 - NONINFECTIVE GASTROENTERITIS AND COLITIS, UNSPECIFIED (2) GI bleed Code(s): K92.2 - GASTROINTESTINAL HEMORRHAGE, UNSPECIFIED Qualifiers: GI bleed type/associated pathology: unspecified gastrointestinal hemorrhage type Qualified Code(s): K92.2 - Gastrointestinal hemorrhage, unspecified (3) HTN (hypertension) Code(s): I10 - ESSENTIAL (PRIMARY) HYPERTENSION Qualifiers: Hypertension type: essential hypertension Qualified Code(s): I10 - Essential (primary) hypertension (4) Migraine aura, persistent, intractable Code(s): G43.519 - PERST MIGRAINE AURA W/O CEREBRAL INFRC, NTRCT, W/O STAT MIGR (5) Polycystic kidney disease Code(s): Q61.3 - POLYCYSTIC KIDNEY, UNSPECIFIED (6) HLD (hyperlipidemia) Code(s): E78.5 - HYPERLIPIDEMIA, UNSPECIFIED (7) Chronic pain Code(s): G89.29 - OTHER CHRONIC PAIN Qualifiers: Chronic pain type: other chronic pain Qualified Code(s): G89.29 - Other chronic pain (8) Cellulitis of arm, left Code(s): L03.114 - CELLULITIS OF LEFT UPPER LIMB
== END 2018-04-03 19:12 | DRG 394 ==
LOC: JER 16:40 → JERBED 22:46 → J8W 03-22 00:46
PROVIDERS: ADMIT Internal Medicine; ATTEND Internal Medicine
PROC: 0DBN8ZX Excision of Sigmoid Colon, Via Natural or Artificial Opening Endoscopic, Diagnostic (ICD-10-PCS; principal; 2018-03-24 11:15)
DX: K55.9 Vascular disorder of intestine, unspecified (principal); J98.11 Atelectasis; K92.2 Gastrointestinal hemorrhage, unspecified; N39.0 Urinary tract infection, site not specified; N17.9 Acute kidney failure, unspecified; L03.114 Cellulitis of left upper limb; E78.5 Hyperlipidemia, unspecified; K21.9 Gastro-esophageal reflux disease without esophagitis; K29.70 Gastritis, unspecified, without bleeding; E28.2 Polycystic ovarian syndrome; K42.9 Umbilical hernia without obstruction or gangrene; N28.1 Cyst of kidney, acquired; D18.09 Hemangioma of other sites; K74.60 Unspecified cirrhosis of liver; I27.20 Pulmonary hypertension, unspecified; G47.33 Obstructive sleep apnea (adult) (pediatric); K43.9 Ventral hernia without obstruction or gangrene; I12.9 Hypertensive chronic kidney disease with stage 1 through stage 4 chronic kidney disease, or unspecified chronic kidney disease; E11.22 Type 2 diabetes mellitus with diabetic chronic kidney disease; E11.42 Type 2 diabetes mellitus with diabetic polyneuropathy; N18.3 Chronic kidney disease, stage 3 (moderate); J45.909 Unspecified asthma, uncomplicated; R10.32 Left lower quadrant pain; D72.829 Elevated white blood cell count, unspecified; E66.9 Obesity, unspecified; Z68.39 Body mass index [BMI] 39.0-39.9, adult; F32.9 Major depressive disorder, single episode, unspecified; E83.42 Hypomagnesemia; M54.5 Low back pain; E87.6 Hypokalemia; K52.9 Noninfective gastroenteritis and colitis, unspecified; G43.519 Persistent migraine aura without cerebral infarction, intractable, without status migrainosus; G89.29 Other chronic pain; Z86.718 Personal history of other venous thrombosis and embolism; Z85.42 Personal history of malignant neoplasm of other parts of uterus; Z87.442 Personal history of urinary calculi
CPT/HCPCS: 36415; 71045-TC-FY; 74176-TC; 76775-TC; 80048; 80053; 80074; 80076; 81003; 81015; 82272; 82728; 82962; 83036; 83540; 83550; 83605; 83690; 83735; 83880; 84100; 84466; 85025; 85027; 85610; 85651; 86038; 86140; 86376; 86850; 86900; 86901; 87086; 87186; 87804; 88305-TC; 93005; 93010; 93306-TC; 93971; 94640; 94761; 97116-GP; 97161-GP; 99285-25; J0131; J1644; J7030

== ENCOUNTER 2018-06-30 18:33 | Observation (INO) | payer OTHER, MEDICARE ==
[2018-06-30 18:49] VITALS: BMI 32.9
[2018-06-30] MEDS ORDERED: ASPIRIN 81 MG CHEWABLE TABLETS PO ONE (19:41)
--- NOTE | 2018-06-30 19:44 | PDOC ---
History of Present Illness - General Chief Complaint: Chest Pain Stated Complaint: BACK PAIN/NAUSEA Time Seen by Provider: 06/30/18 19:38 - History of Present Illness Initial Comments: 06/30/18 19:42 68-year-old female with multiple comorbidities and cardiac history presents for evaluation of chest pain and upper back pain 5 days with dizziness chills at night and shortness of breath Past History - Past Medical History Allergies/Adverse Reactions: Allergies Allergy/AdvReac Type Severity Reaction Status Date / Time No Known Drug Allergies Allergy Verified 06/30/18 18:45 Home Medications: Ambulatory Orders Amlodipine Besylate 10 mg PO DAILY 03/21/18 Escitalopram Oxalate [Lexapro -] 10 mg PO DAILY 03/21/18 Lisinopril 5 mg PO DAILY 03/21/18 Rosuvastatin Calcium 10 mg PO DAILY 03/21/18 Acetaminophen [Tylenol .Regular Strength -] 650 mg PO Q6H PRN tablet 04/03/18 Albuterol 0.083% Nebulizer Kassie [Ventolin 0.083% Nebulizer Soln -] 1 amp NEB Q6H PRN amp 04/03/18 Albuterol 2.5/Ipratropium 0.5 [Duoneb -] 1 amp NEB RTID amp 04/03/18 Amox-Tr/K Cl [Augmentin 875-125mg Tablet -] 1 tab PO BID@0800,1730 4 Days #8 tablet 04/03/18 Budesonide/Formeterol Fumarate [SYMBICORT 160/4.5mcg -] 2 puff IH BID inhaler 04/03/18 Carvedilol [Coreg -] 12.5 mg PO BID tablet 04/03/18 Fluticasone Prop 0.05% Nasal [Flonase -] 1 spray NS BID spray 04/03/18 oxyCODONE HCL [Roxicodone -] 10 mg PO Q6H PRN #60 tablet MDD 4 04/03/18 oxyCODONE SR [Oxycontin] 10 mg PO BID #60 tab.er.12h MDD 2 04/03/18 Anemia: No Asthma: Yes Cancer: Yes (OVARIAN) COPD: No DVT: Yes (BOTH LEGS) Diabetes: Yes GI Disorders: Yes (REFLUX) HTN: Yes Hypercholesterolemia: Yes Kidney Stones: Yes - Surgical History Abdominal Surgery: Yes (UMBILICAL HERNIA) Cholecystectomy: Yes - Immunization History Immunization Up to Date: Yes - Suicide/Smoking/Psychosocial Hx Smoking Status: No Smoking History: Never smoked Have you smoked in the past 12 months: No Number of Cigarettes Smoked Daily: 0 Information on smoking cessation initiated: No Hx Alcohol Use: No Drug/Substance Use Hx: No Substance Use Type: None Hx Substance Use Treatment: No Review of Systems - Review of Systems Constitutional: Yes: Chills, Malaise, Night Sweats Cardiac (ROS): Yes: Chest Pain Musculoskeletal: Yes: Back Pain Neurological: Yes: Weakness, Unsteady Gait, Dizziness *Physical Exam - Vital Signs Last Vital Signs Temp Pulse Resp BP Pulse Ox 97.4 F L 89 22 H 136/86 99 06/30/18 18:45 06/30/18 18:45 06/30/18 18:45 06/30/18 18:45 06/30/18 18:45 - Physical Exam Comments: 06/30/18 19:43 HEAD: NC/AT EYES: Conjuntiva clear Ears: Canals and TM's normal NOSE: No d/c THROAT: Moist mucous membrances, oral pharanx clear, uvula midline NECK: Supple without adenopathy CARDIAC: S1 S2 LUNGS: CTA Full and Equal breath sounds ABDOMEN: Soft NT ND MS: Full ROM in all joints without edema NEUROLOGIC: No gross sensory or motor deficits, NVID SKIN: Normal color and temperature no lesions or rashes ED Treatment Course - RADIOLOGY Radiology Studies Ordered: Category Date Time Status CHEST PA & LAT [RAD] Stat Radiology 06/30/18 19:42 Ordered Medical Decision Making - Medical Decision Making 06/30/18 19:43 I've ordered cardiac workup and Motrin for this patient to the main emergency room. *DC/Admit/Observation/Transfer Diagnosis at time of Disposition: Back pain - Referrals - Patient Instructions - Post Discharge Activity
[2018-06-30] MEDS ORDERED: ASPIRIN 81 MG CHEWABLE TABLETS ONE (19:48)
[2018-06-30 20:43] LABS: BASO % 0.3 % (0-2.0); EOS % 0.3 % (0-4.5); HEMATOCRIT 39.4 % (32.4-45.2); HEMOGLOBIN 13.2 GM/dL (10.7-15.3); LYMPH % 20.6 % (8-40); MCH 27.6 pg (25.7-33.7); MCHC 33.4 g/dl (32.0-36.0); MEAN CELL VOLUME 82.8 fl (80-96); MEAN PLT VOLUME 8.8 fl (7.5-11.1); MONO % 5.9 % (3.8-10.2); NEUT % 72.9 % (42.8-82.8); PLATELET COUNT 333 K/MM3 (134-434); RBC 4.76 M/mm3 (3.60-5.2)
[2018-06-30 21:01] LABS: INR 0.99 (0.83-1.09); PROTHROMBIN TIME (PATIENT) 11.7 SEC (9.7-13.0)
[2018-06-30 21:03] LABS: ACTIVATED PTT 33.7 SECONDS (25.2-36.5)
[2018-06-30 21:10] LABS: ALBUMIN 3.3 g/dl (3.4-5.0); ALK PHOS 366 U/L (45-117); ANION GAP 12 MMOL/L (8-16); BILIRUBIN,TOTAL 0.2 mg/dL (0.2-1); BLOOD UREA NITROGEN 20 mg/dL (7-18); CALCIUM 8.9 mg/dL (8.5-10.1); CHLORIDE 108 mmol/L (98-107); CO2 18 mmol/L (21-32); CREATININE 1.7 mg/dL (0.55-1.3); GLUCOSE,RANDOM 107 mg/dL (74-106); MAGNESIUM 1.4 mg/dL (1.8-2.4); N-TERMINAL BNP 234.2 pg/ml (5-125); POTASSIUM 4.8 mmol/L (3.5-5.1); SGOT/AST 50 U/L (15-37); SGPT/ALT 42 U/L (13-61); SODIUM 138 mmol/L (136-145); TOT PROT 7.3 g/dl (6.4-8.2)
--- NOTE | 2018-06-30 23:40 | PDOC ---
History of Present Illness - General History Source: Patient Exam Limitations: No Limitations <Roshan Maldonadonatalie - Last Filed: 07/01/18 00:13> <Rajni Neal - Last Filed: 07/01/18 01:53> - General Chief Complaint: Chest Pain Stated Complaint: BACK PAIN/NAUSEA Time Seen by Provider: 06/30/18 19:38 - History of Present Illness Initial Comments: 07/01/18 00:13 The patient is a 68 year old female with a past medical history of ovarian cancer, diabetes, polycystic kidney disease, total hysterectomy, and cholecystectomy who presents to the emergency department for evaluation of generalized pain with nausea and vomiting. Patient reports moderate epigastric pain radiating bilaterally to flanks since Friday. She reports associated symptoms of mild chest pain, chills, and nausea with a few episodes of non bloody vomiting all which have occurred since Friday. Patient endorses chronic upper back pain. The patient denies shortness of breath, headache, and dizziness. Denies fevers, diarrhea, constipation, dysuria, hematuria, and urinary urgency/frequency. Allergies: No known drug allergies Social History: No reported alcohol, cigarette, or drug use. (Mark Maldonado) Past History <Johnyjosé antonioMark - Last Filed: 07/01/18 00:13> - Past Medical History Anemia: No Asthma: Yes Cancer: Yes (OVARIAN) COPD: No DVT: Yes (BOTH LEGS) Diabetes: Yes GI Disorders: Yes (REFLUX) HTN: Yes Hypercholesterolemia: Yes Kidney Stones: Yes - Surgical History Abdominal Surgery: Yes (UMBILICAL HERNIA) Cholecystectomy: Yes - Immunization History Immunization Up to Date: Yes - Suicide/Smoking/Psychosocial Hx Smoking Status: No Smoking History: Never smoked Have you smoked in the past 12 months: No Number of Cigarettes Smoked Daily: 0 Information on smoking cessation initiated: No Hx Alcohol Use: No Drug/Substance Use Hx: No Substance Use Type: None Hx Substance Use Treatment: No <Rajni Neal - Last Filed: 07/01/18 01:53> - Past Medical History Allergies/Adverse Reactions: Allergies Allergy/AdvReac Type Severity Reaction Status Date / Time No Known Drug Allergies Allergy Verified 06/30/18 18:45 Home Medications: Ambulatory Orders Amlodipine Besylate 10 mg PO DAILY 03/21/18 Escitalopram Oxalate [Lexapro -] 10 mg PO DAILY 03/21/18 Lisinopril 5 mg PO DAILY 03/21/18 Rosuvastatin Calcium 10 mg PO DAILY 03/21/18 Acetaminophen [Tylenol .Regular Strength -] 650 mg PO Q6H PRN tablet 04/03/18 Albuterol 0.083% Nebulizer Kassie [Ventolin 0.083% Nebulizer Soln -] 1 amp NEB Q6H PRN amp 04/03/18 Albuterol 2.5/Ipratropium 0.5 [Duoneb -] 1 amp NEB RTID amp 04/03/18 Amox-Tr/K Cl [Augmentin 875-125mg Tablet -] 1 tab PO BID@0800,1730 4 Days #8 tablet 04/03/18 Budesonide/Formeterol Fumarate [SYMBICORT 160/4.5mcg -] 2 puff IH BID inhaler 04/03/18 Carvedilol [Coreg -] 12.5 mg PO BID tablet 04/03/18 Fluticasone Prop 0.05% Nasal [Flonase -] 1 spray NS BID spray 04/03/18 oxyCODONE HCL [Roxicodone -] 10 mg PO Q6H PRN #60 tablet MDD 4 04/03/18 oxyCODONE SR [Oxycontin] 10 mg PO BID #60 tab.er.12h MDD 2 04/03/18 Review of Systems - Review of Systems Able to Perform ROS?: Yes <Mark Maldonado - Last Filed: 07/01/18 00:13> <Rajni Neal - Last Filed: 07/01/18 01:53> - Review of Systems Comments:: 07/01/18 00:13 CONSTITUTIONAL: (+)Chills. Absent: fever, diaphoresis, generalized weakness, malaise, loss of appetite HEENT: Absent: rhinorrhea, nasal congestion, throat pain, throat swelling, difficulty swallowing, mouth swelling, ear pain, eye pain, visual Changes CARDIOVASCULAR: (+)Chest pain. Absent: syncope, palpitations, irregular heart rate, lightheadedness, peripheral edema RESPIRATORY: Absent: cough, shortness of breath, dyspnea with exertion, orthopnea, wheezing, stridor, hemoptysis GASTROINTESTINAL: (+)epigastric pain. (+)Nausea. (+)Vomiting. Absent: abdominal distension, diarrhea, constipation, melena, hematochezia GENITOURINARY: Absent: dysuria, frequency, urgency, hesitancy, hematuria, flank pain, genital pain MUSCULOSKELETAL: (+)back pain. Absent: myalgia, arthralgia, joint swelling SKIN: Absent: rash, itching, pallor HEMATOLOGIC/IMMUNOLOGIC: Absent: easy bleeding, easy bruising, lymphadenopathy, frequent infections ENDOCRINE: Absent: unexplained weight gain, unexplained weight loss, heat intolerance, cold intolerance NEUROLOGIC: Absent: headache, focal weakness or paresthesias, dizziness, unsteady gait, seizure, mental status changes, bladder or bowel incontinence PSYCHIATRIC: Absent: anxiety, depression, suicidal or homicidal ideation, hallucinations. (Mark Maldonado) *Physical Exam <Mark Maldonado - Last Filed: 07/01/18 00:13> <Rajni Neal - Last Filed: 07/01/18 01:53> - Vital Signs Last Vital Signs Temp Pulse Resp BP Pulse Ox 97.4 F L 89 22 H 136/86 99 06/30/18 18:45 06/30/18 18:45 06/30/18 18:45 06/30/18 18:45 06/30/18 18:45 - Physical Exam Comments: 07/01/18 00:14 GENERAL: Well developed, well nourished. Awake and alert. No acute distress. HEENT: Normocephalic, atraumatic. PERRLA, EOMI. No conjunctival pallor. Sclera are non- icteric. Moist mucous membranes. Oropharynx is clear. NECK: Supple. Full ROM. No JVD. Carotid pulses 2+ and symmetric, without bruits. No thyromegaly. No lymphadenopathy. CARDIOVASCULAR: Regular rate and rhythm. No murmurs, rubs, or gallops. Distal pulses are 2+ and symmetric. PULMONARY: No evidence of respiratory distress. Lungs clear to auscultation bilaterally. No wheezing, rales or rhonchi. ABDOMINAL: Soft. Non-tender. Non-distended. No rebound or guarding. No organomegaly. Normoactive bowel sounds. MUSCULOSKELETAL Normal range of motion at all joints. No bony deformities or tenderness. No CVA tenderness. EXTREMITIES: No cyanosis. No clubbing. No edema. No calf tenderness. SKIN: Warm and dry. Normal capillary refill. No rashes. No jaundice. NEUROLOGICAL: Alert, awake, appropriate. Cranial nerves 2-12 intact. No deficits to light touch and temperature in face, upper extremities and lower extremities. No motor deficits in the in face, upper extremities and lower extremities. Normoreflexic in the upper and lower extremities. Normal speech. Toes are down- going bilaterally. Gait is normal without ataxia. PSYCHIATRIC: Cooperative. Good eye contact. Appropriate mood and affect. (Mark Maldonado) ED Treatment Course - LABORATORY CBC & Chemistry Diagram: 06/30/18 19:51 06/30/18 19:51 <Mark Maldonado - Last Filed: 07/01/18 00:13> - LABORATORY CBC & Chemistry Diagram: 06/30/18 19:51 06/30/18 19:51 <Rajni Neal - Last Filed: 07/01/18 01:53> - ADDITIONAL ORDERS Additional order review: Laboratory Results 06/30/18 06/30/18 06/30/18 20:26 19:51 19:51 PT with INR 11.70 INR 0.99 PTT (Actin FS) 33.7 D-Dimer 650 H Sodium 138 Potassium 4.8 Chloride 108 H Carbon Dioxide 18 L Anion Gap 12 BUN 20 H Creatinine 1.7 H Creat Clearance w eGFR 30.07 Random Glucose 107 H Calcium 8.9 Magnesium 1.4 L Total Bilirubin 0.2 AST 50 H ALT 42 Alkaline Phosphatase 366 H Creatine Kinase 27 Troponin I < 0.02 B-Natriuretic Peptide 234.2 H Total Protein 7.3 Albumin 3.3 L 06/30/18 19:51 RBC 4.76 MCV 82.8 MCHC 33.4 RDW 18.0 H MPV 8.8 Neutrophils % 72.9 Lymphocytes % 20.6 D Monocytes % 5.9 Eosinophils % 0.3 Basophils % 0.3 - Medications Given in the ED: ED Medications Discontinued Medications Generic Name Dose Route Start Last Admin Trade Name Freq PRN Reason Stop Dose Admin Acetaminophen 1,000 mg 06/30/18 23:42 07/01/18 00:19 Ofirmev Injection - IVPB 06/30/18 23:43 1,000 mg ONCE ONE Administration Aspirin 162 mg 06/30/18 19:41 06/30/18 19:51 Asa - PO 06/30/18 19:42 162 mg ONCE ONE Administration Magnesium Sulfate 1 gm 06/30/18 23:43 07/01/18 00:46 Magnesium Sulfate IVPB 06/30/18 23:44 1 gm ONCE ONE Administration Ondansetron HCl 4 mg 07/01/18 00:46 07/01/18 00:47 Zofran Injection IVPUSH 07/01/18 00:47 4 mg NOW ONE Administration *DC/Admit/Observation/Transfer <Mark Maldonado - Last Filed: 07/01/18 00:13> - Discharge Dispostion Decision to Admit order: Yes <Rajni Neal - Last Filed: 07/01/18 01:53> Diagnosis at time of Disposition: Polycystic kidney disease Back pain Qualifiers: Back pain location: thoracic back pain Chronicity: chronic Back pain laterality : bilateral Qualified Code(s): M54.6 - Pain in thoracic spine; G89.29 - Other chronic pain Nausea & vomiting Qualifiers: Vomiting type: unspecified Vomiting Intractability: non-intractable Qualified Code(s): R11.2 - Nausea with vomiting, unspecified Chronic pain Qualifiers: Chronic pain type: other chronic pain Qualified Code(s): G89.29 - Other chronic pain Chest pain Qualifiers: Chest pain type: precordial pain Qualified Code(s): R07.2 - Precordial pain - Attestations Scribe Attestion: 07/01/18 00:14 Documentation prepared by Mark Maldonado, acting as medical technologist microbiology for Rajni Neal MD. (Mark Maldonado)
[2018-06-30] MEDS ORDERED: ACETAMINOPHEN 1000 MG/100 ML VIAL (NON FORMULARY) IVPB ONE (23:42)
[2018-06-30] MEDS ORDERED: MAGNESIUM SULF 50% (8.12 MEQ/2 ML-1 GM VIAL) IVPB ONE (23:43)
[2018-06-30] MEDS ORDERED: ACETAMINOPHEN INJECTION 100 ML IVPB ONE (23:54)
[2018-07-01] MEDS ORDERED: MAGNESIUM SULF 50% (8.12 MEQ/2 ML-1 GM VIAL) ONE (00:37)
[2018-07-01] MEDS ORDERED: ONDANSETRON 4 MG/2 ML VIAL ONE (00:37)
[2018-07-01] MEDS ORDERED: ONDANSETRON 4 MG/2 ML VIAL IVPUSH ONE (00:46)
--- NOTE | 2018-07-01 01:45 | PN ---
Teaching Attending Note ATTENDING PHYSICIAN STATEMENT I saw and evaluated the patient. I reviewed the resident's note and discussed the case with the resident. I agree with the resident's findings and plan as documented. SUBJECTIVE: OBJECTIVE: ASSESSMENT AND PLAN:
--- NOTE | 2018-07-01 02:02 | HP ---
CHIEF COMPLAINT: Generalized pain chest abdomen and pelvic PCP: Dr Ortega at [facility] HISTORY OF PRESENT ILLNESS: The patient is a 68 year old female with a past medical history of DM, HTN, GERD ,uterine cancer, diabetes, polycystic kidney disease, total hysterectomy, and cholecystectomy, who presents to the emergency department for evaluation of generalized pain with nausea and vomiting. Patient reports moderate epigastric pain radiating bilaterally to flanks since Friday. She reports associated symptoms of mild chest pain, chills, and nausea with a few episodes of non bloody vomiting x3 yesterday , all which have occurred since Friday. Patient endorses chronic upper back pain. worsen since Friday. The patient denies shortness of breath, headache, and dizziness. Denies fevers, diarrhea, constipation, dysuria, hematuria, and urinary urgency/frequency. ER course was notable for: (1) cbc, cmp (2)Trop negative (3)EKG No St , T wave changes Recent Travel: denies PAST MEDICAL HISTORY: DM, HTN, GERD, polycystic kidney disease, uterine CA s/p hysterectomy, and asthma PAST SURGICAL HISTORY: hysterectomy (), cholecystectomy Social History: Smoking:denies Alcohol:socially Drugs: denies Family History: Allergies No Known Drug Allergies Allergy (Verified 06/30/18 18:45) HOME MEDICATIONS: Home Medications Medication Instructions Recorded Amlodipine Besylate 10 mg PO DAILY 03/21/18 Escitalopram Oxalate [Lexapro -] 10 mg PO DAILY 03/21/18 Lisinopril 5 mg PO DAILY 03/21/18 Rosuvastatin Calcium 10 mg PO DAILY 03/21/18 Acetaminophen [Tylenol .Regular 650 mg PO Q6H PRN tablet 04/03/18 Strength -] Albuterol 0.083% Nebulizer Kassie 1 amp NEB Q6H PRN amp 04/03/18 [Ventolin 0.083% Nebulizer Soln -] Albuterol 2.5/Ipratropium 0.5 1 amp NEB RTID amp 04/03/18 [Duoneb -] Amox-Tr/K Cl [Augmentin 875-125mg 1 tab PO BID@0800,1730 4 Days #8 04/03/18 Tablet -] tablet Budesonide/Formeterol Fumarate 2 puff IH BID inhaler 04/03/18 [SYMBICORT 160/4.5mcg -] Carvedilol [Coreg -] 12.5 mg PO BID tablet 04/03/18 Fluticasone Prop 0.05% Nasal 1 spray NS BID spray 04/03/18 [Flonase -] oxyCODONE HCL [Roxicodone -] 10 mg PO Q6H PRN #60 tablet MDD 4 04/03/18 oxyCODONE SR [Oxycontin] 10 mg PO BID #60 tab.er.12h MDD 2 04/03/18 REVIEW OF SYSTEMS: N/V/generalized pain back, chest and abdomen PHYSICAL EXAMINATION Vital Signs - 24 hr 06/30/18 18:45 Temperature 97.4 F L Pulse Rate 89 Respiratory 22 H Rate Blood Pressure 136/86 O2 Sat by Pulse 99 Oximetry (%) GENERAL: AAOx3 in NAD HEAD: NC/AT EYES: EOMI, Conjunctiva clear, sclera anicteric ENT: moist mucous membrane NECK: Supple, no JVD LUNGS: CTA B/L, no crackles no wheezing no accessory muscle use. HEART: RRR, NSR, normal s1, s2, murmur no M/R/G ABDOMEN: Soft, diffuse tenderness R>L , ND, +BS 4 Q, no CVA Tenderness LOWER EXTREMITIES: no edema, +2DP pulse,PVD changes with B/L scaling , NEUROLOGICAL: No focal deficit. Normal speech. gait not observed. PSYCHIATRIC: Cooperative. SKIN: Warm, dry, Laboratory Results - last 24 hr 06/30/18 06/30/18 06/30/18 19:51 19:51 19:51 WBC 8.0 RBC 4.76 Hgb 13.2 Hct 39.4 D MCV 82.8 MCH 27.6 D MCHC 33.4 RDW 18.0 H Plt Count 333 D MPV 8.8 Absolute Neuts (auto) 5.8 Neutrophils % 72.9 Lymphocytes % 20.6 D Monocytes % 5.9 Eosinophils % 0.3 Basophils % 0.3 Nucleated RBC % 0 PT with INR 11.70 INR 0.99 PTT (Actin FS) 33.7 D-Dimer Sodium 138 Potassium 4.8 Chloride 108 H Carbon Dioxide 18 L Anion Gap 12 BUN 20 H Creatinine 1.7 H Creat Clearance w eGFR 30.07 Random Glucose 107 H Calcium 8.9 Magnesium 1.4 L Total Bilirubin 0.2 AST 50 H ALT 42 Alkaline Phosphatase 366 H Creatine Kinase 27 Troponin I < 0.02 B-Natriuretic Peptide 234.2 H Total Protein 7.3 Albumin 3.3 L 06/30/18 20:26 WBC RBC Hgb Hct MCV MCH MCHC RDW Plt Count MPV Absolute Neuts (auto) Neutrophils % Lymphocytes % Monocytes % Eosinophils % Basophils % Nucleated RBC % PT with INR INR PTT (Actin FS) D-Dimer 650 H Sodium Potassium Chloride Carbon Dioxide Anion Gap BUN Creatinine Creat Clearance w eGFR Random Glucose Calcium Magnesium Total Bilirubin AST ALT Alkaline Phosphatase Creatine Kinase Troponin I B-Natriuretic Peptide Total Protein Albumin CBC, BMP 06/30/18 19:51 06/30/18 19:51 ASSESSMENT/PLAN: Patient is a 67 y/o female with a history of DM, HTN, GERD, polycystic kidney disease, uterine CA s/p hysterectomy, and asthma who presents to ED due to generalized pain and chest pain admitted to obs tele to [facility] #chest pain [facility] # CRISTEL * trend trop * EKG with no St , t wave changes , repeat with trop * pain is substernal , local , non radiating, happen on rest and exertion * ASA 162 in ED , cont ASA 81 daily * D Dimer was elevated , consider V/Q scan in AM , as we can not do CTA due to EMILIANO and PCKD * Tylenol for pain * Echo in March with normal EF # Abdominal pain likley gastritis vs PCKD vs GERD * Nausea and vomiting x 3 yesterday green color , low grade fever * Zofran 4 mg IV push q 4hr(QTC 466) * IV fluids NS @ 83 CC/hr * diabetic diet * PPI 20 po daily # Back pain chronic B/L worsening last week , continuous since last * IV tylenol * history of bench nerve per pt # EMILIANO on CKD due to PCKD # Poly cystic kidney disease * BUN/CR 20/1.7 , last visit Cr 1.3 in March * IV fluids * repeat lab after hydration * follow up with DR seo oyster buyer out pt at [facility] # Hypomagnesemia * replinished repeat in AM #asthma not on exacerbation # CRISTEL * Duoneb , albuterol * cont Symbicort # DM * Hod #HLD * continue rosuvastatin #HTN * continue carvedilol, amlodipine, lisinopril #depression * cont escitalopram # H/O uterine cancer S/P total hysterectomy * F.u out pt # FEN * F: NS @ 83 CC/hr * E: monitor * diabetic diet # Proph * DVTS: SCDS , Lovenox 40 SQ daily * GI: PPI 20 daily PO * PT # Dispo * monitor in Tele obs # full code Visit type - Emergency Visit Emergency Visit: Yes ED Registration Date: 07/01/18 Care time: The patient presented to the Emergency Department on the above date and was hospitalized for further evaluation of their emergent condition. - New Patient This patient is new to me today: Yes Date on this admission: 07/01/18 - Critical Care Critical Care patient: No
[2018-07-01] MEDS ORDERED: ONDANSETRON 4 MG/2 ML VIAL IVPUSH PRN (02:39)
[2018-07-01] MEDS ORDERED: SODIUM CHLORIDE 1,000 ML IV SCH (02:45)
[2018-07-01] MEDS ORDERED: ALBUTEROL SO4 0.083% IH SOL 2.5 MG/3 ML VIAL.NEB. NEB PRN (02:56)
[2018-07-01] MEDS ORDERED: ACETAMINOPHEN 325 MG TABLET (FP) PO ONE (03:15)
[2018-07-01] MEDS ORDERED: ACETAMINOPHEN 325 MG TABLET (FP) ONE (03:28)
[2018-07-01] MEDS ORDERED: HYDROmorphone HCl 2 MG/ML VIAL IVPB ONE (04:41)
--- NOTE | 2018-07-01 04:41 | PN ---
Teaching Attending Note Name of Resident: Jorge Jeff ATTENDING PHYSICIAN STATEMENT I saw and evaluated the patient. I reviewed the resident's note and discussed the case with the resident. I agree with the resident's findings and plan as documented. SUBJECTIVE: Seen and examined; please see resident note for further historical information. Briefly, this is a 68 y/o female presenting to the ER with a CC of abdominal pain and back pain; there was initial concern for chest pain today, but on further probing the patient reveals that she has some chest tightness on exertion that sounds to be subjective SOB; this is somewhat chronic. She tells us that she just ran out of her oxycodone. She states she does not regularly follow with CV but has seen one in the past and she cannot remember his name. She denies any history of catherizations; did have a stress test remotely which is negative. She is hemodynamically stable and afebrile. She was seen in the past by Dr. Pop last year and was found to have likely ischemic colitis on flex sig. n. She tells me this pain is similar. She has no SOB at rest, no change in her chronic SOB on exertion, no sputum. Afebrile and no WBC. 10 sys ROS done and neagtive aside from HPI PMH, PSH, Family hx, Social hx reviewed. Medication list reviewed; reconciliation pending Home Medications Medication Instructions Recorded Amlodipine Besylate 10 mg PO DAILY 03/21/18 Escitalopram Oxalate [Lexapro -] 10 mg PO DAILY 03/21/18 Lisinopril 5 mg PO DAILY 03/21/18 Rosuvastatin Calcium 10 mg PO DAILY 03/21/18 Acetaminophen [Tylenol .Regular 650 mg PO Q6H PRN tablet 04/03/18 Strength -] Albuterol 0.083% Nebulizer Kassie 1 amp NEB Q6H PRN amp 04/03/18 [Ventolin 0.083% Nebulizer Soln -] Albuterol 2.5/Ipratropium 0.5 1 amp NEB RTID amp 04/03/18 [Duoneb -] Amox-Tr/K Cl [Augmentin 875-125mg 1 tab PO BID@0800,1730 4 Days #8 04/03/18 Tablet -] tablet Budesonide/Formeterol Fumarate 2 puff IH BID inhaler 04/03/18 [SYMBICORT 160/4.5mcg -] Carvedilol [Coreg -] 12.5 mg PO BID tablet 04/03/18 Fluticasone Prop 0.05% Nasal 1 spray NS BID spray 04/03/18 [Flonase -] oxyCODONE HCL [Roxicodone -] 10 mg PO Q6H PRN #60 tablet MDD 4 04/03/18 oxyCODONE SR [Oxycontin] 10 mg PO BID #60 tab.er.12h MDD 2 04/03/18 OBJECTIVE: VS, labs, imaging reviewed NAD, AAO, resting comfortably in bed NC AT EOMI PERRLA Tender diffusely (mild) with no distention or tympany and +BS RRR s1/2 no mgr Lungs mostly CTAB; poor effort and habitus CN2-12 wnl, no fnd Normal mood, appropriate behavior ASSESSMENT AND PLAN: Patient presents for pain 'all over' but mostly in her back and in her abdomen; concern of chest pain is transient dyspnea on exertion. She is not dyspnic at rest, SOB now, no cough, and doesn't qualify as COPD exacerbation and is saturating well on RA. 1) Abdominal Pain -History reviewed; obtaining CT scan of the abdomen and pelvic. Alk phos slightly up so will check GGT. -Consider GI consultation based on the results of the scan -Holding off abx for now as afebrile and hemodynamically stable. Checking FOBT given hx ischemic colitis. 2) Back Pain -No red flag sx; is ambulatory. -Consider outpateint referral to Dr. Tran 3) SOB on exertion -Not at rest, not severe. Schedule ATC duonebs and check ambulatory pulse ox. Doesn't quite qualify as COPD exacerbation but would have low threshold to start prednisone burst. Continue home inhalers. 4) HTN -Continue home meds 5) Questionable CP -No true CP per my history; we will monitor on telemetry and trend trops and check echo for any wma's in case atypical presentation. 6) Hx Chronic Pain -Is out of her oxycodone per the patient 7) Hx migraines -Not a current issue; monitor Full Code
[2018-07-01] MEDS ORDERED: HYDROmorphone HCl 2 MG/ML VIAL ONE (05:04)
[2018-07-01 05:56] LABS: BASO % 0.5 % (0-2.0); EOS % 0.3 % (0-4.5); HEMATOCRIT 37.6 % (32.4-45.2); HEMOGLOBIN 12.4 GM/dL (10.7-15.3); MCH 27.4 pg (25.7-33.7); MCHC 32.9 g/dl (32.0-36.0); MEAN CELL VOLUME 83.2 fl (80-96); MEAN PLT VOLUME 8.5 fl (7.5-11.1); MONO % 5.5 % (3.8-10.2); NEUT % 73.7 % (42.8-82.8); PLATELET COUNT 317 K/MM3 (134-434); RBC 4.52 M/mm3 (3.60-5.2); RDW 18.2 % (11.6-15.6); WHITE BLOOD COUNT 8.1 K/mm3 (4.0-10.0)
[2018-07-01] MEDS ORDERED: ACETAMINOPHEN 1000 MG/100 ML VIAL (NON FORMULARY) IVPB ONE (06:00)
[2018-07-01 06:11] LABS: INR 1.07 (0.83-1.09); PROTHROMBIN TIME (PATIENT) 12.6 SEC (9.7-13.0)
[2018-07-01 06:12] LABS: PHOSPHOROUS 3.9 mg/dL (2.5-4.9)
[2018-07-01] MEDS ORDERED: ACETAMINOPHEN INJECTION 100 ML IVPB ONE (06:15)
[2018-07-01 06:22] LABS: ALBUMIN 3.1 g/dl (3.4-5.0); ALK PHOS 339 U/L (45-117); AMYLASE 40 U/L (25-115); ANION GAP 10 MMOL/L (8-16); BILIRUBIN,TOTAL 0.3 mg/dL (0.2-1); BLOOD UREA NITROGEN 19 mg/dL (7-18); CALCIUM 8.6 mg/dL (8.5-10.1); CHLORIDE 111 mmol/L (98-107); CO2 19 mmol/L (21-32); CREATININE 1.6 mg/dL (0.55-1.3); GLUCOSE,RANDOM 93 mg/dL (74-106); MAGNESIUM 1.8 mg/dL (1.8-2.4); N-TERMINAL BNP 268.1 pg/ml (5-125); POTASSIUM 4.7 mmol/L (3.5-5.1); SGOT/AST 35 U/L (15-37); SGPT/ALT 35 U/L (13-61); SODIUM 140 mmol/L (136-145); TOT PROT 7.1 g/dl (6.4-8.2)
[2018-07-01] MEDS ORDERED: INSULIN SLIDING SCALE (NOVOLOG) 1 VIAL SQ SCH (07:00)
[2018-07-01] MEDS ORDERED: ALBUTEROL SO4 2.5/IPRATROPIUM 0.5 INH SOL 3 ML VIAL.NEB. NEB SCH (08:00)
[2018-07-01 08:31] LABS: EPI CELLS 1.6 /HPF (0-5); HYALINE CASTS 3 /hpf (0-8); URINE APPEARANCE CLEAR; URINE BACTERIA 5.4 /hpf (NEGATIVE); URINE BILIRUBIN NEGATIVE (NEGATIVE); URINE COLOR YELLOW; URINE GLUCOSE (UA) NEGATIVE (NEGATIVE); URINE KETONE 1+ (NEGATIVE); URINE LEUK ESTERASE NEGATIVE (NEGATIVE); URINE NITRITE NEGATIVE (NEGATIVE); URINE PROTEIN 2+ (NEGATIVE); URINE RBC 1 /hpf (0-4); URINE UROBILINOGEN 0.2 mg/dL (0.2-1.0); URINE WBC 1 /hpf (0-5)
--- NOTE | 2018-07-01 09:35 | EKG ---
Test Reason : Blood Pressure : / mmHG Vent. Rate : 082 BPM Atrial Rate : 082 BPM P-R Int : 150 ms QRS Dur : 074 ms QT Int : 382 ms P-R-T Axes : 043 034 049 degrees QTc Int : 446 ms NORMAL SINUS RHYTHM NORMAL ECG WHEN COMPARED WITH ECG OF 24-MAR-2018 10:54, NO SIGNIFICANT CHANGE WAS FOUND Confirmed by PACO LEVY MD ([id number]) on 07/01/2018 9:35:39 AM Referred By: Confirmed By:PACO LEVY MD
--- NOTE | 2018-07-01 09:35 | EKG ---
Test Reason : Blood Pressure : / mmHG Vent. Rate : 089 BPM Atrial Rate : 089 BPM P-R Int : 146 ms QRS Dur : 078 ms QT Int : 368 ms P-R-T Axes : 041 042 049 degrees QTc Int : 447 ms NORMAL SINUS RHYTHM NONSPECIFIC T WAVE ABNORMALITY ABNORMAL ECG WHEN COMPARED WITH ECG OF 30-JUN-2018 20:00, NO SIGNIFICANT CHANGE WAS FOUND Confirmed by PACO LEVY MD ([id number]) on 07/01/2018 9:35:13 AM Referred By: Confirmed By:PACO LEVY MD
[2018-07-01] MEDS ORDERED: amLODIPine BESYLATE 10 MG TABLET (FP) PO SCH (10:00)
[2018-07-01] MEDS ORDERED: ENOXAPARIN NA (PORCINE) 40 MG/0.4 ML DISP.SYRIN SQ SCH (10:00)
[2018-07-01] MEDS ORDERED: PANTOPRAZOLE 20 MG TABLET (FP) PO SCH (10:00)
[2018-07-01] MEDS ORDERED: CARVEDILOL 12.5 MG TABLET (FP) PO SCH (10:00)
[2018-07-01] MEDS ORDERED: ROSUVASTATIN CA 10 MG TABLET (FP) PO SCH (10:00)
[2018-07-01] MEDS ORDERED: LISINOPRIL 5 MG TABLET (FP) PO SCH (10:00)
[2018-07-01] MEDS ORDERED: BUDESONIDE/FORMETEROL FUMARATE 160/4.5 mcg INHALER IH SCH (10:00)
[2018-07-01] MEDS ORDERED: FLUTICASONE PROP 0.05% 16 GM NASAL SPRAY NS SCH (10:00)
[2018-07-01] MEDS ORDERED: ESCITALOPRAM OXALATE 10 MG TABLET (FP) PO SCH (10:00)
--- NOTE | 2018-07-01 11:57 | DS ---
Physical Exam: SUBJECTIVE: Patient seen and examined, generalized pains, asking for narcotics. No further vomiting. Denies any active abdominal pain, chest pressure, dyspnea or new concerns. OBJECTIVE: Vital Signs Period Temp Pulse Resp BP Sys/Avitia Pulse Ox Last 24 Hr 97.4 F-98 F 83-106 20-22 136-145/75-97 94-99 PHYSICAL EXAM GENERAL: The patient is awake, alert, and fully oriented, sitting comfortably in bed HEAD: Normal with no signs of trauma. EYES: PERRL, extraocular movements intact, sclera anicteric, conjunctiva clear. ENT: Ears normal, nares patent, oropharynx clear without exudates, moist mucous membranes. NECK: Trachea midline, full range of motion, supple. LUNGS: Breath sounds equal, clear to auscultation bilaterally, no wheezes, no crackles, no accessory muscle use. HEART: Regular rate and rhythm, S1, S2 ABDOMEN: Soft, obese, NT throughout, no RUQ or epigastric tenderness noted, no voluntary or involuntary guarding or rigidity, positive bowel sounds EXTREMITIES: 2+ pulses, warm, well-perfused, no edema. NEUROLOGICAL: Cranial nerves II through XII grossly intact. Normal speech, gait not observed. PSYCH: Normal mood, normal affect. SKIN: Warm, dry, normal turgor, no rashes or lesions noted. LABS Laboratory Results - last 24 hr 06/30/18 06/30/18 06/30/18 19:51 19:51 19:51 WBC 8.0 RBC 4.76 Hgb 13.2 Hct 39.4 D MCV 82.8 MCH 27.6 D MCHC 33.4 RDW 18.0 H Plt Count 333 D MPV 8.8 Absolute Neuts (auto) 5.8 Neutrophils % 72.9 Lymphocytes % 20.6 D Monocytes % 5.9 Eosinophils % 0.3 Basophils % 0.3 Nucleated RBC % 0 ESR PT with INR 11.70 INR 0.99 PTT (Actin FS) 33.7 D-Dimer Sodium 138 Potassium 4.8 Chloride 108 H Carbon Dioxide 18 L Anion Gap 12 BUN 20 H Creatinine 1.7 H Creat Clearance w eGFR 30.07 Random Glucose 107 H Lactic Acid Calcium 8.9 Phosphorus Magnesium 1.4 L Total Bilirubin 0.2 AST 50 H ALT 42 Alkaline Phosphatase 366 H Creatine Kinase 27 Troponin I < 0.02 C-Reactive Protein B-Natriuretic Peptide 234.2 H Total Protein 7.3 Albumin 3.3 L Total Amylase Lipase Urine Color Urine Appearance Urine pH Ur Specific [place] Urine Protein Urine Glucose (UA) Urine Ketones Urine Blood Urine Nitrite Urine Bilirubin Urine Urobilinogen Ur Leukocyte Esterase Urine WBC (Auto) Urine RBC (Auto) Urine Casts (Auto) U Epithel Cells (Auto) Urine Bacteria (Auto) 06/30/18 07/01/18 07/01/18 20:26 03:13 05:25 WBC RBC Hgb Hct MCV MCH MCHC RDW Plt Count MPV Absolute Neuts (auto) Neutrophils % Lymphocytes % Monocytes % Eosinophils % Basophils % Nucleated RBC % ESR PT with INR INR PTT (Actin FS) D-Dimer 650 H Sodium Potassium Chloride Carbon Dioxide Anion Gap BUN Creatinine Creat Clearance w eGFR Random Glucose Lactic Acid Calcium Phosphorus 3.9 Magnesium Total Bilirubin AST ALT Alkaline Phosphatase Creatine Kinase Troponin I < 0.02 C-Reactive Protein B-Natriuretic Peptide Total Protein Albumin Total Amylase Lipase 92 Urine Color Urine Appearance Urine pH Ur Specific [place] Urine Protein Urine Glucose (UA) Urine Ketones Urine Blood Urine Nitrite Urine Bilirubin Urine Urobilinogen Ur Leukocyte Esterase Urine WBC (Auto) Urine RBC (Auto) Urine Casts (Auto) U Epithel Cells (Auto) Urine Bacteria (Auto) 07/01/18 07/01/18 07/01/18 05:25 05:25 05:25 WBC RBC Hgb Hct MCV MCH MCHC RDW Plt Count MPV Absolute Neuts (auto) Neutrophils % Lymphocytes % Monocytes % Eosinophils % Basophils % Nucleated RBC % ESR PT with INR INR PTT (Actin FS) D-Dimer Sodium Potassium Chloride Carbon Dioxide Anion Gap BUN Creatinine Creat Clearance w eGFR Random Glucose Lactic Acid 1.1 Calcium Phosphorus Magnesium Total Bilirubin AST ALT Alkaline Phosphatase Creatine Kinase 18 L Troponin I C-Reactive Protein 0.9 H B-Natriuretic Peptide Total Protein Albumin Total Amylase Lipase Urine Color Urine Appearance Urine pH Ur Specific [place] Urine Protein Urine Glucose (UA) Urine Ketones Urine Blood Urine Nitrite Urine Bilirubin Urine Urobilinogen Ur Leukocyte Esterase Urine WBC (Auto) Urine RBC (Auto) Urine Casts (Auto) U Epithel Cells (Auto) Urine Bacteria (Auto) 07/01/18 07/01/18 07/01/18 05:40 05:40 05:40 WBC 8.1 RBC 4.52 Hgb 12.4 Hct 37.6 MCV 83.2 MCH 27.4 MCHC 32.9 RDW 18.2 H Plt Count 317 MPV 8.5 Absolute Neuts (auto) 6.0 Neutrophils % 73.7 Lymphocytes % 20.0 Monocytes % 5.5 Eosinophils % 0.3 Basophils % 0.5 Nucleated RBC % 0 ESR PT with INR 12.60 INR 1.07 PTT (Actin FS) 33.1 D-Dimer Sodium Potassium Chloride Carbon Dioxide Anion Gap BUN Creatinine Creat Clearance w eGFR Random Glucose Lactic Acid Calcium Phosphorus Magnesium Total Bilirubin AST ALT Alkaline Phosphatase Creatine Kinase Troponin I C-Reactive Protein B-Natriuretic Peptide Total Protein Albumin Total Amylase Lipase Urine Color Urine Appearance Urine pH Ur Specific [place] Urine Protein Urine Glucose (UA) Urine Ketones Urine Blood Urine Nitrite Urine Bilirubin Urine Urobilinogen Ur Leukocyte Esterase Urine WBC (Auto) Urine RBC (Auto) Urine Casts (Auto) U Epithel Cells (Auto) Urine Bacteria (Auto) 07/01/18 07/01/18 07/01/18 05:40 06:00 07:19 WBC RBC Hgb Hct MCV MCH MCHC RDW Plt Count MPV Absolute Neuts (auto) Neutrophils % Lymphocytes % Monocytes % Eosinophils % Basophils % Nucleated RBC % ESR 51 H PT with INR INR PTT (Actin FS) D-Dimer Sodium 140 Potassium 4.7 Chloride 111 H Carbon Dioxide 19 L Anion Gap 10 BUN 19 H Creatinine 1.6 H Creat Clearance w eGFR 32.25 Random Glucose 93 Lactic Acid Calcium 8.6 Phosphorus Magnesium 1.8 Total Bilirubin 0.3 AST 35 ALT 35 Alkaline Phosphatase 339 H Creatine Kinase Troponin I C-Reactive Protein B-Natriuretic Peptide 268.1 H Total Protein 7.1 Albumin 3.1 L Total Amylase 40 Lipase Urine Color Yellow Urine Appearance Clear Urine pH 5.0 Ur Specific [place] 1.020 Urine Protein 2+ H Urine Glucose (UA) Negative Urine Ketones 1+ H Urine Blood Negative Urine Nitrite Negative Urine Bilirubin Negative Urine Urobilinogen 0.2 Ur Leukocyte Esterase Negative Urine WBC (Auto) 1 Urine RBC (Auto) 1 Urine Casts (Auto) 3 U Epithel Cells (Auto) 1.6 Urine Bacteria (Auto) 5.4 07/01/18 09:12 WBC RBC Hgb Hct MCV MCH MCHC RDW Plt Count MPV Absolute Neuts (auto) Neutrophils % Lymphocytes % Monocytes % Eosinophils % Basophils % Nucleated RBC % ESR PT with INR INR PTT (Actin FS) D-Dimer Sodium Potassium Chloride Carbon Dioxide Anion Gap BUN Creatinine Creat Clearance w eGFR Random Glucose Lactic Acid Calcium Phosphorus Magnesium Total Bilirubin AST ALT Alkaline Phosphatase Creatine Kinase Troponin I < 0.02 C-Reactive Protein B-Natriuretic Peptide Total Protein Albumin Total Amylase Lipase Urine Color Urine Appearance Urine pH Ur Specific [place] Urine Protein Urine Glucose (UA) Urine Ketones Urine Blood Urine Nitrite Urine Bilirubin Urine Urobilinogen Ur Leukocyte Esterase Urine WBC (Auto) Urine RBC (Auto) Urine Casts (Auto) U Epithel Cells (Auto) Urine Bacteria (Auto) CT A/P: Lung bases: Negative. Bone: Degenerative changes and osteopenia, including the right hip. Liver: Negative. Gallbladder: Status post cholecystectomy. Biliary tree: Negative. Spleen: Negative. Pancreas: Negative. Adrenals: Small right adrenal nodule as previously. Kidneys: Atrophic and lobulated kidneys with multiple cysts and calcifications. Pelvis: Normal bladder distention. Post hysterectomy. Bowel: Sigmoid diverticulosis. No CT evidence of diverticulitis colitis. Normal appendix. Other: Hiatal hernia. Bilateral inguinal hernias with fat Impression: Acute pathology identified. No evidence of colitis or diverticulitis. Atrophic and lobulated kidneys with calcifications as previously. Other findings as above. Clinical correlation advised. US abdomen: Upper abdomen ultrasound. Compared to prior CT scan of the abdomen pelvis dated 03/21/2018 Limited visualization of the liver, likely due to the patient's body habitus. Its measures 15.5 cm in sagittal length with a slightly dense echotexture. Status post cholecystectomy No intra or extrahepatic bile duct dilatation is seen. The common bile duct measures 8 mm. The right and left kidney measured 11 and 11.2 cm , respectively. There are a few right renal cortical simple cysts the largest measuring 1.7 cm. There is also a calcific density at the corticomedullary junction measuring 9 mm compatible with a nonobstructing stone. Limited visualization of the left kidney, in particular on the transverse images with suggestion of a lobulated contour and without gross evidence of stones or hydronephrosis. The spleen measures 10.3 cm in sagittal length with homogeneous echotexture. Nonvisualization of the pancreas. Visualized portion of the proximal abdominal aorta and inferior vena cava appear unremarkable. Normal flow in the main portal vein. IMPRESSION: Limited examination, as described above. Mild fatty infiltration versus hepatocellular disease. Please correlate with liver enzymes. There is also suggestion of mild periportal edema. Correlate clinically. Status post cholecystectomy. Poor visualization of the left kidney with a lobulated contour likely due to scarring. Right renal cortical cysts with a cortical calcific density measuring 9 mm. Cannot rule out a nonobstructing stone. Both kidneys appear echogenic, rule out chronic medical renal disease. Correlate clinically Nonvisualization of the pancreas. HOSPITAL COURSE: Date of Admission:07/01/18 Date of Discharge: 07/01/18 Minutes to complete discharge: 35 Discharge Summary Reason For Visit: GASTROESOPHAGEAL REFLUX DISEASE Current Active Problems Back pain (Acute) Chest pain (Acute) Chronic pain (Acute) Nausea & vomiting (Acute) Polycystic kidney disease (Acute) Hospital Course: 68 yof with PMHx of DM, HTN, GERD ,uterine cancer, diabetes, polycystic kidney disease, total hysterectomy, and cholecystectomy, ischemic colitis in 03/2018 admitted with generalized pain, running out of her narcotic medications with vague chest and abdominal symptoms. She received CT Abdomen/pelvis that was negative for concerns. She was watched on telemetry and ACS was ruled out. She had non concerning abdominal exam with no episodes of vomiting or diarrhea in the hospital. She was tolerating diet well. Her pharmacy was contacted, patient was confirmed to be on standing percocet 10/ 325 mg TID prn (last script 06/05/2018 for 90 tablets). Also was provided with 20 tablets of oxycontin 10 mg BID (on 03/12/2018 that was undispensed by pharmacy to avoid duplicate narcotics). She is strongly encouraged to keep continued follow up with PCP and outpatient referral to [facility] for the same and taper narcotics as tolerated. She will be discharged in stable condition. Condition: Stable - Instructions Diet, Activity, Other Instructions: Continue your home medications as before FOLLOW UP: Please follow up with your doctor to manage narcotic medications Please discuss with your doctor for outpatient referral to [facility]. If you notice any new concerning symptoms, please call 911 or come to the ED Disposition: HOME - Home Medications Comprehensive Discharge Medication List: Ambulatory Orders Amlodipine Besylate 10 mg PO DAILY 03/21/18 Escitalopram Oxalate [Lexapro -] 10 mg PO DAILY 03/21/18 Lisinopril 5 mg PO DAILY 03/21/18 Rosuvastatin Calcium 10 mg PO DAILY 03/21/18 Budesonide/Formeterol Fumarate [SYMBICORT 160/4.5mcg -] 2 puff IH BID inhaler 04/03/18 Carvedilol [Coreg -] 12.5 mg PO BID tablet 04/03/18 Fluticasone Prop 0.05% Nasal [Flonase -] 1 spray NS BID spray 04/03/18 Duloxetine HCl [Cymbalta -] 30 mg PO DAILY 07/01/18 Metaxalone [Metaxall] 800 mg PO TID 07/01/18 Oxycodone HCl/Acetaminophen [Oxycodone-Acetaminophen 5-325] 1 each PO TID PRN Zolpidem Tartrate [Ambien Cr] 12.5 mg PO DAILY 07/01/18 This patient is new to me today: Yes Date on this admission: 07/01/18 Emergency Visit: Yes ED Registration Date: 07/01/18 Care time: The patient presented to the Emergency Department on the above date and was hospitalized for further evaluation of their emergent condition. Critical Care patient: No - Discharge Referral Referred to [facility] No
[2018-07-01 14:57] VITALS: BP 141/72; PULSE 88; TEMP 98
== END 2018-07-01 15:58 | disposition home or self-care (01) ==
LOC: JERFT 18:33 → JERBED 07-01 01:53 → J4W 07-01 10:36
PROVIDERS: ADMIT Internal Medicine; ATTEND Hospitalist
PROC: 3E033NZ Introduction of Analgesics, Hypnotics, Sedatives into Peripheral Vein, Percutaneous Approach (ICD-10-PCS; principal; 2018-07-01)
PROC: 3E0337Z Introduction of Electrolytic and Water Balance Substance into Peripheral Vein, Percutaneous Approach (ICD-10-PCS; 2018-07-01)
PROC: 3E033GC Introduction of Other Therapeutic Substance into Peripheral Vein, Percutaneous Approach (ICD-10-PCS; 2018-07-01)
PROC: 3E013GC Introduction of Other Therapeutic Substance into Subcutaneous Tissue, Percutaneous Approach (ICD-10-PCS; 2018-07-01)
DX: K21.9 Gastro-esophageal reflux disease without esophagitis (principal); R07.9 Chest pain, unspecified; E11.22 Type 2 diabetes mellitus with diabetic chronic kidney disease; I12.9 Hypertensive chronic kidney disease with stage 1 through stage 4 chronic kidney disease, or unspecified chronic kidney disease; N18.9 Chronic kidney disease, unspecified; N17.9 Acute kidney failure, unspecified; E78.5 Hyperlipidemia, unspecified; Q61.3 Polycystic kidney, unspecified; R11.2 Nausea with vomiting, unspecified; M54.6 Pain in thoracic spine; G89.29 Other chronic pain; G47.33 Obstructive sleep apnea (adult) (pediatric); R10.9 Unspecified abdominal pain; E83.42 Hypomagnesemia; F32.9 Major depressive disorder, single episode, unspecified; Z85.42 Personal history of malignant neoplasm of other parts of uterus; Z86.718 Personal history of other venous thrombosis and embolism; Z90.710 Acquired absence of both cervix and uterus
CPT/HCPCS: 36415; 71046-TC-FY; 74176-TC; 76700-TC; 80053; 81003; 82150; 82550; 83605; 83690; 83735; 83880; 84100; 84484; 85025; 85379; 85610; 85651; 85730; 86140; 93005; 93010; 96372; 96374; 96375; 96376; 99285-25; G0378; J0131; J7030; Q9967

== ENCOUNTER 2020-12-25 04:32 | Day surgery (SDC) | payer BC, OTHER ==
[2020-12-22 16:33] VITALS: BMI 36.6
[2020-12-25] MEDS ORDERED: MIDAZOLAM HCL 2 MG/2 ML SINGLE DOSE VIAL ONE (12:40)
[2020-12-25] MEDS ORDERED: ACETAMINOPHEN 325 MG TABLET (FP) ONE (14:46)
[2020-12-25 17:21] VITALS: BP 134/87; PULSE 78; TEMP 97.7
== END 2020-12-25 15:40 | disposition home or self-care (01) ==
LOC: JASU-SURG 04:32 → EDSTATUS 12:00 → JASU-SURG 15:40
PROVIDERS: ATTEND Urology
PROC: 0TF3XZZ Fragmentation in Right Kidney Pelvis, External Approach (ICD-10-PCS; principal; 2020-12-25 12:00)
DX: N20.0 Calculus of kidney (principal)

== ENCOUNTER 2021-01-08 04:14 | Day surgery (SDC) | payer BC, OTHER ==
[2021-01-05 09:25] VITALS: BMI 36.6
[2021-01-08] MEDS ORDERED: PROPOFOL 20 ML ONE (10:06)
[2021-01-08 11:32] VITALS: BP 139/74; PULSE 81; TEMP 97.7
== END 2021-01-08 11:35 | disposition home or self-care (01) ==
LOC: JASU-SURG 04:14
PROVIDERS: ATTEND Urology
PROC: 0TF4XZZ Fragmentation in Left Kidney Pelvis, External Approach (ICD-10-PCS; principal; 2021-01-08 08:30)
DX: N20.0 Calculus of kidney (principal)

== ENCOUNTER 2021-03-19 05:14 | Day surgery (SDC) | payer BC, OTHER ==
[2021-03-15 17:47] VITALS: BMI 36.6
[2021-03-19] MEDS ORDERED: PROPOFOL 20 ML ONE (08:34)
[2021-03-19] MEDS ORDERED: MIDAZOLAM HCL 2 MG/2 ML SINGLE DOSE VIAL ONE (08:34)
[2021-03-19] MEDS ORDERED: LIDOCAINE HCL/PF 2% SDV 5ML VIAL ONE (08:36)
[2021-03-19] MEDS ORDERED: KETOROLAC TROMETHAMINE 30 MG/1 ML VIAL ONE (08:36)
[2021-03-19 13:12] VITALS: BP 126/73; PULSE 65; TEMP 97.4
== END 2021-03-19 12:20 | disposition home or self-care (01) ==
LOC: JASU-SURG 05:14
PROVIDERS: ATTEND Urology
PROC: 0TF3XZZ Fragmentation in Right Kidney Pelvis, External Approach (ICD-10-PCS; principal; 2021-03-19 08:30)
DX: N20.0 Calculus of kidney (principal)

== ENCOUNTER 2022-09-16 03:58 | Day surgery (SDC) | payer BC, OTHER ==
[2022-09-13 15:34] VITALS: BMI 34.7
[2022-09-16] MEDS ORDERED: ALBUTEROL SO4 HFA INHALER IH ONE (09:24)
[2022-09-16] MEDS ORDERED: PROPOFOL 40 ML ONE (09:28)
[2022-09-16] MEDS ORDERED: MIDAZOLAM HCL 2 MG/2 ML SINGLE DOSE VIAL ONE (09:28)
[2022-09-16] MEDS ORDERED: ACETAMINOPHEN 500 MG TABLET (FP) PO ONE (10:23)
[2022-09-16 10:48] VITALS: RESP 20; TEMP 97.7
[2022-09-16 11:54] VITALS: BP 130/80; PULSE 68
== END 2022-09-16 11:55 | disposition home or self-care (01) ==
LOC: JASU-SURG 03:58
PROVIDERS: ATTEND Urology
PROC: 0TC03ZZ Extirpation of Matter from Right Kidney, Percutaneous Approach (ICD-10-PCS; principal; 2022-09-16 09:00)
DX: N20.0 Calculus of kidney (principal)